=== PATIENT | female | born 1940 | race Caucasian/White ===

== ENCOUNTER → 2017-09-18 15:50 | Outpatient (CLI) | payer MEDICARE, SELFPAY ==
[2017-09-18 16:32] LABS: Creatinine, Serum 0.58 mg/dL (0.55-1.02); EST Glomerular Filtration Rate 108 mL/min (>60); Est Glom Filt Rate - Afr Amer 130 mL/min (>60)
== END ==
PROVIDERS: Family Provider Family Medicine; PCP Family Medicine; Visit Provider Family Medicine
DX: R10.9 Unspecified abdominal pain (principal)
CPT/HCPCS: 36415; 82565

== ENCOUNTER → 2017-09-21 16:53 | Outpatient (CLI) | payer MEDICARE, SELFPAY ==
--- NOTE | 2017-09-21 17:03 | CT_ITS ---
STUDY: CT ABDOMEN AND PELVIS WITH CONTRAST REASON FOR EXAM: Female, 76 years old. Bloating for several months RADIATION DOSAGE (If Supplied By Facility): CTDIvol = ( 13.57 ) mGy, DLP = ( 601.55 ) mGycm TECHNIQUE: Transaxial images were obtained from the dome of the diaphragm to the symphysis pubis with oral contrast. 100 ml of Isovue 300 contrast was administered. Sagittal and coronal images were reconstructed. Individualized dose optimization techniques were used for this CT. COMPARISON: None. FINDINGS: The visualized lung bases are unremarkable. The visualized portions of the heart are within normal limits. Normal liver. The gallbladder is contracted. Normal spleen. Normal pancreas. Normal bilateral adrenal glands. Normal right kidney. Normal left kidney. There is a small hiatal hernia. Normal small intestine. Normal colon. There is non-visualization of the appendix. Normal abdominal aorta. Normal inferior vena cava. Normal retroperitoneum. Normal urinary bladder. There is atrophy of the uterus. Normal abdominal wall. There are diffuse degenerative changes of the visualized lumbar spine. CT/Abdomen/Pelvis WITH Contrast IMPRESSION: No acute findings. Unremarkable small bowel. Some fecal retention in the colon. Electronically Signed: Jesus Chavez DO at 20:48 EST Tel , Service support ,
== END ==
PROVIDERS: Family Provider Family Medicine; PCP Family Medicine; Visit Provider Family Medicine
DX: R10.31 Right lower quadrant pain (principal); R10.32 Left lower quadrant pain; M54.40 Lumbago with sciatica, unspecified side
CPT/HCPCS: 74177; Q9967

== ENCOUNTER → 2018-03-02 08:29 | Outpatient (CLI) | payer MEDICARE, SELFPAY ==
--- NOTE | 2018-03-02 08:33 | BI_ITS ---
MAMMOGRAPHY - BILATERAL SCREENING 3-D SUMMER SYNTHESIS REASON FOR EXAM: Female, 77 years old. Bilateral Screening 3-D tomosynthesis PERTINENT HISTORY: Sister with breast cancer.. TECHNIQUE: 2-D mammograms and 3-D Summer synthesis of the breast (s) were performed. CAD was performed. COMPARISON: 2014 FINDINGS: The breast composition is heterogeneously dense that can obscure small breast masses. Scattered benign calcifications are seen. No dense spiculated masses or suspicious microcalcifications are identified. No architectural distortion is identified. There is no skin thickening or retraction. There has been no significant change since the prior study. BI/SCREENING MAMM (CAD), BILAT IMPRESSION: No mammographic signs of malignancy. Routine yearly mammograms recommended. ASSESSMENT CATEGORY: BIRADS Category 2: Benign. A letter regarding these results will be sent to the patient by the facility within 30 days. FOLLOW UP RECOMMENDATION: Yearly follow up mammogram recommended. (A) Approximately 10% of breast cancers are not detected by mammography. A normal mammogram should not delay biopsy of a clinically suspicious abnormality. Electronically Signed: Taras Herndon MD at 8:42 EDT , Service support ,
--- NOTE | 2018-03-02 08:36 | BD_ITS ---
STUDY: DUAL ENERGY X-RAY ABSORPTIOMETRY / DXA REASON FOR EXAM: Female, 77 years old. Postmenopausal screening TECHNIQUE: Bone Mineral Density (BMD) measurements of lumbar spine and bilateral hips were obtained. COMPARISON: 2013 FINDINGS: Lumbar Spine (L1-L4): g/cm2 (0.993) / T-score (-1.1) / Z-score (0.7) Findings are suggestive of osteopenia with a moderate fracture risk. Left Femur Total: g/cm2 (0.711) / T-score (-2.4) / Z-score (-0.4) Left Femoral Neck: g/cm2 (0.653) / T-score (-2.8) / Z-score (-0.7) Right Femur Total: g/cm2 (0.647) / T-score (-2.9) / Z-score (-1.0) Right Femoral Neck: g/cm2 (0.611) / T-score (-3.1) / Z-score (-1.0) The T-Scores on the most recent prior examination were: Lumbar Spine (L1-L4): There has been worsening of bone density since the previous examination. BD/Dexa Bone Density Study IMPRESSION: The patient is considered osteoporotic as outlined below according to World Chuck Organization (WHO) criteria with a high fracture risk. There has been worsening of bone density since the previous examination. Reference Information: The T-score is the number of standard deviations above or below the standard which is normal for young adults at their peak bone mineral density. The World Health Organization (WHO) interprets the T-scores as follows: Above -1 Normal bone density Between -1 and -2.5 Osteopenia Equal to / or below -2.5 Osteoporosis As a practical clinical guideline, osteopenia may be graded as follows: Mild -1 through -1.5 Moderate -1.6 through -2.0 Severe -2.1 through -2.4 The Z-score is the number of standard deviations above or below age-matched controls. A Z-score of less than -1.5 would be considered abnormal. References: 1. NIH Osteoporosis and Related Bone Diseases http://www.osteo.org 2. International Society for Clinical Densitometry http://www.iscd.org 3. National Osteoporosis Foundation http://www.nof.org Electronically Signed: Taras Herndon MD at 12:28 EDT , Service support ,
== END ==
PROVIDERS: Family Provider Family Medicine; PCP Family Medicine; Visit Provider Family Medicine
DX: Z12.31 Encounter for screening mammogram for malignant neoplasm of breast (principal); Z78.0 Asymptomatic menopausal state; Z13.820 Encounter for screening for osteoporosis
CPT/HCPCS: 77063; 77067; 77080

== ENCOUNTER → 2018-03-16 13:52 | Outpatient (CLI) | payer MEDICARE, SELFPAY ==
[2018-03-16 15:31] LABS: AST(SGOT) 21 U/L (15-37); Alanine Aminotransfer ALT/SGPT 23 U/L (13-56)
== END ==
PROVIDERS: Family Provider Family Medicine; PCP Family Medicine; Visit Provider Family Medicine
DX: Z79.899 Other long term (current) drug therapy (principal)
CPT/HCPCS: 36415; 84450; 84460

== ENCOUNTER → 2018-04-06 10:51 | Outpatient (CLI) | payer MEDICARE, SELFPAY | PROVIDERS: Family Provider Family Medicine; PCP Family Medicine; Visit Provider Orthopaedic Surgery | DX: M54.5 Low back pain (principal) | CPT/HCPCS: 72110 ==

== ENCOUNTER → 2018-04-21 15:30 | Outpatient (CLI) | payer MEDICARE, SELFPAY ==
[2018-04-21 18:10] LABS: Calcium,Total 9.1 mg/dL (8.5-10.1); Creatinine, Serum 0.61 mg/dL (0.55-1.02); EST Glomerular Filtration Rate 100 mL/min (>60); Est Glom Filt Rate - Afr Amer 121 mL/min (>60)
[2018-04-21 20:46] LABS: Vitamin D,25 Hydroxy 36.5 ng/mL (29.95-100.01)
== END ==
PROVIDERS: Family Provider Family Medicine; PCP Family Medicine; Visit Provider Family Medicine
DX: M81.0 Age-related osteoporosis without current pathological fracture (principal)
CPT/HCPCS: 36415; 82306; 82310; 82565

== ENCOUNTER → 2018-08-25 16:43 | Outpatient (CLI) | payer MEDICARE, SELFPAY ==
[2018-08-25 18:27] LABS: AST(SGOT) 44 U/L (15-37); Alanine Aminotransfer ALT/SGPT 56 U/L (13-56); Albumin, Serum 2.5 g/dL (3.2-5.0); Alkaline Phosphatase 484 U/L (45-117); Bilirubin, Direct 10.16 mg/dL (0.00-0.30); Globulin 4.4 g/dL (2.2-4.2); Protein, Total 6.9 g/dL (6.4-8.2)
--- OUTSIDE RECORDS SUMMARY | 2018-10-30 16:34 | XMS RPT_ITS ---
:1940 Author Organization OHIP Support Name Relationship Address Phone R Unavailable Unavailable Unavailable RANJANA, NISHANT/JEAN-PIERRE Unavailable [address] + [place] [address] RANJANA, ADILENE Unavailable [address] + [place] [address] R Unavailable Unavailable Unavailable RANJANA, NISHANT/JEAN-PIERRE Unavailable [address] + [place] [address] RANJANA, ADILENE Unavailable [address] + [place] [address] R Unavailable Unavailable Unavailable RANJANA, NISHANT/JEAN-PIERRE Unavailable [address] + [place] [address] RANJANA, ADILENE Unavailable [address] + [place] [address] R Unavailable Unavailable Unavailable RANJANA, NISHANT/JEAN-PIERRE Unavailable [address] + [place] [address] RANJANA, ADILENE Unavailable [address] + [place] [address] R Unavailable Unavailable Unavailable RANJANA, NISHANT/JEAN-PIERRE Unavailable [address] + [place] [address] RANJANA, ADILENE Unavailable [address] + [place] [address] R Unavailable Unavailable Unavailable RANJANA, NISHANT/JEAN-PIERRE Unavailable [address] + [place] [address] RANJANA, ADILENE Unavailable [address] + [place] [address] R Unavailable Unavailable Unavailable RANJANA, NISHANT/JEAN-PIERRE Unavailable [address] + [place] [address] RANJANA, ADILENE Unavailable [address] + [place] [address] R Unavailable Unavailable Unavailable RANJANA, NISHANT/JEAN-PIERRE Unavailable [address] + [place] [address] RANJANA, ADILENE Unavailable [address] + [place] [address] R Unavailable Unavailable Unavailable RANJANA, NISHANT/JEAN-PIERRE Unavailable [address] [phone] [place] [address] RANJANA, ADILENE Unavailable [address] [phone] [place] [address] R Unavailable Unavailable Unavailable RANJANA, NISHANT/JEAN-PIERRE Unavailable [address] [phone] [place] [address] RANJANA, ADILENE Unavailable [address] [phone] [place] [address] Care Team Providers Name Role Phone Jose Nugent Primary Care Unavailable Elda Lund Attending Unavailable Jose Nugent Attending Unavailable Jose Nugent Referring Unavailable Jovanna Jose Primary Care Unavailable Maria Luisa Castillo Attending Unavailable Jose Nugent Referring Unavailable Jovanna, Jose Primary Care Unavailable Jose Nugent Attending Unavailable Jose Nugent Referring Unavailable Jovanna, Jose Primary Care Unavailable Jose Nugent Attending Unavailable Jose Nugent Referring Unavailable Jovanna, Jose Primary Care Unavailable Jose Nugent Attending Unavailable Jovanna Jose Primary Care Unavailable Jose Nugent Attending Unavailable Jovanna, Jose Primary Care Unavailable Jose Nugent Attending Unavailable Jose Nugent Referring Unavailable Jovanna, Jose Primary Care Unavailable Maria Luisa Castillo Attending Unavailable Maria Luisa Castillo Referring Unavailable Jovanna Jose Primary Care Unavailable Jose Nugent Attending Unavailable Jovanna Jose Primary Care Unavailable Jose Nugent Referring Unavailable JOYCELYN CONLEY Admitting Unavailable JOYCELYN CONLEY Attending Unavailable BALWINDER PATTERSON Referring Unavailable SANDRA ANN Consulting Unavailable JOYCELYN CONLEY Admitting Unavailable DAPHNEY PATTERSON Referring Unavailable Jose Nugent DO Primary Care Unavailable ELIZABETH FOSTER Consulting Unavailable JOE FELICIANO Attending Unavailable Caleb ANN Consulting Unavailable AISHA COPELAND Consulting Unavailable ANTONIO ARCHER Consulting Unavailable Mel SOUSA Consulting Unavailable DUMLIZABETH IIITABBY Consulting Unavailable ELDA SANTANA Consulting Unavailable GEO GUARDADO Consulting Unavailable PROBLEMS PROBLEMS DATE TYPE CONDITION / CODE ATTENDING STATUS SOURCE 08/28/2018 Active Unknown / JAR[place], Active [place] UNK(Unknown) [facility] Repository 08/29/2018 Admitting Unknown / JOE FELICIANO Active [place] [facility] UNK(Unknown) [facility] Repository 08/25/2018 Unknown R17 - Unspecified [place], Active [place] jaundice / [facility] R17(ICD-10) Hospital Repository 04/21/2018 Unknown M81.0 - [place], Active [place] Age-related [facility] osteoporosis Hospital without current Repository pathological fracture / M81.0(ICD-10) 04/06/2018 Unknown M54.5 - Low back Maria Luisa Castillo Active [place] pain / Community M54.5(ICD-10) Hospital Repository 03/02/2018 Unknown Z12.31 - Encounter Jovanna, Active [place] for screening [facility] mammogram for Hospital malignant neoplasm Repository of breast / Z12.31(ICD-10) 03/02/2018 Unknown Z78.0 - [place], Active [place] Asymptomatic [facility] menopausal state / Hospital Z78.0(ICD-10) Repository 10/30/2017 Unknown R10.31 - Right [place], Active [place] lower quadrant [facility] pain / Hospital R10.31(ICD-10) Repository PROCEDURES PROCEDURES No Procedure Records FoundRESULTS RESULTS PROGRESS Observed: 09/04/2018 Status: COMPLETED Source: [place] 12:[address] [facility] OTHER CAMPUS REPOSITORY HNO ID: [id number] Author: Joe Feliciano MD Service: General Internal Medicine Author Type: Physician Type: Progress Notes Filed: 09/05/2018 12:10 AM Note Text: INPATIENT PROGRESS NOTE SERVICE DATE: 09/04/2018 SERVICE TIME: 10:00am PRIMARY SERVICE: GIM Subjective CHIEF COMPLAINT: fu on obstructive Jaundice INTERVAL HPI: Patient in bed c/o pain in the drain site wants it out --> I explained to her why she should not. Current hospital medications: senna-docusate 8.6-50 mg 2 tablet (SENNA-S) 2 tablet ORAL BID polyethylene glycol 3350 17 g packet (MIRALAX, GLYCOLAX) 17 g ORAL DAILY bisacodyl 10 mg suppository (DULCOLAX) 10 mg RECTAL DAILY PRN ascorbic acid (vitamin C) 500 mg tab(s) (VITAMIN C) 500 mg ORAL DAILY diphenhydrAMINE 25 mg injection (BENADRYL) 25 mg INTRAVENOUS q 6 H PRN NaCl 0.9% iv infusion 75 mL/hr INTRAVENOUS CONTINUOUS heparin 5,000 Units injection 5,000 Units SUBCUTANEOUS q 12 H oxyCODONE IR 5 mg tab(s) (ROXICODONE) 5 mg ORAL q 6 H PRN metoclopramide HCl 10 mg injection (REGLAN) 10 mg INTRAVENOUS q 8 H PRN docusate sodium 100 mg cap(s) (COLACE) 100 mg ORAL BID PRN lisinopril 2.5 mg tab(s) 2.5 mg ORAL DAILY melatonin 3 mg tab(s) 3 mg ORAL HS PRN calcium-cholecalciferol (D3) 1 tablet tab(s) (OSCAL+D 250) 1 tablet ORAL BID cyanocobalamin 1,000 mcg tab(s) (VITAMIN B-12) 1,000 mcg ORAL DAILY latanoprost 0.005 % 1 Drop (XALATAN) 1 Drop BOTH EYES AT BEDTIME lactobacillus rhamnosus (CULTURELLE) capsule 1 capsule ORAL BID hydrOXYzine HCl 25 mg tab(s) (ATARAX) 25 mg ORAL q 8 H PRN Objective PHYSICAL EXAM: BP 145/90 Pulse 84 Temp (Src) 98.2 (Oral) Resp 16 Ht 5' 2 (1.58m) Wt 136 lb 11 oz (62.0kg) SpO2 96% BMI 24.99 kg/(m2). GENERAL: Alert, no distress, cooperative SKIN: Skin color, texture, turgor normal. No rashes or lesions. NECK: No jugulovenous distention, No carotid bruits, Supple LUNGS: Clear to auscultation, CARDIAC: RR, Normal S1 and S2, no murmurs, no gallops ABDOMEN: soft, non-tender, BS normal, No masses or organomegaly EXTREMITIES: no E/C/C NEURO: Alert, O x 3, no focal deficet PULSES: Present The remainder of the physical exam is noncontributory. DATA: Diagnostic tests reviewed for today's visit: Most recent labs and imaging results. Assessment/Plan Principal Problem: Obstructive jaundice POA: Unknown Assessment AND Plan: 2 # 2, PCD/ pain control Active Problems: Cholangiocarcinoma (HCC) POA: Yes Assessment AND Plan: with possible lung / bone mets --> bronchoscopy for possible Dx Resolved Problems: * No resolved hospital problems. * Medication and Non-Pharmacologic VTE Prophylaxis/Anticoagulants Anticoagulant AND Antiplatelet Medications Start Dose Route Frequency Ordered Stop 08/28/18 2100 heparin 5,000 Units injection (Medical At Risk ) 5,000 Units SUBCUTANEOUS EVERY 12 HOURS 08/28/18 1512 -- 08/28/18 1515 vte non-pharmacologic prophylaxis - none indicated (fl,oh) VTE Prophylaxis: VTE prophylaxis appropriate I discussed the plan of care with the patient AND/or family and answered all questions. Disposition: Home SIGNATURE: Joe Feliciano MD PATIENT NAME: Yane Chilel DATE: September 04, 2018 TIME: 12:27 PM PAGER: [phone] ? From 7am - 7pm, please call [employer] ?After 7pm, please call cross cover pager #[phone] ? NURSING PROG Observed: 09/03/2018 Status: COMPLETED Source: [place] 10:16 PM CLINIC OTHER CAMPUS REPOSITORY HNO ID: [id number] Author: Kiki HensonRn) LIUDMILA Nowak Service: Nursing Author Type: Registered Nurse Type: Nursing Progress Note Filed: 09/03/2018 10:17 PM Note Text: Nursing Progress Note Patient Name: Yane Chilel Patient Location: [place] [address] [address]* RN still has not received a call back from [facility]. Last paged at [phone] (09/03/18). This note was completed by: Kiki Nowak RN NURSING PROG Observed: 09/03/2018 Status: COMPLETED Source: [place] 9:45 PM CLINIC OTHER [place] REPOSITORY HNO ID: [id number] Author: Kiki Tobias) LIUDMILA Nowak Service: Nursing Author Type: Registered Nurse Type: Nursing Progress Note Filed: 09/03/2018 10:16 PM Note Text: Nursing Progress Note Patient Name: Yane Chilel Patient Location: [id number]/[id number]* Still no call back from [facility] about the patient no longer having a [employer]ak. RN paged [facility] again. No call back at this time. This note was completed by: Kiki Nowak RN CASE MANAGEM Observed: 09/03/2018 Status: COMPLETED Source: [place] 2:45 PM CLINIC OTHER [place] REPOSITORY HNO ID: [id number] Author: Analisa Tobias) LIUDMILA Mas Service: Care Management Author Type: Registered Nurse Type: Care Mgt Progress Note Filed: 09/03/2018 2:48 PM Note Text: CARE MANAGEMENT PROGRESS NOTE SERVICE DATE: 09/03/2018 SERVICE TIME: 2:45 PM LOS: 6 days Needs Prior to Discharge: To Be Determined Chart reviewed. ID, Pulm, general surg, hemoc all following. If doesn't have bronch here-may have Bronch in [place] as outpatient. DC plan is home once medically stable. SIGNATURE: Analisa Mas RN PATIENT NAME: Yane Chilel DATE: September 03, 2018 TIME: 2:45 PM PAGER/CONTACT #: [phone] PROGRESS Observed: 09/03/2018 Status: COMPLETED Source: [place] 1:[address] [facility] OTHER CAMPUS REPOSITORY HNO ID: [id number] Author: L[facility] Service: Hospital Medicine Author Type: Physician Type: Progress Notes Filed: 09/03/2018 1:28 PM Note Text: INPATIENT PROGRESS NOTE CHIEF COMPLAINT: jaundice INTERVAL HPI: Pt feels a little better after drain placement yest. No fevers/chills. Denies CP/SOB/cough PHYSICAL EXAM: BP 142/87 Pulse 77 Temp (Src) 98.4 (Oral) Resp 18 Ht 5' 2 (1.58m) Wt 136 lb 11 oz (62.0kg) SpO2 96% BMI 24.99 kg/(m2). GENERAL: Alert, no distress, cooperative LUNGS: Lungs clear to auscultation, Good diaphragmatic excursion CARDIAC: Normal S1 and S2; no rubs, murmurs, or gallops ABDOMEN: Abdomen soft, diffuse tenderness, BS normal, No masses or organomegaly, [address], R one with serosanguinous drainage and L with yellow drainage EXTREMITIES:no edema DATA: Diagnostic tests reviewed for today's visit: CBC, Coags, BMP, Mg, Phos Recent Labs 09/03/18 0812 09/01/18 0041 WBC 5.68 5.79 HB 11.8 12.0 HCT 35.1 34.4 PLT 588* 561* NA 132* 136 K 3.8 3.8 CHLOR 108* 102 CO2 19* 25 BUN 9 10 CREAT 0.39* 0.44* GLUC 112* 105* CA 7.5* 8.2* Assessment/Plan # obstructive jaundice 2/2 cholangiocarcinoma- GS and oncology followig.per GS tumor not amenable to resection.had percutaneous drains placed yest by IR. ? Chemo as out pt # pulm nodules- possible mets vs infectious etio. . Too small for BX.Pt denies any resp symptoms. Seen by ID today. W/u pending. Consulted pulm for possible bronch #constipation- c/w laxatives # HTN stable SIGNATURE: Lobo Heart MD PATIENT NAME: Yane Chilel DATE: September 03, 2018 TIME: 1:25 PM PAGER: NURSING PROG Observed: 09/03/2018 Status: COMPLETED Source: [place] 12:30 PM CLINIC OTHER CAMPUS REPOSITORY HNO ID: [id number] Author: Rui (Rn) LIUDMILA Sosa Service: Nursing Author Type: Registered Nurse Type: Nursing Progress Note Filed: 09/03/2018 12:34 PM Note Text: Spoke to infection control and MD Heart about whether patient needs to be in isolation since a TB blood sample was sent to lab. Told that patient doesn't need isolation since MD Sousa document that he doesn't believe she has TB. Observed: 09/03/2018 Status: F Source: [facility] CRYPTOCOCCAL ANTIGEN 11:46 AM HEALTH SYSTEM REPOSITORY Test performed at [facility] Negative Performed By: #### CRY #### [facility] [address] [place] [address] CONSULT Observed: 09/03/2018 Status: COMPLETED Source: [place] 11:42 AM CLINIC OTHER CAMPUS REPOSITORY HNO ID: [id number] Author: Vee Finnegan Service: Pulmonary Disease Author Type: Nurse Practitioner Type: Consults Filed: 09/03/2018 2:07 PM Note Text: Attestation signed by Geo Guardado at 09/03/2018 8:33 PM [facility] STAFF PHYSICIAN NOTE OF PERSONAL INVOLVEMENT IN CARE I have reviewed the consult note obtained and documented by the nurse practitioner and I personally participated in the maldonado components. I have personally examined the patient, reviewed all pertinent labs and imaging, as well as discussed the case and management of the patient's care with the nurse practitioner . The following comments revise or confirm relevant maldonado components of the note. Patient with cholangiocarcinoma and multiple lung nodules, seen by oncology who felt that these nodules are infectious in origin and would like ID input before chemotherapy, ID recommended Pulm consult for Bronch, I reviewed the images and discussed the plan with the primary team PHYSICAL EXAM PERFORMED: BP 138/78 Pulse 84 Temp 36.7 ?C (98.1 ?F) (Oral) Resp 18 Ht 157.5 cm (5' 2) Wt 62 kg (136 lb 11 oz) SpO2 100% BMI 25.00 kg/m? General: AAOx3, no distress, icteric Resp: clear breath sounds bilaterally, no wheezing, rhonchi, or crackles noted CV: RRR, no MGR noted Abd: soft, NT, ND, +BS, no guarding noted Ext: no pedal edema noted, warm to touch, no cyanosis, non- tender, appropriate cap Recent imaging reviewed independently CT CHEST 08/29/18 Multiple pulmonary nodules, solid and cavitary. Severe intrahepatic biliary duct dilatation. ? IMPRESSION: Multiple lung nodules that could be infectious vs metastatic most of these nodules are small and peripheral and can not be biopsied through bronchoscopy Obstructive jaundice from chloangiocarcinoma Possible bone mets PLAN: As mentioned above these lung nodules can not be biopsied through bronchoscopy but bronchoscopy might be beneficial for bronchoalveolar lavage to assess for potential infectious process before chemotherapy but with very limited yield Discussed with patient and would like this to be done as OP in [place] Please let us know if patient changed her mind and will be available to help [facility] SIGNATURE: Geo Guardado MD PATIENT NAME: Yane Chilel DATE: September 03, 2018 TIME: 8:17 PM Pulmonary Consult Note [facility] SERVICE DATE: 09/03/2018 SERVICE TIME: 11:42 AM REASON FOR ADMISSION: ITCHINESS AND YELLOW DISCOLORATION OF SKIN REASON FOR CONSULT: PULMONARY NODULES Subjective HISTORY OF PRESENT ILLNESS: This is a very pleasant 77 year old female with past medical history significant for HTN, DDD with low back pain chronic, who comes to [facility] 08/28/18 with complaints of itchiness and yellow skin. A CT scan of chest Was done and a MRI of AND was done on 08/31/18 We have been consulted for Pulmonary nodules. Patient states that prior to presented to hospital about a week earlier felt like she had the flu/cold symptoms all of which have resolved. She denies any recent weight loss, denies recent sick contacts or recent travel. Denies CP , F/C/NS, N/V/D. Denies Hemoptysis. She has no pulmonary complaints at this time and is on room air.The CAT scan of the chest on 08/29/2018, showed multiple predominantly solid, but also cavitary nodules scattered throughout both lungs. The majority of the nodules measure 1 cm or less in size. There was severe intrahepatic biliary ductal dilation. There was thick wall esophagogastric junction. She had an ERCP done on 08/30/2018, which showed a filling defect in the distal common bile duct with areas of stricture involving the biliary hilum and proximal common bile duct. There was marked intrahepatic biliary dilation. She was noted to have an intrabiliary stent. She then had an MRI of the abdomen with and without contrast on 08/31/2018. This showed strictures involving the central intrahepatic bile ducts and proximal common hepatic duct consistent with patient's diagnosis of cholangiocarcinoma. REVIEW OF SYSTEMS: GENERAL: Negative for fevers, malaise, chills, sweats, lethargy, change in appetite or weight HEENT: Negative for headaches, hearing/vision changes, nasal bleeding, congestion or rhinorrhea NECK: Negative for lumps, goiter, pain and significant neck swelling NEURO: No history of headaches, syncope, paralysis, seizures or tremors RESPIRATORY: Negative for hemoptysis, wheezing, COPD, dyspnea or shortness of breath + non-productive cough CARDIOVASCULAR: Negative for chest pain, leg swelling, hypertension, CHF or palpitations GI: No nausea, vomiting, diarrhea, heartburn or reflux symptoms : No history of dysuria, frequency or incontinence, No difficulty urinating, nocturia > 1 time per night or hematuria SKIN: Negative for lesions, rash, and itching MUSCULOSKELETAL: Negative for joint pain or swelling, + Low back pain + right should pain Objective PAST MEDICAL HISTORY Diagnosis Date - Constipation - functional - Diverticulosis of colon (without mention of hemorrhage) PAST SURGICAL HISTORY Procedure Laterality Date - COLONOSCOP W/ OR W/O [facility] SPEC 01/25/14 Colonoscopy - DESTRUC CONJUNC LESN 03/29/10 Performed by ALEC JACOBSON at [facility] [place] - EXCIS CONJUNC LESN+ADJ SCLERA 03/29/10 Performed by ALEC JACOBSON at [facility] - PAST SURGICAL HISTORY OF 11/2010 3 right shoulder - PAST SURGICAL HISTORY OF 2010 bilateral TKR - PAST SURGICAL HISTORY OF 2010 left wrist ORIF - PAST SURGICAL HISTORY OF 2009 cataract surgery bilateral - PAST SURGICAL HISTORY OF remote tubal ligation - SIGMOIDOSCOPY FLEX DIAG 04/24/2011 Sigmoidoscopy, flexible FAMILY HISTORY Problem Relation Age of Onset - Colon Cancer Mother - Colon Cancer Father Social History Substance Use Topics - Smoking status: Former Smoker Quit date: 03/20/2002 - Smokeless tobacco: Never Used - Alcohol use No Lives at home with family. Former smoker -smoked 1/2- PPD for 40 years Quit 18 years ago. Denies ETOH use. Denies Illicit drug use. ALLERGIES No Known Allergies Prescriptions Prior to Admission: magnesium hydroxide (MILK OF MAGNESIA ORAL) Take by mouth twice daily as needed. Disp: Rfl: melatonin 10 mg tab Take 1 tablet by mouth daily at bedtime. Disp: Rfl: oxyCODONE-acetaminophen (PERCOCET) 5-325 mg tablet Take 1 tablet by mouth every 6 hours as needed. Disp: Rfl: LISINOPRIL ORAL Take 2.5 mg by mouth once daily. Disp: Rfl: HAWTHORN ORAL Take by mouth. Disp: Rfl: CALCIUM CARB/VIT D3/MINERALS (CALCIUM CARBONATE-VIT D3-MIN) 1,200 mgcalcium -1,000 unit ORAL Chew Take by mouth. Disp: Rfl: 0 GINKOBA ORAL one tab BID Disp: Rfl: MULTI-VITAMIN ORAL one tab daily Disp: Rfl: VITAMIN C ORAL one tab daily Disp: Rfl: B-12 DOTS ORAL one daily Disp: Rfl: OTHER MEDICATIONS: Current Facility-Administered Medications: senna-docusate 8.6-50 mg 2 tablet (SENNA-S) 2 tablet ORAL BID Maryjo Rubi (Allison) ALLISON Parker 2 tablet at 09/03/18 0751 polyethylene glycol 3350 17 g packet (MIRALAX, GLYCOLAX) 17 g ORAL DAILY Maryjo Rubi (Allison) ALLISON Parker 17 g at 09/03/18 0752 bisacodyl 10 mg suppository (DULCOLAX) 10 mg RECTAL DAILY PRN Lobo Valluri 10 mg at 09/01/18 0910 ascorbic acid (vitamin C) 500 mg tab(s) (VITAMIN C) 500 mg ORAL DAILY Alondra Barber 500 mg at 09/03/18 0751 diphenhydrAMINE 25 mg injection (BENADRYL) 25 mg INTRAVENOUS q 6 H PRN Peter Mezaungnoah 25 mg at 09/01/18 0414 NaCl 0.9% iv infusion 75 mL/hr INTRAVENOUS CONTINUOUS Ailn (Res) [place] Last Rate: 75 mL/hr at 09/03/18 0900 75 mL/hr at 09/03/18 0900 heparin 5,000 Units injection 5,000 Units SUBCUTANEOUS q 12 H Wilfredo Felton 5,000 Units at 09/03/18 0751 oxyCODONE IR 5 mg tab(s) (ROXICODONE) 5 mg ORAL q 6 H PRN Wilfredo K Felton 5 mg at 09/02/182044 metoclopramide HCl 10 mg injection (REGLAN) 10 mg INTRAVENOUS q 8 H PRN Wilfredo K Felton 10 mg at 09/02/18 0740 docusate sodium 100 mg cap(s) (COLACE) 100 mg ORAL BID PRN Wilfredo K Felton 100 mg at 09/03/18 075 lisinopril 2.5 mg tab(s) 2.5 mg ORAL DAILY Wilfredo K Felton 2.5 mg at 09/03/18 0751 melatonin 3 mg tab(s) 3 mg ORAL HS PRN Wilfredo K Felton calcium-cholecalciferol (D3) 1 tablet tab(s) (OSCAL+D 250) 1 tablet ORAL BID Wilfredo K Felton 1 tablet at 09/03/18 075 cyanocobalamin 1,000 mcg tab(s) (VITAMIN B-12) 1,000 mcg ORAL DAILY Wilfredo K Felton 1,000 mcg at 09/03/18 075 latanoprost 0.005 % 1 Drop (XALATAN) 1 Drop BOTH EYES AT BEDTIME Wilfredo K Felton 1 Drop at 09/02/182044 lactobacillus rhamnosus (CULTURELLE) capsule 1 capsule ORAL BID Wilfredo K Felton 1 capsule at 09/03/18 075 hydrOXYzine HCl 25 mg tab(s) (ATARAX) 25 mg ORAL q 8 H PRN Wilfredo K Felton 25 mg at 09/01/18 0033 Intake/Output Summary (Last 24 hours) at 09/03/18 1407 Last data filed at 09/03/18 1200 Gross per 24 hour Intake 860 ml Output 3070 ml Net -2210 ml LABS/MICRO/RADIOLOGY FILMS URINE CULTURE - negative RIGHT BILIARY DUCT CULTURE - No growth at 1 day COMMON BILE DUCT BRUSH - CYTOLOGY - COMMON BILE DUCT BRUSH- POSITIVE FOR MALIGNANT CELLS, ADENOCARCINOMA PROCALCITONIN 0.13 CA19-9 - 116.8 CEA 5.5 BMP: Glucose (mg/dL) Date Value 09/03/2018 112 Potassium (mEq/L) Date Value 09/03/2018 3.8 Sodium (mEq/L) Date Value 09/03/2018 132 Chloride (mEq/L) Date Value 09/03/2018 108 CO2 (mEq/L) Date Value 09/03/2018 19 Creatinine (mg/dL) Date Value 09/03/2018 0.39 BUN (mg/dL) Date Value 09/03/2018 9 Anion Gap (no units) Date Value 09/03/2018 9 Calcium (mg/dL) Date Value 09/03/2018 7.5 CBC: HGB (g/dL) Date Value 09/03/2018 11.8 09/01/2018 12.0 08/31/2018 11.5 Hematocrit (%) Date Value 09/03/2018 35.1 09/01/2018 34.4 08/31/2018 34.0 WBC (thou/cmm) Date Value 09/03/2018 5.68 09/01/2018 5.79 08/31/[address] CHEST 08/29/18 Multiple pulmonary nodules, solid and cavitary. ? Sclerotic lesion T2 vertebral body with mixed osteolytic/osteosclerotic lesions T3 ?and T4 vertebra with mild/moderate compression deformity of the L1 vertebral body. ? Thick-walled esophagogastric junction. ? Severe intrahepatic biliary duct dilatation. ? Hypoattenuation central liver possibly related to a thick-walled gallbladder. MRI ABDOMEN 08/31/18 Strictures involving the central intrahepatic bile ducts and proximal common hepatic duct consistent with patient's diagnosis of cholangiocarcinoma. ? The gallbladder demonstrates thickened wall in the neck of the gallbladder is stuck into the hepatic hilum and involved with suspected mass. ? Multiple nodules at the lung bases as seen on recent CT scan. ?Infectious etiology ?is the top consideration. ?Metastatic neoplasm is considered unlikely. IR BILIARY CATH PLACEMENT 09/02/18 IMPRESSION: ? 1. ?Technically successful ultrasound and fluoroscopic-guided placement of an 8 Sw[place] APD catheter into an isolated dilated right biliary duct. ?Attempts to cross the level of obstruction this duct were unsuccessful. ?Repeat attempt can be ?made following decompression which may result in decreased edema at the site of the obstruction. ? 2. ?Technically successful ultrasound and fluoroscopic-guided placement of an internal/external iliac drainage catheter via a dilated left hepatic duct. ? 3. ?There is a lesion at the confluence of the biliary ducts and common bile duct consistent with the history of cholangiocarcinoma. ?This results in 2 isolated dilated right hepatic ducts. ?One is drained via the direct placement of a drainage catheter. ?A second is drained by the previously placed internal biliary stent. ?There is a third right hepatic duct which is not totally isolated and communicates with the hilum and the left biliary system. ?This is drained via the left internal/external biliary ? NO ECHOCARDIOGRAM, PFT OR PSG IN [facility] OR CARE EVERYWHERE VITALS: BP 142/87 Pulse 77 Temp 36.9 ?C (98.4 ?F) (Oral) Resp 18 Ht 157.5 cm (5' 2) Wt 62 kg (136 lb 11 oz) SpO2 96% BMI 25.00 kg/m? PHYSICAL EXAM: VITALS: as above, reviewed. On room air GENERAL: patient is jaundice in appearance - AAOx3, pleasant, resting in bed, NAD NEURO: CN 2-12 intact, speech clear HEENT: NCAT, EOMI, no lymphadenopathy RESPIRATORY: CTAB, even/unlabored at rest, no accessory muscle use, no pursed lip breathing, no wheezing, no conversational dysnea, on RA CARDIOVASCULAR: Normal S1S2, RRR, no m/r/g. No edema. GI:Soft, nondistended, nontender, bowel sounds present x4 EXTREMITIES: no clubbing or cyanosis, MAEx4 SKIN: warm, dry, intact, no rash ASSESSMENT AND PLAN: 1) Multiple Bilateral Pulmonary Nodules - mostly solid, but some cavitary, up to 1 cm - etiology infectious vs metastatic - ID is following and monitoring off antibiotics. Recommend bronchoscopy with BAL for diagnosis. I discussed with the patient the procedure of flexible bronchoscopy. I reviewed the risks, benefits and alternatives. Small risks including pneumothorax, bleeding or respiratory distress were discussed. The purpose of laboratory analysis and appropriate tests was discussed with patient. The patient agrees to proceed but would like to have this done at [place] if at all possible as she is planning on going home and starting other treatment at [place] as well.. If the patient is not ready for D/C this weekend it could be scheduled for early next week here. It could also be done as an outpatient if patient is ready for discharge beforehand either here at [facility] or awaiting word from [place] [facility] if it could be done there as OP. 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 Heme/onc is following, general surgery is following. Tumor is not amenable to surgical resection. Plans for OP chemotherapy in [place]. Completed 5 days of empiric Zosyn. 3) Osteolytic/Osteosclerotic Lesions (T2, T3, T4, L1) - concerning for metastases - needs OP PET CT 4) Multiple Medical Problems- per primary team 5) Full Code 6) Attending will review SIGNATURE: Vee Finnegan APRN.CNP PATIENT NAME: Yane Chilel DATE: September 03, 2018 TIME: 11:42 AM PAGER/CONTACT #: [phone] CONSULT Observed: 09/03/2018 Status: COMPLETED Source: [facility] 11:12 AM CLINIC OTHER CAMPUS REPOSITORY HNO ID: [id number] Author: Og Sousa Service: Infectious Disease Author Type: Physician Type: Consults Filed: 09/03/2018 11:14 AM Note Text: 11:12 AM Consult dictated #[id number] Check labs. Consult pulmonary for a bronchoscopy. DC zosyn. I strongly suspect the lung nodules are mets. MDRD GFR Collected: 09/03/2018 Status: F Source: [facility] 8:12 AM HEALTH SYSTEM REPOSITORY TYPE CODE TESTS RESULT OUT OF RANGE REFERENCE UNITS LAB GFRFN(LOINC >60mL/min/1.73m ) 2 eGFR >60 Result Comment: If the patient is , multiply the result by 1.210. Performed By: #### GFR #### [place] [address] COMPREHENSIVE PANEL Collected: 09/03/2018 Status: F Source: [facility] 8:12 AM HEALTH SYSTEM REPOSITORY TYPE CODE TESTS RESULT OUT OF REFERENCE UNITS RANGE LAB NA(LOINC) 136-145 mEq/L Low Sodium Blood 132 LAB K(LOINC) 3.5-5.1 mEq/L Potassium Blood 3.8 LAB CL(LOINC) 98-107 mEq/L Chloride High Blood 108 LAB CO2(LOINC) 21-32 mEq/L Low CO2 Blood 19 LAB GLU(LOINC) 70-99 mg/dL Glucose High Blood 112 LAB BUN(LOINC) 7-18 mg/dL BUN Blood 9 LAB CREA(LOINC 0.51-0.95 mg/dL ) Low Creatinine Blood 0.39 LAB CA(LOINC) 8.5-10.1 mg/dL Low Calcium Blood 7.5 LAB ALB(LOINC) 3.4-5.0 g/dL Low Albumin Blood 2.0 LAB TP(LOINC) 6.4-8.2 g/dL Total Protein 6.5 LAB AST(LOINC) 9-37 U/L AST-SGOT High Blood 93 LAB ALT(LOINC) 12-78 U/L ALT-SGPT Blood 64 LAB ALKP(LOINC 46-116 U/L ) Alk High Phosphatase 375 LAB BILIT(LOIN 0.2-1.0 mg/dL C) Total High Bilirubin 10.4 LAB ANGAP(LOIN 8-16 C) Anion Gap 9 Performed By: #### P14 #### [place] [address] HEMOGRAM/DIFF Collected: 09/03/2018 Status: F Source: [facility] 8:12 AM HEALTH SYSTEM REPOSITORY TYPE CODE TESTS RESULT OUT OF REFERENCE UNITS RANGE LAB WBC(LOINC) 3.98-10.04 thou/cmm WBC 5.68 LAB RBC(LOINC) 3.93-5.22 mil/cmm Low RBC 3.73 LAB HGB(LOINC) 11.2-15.7 g/dL Hgb 11.8 LAB HCT(LOINC) 34.1-44.9 % Hct 35.1 LAB MCV(LOINC) 79.4-94.8 fl MCV 94.1 LAB MCH(LOINC) 25.6-32.2 pg MCH 31.6 LAB MCHC(LOINC 31.6-34.8 % ) MCHC 33.6 LAB RDW(LOINC) 11.7-14.4 % RDW High 17.9 LAB RDWSD(LOIN 36.4-46.3 fl C) RDW SD High 60.4 LAB PLT(LOINC) 182-369 thou/cmm Platelet High 588 LAB MPV(LOINC) 9.4-12.3 fl MPV 9.7 LAB SEG(LOINC) % Seg Neutrophil 75.8 LAB IGRE(LOINC % ) Immature Grans 1.10 LAB LYMPH(LOIN % C) Lymphocyte 10.9 LAB MNO(LOINC) % Monocyte 10.6 LAB EOSIN(LOIN % C) Eosinophil 0.7 LAB BASO(LOINC % ) Basophil 0.9 LAB SEGN(LOINC 1.56-6.13 thou/cmm ) Abs. Neut (ANC) 4.31 LAB IGAB(LOINC 0.00-0.05 thou/cmm ) Abs High Immature Grans 0.06 LAB LYMN(LOINC 1.18-3.74 thou/cmm ) Low Abs. Lymph 0.62 LAB MONON(LOIN 0.27-0.70 thou/cmm C) Abs. Luna 0.60 LAB EOSN(LOINC 0.00-0.31 thou/cmm ) Abs. Eosin 0.04 LAB BASON(LOIN 0.01-0.08 thou/cmm C) Abs. Baso 0.05 Performed By: #### CBCD1 #### [facility] [address] [place] [id number] HEPATIC PANEL Collected: 09/03/2018 Status: F Source: [facility] 7:16 AM HEALTH SYSTEM REPOSITORY TYPE CODE TESTS RESULT OUT OF REFERENCE UNITS RANGE LAB ALB(LOINC) 3.4-5.0 g/dL Low Albumin Blood 2.3 LAB ALT(LOINC) 12-78 U/L ALT-SGPT Blood 70 LAB ALKP(LOINC 46-116 U/L ) Alk High Phosphatase 406 LAB TP(LOINC) 6.4-8.2 g/dL Total Protein 6.7 LAB AST(LOINC) 9-37 U/L AST-SGOT High Blood 85 LAB BILIT(LOIN 0.2-1.0 mg/dL C) Total High Bilirubin 10.7 LAB DBIL(LOINC 0.00-0.20 mg/dL ) Direct High Bilirubin 9.09 Performed By: #### HEPAP #### [facility] [address] [place] [id number] PROGRESS Observed: 09/03/2018 Status: COMPLETED Source: [facility] 6:26 AM CLINIC OTHER CAMPUS REPOSITORY HNO ID: [id number] Author: Shahla Rob Service: General Surgery Author Type: Resident Type: Progress Notes Filed: 09/03/2018 6:51 AM Note Text: Attestation signed by Caleb Ann at 09/03/2018 5:05 PM I saw and evaluated the patient. Discussed with the resident and agree with resident's findings and plan as documented in the resident's note. Pt itching is better, although T bili is still 10 A/P cholangiocarcinoma- likely not resectable Cont PTC drains OK for discharge from my point of view with drains Caleb Ann MD Elective General Surgery Progress Note SERVICE DATE: 09/03/2018 Elective General Surgery Service Pager: For questions or concerns Mon-Fri 6a-5p please page [phone]. After 5pm and on Weekends and Holidays, please page [phone] if in ICU or [phone] if on RNF. SUBJECTIVE: No acute events overnight. Reports pain well controlled. Denies nausea/emesis. +BM overnight. Reports pruritus much improved. Tolerating diet DIET REGULAR OBJECTIVE: Vitals: Temp (24hrs), Av.9 ?C (98.4 ?F), Min:36.3 ?C (97.3 ?F), Max:37.5 ?C (99.5 ?F) BP 128/77 Pulse 75 Temp 36.9 ?C (98.4 ?F) (Oral) Resp 18 Ht 157.5 cm (5' 2) Wt 62 kg (136 lb 11 oz) SpO2 98% BMI 25.00 kg/m? O2 Therapy: Room Air IANDO: Date 09/02/18 07 - 09/03/18 0659 09/03/18 0700 - 09/04/18 0659 Shift 0380-2626 4136-5014 9588-4921 24 Hour Total 1495-5143 2479-5012 5487-2364 24 Hour Total I N T A K E PO 360 360 PO 360 360 Irrigants 20 20 Irrigant/Flush Amount In (Drain/Tube 09/02/18 1529 Biliary Right Anterior;Upper Quadrant Abdomen Drain #1) 10 10 Irrigant/Flush Amount In (Drain/Tube 09/02/18 1540 Biliary Midline Anterior Abdomen Drain #2) 10 10 Shift Total 380 380 O U T P U T Urine Urine Not Saved. 1 x 1 x 2 x Tubes 3995 675 1204 Drain/Tube Output (Drain/Tube 09/02/18 1540 Biliary Midline Anterior Abdomen Drain #2) 3274 379 3133 # of BMs Number of BMs 1 x 1 x Shift Total 3528 618 4570 Weight (kg) 62 62 62 62 62 62 62 62 MEDICATIONS Current Facility-Administered Medications: senna-docusate 8.6-50 mg 2 tablet (SENNA-S) 2 tablet ORAL BID polyethylene glycol 3350 17 g packet (MIRALAX, GLYCOLAX) 17 g ORAL DAILY bisacodyl 10 mg suppository (DULCOLAX) 10 mg RECTAL DAILY PRN ascorbic acid (vitamin C) 500 mg tab(s) (VITAMIN C) 500 mg ORAL DAILY diphenhydrAMINE 25 mg injection (BENADRYL) 25 mg INTRAVENOUS q 6 H PRN NaCl 0.9% iv infusion 75 mL/hr INTRAVENOUS CONTINUOUS heparin 5,000 Units injection 5,000 Units SUBCUTANEOUS q 12 H oxyCODONE IR 5 mg tab(s) (ROXICODONE) 5 mg ORAL q 6 H PRN metoclopramide HCl 10 mg injection (REGLAN) 10 mg INTRAVENOUS q 8 H PRN docusate sodium 100 mg cap(s) (COLACE) 100 mg ORAL BID PRN lisinopril 2.5 mg tab(s) 2.5 mg ORAL DAILY melatonin 3 mg tab(s) 3 mg ORAL HS PRN calcium-cholecalciferol (D3) 1 tablet tab(s) (OSCAL+D 250) 1 tablet ORAL BID cyanocobalamin 1,000 mcg tab(s) (VITAMIN B-12) 1,000 mcg ORAL DAILY latanoprost 0.005 % 1 Drop (XALATAN) 1 Drop BOTH EYES AT BEDTIME lactobacillus rhamnosus (CULTURELLE) capsule 1 capsule ORAL BID hydrOXYzine HCl 25 mg tab(s) (ATARAX) 25 mg ORAL q 8 H PRN piperacillin-tazobactam iv piggyback 3.375 g in dextrose (iso- osmotic) 50 mL (ZOSYN) 3.375 g INTRAVENOUS q 6 H Labs: Recent Labs 09/01/18 0041 NA 136 K 3.8 CHLOR 102 CO2 25 BUN 10 CREAT 0.44* GLUC 105* ANION 13 CA 8.2* ALB 2.3* AST 54* ALT 49 ALKPHOS 418* TBILI 11.2* WBC 5.79 HB 12.0 HCT 34.4 PLT 561* Exam: GENERAL: No distress, Alert NEURO: AANDOx3, CN II-XII grossly intact HEENT: normocephalic, atraumatic, jaundice decreased LUNGS: Unlabored breathing on RA CARDIAC: Regular rate and rhythm as above ABDOMEN: Soft, non-tender, moderately-distended, R PTC: serosang, L PTC: bilious EXTREMITIES: TAI, No deformities, No edema SKIN: Skin color, texture, turgor normal, No rashes or lesions ASSESSMENT AND PLAN: Active Hospital Problems Diagnosis Date Noted - Obstructive jaundice 08/28/2018 Overview Note: Added automatically from request for surgery [id number] - Cholangiocarcinoma (HCC) 08/28/2018 77 year old female with painless jaundice 2/2 cholangiocarcinoma (vs gallbladder cancer) s/p ERCP, sphincterotomy, placement of 7x12 stent (08/30), s/p IR placement of R and L biliary drainage catheters 09/02 ? Path/cytology: +malignant cells, adenocarcinoma (CBD brushings) Locally advanced tumor, not likely resectable . Continue external drainage via right/left IR drains. Hematology/oncology following- plans for possible chemotherapy. Medical management per primary Empiric zosyn for biliary stasis/obstruction discontinued 09/02 MRCP: strictures involving central intrahepatic and proximal common hepatic duct. GB thickened and stuck to hepatic hilum- involved with suspected mass. Pulm nodules concerning for mets but too small to biopsy. Plan for OP PET scan at d/c. Elective General Surgery Service Pager: For questions or concerns Mon-Fri 6a-5p please page [phone]. After 5pm and on Weekends and Holidays, please page [phone] if in ICU or [phone] if on RNF. SIGNATURE: Shahla Rob MD PATIENT NAME: Yane Chilel DATE: September 03, 2018 TIME: 6:26 AM Pager: CONSULT Observed: 09/03/2018 Status: COMPLETED Source: [facility] [facility] 12:00 AM CLINIC OTHER CAMPUS REPOSITORY O ID: [id number] Author: Og Sousa Service: Infectious Disease Author Type: Physician Type: Consults Filed: 09/03/2018 12:47 PM Note Text: [facility] - Consultation PATIENT NAME: YANE CHILEL CSN: [id number] DATE OF : 1940 SEX/AGE: F/77 PATIENT TYPE: I HOSP SVC: INT LOCATION: [id number] DATE OF SERVICE: 09/03/2018 REFERRING PHYSICIAN: Balwinder Patterson MD INFECTIOUS DISEASE CONSULTATION REASON FOR CONSULTATION: Pulmonary nodules, antibiotic management. HISTORY OF PRESENT ILLNESS: This patient is a 77-year-old woman who was in her usual state of good health until early July. At that time, she noticed that her skin was turning yellow and her eyes were turning yellow. Her skin started to itch. For about the last week, she was having flu-like symptoms. She denied any weight loss. She denied any fevers, chills, or night sweats. She denied any risk factors for tuberculosis. She has not been out of the country lately. She has not traveled anywhere. 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 She presented to the [facility] ER back on 08/28/2018, with the above symptoms. They did a CAT scan of the chest and they did an MRI of the abdomen on 08/31/2018. The CAT scan of the chest on 08/29/2018, showed multiple predominantly solid, but also cavitary nodules scattered throughout both lungs. The majority of the nodules measure 1 cm or less in size. There was severe intrahepatic biliary ductal dilation. There was thick wall esophagogastric junction. She had an ERCP done on 08/30/2018, which showed a filling defect in the distal common bile duct with areas of stricture involving the biliary hilum and proximal common bile duct. There was marked intrahepatic biliary dilation. She was noted to have an intrabiliary stent. She then had an MRI of the abdomen with and without contrast on 08/31/2018. This showed strictures involving the central intrahepatic bile ducts and proximal common hepatic duct consistent with patient's diagnosis of cholangiocarcinoma. The gallbladder demonstrates thickened wall in the neck of the gallbladder. She was admitted to the regular nursing floor. The primary team started her on Zosyn. The General Surgery Service was consulted. The Hematology/Oncology Service was consulted. She had a biliary drain placed. We have been asked to make further antibiotic recommendations. PAST MEDICAL HISTORY: Glaucoma, diverticulosis, chronic constipation, vitamin D deficiency, and hypertension. PAST SURGICAL HISTORY: Dental implants, total knee arthroplasties bilaterally, right shoulder surgery. ALLERGIES: No known drug allergies. CURRENT MEDICATIONS: Vitamin C, vitamin D, vitamin B12, heparin, lactobacillus, latanoprost, lisinopril, Zosyn, polyethylene glycol, and senna. SOCIAL HISTORY: The patient is retired. She is an ex-smoker. She quit 18 years ago after smoking for 40 years. She does not drink alcohol or use drugs. She denied any tuberculosis risk factors. FAMILY HISTORY: Parents are . Father from a heart aneurysm. Mother at age 100 and had a history of colon cancer. REVIEW OF SYSTEMS: She did not get the flu shot nor the Pneumovax. She denied headache. She denied blurry vision. She had sore throat. She had chronic constipation. She denied dysuria or hematuria. She had pruritus. She denied easy bruising, easy bleeding. She denied any weight changes. Her appetite has been good. She denied feeling anxious or depressed. The rest review of systems was negative. PHYSICAL EXAMINATION: VITAL SIGNS: T-current 36.9, T-max is 37.5; pulse 87; respiratory rate 18; blood pressure 142/87. GENERAL APPEARANCE: This is a pleasant, thin, elderly woman, sitting up who looks her stated age. HEENT: Normocephalic, atraumatic. She had icteric sclerae. Her oral mucosa was moist. There is no thrush. NECK: Supple. Full range of motion. LUNGS: Clear to auscultation bilaterally. I do not hear wheezes, rales, or rhonchi. CARDIOVASCULAR EXAM: Regular rate and rhythm. S1, S2. No murmurs, rubs, or gallops. ABDOMEN: Flat, soft. There is some mild right lower quadrant and right upper quadrant tenderness to palpation. There is a drain in the right upper quadrant. EXTREMITIES: No clubbing, cyanosis, or edema. No calf tenderness. SKIN: Warm, dry. She was jaundiced. NEUROLOGICAL EXAM: Alert and oriented x3. Cranial nerves 2 through 12 are grossly intact. LABS: GFR is over 60. White count 5.6, hemoglobin 11.8, platelet count 588,000. Sodium 132, potassium 3.8, chloride 108, CO2 of 19, glucose 112, BUN 9, creatinine 0.3. AST 93, alkaline phosphatase 375, total bilirubin 10.4. Procalcitonin was 0.13. There is a fluid culture from the bile duct, no growth at one day. ASSESSMENT AND PLAN: This is a 77-year-old woman with cholangiocarcinoma who has pulmonary nodules. I strongly suspect that the nodules are metastatic disease. She does not have any risk factors for fungus, tuberculosis, or any chronic bacterial infections like Nocardia. Her procalcitonin is low. I am going to check a [id number]-[id number] assay for fungus. I am going to check histoplasma and Blastomyces serologies and urine antigens. I am going to order a QuantiFERON assay for tuberculosis, although again my suspicion is low when she is not coughing. I am going to consult Pulmonary for a possible bronchoscopy. I would discontinue all antibiotics. I am going to stop the Zosyn. I am going to also test her for cryptococcus, although again my suspicion is low. Thank you for this consultation. I will follow closely with you. Og Sousa MD, MS, [facility], [facility] Infectious Disease RRW:david /[id number] PROCALCITONIN Collected: 09/02/2018 Status: F Source: [facility] 5:06 PM HEALTH SYSTEM REPOSITORY TYPE CODE TESTS RESULT OUT OF REFERENCE UNITS RANGE LAB PRCAS(LOIN ng/mL C) Procalcitonin 0.13 Result Comment: Levels <0.50 ng/mL represent a low risk of severe sepsis and/or septic shock, while levels >2.00 ng/mL represent an elevated risk of severe sepsis and/or septic shock. Levels <0.50 ng/mL do not exclude infection, as infections or systemic infections in early stages (<6hrs) can be associated with low concentrations. Levels between 0.50-2.00 ng/mL should be interpreted in the clinical context of the patient, as a variety of conditions such as bravo, trauma, surgery and severe cardiogenic shock can cause procalcitonin elevations. Performed By: #### PRCAS #### [place] [address] BRIEF OP NOT Observed: 09/02/2018 Status: COMPLETED Source: [facility] 4:00 PM CLINIC OTHER CAMPUS REPOSITORY HNO ID: [id number] Author: To Stephens Service: Interventional Radiology Author Type: Physician Type: Brief Op Note Filed: 09/02/2018 4:12 PM Note Text: BRIEF OPERATIVE / PROCEDURE NOTE LOG ID: [id number] Surgery/Procedure Date: 09/02/2018 Incision/Procedure Start Time: Incision Close/Procedure End Time: Surgeon(s)/Proceduralist(s) and Warp Coiler(s): Surgeon(s) and Role: * To Stephens - Primary No Additional Staff Procedure(s): Other (specify) - Ultrasound and fluoroscopically guided placement of right and left biliary drainage catheters Anesthesia: Procedural Sedation Findings: Ultrasound and fluoroscopically guided placement of right and left biliary drainage catheters completed. Multiple obstructed ducts on the right. Unable to pass catheter or guidewire across obstruction between the accessed right duct and the CBD. 8 F APD catheter placed into the right biliary duct. Left biliary duct accessed. High grade stenosis between the left biliary system and the CBD. The left bilary system does communicate with some right biliary ducts. A catheter and guidewire were able to be passed across the obstruction in the proximal CBD and then into the duodenum. An 8 F internal/external biliary drainage catheter was then placed. The distal tip is in the duodenum. Both catheters were place to closed leg bag drainage. The patient tolerated the procedure well. No immediate complications were noted. Estimated Blood Loss: 0 ml Specimens: bile specimen from the right biliary system for culture. Complications: None Pre-Op/Pre-Procedure Diagnosis: cholangiocarcinoma, biliary obstruction Post-Op/Post-Procedure Diagnosis: same The full report is located under Imaging in the Radiology report for the procedure. SIGNATURE: To Stephens MD PATIENT NAME: Yane Chilel DATE: September 02, 2018 TIME: 4:00 PM PAGER/CONTACT #: [phone] BILIARY CATH PLACEMENT Observed: 09/02/2018 Status: F Source: [place] [facility] [id number] 3:54 PM [facility] REPOSITORY Performed at [facility] APPROVED BY: To Stephens MD EXAM TITLE: ULTRASOUND AND FLUOROSCOPIC-GUIDED PLACEMENT OF RIGHT AND LEFT BILIARY DRAINAGE CATHETERS DATE: 09/02/2018 13:29 COMPARISON: Outside CT of the abdomen and pelvis dated 08/27/2018. ERCP dated 08/30/2018. MRI of the abdomen dated 08/31/2018. CLINICAL INDICATION/HISTORY: The patient recently developed jaundice. An outside CT of the abdomen and pelvis demonstrated marked biliary duct dilatation. ERCP demonstrated high-grade stricture in th e proximal, bile duct is at the hilum liver. A biopsy was obtained which was consistent with cholangiocarcinoma. Similar findings are seen on the MRI of the abdomen. During the ERCP an internal bilia ry stent was placed. There was only opacification of one dilated right hepatic duct and minimal opacification of any other intrahepatic ducts. There has not been significant interval decrease in the p atient's bilirubin level. The patient is now referred for percutaneous transhepatic cholangiogram and placement of biliary drainage catheters. FINDINGS: Informed consent was obtained from the patient. The patient is placed in the supine position. The liver was localized with ultrasound. The skin was marked. All elements of maximum barrier technique including surgical cap and mask, sterile gown, sterile gloves, a large sterile drape, hand hygiene and appropriate prep agent for cutaneous antisepsis were utilized and maintained for this procedure. A timeout was performed. Beginning on the right, local anesthesia was affected with 2% Xylocaine. Utilizing real-time ultrasound guidance a 21-gauge AccuStick needle was introduced into a dilated right hepatic duct. Position of the tip of the needle within the duct was confirmed on ultrasound and documented in the PACS archive. A small amount of clear bile was aspirated. A specimen was submitted for culture. Contrast was instilled confirming position within the biliary system. A.018 guidewire was introduced. The AccuStick needle was withdrawn. A 6 right-sided was then inserted over the guidewire. The introducer and guidewire were withdrawn. Position within the biliary system was confirmed with contrast injection. A trace amount of contrast flows through a high-grade stricture and into the narrowed irregular com mon bile duct. A Magic guidewire is introduced. The 6 Swazi dilator was withdrawn. A 5 Swazi Berenstein catheter was then inserted over the guidewire. Attempts were then made to pass the guidewire catheter across the high-grade stricture without success. The Magic guidewire is exchanged for an angled Glidewire. Despite multiple attempts the catheter and guidewire were unable to be manipulated across the stricture. The 5 Swazi Berenstein catheter was exchanged for a 4 Swazi angled glide catheter. Again multiple attempts were made to pass the catheter and guidewire across the obstruction w ithout success. The guidewire was withdrawn. The catheter was capped and secured with Steri-Strips. Moving on to the left, local anesthesia was affected with 2% Xylocaine. Utilizing real-time ultrasound guidance a 21-gauge AccuStick needle was introduced into a dilated left hepatic duct. Position of the tip the needle within the duct was confirmed on ultrasound and documented in the PACS archives. A small amount of clear bilious fluid was obtained. Position within the left biliary system was con firmed with contrast injection. A.018 guidewire is introduced and advanced centrally. The AccuStick needle was withdrawn. A 6 Swazi dilator was then inserted over the guidewire. The introducer and guidewire were withdrawn. Contrast was instilled confirming position within the biliary system. An angled Glidewire was then introduced and advanced the level of the proximal common bile duct. The 6 Swazi dilator was withdrawn. A 5 Swazi Berenstein catheter was then inserted over the guidewire. The catheter and guidewire manipulated down the common bile duct and into the duodenum. Position wit hin the duodenum was confirmed with contrast injection. A Magic guidewire is then introduced and advanced into the duodenum. The 5 Swazi Berenstein catheter was withdrawn. The tract was dilated with an 8 Swazi dilator. A 9 Swazi short peel-away sheath was then inserted over the guidewire. The introducer was withdrawn. An 8 Swazi biliary drainage catheter was then inserted over the guidewire. The distal tip was advanced into the duodenum. The introducer and guidewire partially withdrawn and the distal loop was formed within the duodenum. The introducer and guidewire were completely withd rawn. Contrast was instilled confirming patency of the catheter and position of the distal tip of the duodenum. The proximal sidehole catheter is within the dilated left hepatic duct. The catheter wa s flushed with normal saline. The catheter was secured with a 2-0 Prolene suture. The catheter was then capped. Moving back to the right, additional attempts were made to pass a catheter and guidewire across the area of high grade obstruction. Beyond these were unsuccessful. It is not appear to be significant c ommunication between the stomach and other right biliary ducts. It was felt that a drainage catheter should be placed in this isolated right biliary duct. A Magic guidewire is introduced. The 4 Frenc h angled glide catheter was withdrawn. The tract was dilated with an 8 Swazi dilator. An 8 Swazi APD catheter was then inserted over the guidewire. The introducer and guidewire partially withdrawn. The limitations of the loop of the catheter was unable to be performed. The introducer and guidewire were completely removed. The catheter was secured with a 2-0 Prolene suture. The catheter was fl ushed normal saline. The site was dressed in a sterile manner. The catheters placed to closed leg bag drainage. There is a dilated right hepatic duct located more inferiorly to be isolated duct. This duct appears to communicate with the hilum of the liver and most likely will be able to be drained through the le ft internal/external biliary drainage catheter. There is a third isolated dilated right hepatic duct. This is located more superiorly and medially than the isolated duct containing the drainage catheter. The internal biliary stent appears to commun icate with this isolated duct. The left catheter was then dressed in a sterile manner. The left catheter was also placed at closed leg bag drainage. The patient tolerated the procedure well. No immediate complications were noted. The patient received conscious sedation with intravenous Versed and Fentanyl. . The patient was monitored throughout t he procedure by the Radiology nurse. Intra-service time (monitoring for moderate sedation) (starts with administration of agent, ends when continuous [id number] time ends): 75 minutes Patient monitoring: I personally supervised and directed an independent trained observer who assisted in monitoring the patient?s level of consciousness and physiological status throughout the procedur e. The patient was returned to their room in stable condition .recommend flushing both catheters with 10 cc of sterile normal saline twice daily. IMPRESSION: 1. Technically successful ultrasound and fluoroscopic-guided placement of an 8 Swazi APD catheter into an isolated dilated right biliary duct. Attempts to cross the level of obstruction this duct wer e unsuccessful. Repeat attempt can be made following decompression which may result in decreased edema at the site of the obstruction. 2. Technically successful ultrasound and fluoroscopic-guided placement of an internal/external iliac drainage catheter via a dilated left hepatic duct. 3. There is a lesion at the confluence of the biliary ducts and common bile duct consistent with the history of cholangiocarcinoma. This results in 2 isolated dilated right hepatic ducts. One is drai chaparro via the direct placement of a drainage catheter. A second is drained by the previously placed internal biliary stent. There is a third right hepatic duct which is not totally isolated and communic ates with the hilum and the left biliary system. This is drained via the left internal/external biliary Fluoroscopic Time: 21 minutes 42 seconds Radiation Exposure: 213 mGy Volume of Contrast: 45 cc of Omnipaque 300 Number of Images: 15 Antibiotics: The patient was already receiving intravenous antibiotic therapy. No additional antibiotics were administered for this procedure. PROGRESS Observed: 09/02/2018 Status: COMPLETED Source: [facility] [facility] 3:39 PM CLINIC OTHER CAMPUS REPOSITORY HNO ID: [id number] Author: Lobo Heart Service: Hospital Medicine Author Type: Physician Type: Progress Notes Filed: 09/02/2018 3:43 PM Note Text: INPATIENT PROGRESS NOTE CHIEF COMPLAINT: jaundice INTERVAL HPI: Pt still c/o abd fullness. Feels constipated. Had enema yest with only a small BM.denies N/V. No fevers/chills. No CP/SOB PHYSICAL EXAM: BP 139/73 Pulse 76 Temp (Src) 97.3 (Oral) Resp 18 Ht 5' 2 (1.58m) Wt 136 lb 11 oz (62.0kg) SpO2 96% BMI 24.99 kg/(m2). GENERAL: Alert, no distress, cooperative LUNGS: Lungs clear to auscultation, Good diaphragmatic excursion CARDIAC: Normal S1 and S2; no rubs, murmurs, or gallops ABDOMEN: Abdomen soft, distended diffusely tender, BS normal, No masses or organomegaly EXTREMITIES: Extremities normal, no deformities, edema, clubbing or skin discoloration. Good capillary refill., No ulcers NEURO: . Sensation grossly intact, Cranial nerves II-XII intact Jaundice+ DATA: Diagnostic tests reviewed for today's visit: CBC, Coags, BMP, Mg, Phos Recent Labs 09/01/18 0041 08/31/18 0014 WBC 5.79 5.80 HB 12.0 11.5 HCT 34.4 34.0* PLT 561* 514* NA 136 137 K 3.8 3.6 CHLOR 102 103 CO2 25 25 BUN 10 10 CREAT 0.44* 0.49* GLUC 105* 114* CA 8.2* 7.8* Assessment/Plan ? 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 Has been on zosyn for 5 days empirically. Can DC # pulm nodules- possible mets vs infectious etio. . Too small for BX.Pt denies any resp symptoms. Will get ID opinion. #constipation- c/w laxatives # HTN stable SIGNATURE: L[facility] MD PATIENT NAME: Yane Chilel DATE: September 02, 2018 TIME: 3:39 PM PAGER: Observed: 09/02/2018 Status: P Source: [facility] BODY 2:35 PM HEALTH SYSTEM FLUID REPOSITORY Test performed at [facility] No growth at 1 day No growth at 2 days No organisms seen Rare Polymorphonuclear leukocytes Rare RBCs Performed By: #### C_BF #### [facility] [address] [address] HISTORY PHYSICAL Observed: 09/02/2018 Status: COMPLETED Source: [place] 1:55 PM CLINIC OTHER CAMPUS REPOSITORY HNO ID: [id number] Author: To Stephens Service: Interventional Radiology Author Type: Physician Type: HANDP Filed: 09/02/2018 1:57 PM Note Text: UPDATED HISTORY AND PHYSICAL EXAMINATION SERVICE DATE: 09/02/2018 SERVICE TIME: 1:55 PM PHYSICAL EXAM MUST BE COMPLETED ON ADMISSION The History and Physical (completed in the past 30 days) has been reviewed and the patient has been examined. The contents accurately reflect the patient's condition with the following additions or revisions since the HANDP was completed. Examination indicates no changes. This HANDP can be found in the Electronic Medical Record dated 08/31/18. SIGNATURE: To Stephens MD PATIENT NAME: Yane Chilel DATE: September 02, 2018 TIME: 1:55 PM PAGER: PROGRESS Observed: 09/02/2018 Status: COMPLETED Source: [place] 11:40 AM CLINIC OTHER CAMPUS REPOSITORY HNO ID: [id number] Author: Maryjo Mcfadden) ALLISON Parker Service: Hematology/Oncology Author Type: Physician Warp Coiler Type: Progress Notes Filed: 09/02/2018 12:01 PM Note Text: DX: Obstructive jaundice, Cholangiocarcinoma. 0 comfort meds Continues on Zosyn Pt still c/o constipation--I need to go a lot more. Pt wants to get PET scan in [place] after discharge. Subjective Ms. Chilel is a 77 year old female who presents as a transfer from [facility]. She initially presented to [facility] for painless jaundice x2 weeks, and 1 month of pruritus. Culled from notes: Referred From [place]: Patient does have an elevated bilirubin of 12. Her alk phos is also elevated. Rest of her lab work is relatively unremarkable. The patient underwent CT of abdomen pelvis.. 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 She does appear to also have metastatic disease into the lungs. 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 CT A/P 08/27/18: Interval development of poorly defined low density mass near hilum of liver with marked intrahepatic biliary ductal dilation and distention of the gallbladder with wall thickening. No radiopaque stones are evident. Abnormal enhancement of common hepatic duct and proximal CBD. Distal CBD is not dilated and pancreas is unremarkable. Several likely metastatic nodules present in bilateral lung bases. Mildly prominent pericaval ly,mph nodes. No apparent adrenal metastasis. Mild right hydronephrosis increased from piror without stone or obstructin lesion identified. No obstruction or inflammation of bowel.Findings suspicious for cholangiocarcinoma with resulting obstruction of intrahepatic biliary ducts. Gallbladderdistetion with wal lthickening may represent cholecystitis secondary to obstruciton of the cystic duct or proximal bile duct; alternatively could represent GB wall edema. PAST MEDICAL HISTORY Diagnosis Date - Constipation - functional - Diverticulosis of colon (without mention of hemorrhage) PAST SURGICAL HISTORY Procedure Laterality Date - COLONOSCOP W/ OR W/O [facility] SPEC 01/25/14 Colonoscopy - DESTRUC CONJUNC LESN 03/29/10 Performed by ALEC JACOBSON at [facility] - EXCIS CONJUNC LESN+ADJ SCLERA 03/29/10 Performed by ALEC JACOBSON at [facility] - PAST SURGICAL HISTORY OF 11/2010 3 right shoulder - PAST SURGICAL HISTORY OF 2010 bilateral TKR - PAST SURGICAL HISTORY OF 2010 left wrist ORIF - PAST SURGICAL HISTORY OF 2009 cataract surgery bilateral - PAST SURGICAL HISTORY OF remote tubal ligation - SIGMOIDOSCOPY FLEX DIAG 04/24/2011 Sigmoidoscopy, flexible ALLERGIES No Known Allergies Social History Substance Use Topics - Smoking status: Former Smoker Quit date: 03/20/2002 - Smokeless tobacco: Never Used - Alcohol use No FAMILY HISTORY Problem Relation Age of Onset - Colon Cancer Mother - Colon Cancer Father Current Facility-Administered Medications: bisacodyl 10 mg suppository (DULCOLAX) 10 mg RECTAL DAILY PRN ascorbic acid (vitamin C) 500 mg tab(s) (VITAMIN C) 500 mg ORAL DAILY diphenhydrAMINE 25 mg injection (BENADRYL) 25 mg INTRAVENOUS q 6 H PRN NaCl 0.9% iv infusion 75 mL/hr INTRAVENOUS CONTINUOUS heparin 5,000 Units injection 5,000 Units SUBCUTANEOUS q 12 H oxyCODONE IR 5 mg tab(s) (ROXICODONE) 5 mg ORAL q 6 H PRN metoclopramide HCl 10 mg injection (REGLAN) 10 mg INTRAVENOUS q 8 H PRN docusate sodium 100 mg cap(s) (COLACE) 100 mg ORAL BID PRN polyethylene glycol 3350 17 g packet (MIRALAX, GLYCOLAX) 17 g ORAL DAILY PRN lisinopril 2.5 mg tab(s) 2.5 mg ORAL DAILY melatonin 3 mg tab(s) 3 mg ORAL HS PRN calcium-cholecalciferol (D3) 1 tablet tab(s) (OSCAL+D 250) 1 tablet ORAL BID cyanocobalamin 1,000 mcg tab(s) (VITAMIN B-12) 1,000 mcg ORAL DAILY latanoprost 0.005 % 1 Drop (XALATAN) 1 Drop BOTH EYES AT BEDTIME lactobacillus rhamnosus (CULTURELLE) capsule 1 capsule ORAL BID hydrOXYzine HCl 25 mg tab(s) (ATARAX) 25 mg ORAL q 8 H PRN piperacillin-tazobactam iv piggyback 3.375 g in dextrose (iso- osmotic) 50 mL (ZOSYN) 3.375 g INTRAVENOUS q 6 H Blood pressure 139/73, pulse 76, temperature 36.3 ?C (97.3 ?F), temperature source Oral, resp. rate 18, height 157.5 cm (5' 2), weight 62 kg (136 lb 11 oz), SpO2 96 %. General: awake alert oriented x 3, no acute distress, resting comfortably in bed HEENT: eomi perrl, no marked pallor but there is icterus present CV: s1s2 normal, rrr, no mrg no jvd Lung: bilateral air entry no wheezes no rales no rubs no rhonchi Abdomen: soft nt nd bowel sounds present, no cva tenderness and negative mcgee's Extremities: no edema, skin warm and dry, radial pulse 2+ and regu Patient Active Problem List Obstructive jaundice Cholangiocarcinoma (HCC) Low back pain Scoliosis Redundant colon Family history of malignant neoplasm of gastrointestinal tract Unspecified constipation RECOMMENDATIONS: 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 Once again discussed advanced nature of cancer, eligibility for chemotherapy. Can be treated in [place] Status of liver- Per note from surgery service-this cancer appears locally advanced and likely not resectable. Plan for PTC for better drainage of the liver. Pt hoping to get this done soon. Multiple lung nodules After further review of the CT scan of the chest, these nodules appear to be more likely infectious than metastatic disease. It is our recommendation to get an ID consult for their input regarding this. I have discussed this with the primary service and patient. Will follow Maryjo Parker PA-C CASE MANAGEM Observed: 09/02/2018 Status: COMPLETED Source: [place] 9:[address] [facility] OTHER CAMPUS REPOSITORY HNO ID: [id number] Author: Analisa (Rn) LIUDMILA Mas Service: Care Management Author Type: Registered Nurse Type: Care Mgt Progress Note Filed: 09/02/2018 9:22 AM Note Text: CARE MANAGEMENT PROGRESS NOTE SERVICE DATE: 09/02/2018 SERVICE TIME: 9:21 AM LOS: 5 days Needs Prior to Discharge: To Be Determined Chart reviewed. General surgery and hemoc following. Dc plan is home once medically stable. Will follow for any transitional needs. SIGNATURE: Analisa Mas RN PATIENT NAME: Yane Chilel DATE: September 02, 2018 TIME: 9:21 AM PAGER/CONTACT #: [phone] PROGRESS Observed: 09/02/2018 Status: COMPLETED Source: [place] 6:[address] [facility] OTHER CAMPUS REPOSITORY O ID: [id number] Author: Shahla Rob Service: General Surgery Author Type: Resident Type: Progress Notes Filed: 09/02/2018 6:58 AM Note Text: Attestation signed by Caleb Ann at 09/02/2018 10:14 AM I saw and evaluated the patient. Discussed with the resident and agree with resident's findings and plan as documented in the resident's note. I reviewed MRI with radiology: There may be a mass as large as 5-6 cm in the hilum of the liver- best seen on delayed images This appears to involve the GB- This could be GB cancer invading the liver vs cholangio CA involving the GB Either way it appears locally advanced and likely not resectable She will need better drainage of liver- CBD stent does not appear to be giving adequate drainage Will plan PTC Caleb Ann MD Elective General Surgery Progress Note SERVICE DATE: 09/02/2018 Elective General Surgery Service Pager: For questions or concerns Mon-Fri 6a-5p please page [phone]. After 5pm and on Weekends and Holidays, please page [phone] if in ICU or [phone] if on RNF. SUBJECTIVE: No acute events overnight. Pain controlled. Reports small BM o/n. States that she still feels distended/bloated. Endorses mild nausea without emesis. Tolerating diet DIET NPO OBJECTIVE: Vitals: Temp (24hrs), Av.1 ?C (98.8 ?F), Min:36.8 ?C (98.2 ?F), Max:37.4 ?C (99.3 ?F) BP 125/80 Pulse 88 Temp 37.4 ?C (99.3 ?F) (Oral) Resp 18 Ht 157.5 cm (5' 2) Wt 62 kg (136 lb 11 oz) SpO2 95% BMI 25.00 kg/m? O2 Therapy: Room Air IANDO: MEDICATIONS Current Facility-Administered Medications: bisacodyl 10 mg suppository (DULCOLAX) 10 mg RECTAL DAILY PRN ascorbic acid (vitamin C) 500 mg tab(s) (VITAMIN C) 500 mg ORAL DAILY diphenhydrAMINE 25 mg injection (BENADRYL) 25 mg INTRAVENOUS q 6 H PRN NaCl 0.9% iv infusion 75 mL/hr INTRAVENOUS CONTINUOUS heparin 5,000 Units injection 5,000 Units SUBCUTANEOUS q 12 H oxyCODONE IR 5 mg tab(s) (ROXICODONE) 5 mg ORAL q 6 H PRN metoclopramide HCl 10 mg injection (REGLAN) 10 mg INTRAVENOUS q 8 H PRN docusate sodium 100 mg cap(s) (COLACE) 100 mg ORAL BID PRN polyethylene glycol 3350 17 g packet (MIRALAX, GLYCOLAX) 17 g ORAL DAILY PRN lisinopril 2.5 mg tab(s) 2.5 mg ORAL DAILY melatonin 3 mg tab(s) 3 mg ORAL HS PRN calcium-cholecalciferol (D3) 1 tablet tab(s) (OSCAL+D 250) 1 tablet ORAL BID cyanocobalamin 1,000 mcg tab(s) (VITAMIN B-12) 1,000 mcg ORAL DAILY latanoprost 0.005 % 1 Drop (XALATAN) 1 Drop BOTH EYES AT BEDTIME lactobacillus rhamnosus (CULTURELLE) capsule 1 capsule ORAL BID hydrOXYzine HCl 25 mg tab(s) (ATARAX) 25 mg ORAL q 8 H PRN piperacillin-tazobactam iv piggyback 3.375 g in dextrose (iso- osmotic) 50 mL (ZOSYN) 3.375 g INTRAVENOUS q 6 H Labs: Recent Labs 09/01/18 0041 08/31/18 0014 NA 136 137 K 3.8 3.6 CHLOR 102 103 CO2 25 25 BUN 10 10 CREAT 0.44* 0.49* GLUC 105* 114* ANION 13 13 CA 8.2* 7.8* ALB 2.3* -- AST 54* -- ALT 49 -- ALKPHOS 418* -- TBILI 11.2* -- WBC 5.79 5.80 HB 12.0 11.5 HCT 34.4 34.0* PLT 561* 514* MRI: ? IMPRESSION: ? Strictures involving the central intrahepatic bile ducts and proximal common hepatic duct consistent with patient's diagnosis of cholangiocarcinoma. ? The gallbladder demonstrates thickened wall in the neck of the gallbladder is stuck into the hepatic hilum and involved with suspected mass. ? Multiple nodules at the lung bases as seen on recent CT scan. ?Infectious etiology ?is the top consideration. ?Metastatic neoplasm is considered unlikely. Exam: GENERAL: No distress, Alert NEURO: AANDOx3, CN II-XII grossly intact HEENT: normocephalic, atraumatic, jaundiced LUNGS: Unlabored breathing CARDIAC: Regular rate and rhythm as above ABDOMEN: Soft, minimally-tender, distended EXTREMITIES: TAI, No deformities, No edema SKIN: Skin color, texture, turgor normal, No rashes or lesions ASSESSMENT AND PLAN: Active Hospital Problems Diagnosis Date Noted - Obstructive jaundice 08/28/2018 Overview Note: Added automatically from request for surgery [id number] - Cholangiocarcinoma (HCC) 08/28/2018 77 year old female with painless jaundice 2/2 cholangiocarcinoma s/p ERCP, sphincterotomy, placement of 7x12 stent (08/30) ? Path/cytology: +malignant cells, adenocarcinoma (CBD brushings) Medical management per primary Empiric zosyn for biliary stasis/obstruction MRCP: strictures involving central intrahepatic and proximal common hepatic duct. GB thickened and stuck to hepatic hilum- involved with suspected mass. Multiple nodules at lung bases - likely infectious. Continued hyperbilirubinemia yesterday. Still jaundiced, but am labs pending. May require further drainage with PTC. Pulm nodules concerning for mets but too small to biopsy. Metastatic neoplasm unlikely per MRI. Elective General Surgery Service Pager: For questions or concerns Mon-Fri 6a-5p please page [phone]. After 5pm and on Weekends and Holidays, please page [phone] if in ICU or [phone] if on RNF. SIGNATURE: Shahla Rob MD PATIENT NAME: Yane Chilel DATE: September 02, 2018 TIME: 6:27 AM Pager: PROGRESS Observed: 09/01/2018 Status: COMPLETED Source: [place] 2:27 PM CLINIC OTHER CAMPUS REPOSITORY HNO ID: [id number] Author: [facility] Service: Hospital Medicine Author Type: Physician Type: Progress Notes Filed: 09/01/2018 2:33 PM Note Text: INPATIENT PROGRESS NOTE CHIEF COMPLAINT: obstructive jaundice INTERVAL HPI: Pt c/o feeling constipated. No N/V. Flatus+ PHYSICAL EXAM: BP 145/77 Pulse 83 Temp (Src) 98.8 (Oral) Resp 18 Ht 5' 2 (1.58m) Wt 136 lb 11 oz (62.0kg) SpO2 97% BMI 24.99 kg/(m2). GENERAL: Alert mild distress, cooperative LUNGS: Lungs clear to auscultation, Good diaphragmatic excursion CARDIAC: Normal S1 and S2; no rubs, murmurs, or gallops ABDOMEN: Abdomen soft, distended, NT, BS normal, No masses or organomegaly EXTREMITIES:no edema NEURO: . 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 MRI result pending .possible surgical resection # pulm nodules- possible mets. Too small for BX. Plan for PET as out pt #constipation- will order for enema # HTN stable SIGNATURE: Lobo Heart MD PATIENT NAME: Yane Chilel DATE: September 01, 2018 TIME: 2:27 PM PAGER: PROGRESS Observed: 09/01/2018 Status: COMPLETED Source: [place] 8:51 AM CLINIC OTHER CAMPUS REPOSITORY HNO ID: [id number] Author: Ernesto Holly Service: Hematology/Oncology Author Type: Physician Type: Progress Notes Filed: 09/01/2018 12:42 PM Note Text: DX: Obstructive jaundice, Cholangiocarcinoma. 0 comfort meds Continues on Zosyn ERCP with successful stent placement on 08/30 Still w complaints of pruritis. Benefits from iv benadryl. Severely constipated and very uncomfortable Subjective Ms. Chilel is a 77 year old female who presents as a transfer from [facility]. She initially presented to [facility] for painless jaundice x2 weeks, and 1 month of pruritus. Culled from notes: Referred From [place]: Patient does have an elevated bilirubin of 12. Her alk phos is also elevated. Rest of her lab work is relatively unremarkable. The patient underwent CT of abdomen pelvis.. 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 She does appear to also have metastatic disease into the lungs. 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 CT A/P 08/27/18: Interval development of poorly defined low density mass near hilum of liver with marked intrahepatic biliary ductal dilation and distention of the gallbladder with wall thickening. No radiopaque stones are evident. Abnormal enhancement of common hepatic duct and proximal CBD. Distal CBD is not dilated and pancreas is unremarkable. Several likely metastatic nodules present in bilateral lung bases. Mildly prominent pericaval ly,mph nodes. No apparent adrenal metastasis. Mild right hydronephrosis increased from piror without stone or obstructin lesion identified. No obstruction or inflammation of bowel.Findings suspicious for cholangiocarcinoma with resulting obstruction of intrahepatic biliary ducts. Gallbladderdistetion with wal lthickening may represent cholecystitis secondary to obstruciton of the cystic duct or proximal bile duct; alternatively could represent GB wall edema. PAST MEDICAL HISTORY Diagnosis Date - Constipation - functional - Diverticulosis of colon (without mention of hemorrhage) PAST SURGICAL HISTORY Procedure Laterality Date - COLONOSCOP W/ OR W/O [facility] SPEC 01/25/14 Colonoscopy - DESTRUC CONJUNC LESN 03/29/10 Performed by ALEC JACOBSON at [facility] - EXCIS CONJUNC LESN+ADJ SCLERA 03/29/10 Performed by ALEC JACOBSON at [facility] - PAST SURGICAL HISTORY OF 11/2010 3 right shoulder - PAST SURGICAL HISTORY OF 2010 bilateral TKR - PAST SURGICAL HISTORY OF 2010 left wrist ORIF - PAST SURGICAL HISTORY OF 2009 cataract surgery bilateral - PAST SURGICAL HISTORY OF remote tubal ligation - SIGMOIDOSCOPY FLEX DIAG 04/24/2011 Sigmoidoscopy, flexible ALLERGIES No Known Allergies Social History Substance Use Topics - Smoking status: Former Smoker Quit date: 03/20/2002 - Smokeless tobacco: Never Used - Alcohol use No FAMILY HISTORY Problem Relation Age of Onset - Colon Cancer Mother - Colon Cancer Father Current Facility-Administered Medications: iv contrast (radiology procedure) INTRAVENOUS DIRECTED PRN ascorbic acid (vitamin C) 500 mg tab(s) (VITAMIN C) 500 mg ORAL DAILY diphenhydrAMINE 25 mg injection (BENADRYL) 25 mg INTRAVENOUS q 6 H PRN NaCl 0.9% iv infusion 75 mL/hr INTRAVENOUS CONTINUOUS heparin 5,000 Units injection 5,000 Units SUBCUTANEOUS q 12 H oxyCODONE IR 5 mg tab(s) (ROXICODONE) 5 mg ORAL q 6 H PRN metoclopramide HCl 10 mg injection (REGLAN) 10 mg INTRAVENOUS q 8 H PRN docusate sodium 100 mg cap(s) (COLACE) 100 mg ORAL BID PRN polyethylene glycol 3350 17 g packet (MIRALAX, GLYCOLAX) 17 g ORAL DAILY PRN lisinopril 2.5 mg tab(s) 2.5 mg ORAL DAILY melatonin 3 mg tab(s) 3 mg ORAL HS PRN calcium-cholecalciferol (D3) 1 tablet tab(s) (OSCAL+D 250) 1 tablet ORAL BID cyanocobalamin 1,000 mcg tab(s) (VITAMIN B-12) 1,000 mcg ORAL DAILY latanoprost 0.005 % 1 Drop (XALATAN) 1 Drop BOTH EYES AT BEDTIME lactobacillus rhamnosus (CULTURELLE) capsule 1 capsule ORAL BID hydrOXYzine HCl 25 mg tab(s) (ATARAX) 25 mg ORAL q 8 H PRN piperacillin-tazobactam iv piggyback 3.375 g in dextrose (iso- osmotic) 50 mL (ZOSYN) 3.375 g INTRAVENOUS q 6 H Blood pressure 145/77, pulse 83, temperature 37.1 ?C (98.8 ?F), temperature source Oral, resp. rate 18, height 157.5 cm (5' 2), weight 62 kg (136 lb 11 oz), SpO2 97 %. General: awake alert oriented x 3, no acute distress, resting comfortably in bed HEENT: eomi perrl, no marked pallor but there is icterus present CV: s1s2 normal, rrr, no mrg no jvd Lung: bilateral air entry no wheezes no rales no rubs no rhonchi Abdomen: soft nt nd bowel sounds present, no cva tenderness and negative mcgee's Extremities: no edema, skin warm and dry, radial pulse 2+ and regu Patient Active Problem List Obstructive jaundice Cholangiocarcinoma (HCC) Low back pain Scoliosis Redundant colon Family history of malignant neoplasm of gastrointestinal tract Unspecified constipation RECOMMENDATIONS: 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 Once again discussed advanced nature of cancer, eligibility for chemotherapy. Can be treated in [place] Status of liver Awaiting results of MRI?pending Possible lung mets. Dr. Ann had recommended possible PET as outpt. The problem is the lung lesions are probably too small for detection via PET. Also, may be difficult if not impossible to discriminate between a neoplastic and an infectious process by PET. Bx may be more sensitive but also may be difficult. Constipation S/p laxatives, currently trying suppository, may need enema Pruritis persists and correlates to no change in total bili. Continue benadryl PRN Ernesto Holly MD PROGRESS Observed: 09/01/2018 Status: COMPLETED Source: [facility] 6:18 AM CLINIC OTHER CAMPUS REPOSITORY [facility] ID: [id number] Author: Shahla Rob Service: General Surgery Author Type: Resident Type: Progress Notes Filed: 09/01/2018 9:03 AM Note Text: Attestation signed by Caleb Ann at 09/01/2018 9:34 AM I saw and evaluated the patient. Discussed with the resident and agree with resident's findings and plan as documented in the resident's note. Jaundice about the same- T bili 11.2 + itching No pain Bx from ERCP is + for cholangiocarcinoma- d/w patient A/P Cholangiocarcinoma Possible lung mets Needs better relief of jaundice- although CBD stent is in place it may not be adequately decompressing enough of the liver- She may need a PTC as well I reviewed CT with radiology- lung lesions are small and felt to be difficult to get an accurate Bx Would consider PET scan first, but this needs to be done as outpatient MRI done but report pending Caleb Ann MD [facility] Progress Note SERVICE DATE: 09/01/2018 [facility] General Surgery Service Pager: For questions or concerns Mon-Fri 6a-5p please page [phone]. After 5pm and on Weekends and Holidays, please page [phone] if in ICU or [phone] if on RNF. SUBJECTIVE: No acute events overnight. Underwent MRI yesterday. Denies pain/nausea/emesis. Denies BM. Continued jaundice. Tolerating diet DIET REGULAR OBJECTIVE: Vitals: Temp (24hrs), Av.9 ?C (98.5 ?F), Min:36.7 ?C (98.1 ?F), Max:37.1 ?C (98.8 ?F) BP 145/77 Pulse 83 Temp 37.1 ?C (98.8 ?F) (Oral) Resp 18 Ht 157.5 cm (5' 2) Wt 62 kg (136 lb 11 oz) SpO2 97% BMI 25.00 kg/m? O2 Therapy: Room Air IANDO: Date 08/31/18699 - 09/01/18 0659 09/01/18699 - 09/02/18 0659 Shift 6805-0463 1426-4414 4651-6569 24 Hour Total 0002-3280 5678-6879 8839-4779 24 Hour Total I N T A K E PO 480 480 PO 480 480 IV 464 464 NS 0.9% 464 464 Shift Total 944 944 O U T P U T Urine Urine Not Saved. 1 x 2 x 3 x Shift Total Weight (kg) 62 62 62 62 62 62 62 62 MEDICATIONS Current Facility-Administered Medications: iv contrast (radiology procedure) INTRAVENOUS DIRECTED PRN ascorbic acid (vitamin C) 500 mg tab(s) (VITAMIN C) 500 mg ORAL DAILY diphenhydrAMINE 25 mg injection (BENADRYL) 25 mg INTRAVENOUS q 6 H PRN NaCl 0.9% iv infusion 75 mL/hr INTRAVENOUS CONTINUOUS heparin 5,000 Units injection 5,000 Units SUBCUTANEOUS q 12 H oxyCODONE IR 5 mg tab(s) (ROXICODONE) 5 mg ORAL q 6 H PRN metoclopramide HCl 10 mg injection (REGLAN) 10 mg INTRAVENOUS q 8 H PRN docusate sodium 100 mg cap(s) (COLACE) 100 mg ORAL BID PRN polyethylene glycol 3350 17 g packet (MIRALAX, GLYCOLAX) 17 g ORAL DAILY PRN lisinopril 2.5 mg tab(s) 2.5 mg ORAL DAILY melatonin 3 mg tab(s) 3 mg ORAL HS PRN calcium-cholecalciferol (D3) 1 tablet tab(s) (OSCAL+D 250) 1 tablet ORAL BID cyanocobalamin 1,000 mcg tab(s) (VITAMIN B-12) 1,000 mcg ORAL DAILY latanoprost 0.005 % 1 Drop (XALATAN) 1 Drop BOTH EYES AT BEDTIME lactobacillus rhamnosus (CULTURELLE) capsule 1 capsule ORAL BID hydrOXYzine HCl 25 mg tab(s) (ATARAX) 25 mg ORAL q 8 H PRN piperacillin-tazobactam iv piggyback 3.375 g in dextrose (iso- osmotic) 50 mL (ZOSYN) 3.375 g INTRAVENOUS q 6 H Labs: Recent Labs 09/01/18 0041 08/31/18 0014 08/30/18 0540 NA 136 137 134* K 3.8 3.6 5.2* CHLOR 102 103 105 CO2 25 25 23 BUN 10 10 8 CREAT 0.44* 0.49* 0.43* GLUC 105* 114* 90 ANION 13 13 11 CA 8.2* 7.8* 8.0* ALB 2.3* -- 2.1* AST 54* -- 90* ALT 49 -- 50 ALKPHOS 418* -- 395* TBILI 11.2* -- 11.5* WBC 5.79 5.80 4.85 HB 12.0 11.5 12.5 HCT 34.4 34.0* 35.0 PLT 561* 514* 572* Exam: GENERAL: No distress, Alert NEURO: AANDOx3, CN II-XII grossly intact HEENT: normocephalic, atraumatic, jaundiced LUNGS: Unlabored breathing on RA CARDIAC: Regular rate and rhythm as above ABDOMEN: Soft, non-tender, moderately distended EXTREMITIES: TAI, No deformities, No edema SKIN: Skin color, texture, turgor normal, No rashes or lesions ASSESSMENT AND PLAN: Active Hospital Problems Diagnosis Date Noted - Obstructive jaundice 08/28/2018 Overview Note: Added automatically from request for surgery [id number] - Cholangiocarcinoma (HCC) 08/28/2018 77 year old female with painless jaundice s/p ERCP, sphincterotomy, placement of 7x12 stent, brushing for cytology (08/30) ? Path/cytology: +malignant cells, adenocarcinoma (CBD brushings) Medical management per primary Empiric zosyn for biliary stasis/obstruction MRCP P Continued hyperbilirubinemia- will d/w attending Will make NPO this am for possible IR guided biopsy. [facility] General Surgery Service Pager: For questions or concerns Mon-Fri 6a-5p please page [phone]. After 5pm and on Weekends and Holidays, please page [phone] if in ICU or [phone] if on RNF. SIGNATURE: Shahla Rob MD PATIENT NAME: Yane Chilel DATE: September 01, 2018 TIME: 6:18 AM Pager: HEMOGRAM/DIFF Collected: 09/01/2018 Status: F Source: [facility] 12:41 AM HEALTH SYSTEM REPOSITORY TYPE CODE TESTS RESULT OUT OF REFERENCE UNITS RANGE LAB WBC(LOINC) 3.98-10.04 thou/cmm WBC 5.79 LAB RBC(LOINC) 3.93-5.22 mil/cmm Low RBC 3.79 LAB HGB(LOINC) 11.2-15.7 g/dL Hgb 12.0 LAB HCT(LOINC) 34.1-44.9 % Hct 34.4 LAB MCV(LOINC) 79.4-94.8 fl MCV 90.8 LAB MCH(LOINC) 25.6-32.2 pg MCH 31.7 LAB MCHC(LOINC 31.6-34.8 % ) MCHC High 34.9 LAB RDW(LOINC) 11.7-14.4 % RDW High 16.9 LAB RDWSD(LOIN 36.4-46.3 fl C) RDW SD High 55.1 LAB PLT(LOINC) 182-369 thou/cmm Platelet High 561 LAB MPV(LOINC) 9.4-12.3 fl MPV 9.4 LAB SEG(LOINC) % Seg Neutrophil 70.2 LAB IGRE(LOINC % ) Immature Grans 1.90 LAB LYMPH(LOIN % C) Lymphocyte 15.4 LAB MNO(LOINC) % Monocyte 11.1 LAB EOSIN(LOIN % C) Eosinophil 0.9 LAB BASO(LOINC % ) Basophil 0.5 LAB SEGN(LOINC 1.56-6.13 thou/cmm ) Abs. Neut (ANC) 4.06 LAB IGAB(LOINC 0.00-0.05 thou/cmm ) Abs High Immature Grans 0.11 LAB LYMN(LOINC 1.18-3.74 thou/cmm ) Low Abs. Lymph 0.89 LAB MONON(LOIN 0.27-0.70 thou/cmm C) Abs. Luna 0.64 LAB EOSN(LOINC 0.00-0.31 thou/cmm ) Abs. Eosin 0.05 LAB BASON(LOIN 0.01-0.08 thou/cmm C) Abs. Baso 0.03 Performed By: #### CBCD1 #### [facility] [address] [place], [place] [address] BASIC PANEL Collected: 09/01/2018 Status: F Source: [facility] 12:41 AM HEALTH SYSTEM REPOSITORY TYPE CODE TESTS RESULT OUT OF REFERENCE UNITS RANGE LAB NA(LOINC) 136-145 mEq/L Sodium Blood 136 LAB K(LOINC) 3.5-5.1 mEq/L Potassium Blood 3.8 LAB CL(LOINC) 98-107 mEq/L Chloride Blood 102 LAB CO2(LOINC) 21-32 mEq/L CO2 Blood 25 LAB GLU(LOINC) 70-99 mg/dL Glucose High Blood 105 LAB BUN(LOINC) 7-18 mg/dL BUN Blood 10 LAB CREA(LOINC 0.51-0.95 mg/dL ) Low Creatinine Blood 0.44 LAB CA(LOINC) 8.5-10.1 mg/dL Low Calcium Blood 8.2 LAB ANGAP(LOIN 8-16 C) Anion Gap 13 Performed By: #### P8 #### [place] [address] HEPATIC PANEL Collected: 09/01/2018 Status: F Source: [facility] 12:41 AM HEALTH SYSTEM REPOSITORY TYPE CODE TESTS RESULT OUT OF REFERENCE UNITS RANGE LAB ALB(LOINC) 3.4-5.0 g/dL Low Albumin Blood 2.3 LAB ALT(LOINC) 12-78 U/L ALT-SGPT Blood 49 LAB ALKP(LOINC 46-116 U/L ) Alk High Phosphatase 418 LAB TP(LOINC) 6.4-8.2 g/dL Total Protein 6.6 LAB AST(LOINC) 9-37 U/L AST-SGOT High Blood 54 LAB BILIT(LOIN 0.2-1.0 mg/dL C) Total High Bilirubin 11.2 LAB DBIL(LOINC 0.00-0.20 mg/dL ) Direct High Bilirubin 9.16 Performed By: #### HEPAP #### [place] [address] MRI ABDOMEN W/WO Observed: 08/31/2018 Status: F Source: [facility] CONTRAST 6:28 PM HEALTH SYSTEM REPOSITORY Performed at [facility] APPROVED BY: Darrin Mejia MD EXAM TITLE: MRI ABDOMEN W/WO CONTRAST DATE: 08/31/2018 17:15 INDICATION: Patient history of cholangiocarcinoma diagnosed by common duct biopsy. Patient has dilated intrahepatic bile ducts and now has biliary stent placed. COMPARISON: CT scan dated 08/27/2018. A series of T1 and T2-weighted axial, coronal, and sagittal images were acquired through the upper abdomen both prior to and following administration of 12 cc of Dotarem intravenous contrast. Lung bases: Multiple nodules are noted at the lung bases. These correlate with cavitated nodule seen on chest CT scan dated 08/29/2018.. Liver: Markedly dilated intrahepatic bile ducts. No focal hepatic lesion is obvious.. Gallbladder/bile ducts: The gallbladder is distended with thickened wall. Marked intrahepatic bile duct dilatation. Multiple intrahepatic bile ducts are dilated into the hilum of the liver where they are strictured. The common hepatic duct is strictured at its proximal most extent over a distance of approximately 3.5 cm. There is stricturing of nearly all of the intrahepatic bile ducts approaching the hilum. Direct communication with the individual right and left main hepatic ducts and the common duct cannot be establi shed. There is masslike fullness in the hilum. In addition, the gallbladder also is thick-walled and intimately positioned into the hepatic hilum. Pancreas: Unremarkable. Trace fluid near the tail. Adrenal glands: Unremarkable.. Spleen: Unremarkable.. Kidneys: Unremarkable. Bowel: No dilated bowel.. Ascites: None. Retroperitoneum: No significant additional findings. Bony structures: Scoliosis with convexity to the left. IMPRESSION: Strictures involving the central intrahepatic bile ducts and proximal common hepatic duct consistent with patient's diagnosis of cholangiocarcinoma. The gallbladder demonstrates thickened wall in the neck of the gallbladder is stuck into the hepatic hilum and involved with suspected mass. Multiple nodules at the lung bases as seen on recent CT scan. Infectious etiology is the top consideration. Metastatic neoplasm is considered unlikely. CONSULT Observed: 08/31/2018 Status: COMPLETED Source: [facility] [facility] 5:[address] [facility] OTHER CAMPUS REPOSITORY [facility] ID: [id number] Author: Josette Mcdaniel MD Service: General Surgery Author Type: Resident Type: Consults Filed: 08/31/2018 5:19 PM Note Text: Attestation signed by Antonio Archer at 08/31/2018 5:33 PM Attending Note I personally saw and examined the patient. I reviewed the resident's note. I agree with the resident's assessment and plan with the following revisions and/or additions: Pt appears resectable on imaging but needs to have lung biopsy to rule out metastatic deposit. Will order as inpatient Signature: Antonio Archer MD Date: 08/31/2018 Time: 5:33 PM [facility] Consult Note SERVICE DATE: 08/31/2018 Elective General Surgery Service Pager: For questions or concerns Mon-Fri 6a-5p please page [phone]. After 5pm and on Weekends and Holidays, please page [phone] if in ICU or [phone] if on RNF. SUBJECTIVE: Ms. Chilel is a 77 year old female who presented as a transfer from [facility]. She initially presented to [facility] for painless jaundice x2 weeks, and 1 month of pruritus. Denies abdominal pain or weight loss. Denies fevers/chills/night sweats. Denies prior abdominal surgery. Reports last c-scope within last 5 years (2013) and wnl. FMH significant for colon cancer. Imaging concerning for metastatic cholangiocarcinoma. ERCP with stent placed 08/30. Tolerating diet DIET REGULAR OBJECTIVE: Vitals: Temp (24hrs), Av.7 ?C (98 ?F), Min:36.6 ?C (97.8 ?F), Max:36.7 ?C (98.1 ?F) BP 145/77 Pulse 72 Temp 36.7 ?C (98.1 ?F) (Oral) Resp 18 Ht 157.5 cm (5' 2) Wt 62 kg (136 lb 11 oz) SpO2 95% BMI 25.00 kg/m? O2 Therapy: Room Air IANDO: Date 08/30/18 1500 - 08/31/18 0659 08/31/18 0700 - 09/01/18 0659 Shift 0340-9658 7409-3067 24 Hour Total 9908-9156 6560-4339 5303-8551 24 Hour Total I N T A K E PO 60 60 PO 60 60 IV 475 1175 NS 0.9% 475 475 OR Crystalloid intake (mL) 700 Shift Total 60 475 1235 O U T P U T Urine Urine Not Saved. 1 x 1 x Shift Total Weight (kg) 62 62 62 62 62 62 62 MEDICATIONS Current Facility-Administered Medications: iv contrast (radiology procedure) INTRAVENOUS DIRECTED PRN ascorbic acid (vitamin C) 500 mg tab(s) (VITAMIN C) 500 mg ORAL DAILY diphenhydrAMINE 25 mg injection (BENADRYL) 25 mg INTRAVENOUS q 6 H PRN NaCl 0.9% iv infusion 75 mL/hr INTRAVENOUS CONTINUOUS heparin 5,000 Units injection 5,000 Units SUBCUTANEOUS q 12 H oxyCODONE IR 5 mg tab(s) (ROXICODONE) 5 mg ORAL q 6 H PRN metoclopramide HCl 10 mg injection (REGLAN) 10 mg INTRAVENOUS q 8 H PRN docusate sodium 100 mg cap(s) (COLACE) 100 mg ORAL BID PRN polyethylene glycol 3350 17 g packet (MIRALAX, GLYCOLAX) 17 g ORAL DAILY PRN lisinopril 2.5 mg tab(s) 2.5 mg ORAL DAILY melatonin 3 mg tab(s) 3 mg ORAL HS PRN calcium-cholecalciferol (D3) 1 tablet tab(s) (OSCAL+D 250) 1 tablet ORAL BID cyanocobalamin 1,000 mcg tab(s) (VITAMIN B-12) 1,000 mcg ORAL DAILY latanoprost 0.005 % 1 Drop (XALATAN) 1 Drop BOTH EYES AT BEDTIME lactobacillus rhamnosus (CULTURELLE) capsule 1 capsule ORAL BID hydrOXYzine HCl 25 mg tab(s) (ATARAX) 25 mg ORAL q 8 H PRN piperacillin-tazobactam iv piggyback 3.375 g in dextrose (iso- osmotic) 50 mL (ZOSYN) 3.375 g INTRAVENOUS q 6 H Labs: Recent Labs 08/31/18 0014 08/30/18 0540 08/29/18 0310 08/28/182019 NA 137 134* 138 < > -- K 3.6 5.2* 3.9 < > -- CHLOR 103 105 104 < > -- CO2 25 23 26 < > -- BUN 10 8 10 < > -- CREAT 0.49* 0.43* 0.50* < > -- GLUC 114* 90 118* < > -- ANION 13 11 12 < > -- CA 7.8* 8.0* 8.1* < > -- MG -- -- 2.3 -- -- P -- -- 4.1 -- -- ALB -- 2.1* 2.3* -- -- AST -- 90* 44* -- -- ALT -- 50 46 -- -- ALKPHOS -- 395* 424* -- -- TBILI -- 11.5* 10.5* -- -- WBC 5.80 4.85 4.95 < > -- HB 11.5 12.5 11.9 < > -- HCT 34.0* 35.0 34.2 < > -- PLT 514* 572* 527* < > -- INR -- -- -- -- 1.09 < > = values in this interval not displayed. Exam: GENERAL: No distress, Alert, Cooperative NEURO: AANDOx3, CN II-XII grossly intact HEENT: normocephalic, atraumatic, jaundiced LUNGS: Unlabored breathing on RA CARDIAC: Regular rate and rhythm as above ABDOMEN: Soft, non-tender, moderately-distended EXTREMITIES: TAI, No deformities, No edema SKIN: Skin color, texture, turgor normal, No rashes or lesions ASSESSMENT AND PLAN: Active Hospital Problems Diagnosis Date Noted - Obstructive jaundice 08/28/2018 Overview Note: Added automatically from request for surgery [id number] - Cholangiocarcinoma (HCC) 08/28/2018 77 year old female with painless jaundice s/p ERCP, sphincterotomy, placement of 7x12 stent, brushing for cytology (08/30) Path/cytology - positive for adenocarcinoma Trend LFTs Medical management per primary Empiric zosyn for biliary stasis/obstruction Will need biopsy of pulmonary mass MRI abdomen (p) Elective General Surgery Service Pager: For questions or concerns Mon-Fri 6a-5p please page [phone]. After 5pm and on Weekends and Holidays, please page [phone] if in ICU or [phone] if on RNF. SIGNATURE: Josette Mcdaniel MD PATIENT NAME: Yane Chilel DATE: August 31, 2018 TIME: 5:07 PM Pager: PROGRESS Observed: 08/31/2018 Status: COMPLETED Source: [facility] 11:40 AM CLINIC OTHER CAMPUS REPOSITORY [facility] ID: [id number] Author: Bindu (Rn) LIUDMILA Young Service: Nursing Author Type: Registered Nurse Type: Progress Notes Filed: 08/31/2018 11:41 AM Note Text: Spoke with MRI, time for patient's scan approximately 1700. Patient okay to eat lunch, but will be NPO after for exam per senior cytogenetic technologist. PROGRESS Observed: 08/31/2018 Status: COMPLETED Source: [place] 10:[address] [facility] OTHER CAMPUS REPOSITORY [facility] ID: [id number] Author: Peter Huitron Service: Hospital Medicine Author Type: Physician Type: Progress Notes Filed: 08/31/2018 10:52 AM Note Text: DEPARTMENT OF HOSPITAL MEDICINE PROGRESS NOTE SERVICE DATE: 08/31/2018 SERVICE TIME: 10:47 AM Hospital Medicine/Primary Attending: Peter Huitron MD NIGHT AND WEEKEND COVERAGE: Please page [phone] from 7 Pm to 7 ASM Subjective INTERVAL HPI: Reports that she still has itching. Stated that she's going for MRI and that there's a plan for possible gallbladder drain. MEDICATIONS: Reviewed Objective PHYSICAL EXAM: BP 145/77 Pulse 72 Temp (Src) 98.1 (Oral) Resp 18 Ht 5' 2 (1.58m) Wt 136 lb 11 oz (62.0kg) SpO2 95% BMI 24.99 kg/(m2). Physical Exam Performed GENERAL: Alert, no distress, cooperative SKIN: positive for jaundice HEAD/SINUSES: No significant findings EYES: PERRLA, EOMI EARS: External ears normal, canals clear NOSE: Nares normal. Septum midline. OROPHARYNX: Lips, mucosa, and tongue normal. Teeth and gums normal. Oropharynx normal. NECK: No jugulovenous distention, No carotid bruits, Carotid pulse normal contour, Supple BACK: Back symmetric, Normal curvature, ROM normal, No CVAT. LUNGS: Lungs clear to auscultation, Good diaphragmatic excursion CARDIAC: Normal S1 and S2; no rubs, murmurs, or gallops ABDOMEN: Abdomen soft, non-tender, BS normal, No masses or organomegaly EXTREMITIES: Extremities normal, no deformities, edema, clubbing or skin discoloration. Good capillary refill., No ulcers NEURO: Gait normal. Reflexes normal and symmetric. Sensation grossly intact, Cranial nerves II-XII intact PULSES: 2+ radial, 2+ carotid Lines, Drains, and Airways Line Peripheral 08/31/18 0628 Right Hand 22 Gauge less than 1 day DATA: Diagnostic tests reviewed for today's visit: Assessment/Plan 1. Obstructive jaundice POA: Unknown Concern for cholangiocarcinoma Work up in process ( possible MRI and lung Bx) Continue to monitor 2. Priritus: Continue IV benadryl 3. Hypertension essential: Fair control If still in the 145 SBP, will increase lisinopril dosing. Medication and Non-Pharmacologic VTE Prophylaxis/Anticoagulants Anticoagulant AND Antiplatelet Medications Start Dose Route Frequency Ordered Stop 08/28/18 2100 heparin 5,000 Units injection (Medical At Risk ) 5,000 Units SUBCUTANEOUS EVERY 12 HOURS 08/28/18 1512 -- 08/28/18 1515 vte non-pharmacologic prophylaxis - none indicated (ky,oh) VTE Prophylaxis: VTE prophylaxis appropriate Disposition: Home Plan of care discussed with: Patient SIGNATURE: Peter Huitron MD PATIENT NAME: Yane Chilel DATE: August 31, 2018 TIME: 10:47 AM PAGER/CONTACT #: [phone] PROGRESS Observed: 08/31/2018 Status: COMPLETED Source: [place] 6:52 AM CLINIC OTHER CAMPUS REPOSITORY [facility] ID: [id number] Author: Ernesto Holly Service: Hematology/Oncology Author Type: Physician Type: Progress Notes Filed: 08/31/2018 9:29 AM Note Text: DX: Obstructive jaundice, Cholangiocarcinoma. 0 comfort meds Continues on Zosyn ERCP with successful stent placement on 08/30 Still w complaints of pruritis. Benefits from iv benadryl Subjective Ms. Chilel is a 77 year old female who presents as a transfer from [facility]. She initially presented to [facility] for painless jaundice x2 weeks, and 1 month of pruritus. Culled from notes: Referred From [place]: Patient does have an elevated bilirubin of 12. Her alk phos is also elevated. Rest of her lab work is relatively unremarkable. The patient underwent CT of abdomen pelvis.. 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 She does appear to also have metastatic disease into the lungs. 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 CT A/P 08/27/18: Interval development of poorly defined low density mass near hilum of liver with marked intrahepatic biliary ductal dilation and distention of the gallbladder with wall thickening. No radiopaque stones are evident. Abnormal enhancement of common hepatic duct and proximal CBD. Distal CBD is not dilated and pancreas is unremarkable. Several likely metastatic nodules present in bilateral lung bases. Mildly prominent pericaval ly,mph nodes. No apparent adrenal metastasis. Mild right hydronephrosis increased from piror without stone or obstructin lesion identified. No obstruction or inflammation of bowel.Findings suspicious for cholangiocarcinoma with resulting obstruction of intrahepatic biliary ducts. Gallbladderdistetion with wal lthickening may represent cholecystitis secondary to obstruciton of the cystic duct or proximal bile duct; alternatively could represent GB wall edema. PAST MEDICAL HISTORY Diagnosis Date - Constipation - functional - Diverticulosis of colon (without mention of hemorrhage) PAST SURGICAL HISTORY Procedure Laterality Date - COLONOSCOP W/ OR W/O BRSH SPEC 01/25/14 Colonoscopy - DESTRUC CONJUNC LESN 03/29/10 Performed by ALEC JACOBSON at [facility] - EXCIS CONJUNC LESN+ADJ SCLERA 03/29/10 Performed by ALEC JACOBSON at [facility] - PAST SURGICAL HISTORY OF 11/2010 3 right shoulder - PAST SURGICAL HISTORY OF 2010 bilateral TKR - PAST SURGICAL HISTORY OF 2010 left wrist ORIF - PAST SURGICAL HISTORY OF 2009 cataract surgery bilateral - PAST SURGICAL HISTORY OF remote tubal ligation - SIGMOIDOSCOPY FLEX DIAG 04/24/2011 Sigmoidoscopy, flexible ALLERGIES No Known Allergies Social History Substance Use Topics - Smoking status: Former Smoker Quit date: 03/20/2002 - Smokeless tobacco: Never Used - Alcohol use No FAMILY HISTORY Problem Relation Age of Onset - Colon Cancer Mother - Colon Cancer Father Current Facility-Administered Medications: ascorbic acid (vitamin C) 500 mg tab(s) (VITAMIN C) 500 mg ORAL DAILY diphenhydrAMINE 25 mg injection (BENADRYL) 25 mg INTRAVENOUS q 6 H PRN NaCl 0.9% iv infusion 75 mL/hr INTRAVENOUS CONTINUOUS heparin 5,000 Units injection 5,000 Units SUBCUTANEOUS q 12 H oxyCODONE IR 5 mg tab(s) (ROXICODONE) 5 mg ORAL q 6 H PRN metoclopramide HCl 10 mg injection (REGLAN) 10 mg INTRAVENOUS q 8 H PRN docusate sodium 100 mg cap(s) (COLACE) 100 mg ORAL BID PRN polyethylene glycol 3350 17 g packet (MIRALAX, GLYCOLAX) 17 g ORAL DAILY PRN lisinopril 2.5 mg tab(s) 2.5 mg ORAL DAILY melatonin 3 mg tab(s) 3 mg ORAL HS PRN calcium-cholecalciferol (D3) 1 tablet tab(s) (OSCAL+D 250) 1 tablet ORAL BID cyanocobalamin 1,000 mcg tab(s) (VITAMIN B-12) 1,000 mcg ORAL DAILY latanoprost 0.005 % 1 Drop (XALATAN) 1 Drop BOTH EYES AT BEDTIME lactobacillus rhamnosus (CULTURELLE) capsule 1 capsule ORAL BID hydrOXYzine HCl 25 mg tab(s) (ATARAX) 25 mg ORAL q 8 H PRN piperacillin-tazobactam iv piggyback 3.375 g in dextrose (iso- osmotic) 50 mL (ZOSYN) 3.375 g INTRAVENOUS q 6 H Blood pressure 145/77, pulse 72, temperature 36.7 ?C (98.1 ?F), temperature source Oral, resp. rate 18, height 157.5 cm (5' 2), weight 62 kg (136 lb 11 oz), SpO2 95 %. General: awake alert oriented x 3, no acute distress, resting comfortably in bed HEENT: eomi perrl, no marked pallor but there is icterus present CV: s1s2 normal, rrr, no mrg no jvd Lung: bilateral air entry no wheezes no rales no rubs no rhonchi Abdomen: soft nt nd bowel sounds present, no cva tenderness and negative mcgee's Extremities: no edema, skin warm and dry, radial pulse 2+ and regu Patient Active Problem List Obstructive jaundice Cholangiocarcinoma (HCC) Low back pain Scoliosis Redundant colon Family history of malignant neoplasm of gastrointestinal tract Unspecified constipation RECOMMENDATIONS: Await cytology from ERCP, hopefully, this can also provide tissue diagnosis. CA 19?9 of 116.8 consistent with cholangiocarcinoma concerns?metastatic to lung and possibly bone. Discussed likely incurability of her disease process. Need further Bx, etc. Pruritis substantially controlled w iv benadryl If surgery is considering MRI of liver for possible resectability I will definitely order a CT Bx of lung lesions as I suspect that they represent mets. Must admit, however, they are a little unusual for met. Cholangiocarcinoma filomena w necrosis MD Ernesto Marroquin M.D. PROGRESS Observed: 08/31/2018 Status: COMPLETED Source: [place] 6:[address] [facility] OTHER CAMPUS REPOSITORY HNO ID: [id number] Author: Shahla Sorin Darron Service: General Surgery Author Type: Resident Type: Progress Notes Filed: 08/31/2018 9:35 AM Note Text: Attestation signed by Caleb Ann at 08/31/2018 10:27 AM I saw and evaluated the patient. Discussed with the resident and agree with resident's findings and plan as documented in the resident's note. 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 After 5pm and on Weekends and Holidays, please page [phone] if in ICU or [phone] if on RNF. SUBJECTIVE: No acute events overnight. Denies pain, nausea, or emesis. Tolerating small amount of po. Denies BM. Tolerating diet DIET REGULAR OBJECTIVE: Vitals: Temp (24hrs), Av.7 ?C (98.1 ?F), Min:36.5 ?C (97.7 ?F), Max:37 ?C (98.6 ?F) BP 151/80 Pulse 77 Temp 36.6 ?C (97.8 ?F) (Oral) Resp 18 Ht 157.5 cm (5' 2) Wt 62 kg (136 lb 11 oz) SpO2 98% BMI 25.00 kg/m? O2 Therapy: Room Air IANDO: Date 08/30/18 07 - 08/31/18 0659 08/31/18 0700 - 09/01/18 0659 Shift 9882-4440 4395-9146 0981-5028 24 Hour Total 5149-4992 4443-9838 6702-9349 24 Hour Total I N T A K E PO 60 60 PO 60 60 IV 700 292 992 NS 0.9% 292 292 OR Crystalloid intake (mL) 700 700 Shift Total 700 60 292 1052 O U T P U T Urine Urine Not Saved. 1 x 1 x Shift Total Weight (kg) 62 62 62 62 62 62 62 62 MEDICATIONS Current Facility-Administered Medications: ascorbic acid (vitamin C) 500 mg tab(s) (VITAMIN C) 500 mg ORAL DAILY diphenhydrAMINE 25 mg injection (BENADRYL) 25 mg INTRAVENOUS q 6 H PRN NaCl 0.9% iv infusion 75 mL/hr INTRAVENOUS CONTINUOUS heparin 5,000 Units injection 5,000 Units SUBCUTANEOUS q 12 H oxyCODONE IR 5 mg tab(s) (ROXICODONE) 5 mg ORAL q 6 H PRN metoclopramide HCl 10 mg injection (REGLAN) 10 mg INTRAVENOUS q 8 H PRN docusate sodium 100 mg cap(s) (COLACE) 100 mg ORAL BID PRN polyethylene glycol 3350 17 g packet (MIRALAX, GLYCOLAX) 17 g ORAL DAILY PRN lisinopril 2.5 mg tab(s) 2.5 mg ORAL DAILY melatonin 3 mg tab(s) 3 mg ORAL HS PRN calcium-cholecalciferol (D3) 1 tablet tab(s) (OSCAL+D 250) 1 tablet ORAL BID cyanocobalamin 1,000 mcg tab(s) (VITAMIN B-12) 1,000 mcg ORAL DAILY latanoprost 0.005 % 1 Drop (XALATAN) 1 Drop BOTH EYES AT BEDTIME lactobacillus rhamnosus (CULTURELLE) capsule 1 capsule ORAL BID hydrOXYzine HCl 25 mg tab(s) (ATARAX) 25 mg ORAL q 8 H PRN piperacillin-tazobactam iv piggyback 3.375 g in dextrose (iso- osmotic) 50 mL (ZOSYN) 3.375 g INTRAVENOUS q 6 H Labs: Recent Labs 08/31/18 0014 08/30/18 0540 08/29/18 0310 08/28/18201908/28/18 1500 NA 137 134* 138 -- 137 K 3.6 5.2* 3.9 -- 3.1* CHLOR 103 105 104 -- 102 CO2 25 23 26 -- 29 BUN 10 8 10 -- 10 CREAT 0.49* 0.43* 0.50* -- 0.44* GLUC 114* 90 118* -- 105* ANION 13 11 12 -- 9 CA 7.8* 8.0* 8.1* -- 7.7* MG -- -- 2.3 -- 2.1 P -- -- 4.1 -- 2.0* ALB -- 2.1* 2.3* -- 2.4* AST -- 90* 44* -- 45* ALT -- 50 46 -- 45 ALKPHOS -- 395* 424* -- 427* TBILI -- 11.5* 10.5* -- 11.7* WBC 5.80 4.85 4.95 -- 4.72 HB 11.5 12.5 11.9 -- 11.7 HCT 34.0* 35.0 34.2 -- 34.0* PLT 514* 572* 527* -- 487* INR -- -- -- 1.09 -- Exam: GENERAL: No distress, Alert NEURO: AANDOx3, CN II-XII grossly intact HEENT: normocephalic, atraumatic, jaundiced LUNGS: Unlabored breathing on RA CARDIAC: Regular rate and rhythm as above ABDOMEN: Soft, non-tender, moderately-distended EXTREMITIES: TAI, No deformities, No edema SKIN: Skin color, texture, turgor normal, No rashes or lesions ASSESSMENT AND PLAN: Active Hospital Problems Diagnosis Date Noted - Obstructive jaundice 08/28/2018 Overview Note: Added automatically from request for surgery [id number] - Cholangiocarcinoma (HCC) 08/28/2018 77 year old female with painless jaundice s/p ERCP, sphincterotomy, placement of 7x12 stent, brushing for cytology (08/30) Path/cytology pending F/u am labs Medical management per primary Empiric zosyn for biliary stasis/obstruction Elective General Surgery Service Pager: For questions or concerns Mon-Fri 6a-5p please page [phone]. After 5pm and on Weekends and Holidays, please page [phone] if in ICU or [phone] if on RNF. SIGNATURE: Shahla Rob MD PATIENT NAME: Yane Chilel DATE: August 31, 2018 TIME: 6:15 AM Pager: HEMOGRAM/DIFF Collected: 08/31/2018 Status: F Source: [facility] 12:14 AM [facility] REPOSITORY TYPE CODE TESTS RESULT OUT OF REFERENCE UNITS RANGE LAB WBC(LOINC) 3.98-10.04 thou/cmm WBC 5.80 LAB RBC(LOINC) 3.93-5.22 mil/cmm Low RBC 3.62 LAB HGB(LOINC) 11.2-15.7 g/dL Hgb 11.5 LAB HCT(LOINC) 34.1-44.9 % Low Hct 34.0 LAB MCV(LOINC) 79.4-94.8 fl MCV 93.9 LAB MCH(LOINC) 25.6-32.2 pg MCH 31.8 LAB MCHC(LOINC 31.6-34.8 % ) MCHC 33.8 LAB RDW(LOINC) 11.7-14.4 % RDW High 16.7 LAB RDWSD(LOIN 36.4-46.3 fl C) RDW SD High 57.1 LAB PLT(LOINC) 182-369 thou/cmm Platelet High 514 LAB MPV(LOINC) 9.4-12.3 fl Low MPV 9.3 LAB SEG(LOINC) % Seg Neutrophil 73.2 LAB IGRE(LOINC % ) Immature Grans 1.60 LAB LYMPH(LOIN % C) Lymphocyte 12.4 LAB MNO(LOINC) % Monocyte 11.0 LAB EOSIN(LOIN % C) Eosinophil 0.9 LAB BASO(LOINC % ) Basophil 0.9 LAB SEGN(LOINC 1.56-6.13 thou/cmm ) Abs. Neut (ANC) 4.25 LAB IGAB(LOINC 0.00-0.05 thou/cmm ) Abs High Immature Grans 0.09 LAB LYMN(LOINC 1.18-3.74 thou/cmm ) Low Abs. Lymph 0.72 LAB MONON(LOIN 0.27-0.70 thou/cmm C) Abs. Luna 0.64 LAB EOSN(LOINC 0.00-0.31 thou/cmm ) Abs. Eosin 0.05 LAB BASON(LOIN 0.01-0.08 thou/cmm C) Abs. Baso 0.05 Performed By: #### CBCD1 #### [place] [id number] BASIC PANEL Collected: 08/31/2018 Status: F Source: [facility] 12:14 AM HEALTH SYSTEM REPOSITORY TYPE CODE TESTS RESULT OUT OF REFERENCE UNITS RANGE LAB NA(LOINC) 136-145 mEq/L Sodium Blood 137 LAB K(LOINC) 3.5-5.1 mEq/L Potassium Blood 3.6 LAB CL(LOINC) 98-107 mEq/L Chloride Blood 103 LAB CO2(LOINC) 21-32 mEq/L CO2 Blood 25 LAB GLU(LOINC) 70-99 mg/dL Glucose High Blood 114 LAB BUN(LOINC) 7-18 mg/dL BUN Blood 10 LAB CREA(LOINC 0.51-0.95 mg/dL ) Low Creatinine Blood 0.49 LAB CA(LOINC) 8.5-10.1 mg/dL Low Calcium Blood 7.8 LAB ANGAP(LOIN 8-16 C) Anion Gap 13 Performed By: #### P8 #### [place] [id number] PROGRESS Observed: 08/30/2018 Status: COMPLETED Source: [place] 6:49 PM CLINIC OTHER CAMPUS REPOSITORY HNO ID: [id number] Author: Peter Huitron Service: Hospital Medicine Author Type: Physician Type: Progress Notes Filed: 08/30/2018 6:59 PM Note Text: DEPARTMENT OF HOSPITAL MEDICINE PROGRESS NOTE SERVICE DATE: 08/30/2018 SERVICE TIME: 6:49 PM Hospital Medicine/Primary Attending: Peter Huitron MD NIGHT AND WEEKEND COVERAGE: Please page [phone] from 7 PM to 7 AM Subjective INTERVAL HPI: Reports that itching has improved. Denied fever and chills. No chest pain. MEDICATIONS: Reviewed Objective PHYSICAL EXAM: BP 151/80 Pulse 77 Temp (Src) 97.8 (Oral) Resp 18 Ht 5' 2 (1.58m) Wt 136 lb 11 oz (62.0kg) SpO2 98% BMI 24.99 kg/(m2). Physical Exam Performed GENERAL: Alert, no distress, cooperative SKIN: Positive jaundice HEAD/SINUSES: No significant findings EYES: PERRLA, EOMI EARS: External ears normal, canals clear NOSE: Nares normal. Septum midline. OROPHARYNX: Lips, mucosa, and tongue normal. Teeth and gums normal. Oropharynx normal. NECK: No jugulovenous distention, No carotid bruits, Carotid pulse normal contour, Supple BACK: Back symmetric, Normal curvature, ROM normal, No CVAT. LUNGS: Lungs clear to auscultation, Good diaphragmatic excursion CARDIAC: Normal S1 and S2; no rubs, murmurs, or gallops ABDOMEN: Abdomen soft, non-tender, BS normal, No masses or organomegaly EXTREMITIES: Extremities normal, no deformities, edema, clubbing or skin discoloration. Good capillary refill., No ulcers NEURO: Gait normal. Reflexes normal and symmetric. Sensation grossly intact, Cranial nerves II-XII intact PULSES: 2+ radial, 2+ carotid Lines, Drains, and Airways Line Peripheral 08/30/18 0510 Assessment Right Forearm less than 1 day DATA: Diagnostic tests reviewed for today's visit: Assessment/Plan 1. Pruritus/Obstructive jaundice POA: Unknown Concern cholangiocarcinoma. S/p ERCP. Will await biopsy. gen surgery/onc. Benadryl helping to relieve pruritis. 2. Hypertension Essential: Fair control Continue current medication. Medication and Non-Pharmacologic VTE Prophylaxis/Anticoagulants Anticoagulant AND Antiplatelet Medications Start Dose Route Frequency Ordered Stop 08/28/18 2100 heparin 5,000 Units injection (Medical At Risk ) 5,000 Units SUBCUTANEOUS EVERY 12 HOURS 08/28/18 1512 -- 08/28/18 1515 vte non-pharmacologic prophylaxis - none indicated (ky,oh) VTE Prophylaxis: VTE prophylaxis appropriate Disposition: Home Plan of care discussed with: Patient SIGNATURE: Peter Huitron MD PATIENT NAME: Yane Chilel DATE: August 30, 2018 TIME: 6:49 PM PAGER/CONTACT #: [phone] CASE MGT INIT Observed: 08/30/2018 Status: COMPLETED Source: [place] 3:46 PM CLINIC OTHER CAMPUS REPOSITORY HNO ID: [id number] Author: Analisa (Rn) LIUDMILA Mas Service: Care Management Author Type: Registered Nurse Type: Care Mgt Initial Assessment Filed: 08/30/2018 3:50 PM Note Text: CARE MANAGEMENT: ASSESSMENT AND DISCHARGE PLAN SERVICE DATE: 08/30/2018 SERVICE TIME: 3:47 PM PRIMARY CARE PHYSICIAN: Jose Nugent DO ADMISSION STATUS: Inpatient Needs Prior to Discharge: To Be Determined MEDICAL: Patient/Green [employer]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 No Advance Directive: Current Advance Directive: Health Care Power of Supervisor Customer Records Division;Living Will In Chart: No Line Camera Operator Attempted to Assist with AD Completion: Yes Action: (SW REFERRAL) Health Literacy: 1. How often do you need to have someone help you when you read instructions, pamphlets, or other written material from your doctor or pharmacy? Never - 1 2. How confident are you filling out medical forms by yourself? Extremely - 1 If Patient scores > 3 on either question, the following interventions were put into place: Teach back methods employed to ensure comprehension and Patient did not score > 3 FUNCTIONAL AND COGNITIVE/BEHAVIORAL PRIOR TO ADMISSION: Baseline Mental Status: Alert AND Oriented, Person, Place , Time and Situation Functional Status: Independent Does Patient Currently Receive Any Community Services or Home Care? None Equipment Prior to Admission: None Has the Patient Been in a Alf Facility in the Past 30 days? No SOCIAL: Living Arrangement: Home Lives With: Alone Financial Resources: Retired Primary Contact: Extended Emergency Contact Information Primary Emergency Contact: Sahil Chilel [place] [employer] Relation: Son Supportive: Yes Other Important Patient Contacts: None Caregiver Assessment: Caregiver is ready, willing and able to meet the patient's needs as recommended by the inter-professional team? No Caregiver Needed Patient's transition needs and plan for meeting these needs: PATIENT FROM HOME ALONE. 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 Does the patient have an acute stroke diagnosis, or has the patient had a stroke during this admission? No Medication Adherence: I am convinced of the importance of my prescription medication: Agree completely - 0 I worry that my prescription medication will do more harm than good to me Disagree completely - 0 I feel financially burdened by my [id number] expenses for my prescription medication: Disagree completely - 0 Patient is categorized as low risk < 2 Are you interested in bedside delivery of your medications? No Food Concerns: In the Last Month, Have You had Trouble Getting Food? No trouble getting food During the Last Month, Have You Worried Whether Your Food Would Run Out Before You Had Enough Money to Buy More? No Is the Patient Psychosocially Complex? 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 NO NEEDS AT THIS TIME. WILL FOLLOW FOR ANY TRANSITIONAL NEEDS. FAMILY/CHILDREN TO TRANSPORT HOME ONCE MEDICALLY STABLE. SIGNATURE: Analisa Mas RN PATIENT NAME: Yane Chilel DATE: August 30, 2018 TIME: 3:47 PM PAGER/CONTACT #: [phone] ANES POST Observed: 08/30/2018 Status: COMPLETED Source: [place] 3:24 PM CLINIC OTHER CAMPUS REPOSITORY HNO ID: [id number] Author: Tariq Alexander Service: Anesthesiology Author Type: Physician Type: Anesthesia PostOp Filed: 08/30/2018 3:24 PM Note Text: POST ANESTHESIA EVALUATION NOTE SERVICE DATE: 08/30/2018 SERVICE TIME: 3:24 PM : 1940 Vitals: 08/30/18 0710 08/30/18 0851 08/30/18 1015 08/30/18 1100 Temp: 36.7 ?C (98.1 ?F) 36.8 ?C (98.2 ?F) 36.5 ?C (97.7 ?F) 37 ?C (98.6 ?F) 08/30/18 1030 08/30/18 1045 08/30/18 1100 08/30/18 1115 BP: 116/95 154/91 (!) 116/26 152/96 08/30/18 1030 08/30/18 1045 08/30/18 1100 08/30/18 1115 Pulse: 67 66 66 65 08/30/18 1030 08/30/18 1045 08/30/18 1100 08/30/18 1115 Resp: 18 14 17 17 08/30/18 1030 08/30/18 1045 08/30/18 1100 08/30/18 1115 SpO2: 100% 100% 100% 100% Validated Vital Signs: Yes POST ANES STATUS: No apparent anesthetic complications. The patient is appropriately hydrated with stable respiratory and cardiovascular status. Patient has safe and adequate airway control. The patient has appropriate pain relief and no significant post operative nausea or vomiting. The patient has achieved baseline mental status. Intra-Operative Events: No Significant Anesthesia Events Further assessment by Anesthesia Service: None Other Remarks: SIGNATURE: Tariq Alexander MD PATIENT NAME: Yane Chilel DATE: August 30, 2018 TIME: 3:24 PM PAGER/CONTACT #: [phone] CONSULT Observed: 08/30/2018 Status: COMPLETED Source: [place] 1:47 PM CLINIC OTHER CAMPUS REPOSITORY HNO ID: [id number] Author: Brenda Harris (Pa) Service: Gastroenterology Author Type: Physician Warp Coiler Type: Consults Filed: 08/31/2018 7:19 AM Note Text: INITIAL CONSULT GASTROENTEROLOGY SERVICE DATE: 08/30/2018 SERVICE TIME: 1300 Consulting Service: Hospital medicine Opinion/advice regarding: painless jaundice Subjective HPI: This is a 77 year old female who presents with past medical history of hypertension, constipation/diverticulosis. She developed diffuse pruritis without rash one month ago and began to note yellowing of the skin about 2 weeks ago with dark urine and acholic stools as well. She has no other complaints. Denies abdominal pain, diarrhea, fever, nausea, vomiting. On admission, total bilirubin is 11.7, alp 427, ast only mildly elevated at 45, ALT 45. WBC is normal. She is not anemic. CEA is 5.5, CA19-[address] AP done 08/27/18: ?Interval development of poorly defined low density mass near hilum of liver with marked intrahepatic biliary ductal dilation and distention of the gallbladder with wall thickening. No radiopaque stones are evident. Abnormal enhancement of common hepatic duct and proximal CBD. Distal CBD is not dilated and pancreas is unremarkable. Several likely metastatic nodules present in bilateral lung bases. Mildly prominent pericaval ly,mph nodes. No apparent adrenal metastasis. Mild right hydronephrosis increased from piror without stone or obstructin lesion identified. No obstruction or inflammation of bowel.Findings suspicious for cholangiocarcinoma with resulting obstruction of intrahepatic biliary ducts. Gallbladderdistetion with wal lthickening may represent cholecystitis secondary to obstruciton of the cystic duct or proximal bile duct; alternatively could represent GB wall edema. She underwent ERCP this morning with Dr. Ann with findings of obstruction of the presumed common hepatic duct at bifurcation into right and left ducts, probable second short obstruction of the right duct. A 7 x 12 stent was placed and brushings sent for cytology. Her last colonscopy was done 2 years ago. Both of her parents had colon cancer, but her colonoscopies have always been normal according to her. She has never had an EGD. PAST MEDICAL HISTORY Diagnosis Date - Constipation - functional - Diverticulosis of colon (without mention of hemorrhage) PAST SURGICAL HISTORY Procedure Laterality Date - COLONOSCOP W/ OR W/O BRSH SPEC 01/25/14 Colonoscopy - DESTRUC CONJUNC LESN 03/29/10 Performed by ALEC JACOBSON at [facility] [place] - EXCIS CONJUNC LESN+ADJ SCLERA 03/29/10 Performed by ALEC JACOBSON at [facility] - PAST SURGICAL HISTORY OF 11/2010 3 right shoulder - PAST SURGICAL HISTORY OF 2010 bilateral TKR - PAST SURGICAL HISTORY OF 2010 left wrist ORIF - PAST SURGICAL HISTORY OF 2009 cataract surgery bilateral - PAST SURGICAL HISTORY OF remote tubal ligation - SIGMOIDOSCOPY FLEX DIAG 04/24/2011 Sigmoidoscopy, flexible FAMILY HISTORY Problem Relation Age of Onset - Colon Cancer Mother - Colon Cancer Father Social History Substance Use Topics - Smoking status: Former Smoker Quit date: 03/20/2002 - Smokeless tobacco: Never Used - Alcohol use No MEDICATIONS: Prior to Admission Medications: magnesium hydroxide (MILK OF MAGNESIA ORAL) Take by mouth twice daily as needed. melatonin 10 mg tab Take 1 tablet by mouth daily at bedtime. oxyCODONE-acetaminophen (PERCOCET) 5-325 mg tablet Take 1 tablet by mouth every 6 hours as needed. LISINOPRIL ORAL Take 2.5 mg by mouth once daily. HAWTHORN ORAL Take by mouth. CALCIUM CARB/VIT D3/MINERALS (CALCIUM CARBONATE-VIT D3-MIN) 1,200 mgcalcium -1,000 unit ORAL Chew Take by mouth. GINKOBA ORAL one tab BID MULTI-VITAMIN ORAL one tab daily VITAMIN C ORAL one tab daily B-12 DOTS ORAL one daily Current hospital medications: diphenhydrAMINE 25 mg injection (BENADRYL) 25 mg INTRAVENOUS q 6 H PRN NaCl 0.9% iv infusion 75 mL/hr INTRAVENOUS CONTINUOUS heparin 5,000 Units injection 5,000 Units SUBCUTANEOUS q 12 H oxyCODONE IR 5 mg tab(s) (ROXICODONE) 5 mg ORAL q 6 H PRN metoclopramide HCl 10 mg injection (REGLAN) 10 mg INTRAVENOUS q 8 H PRN docusate sodium 100 mg cap(s) (COLACE) 100 mg ORAL BID PRN polyethylene glycol 3350 17 g packet (MIRALAX, GLYCOLAX) 17 g ORAL DAILY PRN lisinopril 2.5 mg tab(s) 2.5 mg ORAL DAILY melatonin 3 mg tab(s) 3 mg ORAL HS PRN calcium-cholecalciferol (D3) 1 tablet tab(s) (OSCAL+D 250) 1 tablet ORAL BID cyanocobalamin 1,000 mcg tab(s) (VITAMIN B-12) 1,000 mcg ORAL DAILY latanoprost 0.005 % 1 Drop (XALATAN) 1 Drop BOTH EYES AT BEDTIME lactobacillus rhamnosus (CULTURELLE) capsule 1 capsule ORAL BID hydrOXYzine HCl 25 mg tab(s) (ATARAX) 25 mg ORAL q 8 H PRN piperacillin-tazobactam iv piggyback 3.375 g in dextrose (iso- osmotic) 50 mL (ZOSYN) 3.375 g INTRAVENOUS q 6 H ALLERGIES No Known Allergies GI SPECIFIC REVIEW OF SYSTEMS: Positive for jaundice, pruritis Negative for nausea, vomitting Negative for decreased appetite Negative for change in weight No alteration in bowel habits OTHER ROS: Negative for fever, night sweats, sleep problems, mood or depression. GENERAL: No weight loss, malaise or fevers HEENT: Negative for frequent or significant headaches, No changes in hearing or vision, no nose bleeds or other nasal problems RESPIRATORY: Negative for cough, hemoptysis, wheezing, COPD, dyspnea or shortness of breath CARDIOVASCULAR: Negative for chest pain, leg swelling, hypertension, CHF or palpitations MUSCULOSKELETAL: Negative for joint pain or swelling, back pain or muscle pain SKIN: Positive for diffuse itching. Negative for lesions, rash Objective PHYSICAL EXAM: BP 152/96 Pulse 65 Temp 37 ?C (98.6 ?F) (Temporal Artery) Resp 17 Ht 157.5 cm (5' 2) Wt 62 kg (136 lb 11 oz) SpO2 100% BMI 25.00 kg/m? GENERAL- AAO x 3, no distress HEENT: Moist mucus membranes, no carotid bruit LUNGS: Clear to auscultation bilaterally CARDIAC: S1, S2 heard, no murmur appreciated ABDOMEN: Soft, non-tender without guarding or rigidity, normal bowel sounds EXTREMITIES: No pedal edema DATA: Diagnostic Tests Reviewed for Today's Visit: Most recent labs and imaging results. 08/30/18:Endoscopic retrograde cholangiopancreatography, sphincterotomy, placement of 7x12 stent, brushing for cytology CT A/P 08/27/18:?Interval development of poorly defined low density mass near hilum of liver with marked intrahepatic biliary ductal dilation and distention of the gallbladder with wall thickening. No radiopaque stones are evident. Abnormal enhancement of common hepatic duct and proximal CBD. Distal CBD is not dilated and pancreas is unremarkable. Several likely metastatic nodules present in bilateral lung bases. Mildly prominent pericaval ly,mph nodes. No apparent adrenal metastasis. Mild right hydronephrosis increased from piror without stone or obstructin lesion identified. No obstruction or inflammation of bowel.Findings suspicious for cholangiocarcinoma with resulting obstruction of intrahepatic biliary ducts. Gallbladderdistetion with wal lthickening may represent cholecystitis secondary to obstruciton of the cystic duct or proximal bile duct; alternatively could represent GB wall edema. Ref. Range 08/30/2018 05:40 WBC Latest Ref Range: 3.98 - 10.04 thou/cmm 4.85 RBC Latest Ref Range: 3.93 - 5.22 mil/cmm 3.87 (L) HGB Latest Ref Range: 11.2 - 15.7 g/dL 12.5 Hematocrit Latest Ref Range: 34.1 - 44.9 % 35.0 Platelet Count Latest Ref Range: 182 - 369 thou/cmm 572 (H) MCV Latest Ref Range: 79.4 - 94.8 fl 90.4 MCH Latest Ref Range: 25.6 - 32.2 pg 32.3 (H) MCHC Latest Ref Range: 31.6 - 34.8 % 35.7 (H) MPV Latest Ref Range: 9.4 - 12.3 fl 9.9 Ref. Range 08/30/2018 05:40 Sodium Latest Ref Range: 136 - 145 mEq/L 134 (L) Potassium Latest Ref Range: 3.5 - 5.1 mEq/L 5.2 (H) Chloride Latest Ref Range: 98 - 107 mEq/L 105 CO2 Latest Ref Range: 21 - 32 mEq/L 23 BUN Latest Ref Range: 7 - 18 mg/dL 8 Creatinine Latest Ref Range: 0.51 - 0.95 mg/dL 0.43 (L) Glucose Latest Ref Range: 70 - 99 mg/dL 90 Protein, Total Latest Ref Range: 6.4 - 8.2 g/dL 6.5 Calcium Latest Ref Range: 8.5 - 10.1 mg/dL 8.0 (L) Albumin Latest Ref Range: 3.4 - 5.0 g/dL 2.1 (L) Bilirubin, Total Latest Ref Range: 0.2 - 1.0 mg/dL 11.5 (H) Direct Bilirubin Latest Ref Range: 0.00 - 0.20 mg/dL 6.41 (H) Alkaline Phosphatase Latest Ref Range: 46 - 116 U/L 395 (H) ALT Latest Ref Range: 12 - 78 U/L 50 AST Latest Ref Range: 9 - 37 U/L 90 (H) Anion Gap Latest Ref Range: 8 - 16 11 Ref. Range 08/28/2018 20:20 CA19-9 Latest Ref Range: 0.0 - 35.0 U/ml 116.8 (H) CEA Latest Ref Range: 0.0 - 3.0 ng/mL 5.5 (H) Impression/Recommendations Principal Problem: Obstructive jaundice POA: Unknown 77 yo with painless jaundice. Ct demonstrating hilar mass with marked intrahepatic ductal dilation s/p ERCP with sphincterotomy and stent placement this morning. Cytology pending. 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 Heme/onc following. Will await pathology. Active Problems: Cholangiocarcinoma (HCC) POA: Yes Assessment AND Plan: s/p ERCP with stent placement. Pathology pending. Nothing further to add from a GI perspective, will sign off. Resolved Problems: * No resolved hospital problems. * SIGNATURE: Brenda Harris PA-C PATIENT NAME: Yane Chilel DATE: August 30, 2018 TIME: 1:47 PM PAGER/CONTACT #: [phone] OP NOT Observed: 08/30/2018 Status: COMPLETED Source: [place] 10:18 AM [facility] REPOSITORY HNO ID: [id number] Author: Morgan Middleton Service: General Surgery Author Type: Resident Type: Brief Op Note Filed: 08/30/2018 10:20 AM Note Text: BRIEF OPERATIVE / PROCEDURE NOTE LOG ID: [id number] SURGERY/PROCEDURE DATE: 08/30/2018 INCISION/PROCEDURE START TIME: 9:57 AM INCISION CLOSE/PROCEDURE END TIME: 10:07 AM SURGEON(S)/PROCEDURALIST(S) AND TRANSPORT AIDE(S): Surgeon(s) and Role: * Caleb Ann - Primary * Morgan Middleton - Resident - Assisting No Additional Staff SURGERY/PROCEDURE(S): Endoscopic retrograde cholangiopancreatography, sphincterotomy, placement of 7x12 stent, brushing for cytology ANESTHESIA: General FINDINGS: obstruction of the presumed common hepatic duct at bifurcation into right and left ducts, probable second short obstruction of the right duct. ESTIMATED BLOOD LOSS: none SPECIMENS: brushings for cytology COMPLICATIONS: None PRE-OP/PRE-PROCEDURE DIAGNOSIS: Jaundice POST-OP/POST-PROCEDURE DIAGNOSIS: Jaundice [R17] SIGNATURE: Morgan Middleton MD PATIENT NAME: Yane Chilel DATE: August 30, 2018 TIME: 10:18 AM PAGER/CONTACT #: [phone] OR ERCP BILIARY DUCT Observed: 08/30/2018 Status: F Source: [place] 10:10 AM [employer] SYSTEM REPOSITORY Performed at [facility] APPROVED BY: Arnaldo Lima MD Exam: Fluoroscopy performed during ERCP on 08/30/2018 09:36: Indication: Biliary stent placement. Finding: There are a total of 6 intraoperative fluoroscopic images submitted for interpretation. The initial image demonstrates an endoscope in the right upper quadrant with a guidewire and a right bile duct. There is a filling defect in the distal common bile duct with areas of stricture involving the biliary hilum and proximal common bile ducts. There is marked intrahepatic biliary dilation. Subsequent i mages demonstrate placement of an internal biliary stent. Fluoroscopy was performed without a radiologist in attendance. Please refer to the procedure report by the performing physician for additional details. Total Fluoroscopy Time: 3.1 minutes. IMPRESSION: Intraoperative fluoroscopy as described above. CYTOLOGY, MEDICAL Observed: 08/30/2018 Status: F Source: [employer] [facility] 10:00 AM [facility] REPOSITORY Test performed at [place] [address] NAME: YANE CHILEL REQUESTING: Caleb ANN M.D. COPY TO: TUMOR REGISTRY DIAGNOSIS COMMON BILE DUCT BRUSH- POSITIVE FOR MALIGNANT CELLS, ADENOCARCINOMA. COMMENT ALSO REVIEWED BY DR. JENNIFER BANEGAS WHO AGREES WITH THE DIAGNOSIS. SPECIMEN: A) CBD, BRUSH, COMMON BILE DUCT LESION Description: Materials Prepared & Examined: Volume: ......... 30 # of Monolayers: .......... 1 Other: ............. # of Slides: ................. COLORLESS 1 SL CLOUDY BRUSH INTACT Electronically Signed: 08/31/2018 Screened by: RAFAELA HOWARD(ASCP) Signed Out by: RUTH DALY M.D., PATHOLOGIST Printed on: August 31, 2018 Page 1 of 1 Performed By: #### CYTOM #### [place] [address] ANES PREOP Observed: 08/30/2018 Status: COMPLETED Source: [place] 8:[address] [facility] OTHER CAMPUS REPOSITORY HNO ID: [id number] Author: Tariq Alexander Service: Anesthesiology Author Type: Physician Type: Anesthesia PreOp Filed: 08/30/2018 8:48 AM Note Text: ANESTHESIOLOGY DAY OF SURGERY NOTE SERVICE DATE: 08/30/2018 SERVICE TIME: 8:47 AM : 1940 Procedure(s) (LRB): ERCP (N/A) Surgeon(s): Caleb Ann Estimated body mass index is 25 kg/m? as calculated from the following: Height as of this encounter: 157.5 cm (5' 2). Weight as of this encounter: 62 kg (136 lb 11 oz). Most recent hematocrit and potassium results: Hematocrit 35.0 08/30/2018 Potassium 5.2 08/30/2018 ANES DOS/PREOP NOTE: Vitals: 08/28/18 1915 08/29/18 0914 08/29/18 1930 08/30/18 0710 BP: 152/92 149/80 152/85 143/86 Pulse: 78 74 73 70 Resp: Temp: 37 ?C (98.6 ?F) 36.7 ?C (98.1 ?F) 36.8 ?C (98.2 ?F) 36.7 ?C (98.1 ?F) TempSrc: Oral Oral Oral Oral SpO2: 98% 95% 95% 96% Weight: Height: ACTIVE PROBLEM LIST Redundant Colon Family History of Malignant Neoplasm of Gastrointestinal Tract Unspecified Constipation Low Back Pain Scoliosis Cholangiocarcinoma (Hcc) Obstructive Jaundice PAST MEDICAL HISTORY Diagnosis Date - Constipation - functional - Diverticulosis of colon (without mention of hemorrhage) PAST SURGICAL HISTORY Procedure Laterality Date - COLONOSCOP W/ OR W/O BRSH SPEC 01/25/14 Colonoscopy - DESTRUC CONJUNC LESN 03/29/10 Performed by ALEC JACOBSON at [facility] [place] - EXCIS CONJUNC LESN+ADJ SCLERA 03/29/10 Performed by ALEC JACOBSON at [facility] - PAST SURGICAL HISTORY OF 11/2010 3 right shoulder - PAST SURGICAL HISTORY OF 2010 bilateral TKR - PAST SURGICAL HISTORY OF 2010 left wrist ORIF - PAST SURGICAL HISTORY OF 2009 cataract surgery bilateral - PAST SURGICAL HISTORY OF remote tubal ligation - SIGMOIDOSCOPY FLEX DIAG 04/24/2011 Sigmoidoscopy, flexible FAMILY HISTORY Problem Relation Age of Onset - Colon Cancer Mother - Colon Cancer Father Social History: Social History Substance Use Topics - Smoking status: Former Smoker Quit date: 03/20/2002 - Smokeless tobacco: Never Used - Alcohol use No No current facility-administered medications on file prior to encounter. Current Outpatient Prescriptions on File Prior to Encounter: melatonin 10 mg tab Take 1 tablet by mouth daily at bedtime. oxyCODONE-acetaminophen (PERCOCET) 5-325 mg tablet Take 1 tablet by mouth every 6 hours as needed. LISINOPRIL ORAL Take 2.5 mg by mouth once daily. HAWTHORN ORAL Take by mouth. CALCIUM CARB/VIT D3/MINERALS (CALCIUM CARBONATE-VIT D3-MIN) 1,200 mgcalcium -1,000 unit ORAL Chew Take by mouth. GINKOBA ORAL one tab BID MULTI-VITAMIN ORAL one tab daily VITAMIN C ORAL one tab daily B-12 DOTS ORAL one daily Current Facility-Administered Medications: [MAR Hold due to Transfer] diphenhydrAMINE 25 mg injection (BENADRYL) 25 mg INTRAVENOUS q 6 H PRN Peter Ofungwu 25 mg at 08/30/18 0523 [MAR Hold due to Transfer] iv contrast (radiology procedure) INTRAVENOUS DIRECTED PRN Gordy Jackson Vidal [OCT Hold due to Transfer] NaCl 0.9% iv infusion 75 mL/hr INTRAVENOUS CONTINUOUS Alin (Res) [place] Last Rate: 75 mL/hr at 08/29/183 75 mL/hr at 08/29/18 234 [MAR Hold due to Transfer] heparin 5,000 Units injection 5,000 Units SUBCUTANEOUS q 12 H Wilfredo K Felton [MAR Hold due to Transfer] oxyCODONE IR 5 mg tab(s) (ROXICODONE) 5 mg ORAL q 6 H PRN Wilfredo K Felton [MAR Hold due to Transfer] metoclopramide HCl 10 mg injection (REGLAN) 10 mg INTRAVENOUS q 8 H PRN Wilfredo K Felton [OCT Hold due to Transfer] docusate sodium 100 mg cap(s) (COLACE) 100 mg ORAL BID PRN Wilfredo K Felton [MAR Hold due to Transfer] polyethylene glycol 3350 17 g packet (MIRALAX, GLYCOLAX) 17 g ORAL DAILY PRN Wilfredo K Felton [MAR Hold due to Transfer] lisinopril 2.5 mg tab(s) 2.5 mg ORAL DAILY Wilfredo K Felton 2.5 mg at 08/29/18916 [MAR Hold due to Transfer] melatonin 3 mg tab(s) 3 mg ORAL HS PRN Wilfredo K Felton [MAR Hold due to Transfer] calcium-cholecalciferol (D3) 1 tablet tab(s) (OSCAL+D 250) 1 tablet ORAL BID Wilfredo K Felton 1 tablet at 08/29/182054 [MAR Hold due to Transfer] cyanocobalamin 1,000 mcg tab(s) (VITAMIN B-12) 1,000 mcg ORAL DAILY Wilfredo K Felton 1,000 mcg at 08/29/18916 [MAR Hold due to Transfer] latanoprost 0.005 % 1 Drop (XALATAN) 1 Drop BOTH EYES AT BEDTIME Wilfredo K Felton 1 Drop at 08/29/182054 [MAR Hold due to Transfer] lactobacillus rhamnosus (CULTURELLE) capsule 1 capsule ORAL BID Wilfredo K Felton 1 capsule at 08/29/182054 [MAR Hold due to Transfer] hydrOXYzine HCl 25 mg tab(s) (ATARAX) 25 mg ORAL q 8 H PRN Wilfredo Mcihel Felton 25 mg at 08/29/182351 [MAR Hold due to Transfer] piperacillin-tazobactam iv piggyback 3.375 g in dextrose (iso-osmotic) 50 mL (ZOSYN) 3.375 g INTRAVENOUS q 6 H Shahla (Res) [place] Last Rate: 100 mL/hr at 08/30/18522 3.375 g at 08/30/18522 Allergies: ALLERGIES No Known Allergies DOS EXAM: Adequate NPO status: Yes Anesthetic risks, benefits, alternatives, personnel and consent discussed: Yes Patient agrees to proceed: Yes Previous Anesthesia: No history of adverse event. Airway Assessment: MP 2; Neck ROM: Full ROM without neurologic symptoms; Airway Evaluation: No significant abnormalities Symptoms of Sleep Apnea: Hypertension and Age over 50 (77 year old) Dentition: Dentures: upper lower implants Additional Physical Exam: Lungs: Patient health status unchanged since recent history and physical. See history and physical for exam findings. Cardiac: Patient health status unchanged since recent history and physical. See history and physical for exam findings. Additional Pertinent Findings: N/A Blood Products: Not anticipated for this procedure. Anesthetic Plan: General, Standard ASA Monitors Pain Management Plan: Parenteral or Oral ASA Class: 2 Other Medical Problems: None Chronic Beta Ish medication administered within 24 hours: N/A I have interviewed and examined the patient. I have reviewed the medical record and/or the pre-anesthesia evaluation, pertinent labs, and test results. Significant changes in the patient's condition since the History and Physical, not otherwise documented in primary service progress notes: No This contains updated information obtained within 48 hours of Surgery/Procedure. SIGNATURE: Tariq Alexander MD PATIENT NAME: Yane Chilel DATE: August 30, 2018 TIME: 8:47 AM CSN: [id number] PROGRESS Observed: 08/30/2018 Status: COMPLETED Source: [place] 7:46 AM CLINIC OTHER CAMPUS REPOSITORY HNO ID: [id number] Author: Ernesto Holly Service: Hematology/Oncology Author Type: Physician Type: Progress Notes Filed: 08/30/2018 9:01 AM Note Text: DX: Obstructive jaundice, Cholangiocarcinoma. 0 comfort meds Continues on Zosyn Plan for possible ERCP today Subjective Ms. Chilel is a 77 year old female who presents as a transfer from [facility]. She initially presented to [facility] for painless jaundice x2 weeks, and 1 month of pruritus. Culled from notes: Referred From [place]: Patient does have an elevated bilirubin of 12. Her alk phos is also elevated. Rest of her lab work is relatively unremarkable. The patient underwent CT of abdomen pelvis.. 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 She does appear to also have metastatic disease into the lungs. 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 CT A/P 08/27/18: Interval development of poorly defined low density mass near hilum of liver with marked intrahepatic biliary ductal dilation and distention of the gallbladder with wall thickening. No radiopaque stones are evident. Abnormal enhancement of common hepatic duct and proximal CBD. Distal CBD is not dilated and pancreas is unremarkable. Several likely metastatic nodules present in bilateral lung bases. Mildly prominent pericaval ly,mph nodes. No apparent adrenal metastasis. Mild right hydronephrosis increased from piror without stone or obstructin lesion identified. No obstruction or inflammation of bowel.Findings suspicious for cholangiocarcinoma with resulting obstruction of intrahepatic biliary ducts. Gallbladderdistetion with wal lthickening may represent cholecystitis secondary to obstruciton of the cystic duct or proximal bile duct; alternatively could represent GB wall edema. PAST MEDICAL HISTORY Diagnosis Date - Constipation - functional - Diverticulosis of colon (without mention of hemorrhage) PAST SURGICAL HISTORY Procedure Laterality Date - COLONOSCOP W/ OR W/O [facility] SPEC 01/25/14 Colonoscopy - DESTRUC CONJUNC LESN 03/29/10 Performed by ALEC JACOBSON at [facility] [place] - EXCIS CONJUNC LESN+ADJ SCLERA 03/29/10 Performed by ALEC JACOBSON at [facility] [place] - PAST SURGICAL HISTORY OF 11/2010 3 right shoulder - PAST SURGICAL HISTORY OF 2010 bilateral TKR - PAST SURGICAL HISTORY OF 2010 left wrist ORIF - PAST SURGICAL HISTORY OF 2009 cataract surgery bilateral - PAST SURGICAL HISTORY OF remote tubal ligation - SIGMOIDOSCOPY FLEX DIAG 04/24/2011 Sigmoidoscopy, flexible ALLERGIES No Known Allergies Social History Substance Use Topics - Smoking status: Former Smoker Quit date: 03/20/2002 - Smokeless tobacco: Never Used - Alcohol use No FAMILY HISTORY Problem Relation Age of Onset - Colon Cancer Mother - Colon Cancer Father Current Facility-Administered Medications: diphenhydrAMINE 25 mg injection (BENADRYL) 25 mg INTRAVENOUS q 6 H PRN iv contrast (radiology procedure) INTRAVENOUS DIRECTED PRN NaCl 0.9% iv infusion 75 mL/hr INTRAVENOUS CONTINUOUS heparin 5,000 Units injection 5,000 Units SUBCUTANEOUS q 12 H oxyCODONE IR 5 mg tab(s) (ROXICODONE) 5 mg ORAL q 6 H PRN metoclopramide HCl 10 mg injection (REGLAN) 10 mg INTRAVENOUS q 8 H PRN docusate sodium 100 mg cap(s) (COLACE) 100 mg ORAL BID PRN polyethylene glycol 3350 17 g packet (MIRALAX, GLYCOLAX) 17 g ORAL DAILY PRN lisinopril 2.5 mg tab(s) 2.5 mg ORAL DAILY melatonin 3 mg tab(s) 3 mg ORAL HS PRN calcium-cholecalciferol (D3) 1 tablet tab(s) (OSCAL+D 250) 1 tablet ORAL BID cyanocobalamin 1,000 mcg tab(s) (VITAMIN B-12) 1,000 mcg ORAL DAILY latanoprost 0.005 % 1 Drop (XALATAN) 1 Drop BOTH EYES AT BEDTIME lactobacillus rhamnosus (CULTURELLE) capsule 1 capsule ORAL BID hydrOXYzine HCl 25 mg tab(s) (ATARAX) 25 mg ORAL q 8 H PRN piperacillin-tazobactam iv piggyback 3.375 g in dextrose (iso- osmotic) 50 mL (ZOSYN) 3.375 g INTRAVENOUS q 6 H Blood pressure 152/85, pulse 73, temperature 36.8 ?C (98.2 ?F), temperature source Oral, resp. rate 18, height 157.5 cm (5' 2), weight 62 kg (136 lb 11 oz), SpO2 95 %. General: awake alert oriented x 3, no acute distress, resting comfortably in bed HEENT: eomi perrl, no marked pallor but there is icterus present CV: s1s2 normal, rrr, no mrg no jvd Lung: bilateral air entry no wheezes no rales no rubs no rhonchi Abdomen: soft nt nd bowel sounds present, no cva tenderness and negative mcgee's Extremities: no edema, skin warm and dry, radial pulse 2+ and regu Patient Active Problem List Obstructive jaundice Cholangiocarcinoma (HCC) Low back pain Scoliosis Redundant colon Family history of malignant neoplasm of gastrointestinal tract Unspecified constipation RECOMMENDATIONS: Await ERCP, hopefully, this can also provide tissue diagnosis. CA 19?9 of 116.8 consistent with cholangiocarcinoma concerns?metastatic to lung and possibly bone. Discussed likely incurability of her disease process. Need further Bx, etc. Pruritis substantially controlled w iv benadryl Ernesto Holly M.D. PROGRESS Observed: 08/30/2018 Status: COMPLETED Source: [place] 6:20 AM CLINIC OTHER CAMPUS REPOSITORY HNO ID: [id number] Author: Tamela Jasso Service: General Surgery Author Type: Resident Type: Progress Notes Filed: 08/30/2018 10:58 AM Note Text: Attestation signed by Caleb Ann at 08/30/2018 12:54 PM I saw and evaluated the patient. Discussed with the resident and agree with resident's findings and plan as documented in the resident's note. ERCP today for suspected cholangiocarcinoma Caleb Ann MD General Surgery Progress Note SERVICE DATE: 08/30/2018 SUBJECTIVE: NAEON. Doing okay. No N/V. DIET NPO OBJECTIVE: Vitals: Temp (24hrs), Av.8 ?C (98.2 ?F), Min:36.7 ?C (98.1 ?F), Max:36.8 ?C (98.2 ?F) BP 152/85 Pulse 73 Temp 36.8 ?C (98.2 ?F) (Oral) Resp 18 Ht 157.5 cm (5' 2) Wt 62 kg (136 lb 11 oz) SpO2 95% BMI 25.00 kg/m? O2 Therapy: Room Air MEDICATIONS Current Facility-Administered Medications: diphenhydrAMINE 25 mg injection (BENADRYL) 25 mg INTRAVENOUS q 6 H PRN iv contrast (radiology procedure) INTRAVENOUS DIRECTED PRN NaCl 0.9% iv infusion 75 mL/hr INTRAVENOUS CONTINUOUS heparin 5,000 Units injection 5,000 Units SUBCUTANEOUS q 12 H oxyCODONE IR 5 mg tab(s) (ROXICODONE) 5 mg ORAL q 6 H PRN metoclopramide HCl 10 mg injection (REGLAN) 10 mg INTRAVENOUS q 8 H PRN docusate sodium 100 mg cap(s) (COLACE) 100 mg ORAL BID PRN polyethylene glycol 3350 17 g packet (MIRALAX, GLYCOLAX) 17 g ORAL DAILY PRN lisinopril 2.5 mg tab(s) 2.5 mg ORAL DAILY melatonin 3 mg tab(s) 3 mg ORAL HS PRN calcium-cholecalciferol (D3) 1 tablet tab(s) (OSCAL+D 250) 1 tablet ORAL BID cyanocobalamin 1,000 mcg tab(s) (VITAMIN B-12) 1,000 mcg ORAL DAILY latanoprost 0.005 % 1 Drop (XALATAN) 1 Drop BOTH EYES AT BEDTIME lactobacillus rhamnosus (CULTURELLE) capsule 1 capsule ORAL BID hydrOXYzine HCl 25 mg tab(s) (ATARAX) 25 mg ORAL q 8 H PRN piperacillin-tazobactam iv piggyback 3.375 g in dextrose (iso- osmotic) 50 mL (ZOSYN) 3.375 g INTRAVENOUS q 6 H Labs: Recent Labs 08/30/18 0540 08/29/18 0310 08/28/18 2020 08/28/18 1500 NA -- 138 -- 137 K -- 3.9 -- 3.1* CHLOR -- 104 -- 102 CO2 -- 26 -- 29 BUN -- 10 -- 10 CREAT -- 0.50* -- 0.44* GLUC -- 118* -- 105* ANION -- 12 -- 9 CA -- 8.1* -- 7.7* MG -- 2.3 -- 2.1 P -- 4.1 -- 2.0* ALB -- 2.3* -- 2.4* AST -- 44* -- 45* ALT -- 46 -- 45 ALKPHOS -- 424* -- 427* TBILI -- 10.5* -- 11.7* WBC 4.85 4.95 -- 4.72 HB 12.5 11.9 -- 11.7 HCT 35.0 34.2 -- 34.0* PLT 572* 527* -- 487* INR -- -- 1.09 -- Exam: GENERAL: No distress, Alert NEURO: AANDOx3, no gross deficits HEENT: normocephalic, atraumatic. (+) icteric sclera LUNGS: Unlabored breathing on room air CARDIAC: Regular rate and rhythm ABDOMEN: Soft, non-tender, non-distended EXTREMITIES: TAI SKIN: jaundiced ASSESSMENT AND PLAN: Active Hospital Problems Diagnosis Date Noted - Obstructive jaundice 08/28/2018 Overview Note: Added automatically from request for surgery [id number] - Cholangiocarcinoma (HCC) 08/28/2018 77 yo F with painless jaundice, hilar mass concerning for possible cholangiocarcinoma. CEA 5.5 ? - medical management per primary - heart health diet after ERCP. NPO/IV fluids for ERCP today - Empiric zosyn for biliary stasis/obstruction - monitor LFTs - Ca 19-9= 116, CEA= 5.5 - possible ERCP today, would hold off on PTC until ERCP if possible. Elective Surgery Service Pager For questions or concerns: Mon-Fri 6a-5p please page [phone]. After 5pm and on Weekends AND Holidays, please page [phone] for floor patients or [phone] for ICU patients. Tamela Jasso, DO General Surgery PGY-5 August 30, 2018 6:21 AM HEMOGRAM/DIFF Collected: 08/30/2018 Status: F Source: [facility] 5:40 AM HEALTH SYSTEM REPOSITORY TYPE CODE TESTS RESULT OUT OF REFERENCE UNITS RANGE LAB WBC(LOINC) 3.98-10.04 thou/cmm WBC 4.85 LAB RBC(LOINC) 3.93-5.22 mil/cmm Low RBC 3.87 LAB HGB(LOINC) 11.2-15.7 g/dL Hgb 12.5 LAB HCT(LOINC) 34.1-44.9 % Hct 35.0 LAB MCV(LOINC) 79.4-94.8 fl MCV 90.4 LAB MCH(LOINC) 25.6-32.2 pg MCH High 32.3 LAB MCHC(LOINC 31.6-34.8 % ) MCHC High 35.7 LAB RDW(LOINC) 11.7-14.4 % RDW High 16.6 LAB RDWSD(LOIN 36.4-46.3 fl C) RDW SD High 54.2 LAB PLT(LOINC) 182-369 thou/cmm Platelet High 572 LAB MPV(LOINC) 9.4-12.3 fl MPV 9.9 LAB SEG(LOINC) % Seg Neutrophil 59.2 LAB IGRE(LOINC % ) Immature Grans 1.40 LAB LYMPH(LOIN % C) Lymphocyte 24.1 LAB MNO(LOINC) % Monocyte 12.2 LAB EOSIN(LOIN % C) Eosinophil 2.3 LAB BASO(LOINC % ) Basophil 0.8 LAB SEGN(LOINC 1.56-6.13 thou/cmm ) Abs. Neut (ANC) 2.87 LAB IGAB(LOINC 0.00-0.05 thou/cmm ) Abs High Immature Grans 0.07 LAB LYMN(LOINC 1.18-3.74 thou/cmm ) Low Abs. Lymph 1.17 LAB MONON(LOIN 0.27-0.70 thou/cmm C) Abs. Luna 0.59 LAB EOSN(LOINC 0.00-0.31 thou/cmm ) Abs. Eosin 0.11 LAB BASON(LOIN 0.01-0.08 thou/cmm C) Abs. Baso 0.04 Performed By: #### CBCD1 #### [place] [address] BASIC PANEL Collected: 08/30/2018 Status: F Source: [facility] 5:40 AM HEALTH SYSTEM REPOSITORY TYPE CODE TESTS RESULT OUT OF REFERENCE UNITS RANGE LAB NA(LOINC) 136-145 mEq/L Low Sodium Blood 134 LAB K(LOINC) 3.5-5.1 mEq/L High Potassium Blood 5.2 LAB CL(LOINC) 98-107 mEq/L Chloride Blood 105 LAB CO2(LOINC) 21-32 mEq/L CO2 Blood 23 LAB GLU(LOINC) 70-99 mg/dL Glucose Blood 90 LAB BUN(LOINC) 7-18 mg/dL BUN Blood 8 LAB CREA(LOINC 0.51-0.95 mg/dL ) Low Creatinine Blood 0.43 LAB CA(LOINC) 8.5-10.1 mg/dL Low Calcium Blood 8.0 LAB ANGAP(LOIN 8-16 C) Anion Gap 11 Performed By: #### P8 #### [place] [address] HEPATIC PANEL Collected: 08/30/2018 Status: F Source: [facility] 5:40 AM HEALTH SYSTEM REPOSITORY TYPE CODE TESTS RESULT OUT OF REFERENCE UNITS RANGE LAB ALB(LOINC) 3.4-5.0 g/dL Low Albumin Blood 2.1 LAB ALT(LOINC) 12-78 U/L ALT-SGPT Blood 50 LAB ALKP(LOINC 46-116 U/L ) Alk High Phosphatase 395 LAB TP(LOINC) 6.4-8.2 g/dL Total Protein 6.5 LAB AST(LOINC) 9-37 U/L AST-SGOT High Blood 90 LAB BILIT(LOIN 0.2-1.0 mg/dL C) Total High Bilirubin 11.5 LAB DBIL(LOINC 0.00-0.20 mg/dL ) Direct High Bilirubin 6.41 Performed By: #### HEPAP #### [place] [address] OPERATIVE NO Observed: 08/30/2018 Status: COMPLETED Source: [place] 12:00 AM CLINIC OTHER CAMPUS REPOSITORY O ID: [id number] Author: Caleb Ann Service: General Surgery Author Type: Physician Type: Operative Report Filed: 08/31/2018 11:44 AM Note Text: [facility] - Operative Report YANE CHILEL : 1940 AGE: 77. SEX: F PATIENT TYPE: I HOSP SVC: INTM LOCATION: [id number] ATTENDING PHYSICIAN: Peter Huitron MD CSN NUMBER: [id number] DATE OF SURGERY/PROCEDURE: 08/30/2018 INCISION/PROCEDURE START TIME: 9:57 AM INCISION CLOSE/PROCEDURE END TIME: 10:07 AM PREOPERATIVE DIAGNOSIS: 1. Obstructive jaundice. 2. Common bile duct lesion suspicious for cholangiocarcinoma at the confluence of the bile ducts. POSTOPERATIVE DIAGNOSIS: 1. Obstructive jaundice. 2. Common bile duct lesion suspicious for cholangiocarcinoma at the confluence of the bile ducts. SURGEON: Caleb Ann MD TRANSPORT AIDE: Dr. Middleton. SURGERY/PROCEDURE: ERCP with sphincterotomy and stent insertion. ANESTHESIA: General endotracheal. INDICATIONS: Mrs. Chilel is a 77-year-old female, who was transferred from an outside facility with obstructive jaundice. On imaging, there is concern for a mass in the proximal common hepatic duct. Her CA-19-9 level was 116. Her CK level was 5.5. After discussion of the procedure with the risks, benefits, and alternatives, consent was obtained. The goal of the procedure was to place a stent for decompression and obtain a biopsy if possible. FINDINGS: The procedure was successful. Limited endoscopic views of the stomach, duodenum, and ampulla were all normal. The common bile duct was selectively cannulated. Distally, the bile duct measured about 5 mm in diameter. On cholangiography of the main bile duct, some dye passed retrograde and up into the pancreatic duct which appeared normal. Near the confluence of the bile ducts, there was evidence of a stricture in the area. There were dilated bile ducts noted in the right side of the liver. There were strictures in between these dilated segments between the central and right side. Given her positioning, it was difficult to tell if one area that was seen was actually the left side of the liver and the other the right or whether both were on the right side. A wire was able to be passed into the dilated segment centrally. Brushings were obtained from the stricturing area. A 7- Swazi by 12 cm long stent was placed with the proximal end of the stent in the dilated segment in the central portion of the liver. DESCRIPTION OF PROCEDURE: After satisfactory general endotracheal anesthesia, she was turned into a mostly prone position. Side-viewing endoscope was passed down through the mouth, through the esophagus into the stomach, and then into the duodenum. The ampulla was visualized and cannulated with a sphincterotome catheter. Cholangiography was performed with the findings as noted. A guidewire was advanced up into the liver into a dilated segments. Next, a sphincterotomy was then performed without complications. The sphincterotome catheter was then withdrawn and a cytology brush was then passed over the wire into position in the duct at the level of the stricture. The brush was opened and closed to obtain samples. After this was completed, the brush was removed. Next, a 7-Swazi by 12 cm long stent was passed over the wire into good position in the bile duct above the stricture and deployed without difficulty. Once this was confirmed, wire was removed. The scope was withdrawn back into the stomach, the excess air was aspirated, and the scope removed. She was then returned to a supine position, awakened, extubated, and transferred to the recovery area in good condition. Caleb Ann MD CHRISTIANSEN:[id number] /[id number] CT CHEST WITH Observed: 08/29/2018 Status: F Source: [employer] CONTRAST 2:50 PM HEALTH SYSTEM REPOSITORY Performed at [facility] APPROVED BY: Jarret Daily MD EXAMINATION: CHEST CT WITH CONTRAST CLINICAL HISTORY: Pancreatic cancer. Technique: Spiral CT acquisition of the chest from the thoracic inlet to the upper abdomen following IV contrast. MQ: CTCWR_5 Contrast: [address] Dose-Length Product: 125 mGy*cm CT Dose Reduction Employed: Automated exposure control Comparison: Outside CT abdomen and pelvis studies 08/27/2018 and 09/21/2017. RESULT: There are multiple predominantly solid but also cavitary nodules scattered throughout both lungs. The majority of pulmonary nodules measure 1 cm and less in size. There is subpleural reticulation. There is no parenchymal consolidation. There is no pleural effusion. There is no pathologically enlarged mediastinal or hilar lymphadenopathy. The ascending thoracic aorta measures 3.8 cm in diameter at the level the right pulmonary artery, tapering in diameter distally. The pulmonary outflow tract measures 2.8 cm in diameter. There is no pericardial effusion. There is wall thickening at the esophagogastric junction. There is no axillary lymphadenopathy. There is a sclerotic lesion involving the left T2 pedicle. There are mixed osteolytic and osteosclerotic lesions involving the T3 and T4 vertebra. There is a mild to moderate compression deformity inv olving the superior endplate of the L1 vertebral body with probable superimposed moderate sized Schmorl's node. There is a mild increase in AP width of the superior endplate causing mild compromise of the central canal. There is no retropulsed fracture fragment. There is vacuum phenomena at T12-L1 and L1-2 disc levels. There is severe intrahepatic biliary duct dilatation. There is hypoattenuation within the central liver. There are findings of right reverse total shoulder arthroplasty. IMPRESSION: Multiple pulmonary nodules, solid and cavitary. Sclerotic lesion T2 vertebral body with mixed osteolytic/osteosclerotic lesions T3 and T4 vertebra with mild/moderate compression deformity of the L1 vertebral body. Thick-walled esophagogastric junction. Severe intrahepatic biliary duct dilatation. Hypoattenuation central liver possibly related to a thick- walled gallbladder. PROGRESS Observed: 08/29/2018 Status: COMPLETED Source: [facility] 10:45 AM CLINIC OTHER CAMPUS REPOSITORY HNO ID: [id number] Author: Peter Huitron Service: Hospital Medicine Author Type: Physician Type: Progress Notes Filed: 08/29/2018 11:01 AM Note Text: DEPARTMENT OF HOSPITAL MEDICINE PROGRESS NOTE SERVICE DATE: 08/29/2018 SERVICE TIME: 10:45 AM Hospital Medicine/Primary Attending: Peter Huitron MD NIGHT AND WEEKEND COVERAGE: Please page [phone] from 7 PM to 7 AM Subjective INTERVAL HPI: Reports feeling well. Denied fever and chills. No chest pain. Noted that her itching is worse. Aware of possible EGD in am. MEDICATIONS: Reviewed Objective PHYSICAL EXAM: BP 149/80 Pulse 74 Temp (Src) 98.1 (Oral) Resp 18 Ht 5' 2 (1.58m) Wt 136 lb 11 oz (62.0kg) SpO2 95% BMI 24.99 kg/(m2). Physical Exam Performed GENERAL: Alert, no distress, cooperative SKIN: Skin is jaundiced, HEAD/SINUSES: No significant findings EYES: PERRLA, EOMI EARS: External ears normal, canals clear NOSE: Nares normal. Septum midline. OROPHARYNX: Lips, mucosa, and tongue normal. Teeth and gums normal. Oropharynx normal. NECK: No jugulovenous distention, No carotid bruits, Carotid pulse normal contour, Supple BACK: Back symmetric, Normal curvature, ROM normal, No CVAT. LUNGS: Lungs clear to auscultation, Good diaphragmatic excursion CARDIAC: Normal S1 and S2; no rubs, murmurs, or gallops ABDOMEN: Abdomen soft, non-tender, BS normal, No masses or organomegaly EXTREMITIES: Extremities normal, no deformities, edema, clubbing or skin discoloration. Good capillary refill., No ulcers NEURO: No focal neuro deficit PULSES: 2+ radial, 2+ carotid Lines, Drains, and Airways Line Peripheral 08/28/18 1154 Admission to Hospital Short Left Wrist 20 Gauge less than 1 day DATA: Diagnostic tests reviewed for today's visit: Assessment/Plan 1. 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 Gen surg and Heme/onc following Continue current 2. Hypertension Essential: Stable Continue to monitor On lisinopril 3. Hypokalemia: Resolved Resolved Problems: * No resolved hospital problems. * Medication and Non-Pharmacologic VTE Prophylaxis/Anticoagulants Anticoagulant AND Antiplatelet Medications Start Dose Route Frequency Ordered Stop 08/28/18 2100 heparin 5,000 Units injection (Medical At Risk ) 5,000 Units SUBCUTANEOUS EVERY 12 HOURS 08/28/18 1512 -- 08/28/18 1515 vte non-pharmacologic prophylaxis - none indicated (ky,oh) VTE Prophylaxis: VTE prophylaxis appropriate Disposition: Home Plan of care discussed with: Patient SIGNATURE: Peter Huitron MD PATIENT NAME: Yane Chilel DATE: August 29, 2018 TIME: 10:45 AM PAGER/CONTACT #: [phone] CONSULT Observed: 08/29/2018 Status: COMPLETED Source: [facility] 10:34 AM CLINIC OTHER CAMPUS REPOSITORY HNO ID: [id number] Author: Gordy Vidal Service: Hematology/Oncology Author Type: Physician Type: Consults Filed: 08/29/2018 11:06 AM Note Text: DX: Obstructive jaundice, Cholangiocarcinoma. Ms. Chilel is a 77 year old female who presents as a transfer from [facility]. She initially presented to [facility] for painless jaundice x2 weeks, and 1 month of pruritus. Culled from notes: Referred From [place]: Patient does have an elevated bilirubin of 12. Her alk phos is also elevated. Rest of her lab work is relatively unremarkable. The patient underwent CT of abdomen pelvis.. 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 She does appear to also have metastatic disease into the lungs. 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 CT A/P 08/27/18: Interval development of poorly defined low density mass near hilum of liver with marked intrahepatic biliary ductal dilation and distention of the gallbladder with wall thickening. No radiopaque stones are evident. Abnormal enhancement of common hepatic duct and proximal CBD. Distal CBD is not dilated and pancreas is unremarkable. Several likely metastatic nodules present in bilateral lung bases. Mildly prominent pericaval ly,mph nodes. No apparent adrenal metastasis. Mild right hydronephrosis increased from piror without stone or obstructin lesion identified. No obstruction or inflammation of bowel.Findings suspicious for cholangiocarcinoma with resulting obstruction of intrahepatic biliary ducts. Gallbladderdistetion with wal lthickening may represent cholecystitis secondary to obstruciton of the cystic duct or proximal bile duct; alternatively could represent GB wall edema. PAST MEDICAL HISTORY Diagnosis Date - Constipation - functional - Diverticulosis of colon (without mention of hemorrhage) PAST SURGICAL HISTORY Procedure Laterality Date - COLONOSCOP W/ OR W/O [facility] SPEC 01/25/14 Colonoscopy - DESTRUC CONJUNC LESN 03/29/10 Performed by ALEC JACOBSON at [facility] - EXCIS CONJUNC LESN+ADJ SCLERA 03/29/10 Performed by ALEC JACOBSON at [facility] - PAST SURGICAL HISTORY OF 11/2010 3 right shoulder - PAST SURGICAL HISTORY OF 2010 bilateral TKR - PAST SURGICAL HISTORY OF 2010 left wrist ORIF - PAST SURGICAL HISTORY OF 2009 cataract surgery bilateral - PAST SURGICAL HISTORY OF remote tubal ligation - SIGMOIDOSCOPY FLEX DIAG 04/24/2011 Sigmoidoscopy, flexible ALLERGIES No Known Allergies Social History Substance Use Topics - Smoking status: Former Smoker Quit date: 03/20/2002 - Smokeless tobacco: Never Used - Alcohol use No FAMILY HISTORY Problem Relation Age of Onset - Colon Cancer Mother - Colon Cancer Father Current Facility-Administered Medications: diphenhydrAMINE 25 mg injection (BENADRYL) 25 mg INTRAVENOUS q 6 H PRN heparin 5,000 Units injection 5,000 Units SUBCUTANEOUS q 12 H oxyCODONE IR 5 mg tab(s) (ROXICODONE) 5 mg ORAL q 6 H PRN metoclopramide HCl 10 mg injection (REGLAN) 10 mg INTRAVENOUS q 8 H PRN docusate sodium 100 mg cap(s) (COLACE) 100 mg ORAL BID PRN polyethylene glycol 3350 17 g packet (MIRALAX, GLYCOLAX) 17 g ORAL DAILY PRN lisinopril 2.5 mg tab(s) 2.5 mg ORAL DAILY melatonin 3 mg tab(s) 3 mg ORAL HS PRN calcium-cholecalciferol (D3) 1 tablet tab(s) (OSCAL+D 250) 1 tablet ORAL BID cyanocobalamin 1,000 mcg tab(s) (VITAMIN B-12) 1,000 mcg ORAL DAILY latanoprost 0.005 % 1 Drop (XALATAN) 1 Drop BOTH EYES AT BEDTIME NaCl 0.9% iv infusion 75 mL/hr INTRAVENOUS CONTINUOUS lactobacillus rhamnosus (CULTURELLE) capsule 1 capsule ORAL BID hydrOXYzine HCl 25 mg tab(s) (ATARAX) 25 mg ORAL q 8 H PRN piperacillin-tazobactam iv piggyback 3.375 g in dextrose (iso- osmotic) 50 mL (ZOSYN) 3.375 g INTRAVENOUS q 6 H Blood pressure 149/80, pulse 74, temperature 36.7 ?C (98.1 ?F), temperature source Oral, resp. rate 18, height 157.5 cm (5' 2), weight 62 kg (136 lb 11 oz), SpO2 95 %. General: awake alert oriented x 3, no acute distress, resting comfortably in bed HEENT: eomi perrl, no marked pallor but there is icterus present CV: s1s2 normal, rrr, no mrg no jvd Lung: bilateral air entry no wheezes no rales no rubs no rhonchi Abdomen: soft nt nd bowel sounds present, no cva tenderness and negative mcgee's Extremities: no edema, skin warm and dry, radial pulse 2+ and regu A/P 1. Painless/obstructive jaundice, possible cholangiocarcinoma identified on CT scan 2. Surgery consulted: Recs: Surgery plans for possible ERCP on Wednesday 08/30, would hold off on PTC until ERCP if possible.CMP CBC reviewed. 3. CT chest. Juliocesar Vidal MD PROGRESS Observed: 08/29/2018 Status: COMPLETED Source: [place] 6:[address] [facility] OTHER CAMPUS REPOSITORY HNO ID: [id number] Author: Alin De Los Santos Service: General Surgery Author Type: Resident Type: Progress Notes Filed: 08/29/2018 9:57 AM Note Text: Attestation signed by Jaylon Burns at 08/29/2018 12:21 PM Discussed with the resident and agree with resident's findings and plan as documented in the resident's note. Jaylon Burns MD, FACS August 29, 2018 12:21 PM General Surgery Progress Note SERVICE DATE: 08/29/2018 SUBJECTIVE: NAEON. Pt denies abdominal pain, F/C, CP, SOB, N/V Tolerating diet DIET HEART HEALTHY DIET NPO Nausea No Emesis No Flatus Yes Bowel movement Yes Pain Controlled Yes Ambulating Yes OBJECTIVE: Vitals: Temp (24hrs), Av.2 ?C (99 ?F), Min:37 ?C (98.6 ?F), Max:37.4 ?C (99.3 ?F) BP 152/92 Pulse 78 Temp 37 ?C (98.6 ?F) (Oral) Resp 18 Ht 157.5 cm (5' 2) Wt 62 kg (136 lb 11 oz) SpO2 98% BMI 25.00 kg/m? O2 Therapy: Room Air IANDO: Date 08/28/18699 - 08/29/1859 08/29/18699 - 08/30/18 0659 Shift 9885-6786 3594-1248 1130-2675 24 Hour Total 5288-0069 3019-2014 4099-5848 24 Hour Total I N T A K E Shift Total O U T P U T Urine Urine Incontinence/Not Saved 1 x 1 x # of BMs Number of BMs 1 x 1 x Shift Total Weight (kg) 62 62 62 62 62 62 62 62 MEDICATIONS Current Facility-Administered Medications: heparin 5,000 Units injection 5,000 Units SUBCUTANEOUS q 12 H oxyCODONE IR 5 mg tab(s) (ROXICODONE) 5 mg ORAL q 6 H PRN metoclopramide HCl 10 mg injection (REGLAN) 10 mg INTRAVENOUS q 8 H PRN docusate sodium 100 mg cap(s) (COLACE) 100 mg ORAL BID PRN polyethylene glycol 3350 17 g packet (MIRALAX, GLYCOLAX) 17 g ORAL DAILY PRN lisinopril 2.5 mg tab(s) 2.5 mg ORAL DAILY melatonin 3 mg tab(s) 3 mg ORAL HS PRN calcium-cholecalciferol (D3) 1 tablet tab(s) (OSCAL+D 250) 1 tablet ORAL BID cyanocobalamin 1,000 mcg tab(s) (VITAMIN B-12) 1,000 mcg ORAL DAILY latanoprost 0.005 % 1 Drop (XALATAN) 1 Drop BOTH EYES AT BEDTIME NaCl 0.9% iv infusion 75 mL/hr INTRAVENOUS CONTINUOUS lactobacillus rhamnosus (CULTURELLE) capsule 1 capsule ORAL BID diphenhydrAMINE 25 mg (BENADRYL) 25 mg ORAL q 6 H PRN hydrOXYzine HCl 25 mg tab(s) (ATARAX) 25 mg ORAL q 8 H PRN piperacillin-tazobactam iv piggyback 3.375 g in dextrose (iso- osmotic) 50 mL (ZOSYN) 3.375 g INTRAVENOUS q 6 H Labs: Recent Labs 08/29/18 0310 08/28/18 2020 08/28/18 1500 NA 138 -- 137 K 3.9 -- 3.1* CHLOR 104 -- 102 CO2 26 -- 29 BUN 10 -- 10 CREAT 0.50* -- 0.44* GLUC 118* -- 105* ANION 12 -- 9 CA 8.1* -- 7.7* MG 2.3 -- 2.1 P 4.1 -- 2.0* ALB 2.3* -- 2.4* AST 44* -- 45* ALT 46 -- 45 ALKPHOS 424* -- 427* TBILI 10.5* -- 11.7* WBC 4.95 -- 4.72 HB 11.9 -- 11.7 HCT 34.2 -- 34.0* PLT 527* -- 487* INR -- 1.09 -- Exam: GENERAL: No distress, Alert NEURO: AANDOx3, CN II-XII grossly intact HEENT: normocephalic, atraumatic. 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 CEA 5.5 ? - medical management per primary - heart health diet. NPO/IV fluids at midnight - Empiric zosyn for biliary stasis/obstruction - monitor LFTs - Ca 19-9 pending - plan for possible ERCP on Wednesday 08/30, would hold off on PTC until ERCP if possible Elective General Surgery Service Pager: For questions or concerns Thu-Thu 6a-5p please page [phone]. After 5pm and on Weekends and Holidays, please page [phone] if in ICU or [phone] if on RNF. SIGNATURE: Alin De Los Santos MD PATIENT NAME: Yane Chilel DATE: August 29, 2018 TIME: 6:54 AM Pager: [phone] HEMOGRAM/DIFF Collected: 08/29/2018 Status: F Source: [facility] 3:10 AM HEALTH SYSTEM REPOSITORY TYPE CODE TESTS RESULT OUT OF REFERENCE UNITS RANGE LAB WBC(LOINC) 3.98-10.04 thou/cmm WBC 4.95 LAB RBC(LOINC) 3.93-5.22 mil/cmm Low RBC 3.76 LAB HGB(LOINC) 11.2-15.7 g/dL Hgb 11.9 LAB HCT(LOINC) 34.1-44.9 % Hct 34.2 LAB MCV(LOINC) 79.4-94.8 fl MCV 91.0 LAB MCH(LOINC) 25.6-32.2 pg MCH 31.6 LAB MCHC(LOINC 31.6-34.8 % ) MCHC 34.8 LAB RDW(LOINC) 11.7-14.4 % RDW High 15.9 LAB RDWSD(LOIN 36.4-46.3 fl C) RDW SD High 52.5 LAB PLT(LOINC) 182-369 thou/cmm Platelet High 527 LAB MPV(LOINC) 9.4-12.3 fl MPV 9.6 LAB SEG(LOINC) % Seg Neutrophil 65.1 LAB IGRE(LOINC % ) Immature Grans 1.00 LAB LYMPH(LOIN % C) Lymphocyte 20.2 LAB MNO(LOINC) % Monocyte 11.7 LAB EOSIN(LOIN % C) Eosinophil 1.4 LAB BASO(LOINC % ) Basophil 0.6 LAB SEGN(LOINC 1.56-6.13 thou/cmm ) Abs. Neut (ANC) 3.22 LAB IGAB(LOINC 0.00-0.05 thou/cmm ) Abs Immature Grans 0.05 LAB LYMN(LOINC 1.18-3.74 thou/cmm ) Low Abs. Lymph 1.00 LAB MONON(LOIN 0.27-0.70 thou/cmm C) Abs. Luna 0.58 LAB EOSN(LOINC 0.00-0.31 thou/cmm ) Abs. Eosin 0.07 LAB BASON(LOIN 0.01-0.08 thou/cmm C) Abs. Baso 0.03 Performed By: #### CBCD1 #### [place] [address] COMPREHENSIVE PANEL Collected: 08/29/2018 Status: F Source: [facility] 3:10 AM HEALTH SYSTEM REPOSITORY TYPE CODE TESTS RESULT OUT OF REFERENCE UNITS RANGE LAB NA(LOINC) 136-145 mEq/L Sodium Blood 138 LAB K(LOINC) 3.5-5.1 mEq/L Potassium Blood 3.9 LAB CL(LOINC) 98-107 mEq/L Chloride Blood 104 LAB CO2(LOINC) 21-32 mEq/L CO2 Blood 26 LAB GLU(LOINC) 70-99 mg/dL Glucose High Blood 118 LAB BUN(LOINC) 7-18 mg/dL BUN Blood 10 LAB CREA(LOINC 0.51-0.95 mg/dL ) Low Creatinine Blood 0.50 LAB CA(LOINC) 8.5-10.1 mg/dL Low Calcium Blood 8.1 LAB ALB(LOINC) 3.4-5.0 g/dL Low Albumin Blood 2.3 LAB TP(LOINC) 6.4-8.2 g/dL Total Protein 6.5 LAB AST(LOINC) 9-37 U/L AST-SGOT High Blood 44 LAB ALT(LOINC) 12-78 U/L ALT-SGPT Blood 46 LAB ALKP(LOINC 46-116 U/L ) Alk High Phosphatase 424 LAB BILIT(LOIN 0.2-1.0 mg/dL C) Total High Bilirubin 10.5 LAB ANGAP(LOIN 8-16 C) Anion Gap 12 Performed By: #### P14 #### [place] [address] MAGNESIUM BLOOD Collected: 08/29/2018 Status: F Source: [facility] 3:10 AM HEALTH SYSTEM REPOSITORY TYPE CODE TESTS RESULT OUT OF REFERENCE UNITS RANGE LAB MAG(LOINC) 1.6-2.6 mg/dL Magnesium Blood 2.3 Performed By: #### MAG #### [place] [address] PHOSPHORUS BLOOD Collected: 08/29/2018 Status: F Source: [facility] 3:10 AM HEALTH SYSTEM REPOSITORY TYPE CODE TESTS RESULT OUT OF REFERENCE UNITS RANGE LAB PHOS(LOINC 2.5-4.9 mg/dL ) Phosphorus Blood 4.1 Performed By: #### PHOS #### [place] [address] CEA Collected: 08/28/2018 Status: F Source: [facility] 8:20 PM HEALTH SYSTEM REPOSITORY TYPE CODE TESTS RESULT OUT OF RANGE REFERENCE UNITS LAB CEA(LOINC) 0.0-3.0 ng/mL High CEA 5.5 Result Comment: The reference range shown is for adult non-smokers. The range for smokers is 0-5.0 Testing performed by Chemiluminescence LOCI. Performed By: #### CEA #### [place] [address] PROTIME Collected: 08/28/2018 Status: F Source: [facility] 8:20 PM HEALTH SYSTEM REPOSITORY TYPE CODE TESTS RESULT OUT OF REFERENCE UNITS RANGE LAB PTI(LOINC) 9.7-13.0 sec Prothrombin Time 11.3 LAB INR(LOINC) 0.90-1.30 INR 1.09 Result Comment: Note: Reference Range Change Vitamin K Antagonist (VKA) Therapeutic Range: INR 2 to 3 (Target INR of 2.5) Note: For patients treated with VKA drugs, such as warfarin, the [employer] 2012 Guideline recommends a therapeutic INR range of 2 to 3 (target INR of 2.5). This recommendation includes high-risk patients with antiphospholipid syndrome with previous arterial or venous thromboembolism, current-generation mechanical or bioprosthetic aortic heart valve replacement. VKA Therapeutic Range for some Mechanical Valve Replacement: INR 2.5 to 3.5 (Target INR of 3) Note: Patients with mechanical aortic valve replacement and additional risk factors for thromboembolic events (atrial fibrillation, previous thromboembolism, LV dysfunction, hypercoagulable conditions) or an older generation mechanical AVR (i.e., ball in-Cage) or any mechanical MVR should have a INR therapeutic range of 2.5 to 3.5 target INR of 3). Víctor GH, et al. Chest 2012; 141:7S-47S Cass RA, et al. [facility] 2017; 70: 252-289 Performed By: #### PT #### [facility] [address] [place] [address] [id number] Collected: 08/28/2018 Status: F Source: [facility] 8:20 PM HEALTH SYSTEM REPOSITORY TYPE CODE TESTS RESULT OUT OF RANGE REFERENCE UNITS LAB CA199(LOINC 0.0-35.0 U/ml ) High CA19-9 116.8 Performed By: #### CA199 #### [place] [address] URINALYSIS ROUTINE Collected: 08/28/2018 Status: F Source: [facility] 6:40 PM HEALTH SYSTEM REPOSITORY TYPE CODE TESTS RESULT OUT OF RANGE REFERENCE UNITS LAB RBCU1(LOIN 0.0-5.0 /hpf C) RBC,Urine 2.4 LAB WBCU1(LOIN 0.0-5.0 /hpf C) WBC, Urine 0.4 LAB EPIT1(LOIN 0.0-5.0 /hpf C) Ep Cells Urine 0.5 LAB BACT1(LOIN None C) Bacteria Urine NONE LAB HYCA1(LOIN 0.0-1.0 /lpf C) High Hyaline Cast 1.9 LAB COLOR(LOIN C) Urine Color DARK YELLOW LAB APPUR(LOIN C) Urine Appearance 3+ (CLOUDY) LAB GLUUR(LOIN Negative mg/dL C) Glucose Urine NEGATIVE LAB KETON(LOIN Negative mg/dL C) Ketone Urine NEGATIVE LAB HGBUR(LOIN Negative C) Hemoglobin,Urin NEGATIVE e LAB PROTU(LOIN Negative mg/dL C) Protein Urine NEGATIVE LAB NITRI(LOIN Negative C) Nitrites Urine NEGATIVE LAB BILIU(LOIN Negative C) Abnormal Bilirubin Urine see below Result Comment: Detected (Unable to confirm). LAB SPG(LOINC) 1.005-1.030 Specific [place], Ur 1.015 LAB PHUR(LOINC) 5.0-8.0 pH,Urine 7.0 LAB UROBI(LOINC) 0.0-1.0 EU/dL Urobilinogen,Ur 0.2 LAB LEUKO(LOINC) Negative Leukocytes NEGATIVE Esterase Performed By: #### URIN2 #### [place] [address] Observed: 08/28/2018 Status: F Source: [facility] URINE 6:40 PM HEALTH SYSTEM REPOSITORY Test performed at [facility] No growth Performed By: #### C_URI #### [place] [address] HISTORY PHYSICAL Observed: 08/28/2018 Status: COMPLETED Source: [facility] [facility] 3:42 PM CLINIC OTHER CAMPUS REPOSITORY HNO ID: [id number] Author: Wilfredo Felton Service: Hospital Medicine Author Type: Physician Type: HANDP Filed: 08/28/2018 11:44 PM Note Text: DEPARTMENT OF HOSPITAL MEDICINE HISTORY AND PHYSICAL EXAM SERVICE DATE: 08/28/2018 SERVICE TIME: 15:00 Primary Care Physician: Jose Nugent, DO NIGHT AND WEEKEND COVERAGE: From 7am - 7pm, please call [phone] After 7pm, please call cross cover pager #[phone] Subjective CHIEF COMPLAINT: Itchiness and yellow discoloration of the skin HPI: This is a 77 year old woman with a past medical history of hypertension, constipation/diverticulosis. Patient says she recently started feeling itchy and had yellowing of her skin. She was unable to get CT done outside the hospital so was referred to the ED. She had CT scan done in the ED which raised concern for cholangiocarcinoma, biliary obstruction, GB wall thickening, concern for pulmonary mets. Aside from itching, she has been complaining of urine which is more yellow than usual and having quite pale stools. Patient denies abdominal pain. She has a negative murphys and does not have nausea nor vomiting. No fever no chills. She is not hypotensive and is comfortable and oriented x 3 at the moment. She has no white count on labs. Consult placed to surgery/gi, heme/onc. Patient complains of yellow discoloration of the skin and some itching. She denies fever, chills, nausea, vomiting, abdominal pain, diarrhea, rash, swelling. No fall no trauma. She complains of yellow urine and pale stools. She denies chest pain and denies shortness of breath. No urinary symptoms. Fam history of colon cancer, but her colonscopy in the past, mammos, paps are reported as normal by patient. acp was discussed and patient currently full code. States that one of her sons would be hpoa. PAST MEDICAL HISTORY Diagnosis Date - Constipation - functional - Diverticulosis of colon (without mention of hemorrhage) PAST SURGICAL HISTORY Procedure Laterality Date - COLONOSCOP W/ OR W/O [facility] SPEC 01/25/14 Colonoscopy - DESTRUC CONJUNC LESN 03/29/10 Performed by ALEC JACOBSON at [facility] [place] - EXCIS CONJUNC LESN+ADJ SCLERA 03/29/10 Performed by ALEC JACOBSON at [facility] - PAST SURGICAL HISTORY OF 11/2010 3 right shoulder - PAST SURGICAL HISTORY OF 2010 bilateral TKR - PAST SURGICAL HISTORY OF 2010 left wrist ORIF - PAST SURGICAL HISTORY OF 2009 cataract surgery bilateral - PAST SURGICAL HISTORY OF remote tubal ligation - SIGMOIDOSCOPY FLEX DIAG 04/24/2011 Sigmoidoscopy, flexible FAMILY HISTORY Problem Relation Age of Onset - Colon Cancer Mother - Colon Cancer Father Social History Substance Use Topics - Smoking status: Former Smoker Quit date: 03/20/2002 - Smokeless tobacco: Never Used - Alcohol use No MEDICATIONS: Reviewed Prescriptions Prior to Admission: magnesium hydroxide (MILK OF MAGNESIA ORAL) Take by mouth twice daily as needed. Disp: Rfl: melatonin 10 mg tab Take 1 tablet by mouth daily at bedtime. Disp: Rfl: oxyCODONE-acetaminophen (PERCOCET) 5-325 mg tablet Take 1 tablet by mouth every 6 hours as needed. Disp: Rfl: LISINOPRIL ORAL Take 2.5 mg by mouth once daily. Disp: Rfl: HAWTHORN ORAL Take by mouth. Disp: Rfl: CALCIUM CARB/VIT D3/MINERALS (CALCIUM CARBONATE-VIT D3-MIN) 1,200 mgcalcium -1,000 unit ORAL Chew Take by mouth. Disp: Rfl: 0 GINKOBA ORAL one tab BID Disp: Rfl: MULTI-VITAMIN ORAL one tab daily Disp: Rfl: VITAMIN C ORAL one tab daily Disp: Rfl: B-12 DOTS ORAL one daily Disp: Rfl: ALLERGIES No Known Allergies REVIEW OF SYSTEM: Patient complains of yellow discoloration of the skin and some itching. She denies fever, chills, nausea, vomiting, abdominal pain, diarrhea, rash, swelling. No fall no trauma. She complains of yellow urine and pale stools. She denies chest pain and denies shortness of breath. No urinary symptoms. Patient denies changes in appetite or weight loss. Denies night sweats. Objective PHYSICAL EXAM: BP 153/99 Pulse 77 Temp (Src) 99.3 (Oral) Resp 18 Ht 5' 2 (1.58m) Wt 136 lb 11 oz (62.0kg) SpO2 95% BMI 24.99 kg/(m2). Physical Exam Performed: General: awake alert oriented x 3, no acute distress, resting comfortably in bed HEENT: eomi perrl, no marked pallor but there is icterus present CV: s1s2 normal, rrr, no mrg no jvd Lung: bilateral air entry no wheezes no rales no rubs no rhonchi Abdomen: soft nt nd bowel sounds present, no cva tenderness and negative mcgee's Extremities: no edema, skin warm and dry, radial pulse 2+ and regular Lines, Drains, and Airways Line Peripheral 08/28/18 1154 Admission to Hospital Short Left Wrist 20 Gauge less than 1 day DATA: Diagnostic tests reviewed for today's visit: Most recent labs and imaging results. Assessment/Plan Active Problems: 1. Painless/obstructive jaundice, possible cholangiocarcinoma identified on ct scan: POA, active Surgery on board F/u recs Consult was placed to gi/heme/onc as well On empiric zosyn right now, lactobacillus Intravenous fluids reglan prn nausea Benadryl/hydroxyzine prn itching 2. Constipation: POA, stable Laxatives as needed 3. Hypokalemia, hypophosphatemia: POA, stable Replace, monitor 4. Hypertension: POA, stable C/w home medication lisinopril, monitor 5. Glaucoma: POA, stable C/w home medication latanoprost ua done at previous ed was dirty, repeat ua looks clean, urine culture pending, patient with no urinary symptoms right now Medication and Non-Pharmacologic VTE Prophylaxis/Anticoagulants Anticoagulant AND Antiplatelet Medications Start Dose Route Frequency Ordered Stop 08/28/18 2100 heparin 5,000 Units injection (Medical At Risk ) 5,000 Units SUBCUTANEOUS EVERY 12 HOURS 08/28/18 1512 -- VTE Prophylaxis: heparin 5000 sq q12 hours Disposition: Home possibly Plan of care discussed with: Patient, ed SIGNATURE: Wilfredo Felton MD PATIENT NAME: Yane Chilel DATE: August 28, 2018 TIME: 3:42 PM PAGER/CONTACT #: [phone] etx [id number] CONSULT Observed: 08/28/2018 Status: COMPLETED Source: [facility] 3:23 PM CLINIC OTHER CAMPUS REPOSITORY HNO ID: [id number] Author: Shahla Rob Service: General Surgery Author Type: Resident Type: Consults Filed: 08/28/2018 7:16 PM Note Text: Attestation signed by Jaylon Burns at 08/28/2018 7:38 PM I saw and evaluated the patient. Discussed with the resident and agree with resident's findings and plan as documented in the resident's note. Will discuss with Dr. Ann for ERCP, possible need for PTC Jaylon Burns MD, FACS August 28, 2018 7:37 PM CONSULT: General Surgery SERVICE SERVICE DATE: 08/28/2018 SERVICE TIME: 6:57 PM REASON FOR CONSULT: gallbladder with wall thickening, possible cholangiocarcinoma REQUESTING PHYSICIAN: Dr. Felton PRIMARY CARE PHYSICIAN: Jose Nugent DO Subjective Ms. Chilel is a 77 year old female who presents as a transfer from [facility]. She initially presented to [facility] for painless jaundice x2 weeks, and 1 month of pruritus. Denies abdominal pain or weight loss. Denies fevers/chills/night sweats. Denies prior abdominal surgery. Reports last c-scope within last 5 years (2013) and wnl. [facility] significant for colon cancer. FUNCTIONAL STATUS: Independent PAST MEDICAL HISTORY Diagnosis Date - Constipation - functional - Diverticulosis of colon (without mention of hemorrhage) PAST SURGICAL HISTORY Procedure Laterality Date - COLONOSCOP W/ OR W/O [facility] SPEC 01/25/14 Colonoscopy - DESTRUC CONJUNC LESN 03/29/10 Performed by ALEC JACOBSON at [facility] - EXCIS CONJUNC LESN+ADJ SCLERA 03/29/10 Performed by ALEC JACOBSON at [facility] - PAST SURGICAL HISTORY OF 11/2010 3 right shoulder - PAST SURGICAL HISTORY OF 2010 bilateral TKR - PAST SURGICAL HISTORY OF 2010 left wrist ORIF - PAST SURGICAL HISTORY OF 2009 cataract surgery bilateral - PAST SURGICAL HISTORY OF remote tubal ligation - SIGMOIDOSCOPY FLEX DIAG 04/24/2011 Sigmoidoscopy, flexible FAMILY HISTORY Problem Relation Age of Onset - Colon Cancer Mother - Colon Cancer Father Social History Substance Use Topics - Smoking status: Former Smoker Quit date: 03/20/2002 - Smokeless tobacco: Never Used - Alcohol use No Prescriptions Prior to Admission: magnesium hydroxide (MILK OF MAGNESIA ORAL) Take by mouth twice daily as needed. Disp: Rfl: melatonin 10 mg tab Take 1 tablet by mouth daily at bedtime. Disp: Rfl: oxyCODONE-acetaminophen (PERCOCET) 5-325 mg tablet Take 1 tablet by mouth every 6 hours as needed. Disp: Rfl: LISINOPRIL ORAL Take 2.5 mg by mouth once daily. Disp: Rfl: HAWTHORN ORAL Take by mouth. Disp: Rfl: CALCIUM CARB/VIT D3/MINERALS (CALCIUM CARBONATE-VIT D3-MIN) 1,200 mgcalcium -1,000 unit ORAL Chew Take by mouth. Disp: Rfl: 0 GINKOBA ORAL one tab BID Disp: Rfl: MULTI-VITAMIN ORAL one tab daily Disp: Rfl: VITAMIN C ORAL one tab daily Disp: Rfl: B-12 DOTS ORAL one daily Disp: Rfl: Current hospital medications: heparin 5,000 Units injection 5,000 Units SUBCUTANEOUS q 12 H oxyCODONE IR 5 mg tab(s) (ROXICODONE) 5 mg ORAL q 6 H PRN metoclopramide HCl 10 mg injection (REGLAN) 10 mg INTRAVENOUS q 8 H PRN docusate sodium 100 mg cap(s) (COLACE) 100 mg ORAL BID PRN polyethylene glycol 3350 17 g packet (MIRALAX, GLYCOLAX) 17 g ORAL DAILY PRN [START ON 08/29/2018] lisinopril 2.5 mg tab(s) 2.5 mg ORAL DAILY melatonin 3 mg tab(s) 3 mg ORAL HS PRN [START ON 08/29/2018] calcium-cholecalciferol (D3) 1 tablet tab(s) (OSCAL+D 250) 1 tablet ORAL BID [START ON 08/29/2018] cyanocobalamin 1,000 mcg tab(s) (VITAMIN B-12) 1,000 mcg ORAL DAILY latanoprost 0.005 % 1 Drop (XALATAN) 1 Drop BOTH EYES AT BEDTIME NaCl 0.9% iv infusion 75 mL/hr INTRAVENOUS CONTINUOUS cefTRIAXone iv piggyback 1 g in dextrose (iso-osmotic) 50 mL (ROCEPHIN) 1 g INTRAVENOUS q 24 H lactobacillus rhamnosus (CULTURELLE) capsule 1 capsule ORAL BID Allergies As of Date: 08/28/2018 (No Known Allergies) Fully Assessed 08/28/2018 COMPLETE REVIEW OF SYSTEMS: See HPI for pertinent ROS Objective PHYSICAL EXAM: Physical Exam Performed: GENERAL: Alert, no distress, cooperative SKIN: jaundiced HEAD/SINUSES: +scleral icterus LUNGS: no respiratory distress on RA CARDIAC: regular rate ABDOMEN: soft, ND, NT, no palpable masses BP 153/99 Pulse 77 Temp (Src) 99.3 (Oral) Resp 18 Ht 5' 2 (1.58m) Wt 136 lb 11 oz (62.0kg) SpO2 95% BMI 24.99 kg/(m2). DATA: Diagnostic tests reviewed for today's visit: Most recent labs and imaging results. WBC 5.2, HGB 11.7, Hct 34.8, PLT 449 Na 136, K 3.2, Cl 102, CO2 26, AG 8, BUN 14, Cr 0.5, Glc 94 T bili 11.3, AST 43, ALT 46, AP 465, Alb 2.4 CT A/P 09/21/17: normal liver, gallbladder contracted. Normal spleen. Normal pancreas and adrenal glands. Normal kidneys. Small hiatal hernia. Normal small intestin and colon. Nonvisualization of appendix. Normal abdominal aorta and IVC. Normal retroperitoneum. Normal abdominal wall. Diffuse degenerative changes of lumbar spine. No acute findings. CT A/P 08/27/18: Interval development of poorly defined low density mass near hilum of liver with marked intrahepatic biliary ductal dilation and distention of the gallbladder with wall thickening. No radiopaque stones are evident. Abnormal enhancement of common hepatic duct and proximal CBD. Distal CBD is not dilated and pancreas is unremarkable. Several likely metastatic nodules present in bilateral lung bases. Mildly prominent pericaval ly,mph nodes. No apparent adrenal metastasis. Mild right hydronephrosis increased from piror without stone or obstructin lesion identified. No obstruction or inflammation of bowel.Findings suspicious for cholangiocarcinoma with resulting obstruction of intrahepatic biliary ducts. Gallbladderdistetion with wal lthickening may represent cholecystitis secondary to obstruciton of the cystic duct or proximal bile duct; alternatively could represent GB wall edema. Impression/Recommendations 77 yo F with painless jaundice, hilar mass concerning for possible cholangiocarcinoma Empiric zosyn for biliary stasis/obstruction Trend LFTs Check CEA/Ca 19-9 Check coags Will plan for possible ERCP on Wednesday 08/30, would hold off on PTC until ERCP if possible Will make NPO 08/29 at [place] for procedure Will continue to follow D/w Dr. Burns and Dr. Ann Elective General Surgery Service Pager: For questions or concerns Thu-Thu 6a-5p please page [phone]. After 5pm and on Weekends and Holidays, please page [phone] if in ICU or [phone] if on RNF. SIGNATURE: Shahla Rob MD PATIENT NAME: Yane Chilel DATE: August 28, 2018 TIME: 3:24 PM PAGER: [email or web address] Collected: 08/28/2018 Status: F Source: [facility] 3:00 PM HEALTH SYSTEM REPOSITORY TYPE CODE TESTS RESULT OUT OF REFERENCE UNITS RANGE LAB WBC(LOINC) 3.98-10.04 thou/cmm WBC 4.72 LAB RBC(LOINC) 3.93-5.22 mil/cmm Low RBC 3.69 LAB HGB(LOINC) 11.2-15.7 g/dL Hgb 11.7 LAB HCT(LOINC) 34.1-44.9 % Low Hct 34.0 LAB MCV(LOINC) 79.4-94.8 fl MCV 92.1 LAB MCH(LOINC) 25.6-32.2 pg MCH 31.7 LAB MCHC(LOINC 31.6-34.8 % ) MCHC 34.4 LAB RDW(LOINC) 11.7-14.4 % RDW High 15.8 LAB RDWSD(LOIN 36.4-46.3 fl C) RDW SD High 53.0 LAB PLT(LOINC) 182-369 thou/cmm Platelet High 487 LAB MPV(LOINC) 9.4-12.3 fl MPV 9.4 LAB SEG(LOINC) % Seg Neutrophil 66.6 LAB IGRE(LOINC % ) Immature Grans 0.60 LAB LYMPH(LOIN % C) Lymphocyte 19.5 LAB MNO(LOINC) % Monocyte 11.4 LAB EOSIN(LOIN % C) Eosinophil 1.1 LAB BASO(LOINC % ) Basophil 0.8 LAB SEGN(LOINC 1.56-6.13 thou/cmm ) Abs. Neut (ANC) 3.14 LAB IGAB(LOINC 0.00-0.05 thou/cmm ) Abs Immature Grans 0.03 LAB LYMN(LOINC 1.18-3.74 thou/cmm ) Low Abs. Lymph 0.92 LAB MONON(LOIN 0.27-0.70 thou/cmm C) Abs. Luna 0.54 LAB EOSN(LOINC 0.00-0.31 thou/cmm ) Abs. Eosin 0.05 LAB BASON(LOIN 0.01-0.08 thou/cmm C) Abs. Baso 0.04 Performed By: #### CBCD1 #### [facility] [address] [place], [place] [address] BASIC PANEL Collected: 08/28/2018 Status: F Source: [facility] 3:00 PM HEALTH SYSTEM REPOSITORY TYPE CODE TESTS RESULT OUT OF REFERENCE UNITS RANGE LAB NA(LOINC) 136-145 mEq/L Sodium Blood 137 LAB K(LOINC) 3.5-5.1 mEq/L Low Potassium Blood 3.1 LAB CL(LOINC) 98-107 mEq/L Chloride Blood 102 LAB CO2(LOINC) 21-32 mEq/L CO2 Blood 29 LAB GLU(LOINC) 70-99 mg/dL Glucose High Blood 105 LAB BUN(LOINC) 7-18 mg/dL BUN Blood 10 LAB CREA(LOINC 0.51-0.95 mg/dL ) Low Creatinine Blood 0.44 LAB CA(LOINC) 8.5-10.1 mg/dL Low Calcium Blood 7.7 LAB ANGAP(LOIN 8-16 C) Anion Gap 9 Performed By: #### P8 #### [place] [address] HEPATIC PANEL Collected: 08/28/2018 Status: F Source: [facility] 3:00 HEALTH SYSTEM REPOSITORY TYPE CODE TESTS RESULT OUT OF REFERENCE UNITS RANGE LAB ALB(LOINC) 3.4-5.0 g/dL Low Albumin Blood 2.4 LAB ALT(LOINC) 12-78 U/L ALT-SGPT Blood 45 LAB ALKP(LOINC 46-116 U/L ) Alk High Phosphatase 427 LAB TP(LOINC) 6.4-8.2 g/dL Total Protein 6.5 LAB AST(LOINC) 9-37 U/L AST-SGOT High Blood 45 LAB BILIT(LOIN 0.2-1.0 mg/dL C) Total High Bilirubin 11.7 LAB DBIL(LOINC 0.00-0.20 mg/dL ) Direct High Bilirubin 9.49 Performed By: #### HEPAP #### [place] [address] MAGNESIUM BLOOD Collected: 08/28/2018 Status: F Source: [facility] 3:00 PM HEALTH SYSTEM REPOSITORY TYPE CODE TESTS RESULT OUT OF REFERENCE UNITS RANGE LAB MAG(LOINC) 1.6-2.6 mg/dL Magnesium Blood 2.1 Performed By: #### MAG #### [place] [address] PHOSPHORUS BLOOD Collected: 08/28/2018 Status: F Source: [facility] 3:00 PM HEALTH SYSTEM REPOSITORY TYPE CODE TESTS RESULT OUT OF REFERENCE UNITS RANGE LAB PHOS(LOINC 2.5-4.9 mg/dL ) Low Phosphorus Blood 2.0 Performed By: #### PHOS #### [facility] [address] [place] [address] HOSP Observed: 08/28/2018 Status: COMPLETED Source: [facility] 12:00 AM CLINIC OTHER CAMPUS REPOSITORY Patient:Yane Chilel MRN: <[id number]> Height:5' 2(1.575 m) Weight:136 lb 11 oz (62 kg) Outpatient Medications as of 09/02/18: magnesium hydroxide (MILK OF MAGNESIA ORAL) melatonin 10 mg tab oxyCODONE-acetaminophen (PERCOCET) 5-325 mg tablet LISINOPRIL ORAL HAWTHORN ORAL CALCIUM CARB/VIT D3/MINERALS (CALCIUM CARBONATE-VIT D3-MIN) 1,200 mgcalcium -1,000 unit ORAL Chew GINKOBA ORAL MULTI-VITAMIN ORAL VITAMIN C ORAL B-12 DOTS ORAL Admission/Clinic Administered Medications as of 09/02/18: senna-docusate 8.6-50 mg 2 tablet (SENNA-S) polyethylene glycol 3350 17 g packet (MIRALAX, GLYCOLAX) bisacodyl 10 mg suppository (DULCOLAX) ascorbic acid (vitamin C) 500 mg tab(s) (VITAMIN C) diphenhydrAMINE 25 mg injection (BENADRYL) NaCl 0.9% iv infusion heparin 5,000 Units injection oxyCODONE IR 5 mg tab(s) (ROXICODONE) metoclopramide HCl 10 mg injection (REGLAN) docusate sodium 100 mg cap(s) (COLACE) lisinopril 2.5 mg tab(s) melatonin 3 mg tab(s) calcium-cholecalciferol (D3) 1 tablet tab(s) (OSCAL+D 250) cyanocobalamin 1,000 mcg tab(s) (VITAMIN B-12) latanoprost 0.005 % 1 Drop (XALATAN) lactobacillus rhamnosus (CULTURELLE) capsule hydrOXYzine HCl 25 mg tab(s) (ATARAX) piperacillin-tazobactam iv piggyback 3.375 g in dextrose (iso- osmotic) 50 mL (ZOSYN) Problem List: Redundant colon [Q43.8] Family history of malignant neoplasm of gastrointestinal tract [Z80.0] Unspecified constipation [K59.00] Low back pain [M54.5] Scoliosis [M41.9] 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 Discussed with the resident and agree with resident's findings and plan as documented in the resident's note. Will discuss with Dr. Ann for ERCP, possible need for PTC Jaylon Burns MD, FACS August 28, 2018 7:37 PM CONSULT: General Surgery SERVICE SERVICE DATE: 08/28/2018 SERVICE TIME: 6:57 PM REASON FOR CONSULT: gallbladder with wall thickening, possible cholangiocarcinoma REQUESTING PHYSICIAN: Dr. Felton PRIMARY CARE PHYSICIAN: DO Gerardo Gamble Ms. Chilel is a 77 year old female who presents as a transfer from [facility]. She initially presented to [facility] for painless jaundice x2 weeks, and 1 month of pruritus. Denies abdominal pain or weight loss. Denies fevers/chills/night sweats. Denies prior abdominal surgery. Reports last c-scope within last 5 years (2013) and wnl. [facility] significant for colon cancer. FUNCTIONAL STATUS: Independent PAST MEDICAL HISTORY Diagnosis Date - Constipation - functional - Diverticulosis of colon (without mention of hemorrhage) PAST SURGICAL HISTORY Procedure Laterality Date - COLONOSCOP W/ OR W/O [facility] SPEC 01/25/14 Colonoscopy - DESTRUC CONJUNC LESN 03/29/10 Performed by ALEC JACOBSON at [facility] - EXCIS CONJUNC LESN+ADJ SCLERA 03/29/10 Performed by ALEC JACOBSON at [facility] - PAST SURGICAL HISTORY OF 11/2010 3 right shoulder - PAST SURGICAL HISTORY OF 2010 bilateral TKR - PAST SURGICAL HISTORY OF 2010 left wrist ORIF - PAST SURGICAL HISTORY OF 2009 cataract surgery bilateral - PAST SURGICAL HISTORY OF remote tubal ligation - SIGMOIDOSCOPY FLEX DIAG 04/24/2011 Sigmoidoscopy, flexible FAMILY HISTORY Problem Relation Age of Onset - Colon Cancer Mother - Colon Cancer Father Social History Substance Use Topics - Smoking status: Former Smoker Quit date: 03/20/2002 - Smokeless tobacco: Never Used - Alcohol use No Prescriptions Prior to Admission: magnesium hydroxide (MILK OF MAGNESIA ORAL) Take by mouth twice daily as needed. Disp: Rfl: melatonin 10 mg tab Take 1 tablet by mouth daily at bedtime. Disp: Rfl: oxyCODONE-acetaminophen (PERCOCET) 5-325 mg tablet Take 1 tablet by mouth every 6 hours as needed. Disp: Rfl: LISINOPRIL ORAL Take 2.5 mg by mouth once daily. Disp: Rfl: HAWTHORN ORAL Take by mouth. Disp: Rfl: CALCIUM CARB/VIT D3/MINERALS (CALCIUM CARBONATE-VIT D3-MIN) 1,200 mgcalcium -1,000 unit ORAL Chew Take by mouth. Disp: Rfl: 0 GINKOBA ORAL one tab BID Disp: Rfl: MULTI-VITAMIN ORAL one tab daily Disp: Rfl: VITAMIN C ORAL one tab daily Disp: Rfl: B-12 DOTS ORAL one daily Disp: Rfl: Current hospital medications: heparin 5,000 Units injection 5,000 Units SUBCUTANEOUS q 12 H oxyCODONE IR 5 mg tab(s) (ROXICODONE) 5 mg ORAL q 6 H PRN metoclopramide HCl 10 mg injection (REGLAN) 10 mg INTRAVENOUS q 8 H PRN docusate sodium 100 mg cap(s) (COLACE) 100 mg ORAL BID PRN polyethylene glycol 3350 17 g packet (MIRALAX, GLYCOLAX) 17 g ORAL DAILY PRN [START ON 08/29/2018] lisinopril 2.5 mg tab(s) 2.5 mg ORAL DAILY melatonin 3 mg tab(s) 3 mg ORAL HS PRN [START ON 08/29/2018] calcium-cholecalciferol (D3) 1 tablet tab(s) (OSCAL+D 250) 1 tablet ORAL BID [START ON 08/29/2018] cyanocobalamin 1,000 mcg tab(s) (VITAMIN B-12) 1,000 mcg ORAL DAILY latanoprost 0.005 % 1 Drop (XALATAN) 1 Drop BOTH EYES AT BEDTIME NaCl 0.9% iv infusion 75 mL/hr INTRAVENOUS CONTINUOUS cefTRIAXone iv piggyback 1 g in dextrose (iso-osmotic) 50 mL (ROCEPHIN) 1 g INTRAVENOUS q 24 H lactobacillus rhamnosus (CULTURELLE) capsule 1 capsule ORAL BID Allergies As of Date: 08/28/2018 (No Known Allergies) Fully Assessed 08/28/2018 COMPLETE REVIEW OF SYSTEMS: See HPI for pertinent ROS Objective PHYSICAL EXAM: Physical Exam Performed: GENERAL: Alert, no distress, cooperative SKIN: jaundiced HEAD/SINUSES: +scleral icterus LUNGS: no respiratory distress on RA CARDIAC: regular rate ABDOMEN: soft, ND, NT, no palpable masses BP 153/99 Pulse 77 Temp (Src) 99.3 (Oral) Resp 18 Ht 5' 2 (1.58m) Wt 136 lb 11 oz (62.0kg) SpO2 95% BMI 24.99 kg/(m2). DATA: Diagnostic tests reviewed for today's visit: Most recent labs and imaging results. WBC 5.2, HGB 11.7, Hct 34.8, PLT 449 Na 136, K 3.2, Cl 102, CO2 26, AG 8, BUN 14, Cr 0.5, Glc 94 T bili 11.3, AST 43, ALT 46, AP 465, Alb 2.4 CT A/P 09/21/17: normal liver, gallbladder contracted. Normal spleen. Normal pancreas and adrenal glands. Normal kidneys. Small hiatal hernia. Normal small intestin and colon. Nonvisualization of appendix. Normal abdominal aorta and IVC. Normal retroperitoneum. Normal abdominal wall. Diffuse degenerative changes of lumbar spine. No acute findings. CT A/P 08/27/18: Interval development of poorly defined low density mass near hilum of liver with marked intrahepatic biliary ductal dilation and distention of the gallbladder with wall thickening. No radiopaque stones are evident. Abnormal enhancement of common hepatic duct and proximal CBD. Distal CBD is not dilated and pancreas is unremarkable. Several likely metastatic nodules present in bilateral lung bases. Mildly prominent pericaval ly,mph nodes. No apparent adrenal metastasis. Mild right hydronephrosis increased from piror without stone or obstructin lesion identified. No obstruction or inflammation of bowel.Findings suspicious for cholangiocarcinoma with resulting obstruction of intrahepatic biliary ducts. Gallbladderdistetion with wal lthickening may represent cholecystitis secondary to obstruciton of the cystic duct or proximal bile duct; alternatively could represent GB wall edema. Impression/Recommendations 77 yo F with painless jaundice, hilar mass concerning for possible cholangiocarcinoma Empiric zosyn for biliary stasis/obstruction Trend LFTs Check CEA/Ca 19-9 Check coags Will plan for possible ERCP on Wednesday 08/30, would hold off on PTC until ERCP if possible Will make NPO 08/29 at [place] for procedure Will continue to follow D/w Dr. Burns and Dr. Ann Elective General Surgery Service Pager: For questions or concerns Thu-Thu 6a-5p please page [phone]. After 5pm and on Weekends and Holidays, please page [phone] if in ICU or [phone] if on RNF. SIGNATURE: Shahla Rob MD PATIENT NAME: Yane Chilel DATE: August 28, 2018 TIME: 3:24 PM PAGER: Previous Version Wilfredo Felton MD 08/28/2018 11:44 PM Signed DEPARTMENT OF HOSPITAL MEDICINE HISTORY AND PHYSICAL EXAM SERVICE DATE: 08/28/2018 SERVICE TIME: 15:00 Primary Care Physician: Jose Nugent DO NIGHT AND WEEKEND COVERAGE: From 7am - 7pm, please call [phone] After 7pm, please call cross cover pager [phone] Subjective CHIEF COMPLAINT: Itchiness and yellow discoloration of the skin HPI: This is a 77 year old woman with a past medical history of hypertension, constipation/diverticulosis. Patient says she recently started feeling itchy and had yellowing of her skin. She was unable to get CT done outside the hospital so was referred to the ED. She had CT scan done in the ED which raised concern for cholangiocarcinoma, biliary obstruction, GB wall thickening, concern for pulmonary mets. Aside from itching, she has been complaining of urine which is more yellow than usual and having quite pale stools. Patient denies abdominal pain. She has a negative murphys and does not have nausea nor vomiting. No fever no chills. She is not hypotensive and is comfortable and oriented x 3 at the moment. She has no white count on labs. Consult placed to surgery/gi, heme/onc. Patient complains of yellow discoloration of the skin and some itching. She denies fever, chills, nausea, vomiting, abdominal pain, diarrhea, rash, swelling. No fall no trauma. She complains of yellow urine and pale stools. She denies chest pain and denies shortness of breath. No urinary symptoms. Fam history of colon cancer, but her colonscopy in the past, mammos, paps are reported as normal by patient. acp was discussed and patient currently full code. States that one of her sons would be hpoa. PAST MEDICAL HISTORY Diagnosis Date - Constipation - functional - Diverticulosis of colon (without mention of hemorrhage) PAST SURGICAL HISTORY Procedure Laterality Date - COLONOSCOP W/ OR W/O [facility] SPEC 01/25/14 Colonoscopy - DESTRUC CONJUNC LESN 03/29/10 Performed by ALEC JACOBSON at [facility] - EXCIS CONJUNC LESN+ADJ SCLERA 03/29/10 Performed by ALEC JACOBSON at [facility] - PAST SURGICAL HISTORY OF 11/2010 3 right shoulder - PAST SURGICAL HISTORY OF 2010 bilateral TKR - PAST SURGICAL HISTORY OF 2010 left wrist ORIF - PAST SURGICAL HISTORY OF 2009 cataract surgery bilateral - PAST SURGICAL HISTORY OF remote tubal ligation - SIGMOIDOSCOPY FLEX DIAG 04/24/2011 Sigmoidoscopy, flexible FAMILY HISTORY Problem Relation Age of Onset - Colon Cancer Mother - Colon Cancer Father Social History Substance Use Topics - Smoking status: Former Smoker Quit date: 03/20/2002 - Smokeless tobacco: Never Used - Alcohol use No MEDICATIONS: Reviewed Prescriptions Prior to Admission: magnesium hydroxide (MILK OF MAGNESIA ORAL) Take by mouth twice daily as needed. Disp: Rfl: melatonin 10 mg tab Take 1 tablet by mouth daily at bedtime. Disp: Rfl: oxyCODONE-acetaminophen (PERCOCET) 5-325 mg tablet Take 1 tablet by mouth every 6 hours as needed. Disp: Rfl: LISINOPRIL ORAL Take 2.5 mg by mouth once daily. Disp: Rfl: HAWTHORN ORAL Take by mouth. Disp: Rfl: CALCIUM CARB/VIT D3/MINERALS (CALCIUM CARBONATE-VIT D3-MIN) 1,200 mgcalcium -1,000 unit ORAL Chew Take by mouth. Disp: Rfl: 0 GINKOBA ORAL one tab BID Disp: Rfl: MULTI-VITAMIN ORAL one tab daily Disp: Rfl: VITAMIN C ORAL one tab daily Disp: Rfl: B-12 DOTS ORAL one daily Disp: Rfl: ALLERGIES No Known Allergies REVIEW OF SYSTEM: Patient complains of yellow discoloration of the skin and some itching. She denies fever, chills, nausea, vomiting, abdominal pain, diarrhea, rash, swelling. No fall no trauma. She complains of yellow urine and pale stools. She denies chest pain and denies shortness of breath. No urinary symptoms. Patient denies changes in appetite or weight loss. Denies night sweats. Objective PHYSICAL EXAM: BP 153/99 Pulse 77 Temp (Src) 99.3 (Oral) Resp 18 Ht 5' 2 (1.58m) Wt 136 lb 11 oz (62.0kg) SpO2 95% BMI 24.99 kg/(m2). Physical Exam Performed: General: awake alert oriented x 3, no acute distress, resting comfortably in bed HEENT: eomi perrl, no marked pallor but there is icterus present CV: s1s2 normal, rrr, no mrg no jvd Lung: bilateral air entry no wheezes no rales no rubs no rhonchi Abdomen: soft nt nd bowel sounds present, no cva tenderness and negative mcgee's Extremities: no edema, skin warm and dry, radial pulse 2+ and regular Lines, Drains, and Airways Line Peripheral 08/28/18 1154 Admission to Hospital Short Left Wrist 20 Gauge less than 1 day DATA: Diagnostic tests reviewed for today's visit: Most recent labs and imaging results. Assessment/Plan Active Problems: 1. Painless/obstructive jaundice, possible cholangiocarcinoma identified on ct scan: POA, active Surgery on board F/u recs Consult was placed to gi/heme/onc as well On empiric zosyn right now, lactobacillus Intravenous fluids reglan prn nausea Benadryl/hydroxyzine prn itching 2. Constipation: POA, stable Laxatives as needed 3. Hypokalemia, hypophosphatemia: POA, stable Replace, monitor 4. Hypertension: POA, stable C/w home medication lisinopril, monitor 5. Glaucoma: POA, stable C/w home medication latanoprost ua done at previous ed was dirty, repeat ua looks clean, urine culture pending, patient with no urinary symptoms right now Medication and Non-Pharmacologic VTE Prophylaxis/Anticoagulants Anticoagulant AND Antiplatelet Medications Start Dose Route Frequency Ordered Stop 08/28/18 2100 heparin 5,000 Units injection (Medical At Risk ) 5,000 Units SUBCUTANEOUS EVERY 12 HOURS 08/28/18 1512 -- VTE Prophylaxis: heparin 5000 sq q12 hours Disposition: Home possibly Plan of care discussed with: Patient, ed SIGNATURE: Wilfredo Felton MD PATIENT NAME: Yane Chilel DATE: August 28, 2018 TIME: 3:42 PM PAGER/CONTACT #: [phone] etx [phone] Alin De Los Santos MD 08/29/2018 9:57 AM Attested Attestation signed by Jaylon Burns at 08/29/2018 12:21 PM Discussed with the resident and agree with resident's findings and plan as documented in the resident's note. Jaylon Burns MD, FACS August 29, 2018 12:21 PM General Surgery Progress Note SERVICE DATE: 08/29/2018 SUBJECTIVE: NAEON. Pt denies abdominal pain, F/C, CP, SOB, N/V Tolerating diet DIET HEART HEALTHY DIET NPO Nausea No Emesis No Flatus Yes Bowel movement Yes Pain Controlled Yes Ambulating Yes OBJECTIVE: Vitals: Temp (24hrs), Av.2 ?C (99 ?F), Min:37 ?C (98.6 ?F), Max:37.4 ?C (99.3 ?F) BP 152/92 Pulse 78 Temp 37 ?C (98.6 ?F) (Oral) Resp 18 Ht 157.5 cm (5' 2) Wt 62 kg (136 lb 11 oz) SpO2 98% BMI 25.00 kg/m? O2 Therapy: Room Air IANDO: Date 08/28/18 07 - 08/29/18 0659 08/29/18 07 - 08/30/18 0659 Shift 9087-4559 5527-2848 3011-2693 24 Hour Total 0506-1412 8738-7910 8575-8022 24 Hour Total I N T A K E Shift Total O U T P U T Urine Urine Incontinence/Not Saved 1 x 1 x # of BMs Number of BMs 1 x 1 x Shift Total Weight (kg) 62 62 62 62 62 62 62 62 MEDICATIONS Current Facility-Administered Medications: heparin 5,000 Units injection 5,000 Units SUBCUTANEOUS q 12 H oxyCODONE IR 5 mg tab(s) (ROXICODONE) 5 mg ORAL q 6 H PRN metoclopramide HCl 10 mg injection (REGLAN) 10 mg INTRAVENOUS q 8 H PRN docusate sodium 100 mg cap(s) (COLACE) 100 mg ORAL BID PRN polyethylene glycol 3350 17 g packet (MIRALAX, GLYCOLAX) 17 g ORAL DAILY PRN lisinopril 2.5 mg tab(s) 2.5 mg ORAL DAILY melatonin 3 mg tab(s) 3 mg ORAL HS PRN calcium-cholecalciferol (D3) 1 tablet tab(s) (OSCAL+D 250) 1 tablet ORAL BID cyanocobalamin 1,000 mcg tab(s) (VITAMIN B-12) 1,000 mcg ORAL DAILY latanoprost 0.005 % 1 Drop (XALATAN) 1 Drop BOTH EYES AT BEDTIME NaCl 0.9% iv infusion 75 mL/hr INTRAVENOUS CONTINUOUS lactobacillus rhamnosus (CULTURELLE) capsule 1 capsule ORAL BID diphenhydrAMINE 25 mg (BENADRYL) 25 mg ORAL q 6 H PRN hydrOXYzine HCl 25 mg tab(s) (ATARAX) 25 mg ORAL q 8 H PRN piperacillin-tazobactam iv piggyback 3.375 g in dextrose (iso- osmotic) 50 mL (ZOSYN) 3.375 g INTRAVENOUS q 6 H Labs: Recent Labs 08/29/18 0310 08/28/18 2020 08/28/18 1500 NA 138 -- 137 K 3.9 -- 3.1* CHLOR 104 -- 102 CO2 26 -- 29 BUN 10 -- 10 CREAT 0.50* -- 0.44* GLUC 118* -- 105* ANION 12 -- 9 CA 8.1* -- 7.7* MG 2.3 -- 2.1 P 4.1 -- 2.0* ALB 2.3* -- 2.4* AST 44* -- 45* ALT 46 -- 45 ALKPHOS 424* -- 427* TBILI 10.5* -- 11.7* WBC 4.95 -- 4.72 HB 11.9 -- 11.7 HCT 34.2 -- 34.0* PLT 527* -- 487* INR -- 1.09 -- Exam: GENERAL: No distress, Alert NEURO: AANDOx3, CN II-XII grossly intact HEENT: normocephalic, atraumatic. 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 CEA 5.5 ? - medical management per primary - heart health diet. NPO/IV fluids at midnight - Empiric zosyn for biliary stasis/obstruction - monitor LFTs - Ca 19-9 pending - plan for possible ERCP on Wednesday 08/30, would hold off on PTC until ERCP if possible Elective General Surgery Service Pager: For questions or concerns Thu-Thu 6a-5p please page [phone]. After 5pm and on Weekends and Holidays, please page [phone] if in ICU or [phone] if on RNF. SIGNATURE: Alin De Los Santos MD PATIENT NAME: Yane Chilel DATE: August 29, 2018 TIME: 6:54 AM Pager: above Gordy-Tutu Young, MD 08/29/2018 11:06 AM Signed DX: Obstructive jaundice, Cholangiocarcinoma. Ms. Chilel is a 77 year old female who presents as a transfer from [facility]. She initially presented to [facility] for painless jaundice x2 weeks, and 1 month of pruritus. Culled from notes: Referred From [place]: Patient does have an elevated bilirubin of 12. Her alk phos is also elevated. Rest of her lab work is relatively unremarkable. The patient underwent CT of abdomen pelvis.. 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 She does appear to also have metastatic disease into the lungs. 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 CT A/P 08/27/18: Interval development of poorly defined low density mass near hilum of liver with marked intrahepatic biliary ductal dilation and distention of the gallbladder with wall thickening. No radiopaque stones are evident. Abnormal enhancement of common hepatic duct and proximal CBD. Distal CBD is not dilated and pancreas is unremarkable. Several likely metastatic nodules present in bilateral lung bases. Mildly prominent pericaval ly,mph nodes. No apparent adrenal metastasis. Mild right hydronephrosis increased from piror without stone or obstructin lesion identified. No obstruction or inflammation of bowel.Findings suspicious for cholangiocarcinoma with resulting obstruction of intrahepatic biliary ducts. Gallbladderdistetion with wal lthickening may represent cholecystitis secondary to obstruciton of the cystic duct or proximal bile duct; alternatively could represent GB wall edema. PAST MEDICAL HISTORY Diagnosis Date - Constipation - functional - Diverticulosis of colon (without mention of hemorrhage) PAST SURGICAL HISTORY Procedure Laterality Date [facility] Colonoscopy - DESTRUC CONJUNC LESN 03/29/10 Performed by ALEC JACOBSON at [facility] [place] - EXCIS CONJUNC LESN+ADJ SCLERA 03/29/10 Performed by ALEC JACOBSON at [facility] [place] - PAST SURGICAL HISTORY OF 11/2010 3 right shoulder - PAST SURGICAL HISTORY OF 2010 bilateral TKR - PAST SURGICAL HISTORY OF 2010 left wrist ORIF - PAST SURGICAL HISTORY OF 2009 cataract surgery bilateral - PAST SURGICAL HISTORY OF remote tubal ligation - SIGMOIDOSCOPY FLEX DIAG 04/24/2011 Sigmoidoscopy, flexible ALLERGIES No Known Allergies Social History Substance Use Topics - Smoking status: Former Smoker Quit date: 03/20/2002 - Smokeless tobacco: Never Used - Alcohol use No FAMILY HISTORY Problem Relation Age of Onset - Colon Cancer Mother - Colon Cancer Father Current Facility-Administered Medications: diphenhydrAMINE 25 mg injection (BENADRYL) 25 mg INTRAVENOUS q 6 H PRN heparin 5,000 Units injection 5,000 Units SUBCUTANEOUS q 12 H oxyCODONE IR 5 mg tab(s) (ROXICODONE) 5 mg ORAL q 6 H PRN metoclopramide HCl 10 mg injection (REGLAN) 10 mg INTRAVENOUS q 8 H PRN docusate sodium 100 mg cap(s) (COLACE) 100 mg ORAL BID PRN polyethylene glycol 3350 17 g packet (MIRALAX, GLYCOLAX) 17 g ORAL DAILY PRN lisinopril 2.5 mg tab(s) 2.5 mg ORAL DAILY melatonin 3 mg tab(s) 3 mg ORAL HS PRN calcium-cholecalciferol (D3) 1 tablet tab(s) (OSCAL+D 250) 1 tablet ORAL BID cyanocobalamin 1,000 mcg tab(s) (VITAMIN B-12) 1,000 mcg ORAL DAILY latanoprost 0.005 % 1 Drop (XALATAN) 1 Drop BOTH EYES AT BEDTIME NaCl 0.9% iv infusion 75 mL/hr INTRAVENOUS CONTINUOUS lactobacillus rhamnosus (CULTURELLE) capsule 1 capsule ORAL BID hydrOXYzine HCl 25 mg tab(s) (ATARAX) 25 mg ORAL q 8 H PRN piperacillin-tazobactam iv piggyback 3.375 g in dextrose (iso- osmotic) 50 mL (ZOSYN) 3.375 g INTRAVENOUS q 6 H Blood pressure 149/80, pulse 74, temperature 36.7 ?C (98.1 ?F), temperature source Oral, resp. rate 18, height 157.5 cm (5' 2), weight 62 kg (136 lb 11 oz), SpO2 95 %. General: awake alert oriented x 3, no acute distress, resting comfortably in bed HEENT: eomi perrl, no marked pallor but there is icterus present CV: s1s2 normal, rrr, no mrg no jvd Lung: bilateral air entry no wheezes no rales no rubs no rhonchi Abdomen: soft nt nd bowel sounds present, no cva tenderness and negative mcgee's Extremities: no edema, skin warm and dry, radial pulse 2+ and regu A/P 1. Painless/obstructive jaundice, possible cholangiocarcinoma identified on CT scan 2. Surgery consulted: Recs: Surgery plans for possible ERCP on Wednesday 08/30, would hold off on PTC until ERCP if possible.CMP CBC reviewed. 3. CT chest. MD Peter Flores MD 08/29/2018 11:01 AM Signed [facility] MEDICINE PROGRESS NOTE SERVICE DATE: 08/29/2018 SERVICE TIME: 10:45 AM Hospital Medicine/Primary Attending: Peter Huitron MD NIGHT AND WEEKEND COVERAGE: Please page [phone] from 7 PM to 7 AM Subjective INTERVAL HPI: Reports feeling well. Denied fever and chills. No chest pain. Noted that her itching is worse. Aware of possible EGD in am. MEDICATIONS: Reviewed Objective PHYSICAL EXAM: BP 149/80 Pulse 74 Temp (Src) 98.1 (Oral) Resp 18 Ht 5' 2 (1.58m) Wt 136 lb 11 oz (62.0kg) SpO2 95% BMI 24.99 kg/(m2). Physical Exam Performed GENERAL: Alert, no distress, cooperative SKIN: Skin is jaundiced, HEAD/SINUSES: No significant findings EYES: PERRLA, EOMI EARS: External ears normal, canals clear NOSE: Nares normal. Septum midline. OROPHARYNX: Lips, mucosa, and tongue normal. Teeth and gums normal. Oropharynx normal. NECK: No jugulovenous distention, No carotid bruits, Carotid pulse normal contour, Supple BACK: Back symmetric, Normal curvature, ROM normal, No CVAT. LUNGS: Lungs clear to auscultation, Good diaphragmatic excursion CARDIAC: Normal S1 and S2; no rubs, murmurs, or gallops ABDOMEN: Abdomen soft, non-tender, BS normal, No masses or organomegaly EXTREMITIES: Extremities normal, no deformities, edema, clubbing or skin discoloration. Good capillary refill., No ulcers NEURO: No focal neuro deficit PULSES: 2+ radial, 2+ carotid Lines, Drains, and Airways Line Peripheral 08/28/18 1154 Admission to Hospital Short Left Wrist 20 Gauge less than 1 day DATA: Diagnostic tests reviewed for today's visit: Assessment/Plan 1. 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 Gen surg and Heme/onc following Continue current 2. Hypertension Essential: Stable Continue to monitor On lisinopril 3. Hypokalemia: Resolved Resolved Problems: * No resolved hospital problems. * Medication and Non-Pharmacologic VTE Prophylaxis/Anticoagulants Anticoagulant AND Antiplatelet Medications Start Dose Route Frequency Ordered Stop 08/28/18 2100 heparin 5,000 Units injection (Medical At Risk ) 5,000 Units SUBCUTANEOUS EVERY 12 HOURS 08/28/18 1512 -- 08/28/18 1515 vte non-pharmacologic prophylaxis - none indicated (ky,oh) VTE Prophylaxis: VTE prophylaxis appropriate Disposition: Home Plan of care discussed with: Patient SIGNATURE: Peter Huitron MD PATIENT NAME: Yane Chilel DATE: August 29, 2018 TIME: 10:45 AM PAGER/CONTACT #: [phone] [phone] Tamela Jasso DO 08/30/2018 10:58 AM Attested Addendum Attestation signed by Caleb Ann at 08/30/2018 12:54 PM I saw and evaluated the patient. Discussed with the resident and agree with resident's findings and plan as documented in the resident's note. ERCP today for suspected cholangiocarcinoma Caleb Ann MD General Surgery Progress Note SERVICE DATE: 08/30/2018 SUBJECTIVE: NAEON. Doing okay. No N/V. DIET NPO OBJECTIVE: Vitals: Temp (24hrs), Av.8 ?C (98.2 ?F), Min:36.7 ?C (98.1 ?F), Max:36.8 ?C (98.2 ?F) BP 152/85 Pulse 73 Temp 36.8 ?C (98.2 ?F) (Oral) Resp 18 Ht 157.5 cm (5' 2) Wt 62 kg (136 lb 11 oz) SpO2 95% BMI 25.00 kg/m? O2 Therapy: Room Air MEDICATIONS Current Facility-Administered Medications: diphenhydrAMINE 25 mg injection (BENADRYL) 25 mg INTRAVENOUS q 6 H PRN iv contrast (radiology procedure) INTRAVENOUS DIRECTED PRN NaCl 0.9% iv infusion 75 mL/hr INTRAVENOUS CONTINUOUS heparin 5,000 Units injection 5,000 Units SUBCUTANEOUS q 12 H oxyCODONE IR 5 mg tab(s) (ROXICODONE) 5 mg ORAL q 6 H PRN metoclopramide HCl 10 mg injection (REGLAN) 10 mg INTRAVENOUS q 8 H PRN docusate sodium 100 mg cap(s) (COLACE) 100 mg ORAL BID PRN polyethylene glycol 3350 17 g packet (MIRALAX, GLYCOLAX) 17 g ORAL DAILY PRN lisinopril 2.5 mg tab(s) 2.5 mg ORAL DAILY melatonin 3 mg tab(s) 3 mg ORAL HS PRN calcium-cholecalciferol (D3) 1 tablet tab(s) (OSCAL+D 250) 1 tablet ORAL BID cyanocobalamin 1,000 mcg tab(s) (VITAMIN B-12) 1,000 mcg ORAL DAILY latanoprost 0.005 % 1 Drop (XALATAN) 1 Drop BOTH EYES AT BEDTIME lactobacillus rhamnosus (CULTURELLE) capsule 1 capsule ORAL BID hydrOXYzine HCl 25 mg tab(s) (ATARAX) 25 mg ORAL q 8 H PRN piperacillin-tazobactam iv piggyback 3.375 g in dextrose (iso- osmotic) 50 mL (ZOSYN) 3.375 g INTRAVENOUS q 6 H Labs: Recent Labs 08/30/18 0540 08/29/18 0310 08/28/18 2020 08/28/18 1500 NA -- 138 -- 137 K -- 3.9 -- 3.1* CHLOR -- 104 -- 102 CO2 -- 26 -- 29 BUN -- 10 -- 10 CREAT -- 0.50* -- 0.44* GLUC -- 118* -- 105* ANION -- 12 -- 9 CA -- 8.1* -- 7.7* MG -- 2.3 -- 2.1 P -- 4.1 -- 2.0* ALB -- 2.3* -- 2.4* AST -- 44* -- 45* ALT -- 46 -- 45 ALKPHOS -- 424* -- 427* TBILI -- 10.5* -- 11.7* WBC 4.85 4.95 -- 4.72 HB 12.5 11.9 -- 11.7 HCT 35.0 34.2 -- 34.0* PLT 572* 527* -- 487* INR -- -- 1.09 -- Exam: GENERAL: No distress, Alert NEURO: AANDOx3, no gross deficits HEENT: normocephalic, atraumatic. 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 CEA 5.5 ? - medical management per primary - heart health diet after ERCP. NPO/IV fluids for ERCP today - Empiric zosyn for biliary stasis/obstruction - monitor LFTs - Ca 19-9= 116, CEA= 5.5 - possible ERCP today, would hold off on PTC until ERCP if possible. Elective Surgery Service Pager For questions or concerns: Mon-Fri 6a-5p please page [phone]. After 5pm and on Weekends AND Holidays, please page [phone] for floor patients or [phone] for ICU patients. Tamela Jasso, DO General Surgery PGY-5 August 30, 2018 6:21 AM Previous Version Ernesto Holly MD 08/30/2018 9:01 AM Signed DX: Obstructive jaundice, Cholangiocarcinoma. 0 comfort meds Continues on Zosyn Plan for possible ERCP today Subjective Ms. Chilel is a 77 year old female who presents as a transfer from [facility]. She initially presented to [facility] for painless jaundice x2 weeks, and 1 month of pruritus. Culled from notes: Referred From [place]: Patient does have an elevated bilirubin of 12. Her alk phos is also elevated. Rest of her lab work is relatively unremarkable. The patient underwent CT of abdomen pelvis.. 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 She does appear to also have metastatic disease into the lungs. 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 CT A/P 08/27/18: Interval development of poorly defined low density mass near hilum of liver with marked intrahepatic biliary ductal dilation and distention of the gallbladder with wall thickening. No radiopaque stones are evident. Abnormal enhancement of common hepatic duct and proximal CBD. Distal CBD is not dilated and pancreas is unremarkable. Several likely metastatic nodules present in bilateral lung bases. Mildly prominent pericaval ly,mph nodes. No apparent adrenal metastasis. Mild right hydronephrosis increased from piror without stone or obstructin lesion identified. No obstruction or inflammation of bowel.Findings suspicious for cholangiocarcinoma with resulting obstruction of intrahepatic biliary ducts. Gallbladderdistetion with wal lthickening may represent cholecystitis secondary to obstruciton of the cystic duct or proximal bile duct; alternatively could represent GB wall edema. PAST MEDICAL HISTORY Diagnosis Date - Constipation - functional - Diverticulosis of colon (without mention of hemorrhage) PAST SURGICAL HISTORY Procedure Laterality Date - COLONOSCOP W/ OR W/O [facility] SPEC 01/25/14 Colonoscopy - DESTRUC CONJUNC LESN 03/29/10 Performed by ALEC JACOBSON at [facility] [place] - EXCIS CONJUNC LESN+ADJ SCLERA 03/29/10 Performed by ALEC JACOBSON at [facility] - PAST SURGICAL HISTORY OF 11/2010 3 right shoulder - PAST SURGICAL HISTORY OF 2010 bilateral TKR - PAST SURGICAL HISTORY OF 2010 left wrist ORIF - PAST SURGICAL HISTORY OF 2009 cataract surgery bilateral - PAST SURGICAL HISTORY OF remote tubal ligation - SIGMOIDOSCOPY FLEX DIAG 04/24/2011 Sigmoidoscopy, flexible ALLERGIES No Known Allergies Social History Substance Use Topics - Smoking status: Former Smoker Quit date: 03/20/2002 - Smokeless tobacco: Never Used - Alcohol use No FAMILY HISTORY Problem Relation Age of Onset - Colon Cancer Mother - Colon Cancer Father Current Facility-Administered Medications: diphenhydrAMINE 25 mg injection (BENADRYL) 25 mg INTRAVENOUS q 6 H PRN iv contrast (radiology procedure) INTRAVENOUS DIRECTED PRN NaCl 0.9% iv infusion 75 mL/hr INTRAVENOUS CONTINUOUS heparin 5,000 Units injection 5,000 Units SUBCUTANEOUS q 12 H oxyCODONE IR 5 mg tab(s) (ROXICODONE) 5 mg ORAL q 6 H PRN metoclopramide HCl 10 mg injection (REGLAN) 10 mg INTRAVENOUS q 8 H PRN docusate sodium 100 mg cap(s) (COLACE) 100 mg ORAL BID PRN polyethylene glycol 3350 17 g packet (MIRALAX, GLYCOLAX) 17 g ORAL DAILY PRN lisinopril 2.5 mg tab(s) 2.5 mg ORAL DAILY melatonin 3 mg tab(s) 3 mg ORAL HS PRN calcium-cholecalciferol (D3) 1 tablet tab(s) (OSCAL+D 250) 1 tablet ORAL BID cyanocobalamin 1,000 mcg tab(s) (VITAMIN B-12) 1,000 mcg ORAL DAILY latanoprost 0.005 % 1 Drop (XALATAN) 1 Drop BOTH EYES AT BEDTIME lactobacillus rhamnosus (CULTURELLE) capsule 1 capsule ORAL BID hydrOXYzine HCl 25 mg tab(s) (ATARAX) 25 mg ORAL q 8 H PRN piperacillin-tazobactam iv piggyback 3.375 g in dextrose (iso- osmotic) 50 mL (ZOSYN) 3.375 g INTRAVENOUS q 6 H Blood pressure 152/85, pulse 73, temperature 36.8 ?C (98.2 ?F), temperature source Oral, resp. rate 18, height 157.5 cm (5' 2), weight 62 kg (136 lb 11 oz), SpO2 95 %. General: awake alert oriented x 3, no acute distress, resting comfortably in bed HEENT: eomi perrl, no marked pallor but there is icterus present CV: s1s2 normal, rrr, no mrg no jvd Lung: bilateral air entry no wheezes no rales no rubs no rhonchi Abdomen: soft nt nd bowel sounds present, no cva tenderness and negative mcgee's Extremities: no edema, skin warm and dry, radial pulse 2+ and regu Patient Active Problem List Obstructive jaundice Cholangiocarcinoma (HCC) Low back pain Scoliosis Redundant colon Family history of malignant neoplasm of gastrointestinal tract Unspecified constipation RECOMMENDATIONS: Await ERCP, hopefully, this can also provide tissue diagnosis. CA 19?9 of 116.8 consistent with cholangiocarcinoma concerns?metastatic to lung and possibly bone. Discussed likely incurability of her disease process. Need further Bx, etc. Pruritis substantially controlled w annika Alexander MD 08/30/2018 8:48 AM Signed ANESTHESIOLOGY DAY OF SURGERY NOTE SERVICE DATE: 08/30/2018 SERVICE TIME: 8:47 AM : 1940 Procedure(s) (LRB): ERCP (N/A) Surgeon(s): Caleb Ann Estimated body mass index is 25 kg/m? as calculated from the following: Height as of this encounter: 157.5 cm (5' 2). Weight as of this encounter: 62 kg (136 lb 11 oz). Most recent hematocrit and potassium results: Hematocrit 35.0 08/30/2018 Potassium 5.2 08/30/2018 ANES DOS/PREOP NOTE: Vitals: 08/28/18 1915 08/29/18 0914 08/29/18 1930 08/30/18 0710 BP: 152/92 149/80 152/85 143/86 Pulse: 78 74 73 70 Resp: Temp: 37 ?C (98.6 ?F) 36.7 ?C (98.1 ?F) 36.8 ?C (98.2 ?F) 36.7 ?C (98.1 ?F) TempSrc: Oral Oral Oral Oral SpO2: 98% 95% 95% 96% Weight: Height: ACTIVE PROBLEM LIST Redundant Colon Family History of Malignant Neoplasm of Gastrointestinal Tract Unspecified Constipation Low Back Pain Scoliosis Cholangiocarcinoma (Hcc) Obstructive Jaundice PAST MEDICAL HISTORY Diagnosis Date - Constipation - functional - Diverticulosis of colon (without mention of hemorrhage) PAST SURGICAL HISTORY Procedure Laterality Date - COLONOSCOP W/ OR W/O [facility] SPEC 01/25/14 Colonoscopy - DESTRUC CONJUNC LESN 03/29/10 Performed by ALEC JACOBSON at [facility] [place] - EXCIS CONJUNC LESN+ADJ SCLERA 03/29/10 Performed by ALEC JACOBSON at [facility] [place] - PAST SURGICAL HISTORY OF 11/2010 3 right shoulder - PAST SURGICAL HISTORY OF 2010 bilateral TKR - PAST SURGICAL HISTORY OF 2010 left wrist ORIF - PAST SURGICAL HISTORY OF 2009 cataract surgery bilateral - PAST SURGICAL HISTORY OF remote tubal ligation - SIGMOIDOSCOPY FLEX DIAG 04/24/2011 Sigmoidoscopy, flexible FAMILY HISTORY Problem Relation Age of Onset - Colon Cancer Mother - Colon Cancer Father Social History: Social History Substance Use Topics - Smoking status: Former Smoker Quit date: 03/20/2002 - Smokeless tobacco: Never Used - Alcohol use No No current facility-administered medications on file prior to encounter. Current Outpatient Prescriptions on File Prior to Encounter: melatonin 10 mg tab Take 1 tablet by mouth daily at bedtime. oxyCODONE-acetaminophen (PERCOCET) 5-325 mg tablet Take 1 tablet by mouth every 6 hours as needed. LISINOPRIL ORAL Take 2.5 mg by mouth once daily. HAWTHORN ORAL Take by mouth. CALCIUM CARB/VIT D3/MINERALS (CALCIUM CARBONATE-VIT D3-MIN) 1,200 mgcalcium -1,000 unit ORAL Chew Take by mouth. GINKOBA ORAL one tab BID MULTI-VITAMIN ORAL one tab daily VITAMIN C ORAL one tab daily B-12 DOTS ORAL one daily Current Facility-Administered Medications: [MAR Hold due to Transfer] diphenhydrAMINE 25 mg injection (BENADRYL) 25 mg INTRAVENOUS q 6 H PRN Peter Ofungwu 25 mg at 08/30/18 0523 [MAR Hold due to Transfer] iv contrast (radiology procedure) INTRAVENOUS DIRECTED PRN Gordy Vidal [MAR Hold due to Transfer] NaCl 0.9% iv infusion 75 mL/hr INTRAVENOUS CONTINUOUS Alin (Res) [place] Last Rate: 75 mL/hr at 08/29/18 2343 75 mL/hr at 08/29/18 2343 [MAR Hold due to Transfer] heparin 5,000 Units injection 5,000 Units SUBCUTANEOUS q 12 H Wilfredo Felton [MAR Hold due to Transfer] oxyCODONE IR 5 mg tab(s) (ROXICODONE) 5 mg ORAL q 6 H PRN Wilfredo K Felton [MAR Hold due to Transfer] metoclopramide HCl 10 mg injection (REGLAN) 10 mg INTRAVENOUS q 8 H PRN Wilfredo K Felton [MAR Hold due to Transfer] docusate sodium 100 mg cap(s) (COLACE) 100 mg ORAL BID PRN Wilfredo K Felton [MAR Hold due to Transfer] polyethylene glycol 3350 17 g packet (MIRALAX, GLYCOLAX) 17 g ORAL DAILY PRN Wilfredo K Felton [MAR Hold due to Transfer] lisinopril 2.5 mg tab(s) 2.5 mg ORAL DAILY Wilfredo K Felton 2.5 mg at 08/29/18916 [MAR Hold due to Transfer] melatonin 3 mg tab(s) 3 mg ORAL HS PRN Wilfredo K Felton [MAR Hold due to Transfer] calcium-cholecalciferol (D3) 1 tablet tab(s) (OSCAL+D 250) 1 tablet ORAL BID Wilfredo K Felton 1 tablet at 08/29/182054 [MAR Hold due to Transfer] cyanocobalamin 1,000 mcg tab(s) (VITAMIN B-12) 1,000 mcg ORAL DAILY Wilfredo K Felton 1,000 mcg at 08/29/18916 [MAR Hold due to Transfer] latanoprost 0.005 % 1 Drop (XALATAN) 1 Drop BOTH EYES AT BEDTIME Wilfredo K Felotn 1 Drop at 08/29/182054 [MAR Hold due to Transfer] lactobacillus rhamnosus (CULTURELLE) capsule 1 capsule ORAL BID Wilfredo K Felton 1 capsule at 08/29/182054 [MAR Hold due to Transfer] hydrOXYzine HCl 25 mg tab(s) (ATARAX) 25 mg ORAL q 8 H PRN Wilfredo K Felton 25 mg at 08/29/182351 [MAR Hold due to Transfer] piperacillin-tazobactam iv piggyback 3.375 g in dextrose (iso-osmotic) 50 mL (ZOSYN) 3.375 g INTRAVENOUS q 6 H Shahla Rob Last Rate: 100 mL/hr at 08/30/18522 3.375 g at 08/30/18522 Allergies: ALLERGIES No Known Allergies DOS EXAM: Adequate NPO status: Yes Anesthetic risks, benefits, alternatives, personnel and consent discussed: Yes Patient agrees to proceed: Yes Previous Anesthesia: No history of adverse event. Airway Assessment: MP 2; Neck ROM: Full ROM without neurologic symptoms; Airway Evaluation: No significant abnormalities Symptoms of Sleep Apnea: Hypertension and Age over 50 (77 year old) Dentition: Dentures: upper lower implants Additional Physical Exam: Lungs: Patient health status unchanged since recent history and physical. See history and physical for exam findings. Cardiac: Patient health status unchanged since recent history and physical. See history and physical for exam findings. Additional Pertinent Findings: N/A Blood Products: Not anticipated for this procedure. Anesthetic Plan: General, Standard ASA Monitors Pain Management Plan: Parenteral or Oral ASA Class: 2 Other Medical Problems: None Chronic Beta Ish medication administered within 24 hours: N/A I have interviewed and examined the patient. I have reviewed the medical record and/or the pre-anesthesia evaluation, pertinent labs, and test results. Significant changes in the patient's condition since the History and Physical, not otherwise documented in primary service progress notes: No This contains updated information obtained within 48 hours of Surgery/Procedure. SIGNATURE: Tariq Alexander MD PATIENT NAME: Yane Chilel DATE: August 30, 2018 TIME: 8:47 AM CSN: [id number] Caleb Ann MD 08/31/2018 11:44 AM Signed [facility] - Operative Report YANE CHILEL : 1940 AGE: 77. SEX: F PATIENT TYPE: I [facility]OSP [facility] [place] [facility] LOCATION: [facility] ATTENDING PHYSICIAN: Peter Huitron MD CSN NUMBER: [id number] DATE OF SURGERY/PROCEDURE: 08/30/2018 INCISION/PROCEDURE START TIME: 9:57 AM INCISION CLOSE/PROCEDURE END TIME: 10:07 AM PREOPERATIVE DIAGNOSIS: 1. Obstructive jaundice. 2. Common bile duct lesion suspicious for cholangiocarcinoma at the confluence of the bile ducts. POSTOPERATIVE DIAGNOSIS: 1. Obstructive jaundice. 2. Common bile duct lesion suspicious for cholangiocarcinoma at the confluence of the bile ducts. SURGEON: Caleb Ann MD TRANSPORT AIDE: Dr. Middleton. SURGERY/PROCEDURE: ERCP with sphincterotomy and stent insertion. ANESTHESIA: General endotracheal. INDICATIONS: Mrs. Chilel is a 77-year-old female, who was transferred from an outside facility with obstructive jaundice. On imaging, there is concern for a mass in the proximal common hepatic duct. Her CA-19-9 level was 116. Her CK level was 5.5. After discussion of the procedure with the risks, benefits, and alternatives, consent was obtained. The goal of the procedure was to place a stent for decompression and obtain a biopsy if possible. FINDINGS: The procedure was successful. Limited endoscopic views of the stomach, duodenum, and ampulla were all normal. The common bile duct was selectively cannulated. Distally, the bile duct measured about 5 mm in diameter. On cholangiography of the main bile duct, some dye passed retrograde and up into the pancreatic duct which appeared normal. Near the confluence of the bile ducts, there was evidence of a stricture in the area. There were dilated bile ducts noted in the right side of the liver. There were strictures in between these dilated segments between the central and right side. Given her positioning, it was difficult to tell if one area that was seen was actually the left side of the liver and the other the right or whether both were on the right side. A wire was able to be passed into the dilated segment centrally. Brushings were obtained from the stricturing area. A 7- Swazi by 12 cm long stent was placed with the proximal end of the stent in the dilated segment in the central portion of the liver. DESCRIPTION OF PROCEDURE: After satisfactory general endotracheal anesthesia, she was turned into a mostly prone position. Side-viewing endoscope was passed down through the mouth, through the esophagus into the stomach, and then into the duodenum. The ampulla was visualized and cannulated with a sphincterotome catheter. Cholangiography was performed with the findings as noted. A guidewire was advanced up into the liver into a dilated segments. Next, a sphincterotomy was then performed without complications. The sphincterotome catheter was then withdrawn and a cytology brush was then passed over the wire into position in the duct at the level of the stricture. The brush was opened and closed to obtain samples. After this was completed, the brush was removed. Next, a 7-Swazi by 12 cm long stent was passed over the wire into good position in the bile duct above the stricture and deployed without difficulty. Once this was confirmed, wire was removed. The scope was withdrawn back into the stomach, the excess air was aspirated, and the scope removed. She was then returned to a supine position, awakened, extubated, and transferred to the recovery area in good condition. H Spencer Ann MD CHRISTIANSEN:[id number] /[id number] Previous Version Morgan Middleton MD 08/30/2018 10:20 AM Signed BRIEF OPERATIVE / PROCEDURE NOTE LOG ID: [id number] SURGERY/PROCEDURE DATE: 08/30/2018 INCISION/PROCEDURE START TIME: 9:57 AM INCISION CLOSE/PROCEDURE END TIME: 10:07 AM SURGEON(S)/PROCEDURALIST(S) AND TRANSPORT AIDE(S): Surgeon(s) and Role: * Caleb Ann - Primary * Morgan Middleton - Resident - Assisting No Additional Staff SURGERY/PROCEDURE(S): Endoscopic retrograde cholangiopancreatography, sphincterotomy, placement of 7x12 stent, brushing for cytology ANESTHESIA: General FINDINGS: obstruction of the presumed common hepatic duct at bifurcation into right and left ducts, probable second short obstruction of the right duct. ESTIMATED BLOOD LOSS: none SPECIMENS: brushings for cytology COMPLICATIONS: None PRE-OP/PRE-PROCEDURE DIAGNOSIS: Jaundice POST-OP/POST-PROCEDURE DIAGNOSIS: Jaundice [R17] SIGNATURE: Morgan Middleton MD PATIENT NAME: Yane Chilel DATE: August 30, 2018 TIME: 10:18 AM PAGER/CONTACT #: [phone] Brenda Harris PA-C 08/31/2018 7:19 AM Addendum INITIAL CONSULT GASTROENTEROLOGY SERVICE DATE: 08/30/2018 SERVICE TIME: 1300 Consulting Service: Hospital medicine Opinion/advice regarding: painless jaundice Subjective HPI: This is a 77 year old female who presents with past medical history of hypertension, constipation/diverticulosis. She developed diffuse pruritis without rash one month ago and began to note yellowing of the skin about 2 weeks ago with dark urine and acholic stools as well. She has no other complaints. Denies abdominal pain, diarrhea, fever, nausea, vomiting. On admission, total bilirubin is 11.7, alp 427, ast only mildly elevated at 45, ALT 45. WBC is normal. She is not anemic. CEA is 5.5, CA19- [address] AP done 08/27/18: ?Interval development of poorly defined low density mass near hilum of liver with marked intrahepatic biliary ductal dilation and distention of the gallbladder with wall thickening. No radiopaque stones are evident. Abnormal enhancement of common hepatic duct and proximal CBD. Distal CBD is not dilated and pancreas is unremarkable. Several likely metastatic nodules present in bilateral lung bases. Mildly prominent pericaval ly,mph nodes. No apparent adrenal metastasis. Mild right hydronephrosis increased from piror without stone or obstructin lesion identified. No obstruction or inflammation of bowel.Findings suspicious for cholangiocarcinoma with resulting obstruction of intrahepatic biliary ducts. Gallbladderdistetion with wal lthickening may represent cholecystitis secondary to obstruciton of the cystic duct or proximal bile duct; alternatively could represent GB wall edema. She underwent ERCP this morning with Dr. Ann with findings of obstruction of the presumed common hepatic duct at bifurcation into right and left ducts, probable second short obstruction of the right duct. A 7 x 12 stent was placed and brushings sent for cytology. Her last colonscopy was done 2 years ago. Both of her parents had colon cancer, but her colonoscopies have always been normal according to her. She has never had an EGD. PAST MEDICAL HISTORY Diagnosis Date - Constipation - functional - Diverticulosis of colon (without mention of hemorrhage) PAST SURGICAL HISTORY Procedure Laterality Date - COLONOSCOP W/ OR W/O [facility] SPEC 01/25/14 Colonoscopy - DESTRUC CONJUNC LESN 03/29/10 Performed by ALEC JACOBSON at [facility] [place] [facility] [place] - EXCIS CONJUNC LESN+ADJ SCLERA 03/29/10 Performed by ALEC JACOBSON at [facility] - PAST SURGICAL HISTORY OF 11/2010 3 right shoulder - PAST SURGICAL HISTORY OF 2010 bilateral TKR - PAST SURGICAL HISTORY OF 2010 left wrist ORIF - PAST SURGICAL HISTORY OF 2009 cataract surgery bilateral - PAST SURGICAL HISTORY OF remote tubal ligation - SIGMOIDOSCOPY FLEX DIAG 04/24/2011 Sigmoidoscopy, flexible FAMILY HISTORY Problem Relation Age of Onset - Colon Cancer Mother - Colon Cancer Father Social History Substance Use Topics - Smoking status: Former Smoker Quit date: 03/20/2002 - Smokeless tobacco: Never Used - Alcohol use No MEDICATIONS: Prior to Admission Medications: magnesium hydroxide (MILK OF MAGNESIA ORAL) Take by mouth twice daily as needed. melatonin 10 mg tab Take 1 tablet by mouth daily at bedtime. oxyCODONE-acetaminophen (PERCOCET) 5-325 mg tablet Take 1 tablet by mouth every 6 hours as needed. LISINOPRIL ORAL Take 2.5 mg by mouth once daily. HAWTHORN ORAL Take by mouth. CALCIUM CARB/VIT D3/MINERALS (CALCIUM CARBONATE-VIT D3-MIN) 1,200 mgcalcium -1,000 unit ORAL Chew Take by mouth. GINKOBA ORAL one tab BID MULTI-VITAMIN ORAL one tab daily VITAMIN C ORAL one tab daily B-12 DOTS ORAL one daily Current hospital medications: diphenhydrAMINE 25 mg injection (BENADRYL) 25 mg INTRAVENOUS q 6 H PRN NaCl 0.9% iv infusion 75 mL/hr INTRAVENOUS CONTINUOUS heparin 5,000 Units injection 5,000 Units SUBCUTANEOUS q 12 H oxyCODONE IR 5 mg tab(s) (ROXICODONE) 5 mg ORAL q 6 H PRN metoclopramide HCl 10 mg injection (REGLAN) 10 mg INTRAVENOUS q 8 H PRN docusate sodium 100 mg cap(s) (COLACE) 100 mg ORAL BID PRN polyethylene glycol 3350 17 g packet (MIRALAX, GLYCOLAX) 17 g ORAL DAILY PRN lisinopril 2.5 mg tab(s) 2.5 mg ORAL DAILY melatonin 3 mg tab(s) 3 mg ORAL HS PRN calcium-cholecalciferol (D3) 1 tablet tab(s) (OSCAL+D 250) 1 tablet ORAL BID cyanocobalamin 1,000 mcg tab(s) (VITAMIN B-12) 1,000 mcg ORAL DAILY latanoprost 0.005 % 1 Drop (XALATAN) 1 Drop BOTH EYES AT BEDTIME lactobacillus rhamnosus (CULTURELLE) capsule 1 capsule ORAL BID hydrOXYzine HCl 25 mg tab(s) (ATARAX) 25 mg ORAL q 8 H PRN piperacillin-tazobactam iv piggyback 3.375 g in dextrose (iso- osmotic) 50 mL (ZOSYN) 3.375 g INTRAVENOUS q 6 H ALLERGIES No Known Allergies GI SPECIFIC REVIEW OF SYSTEMS: Positive for jaundice, pruritis Negative for nausea, vomitting Negative for decreased appetite Negative for change in weight No alteration in bowel habits OTHER ROS: Negative for fever, night sweats, sleep problems, mood or depression. GENERAL: No weight loss, malaise or fevers HEENT: Negative for frequent or significant headaches, No changes in hearing or vision, no nose bleeds or other nasal problems RESPIRATORY: Negative for cough, hemoptysis, wheezing, COPD, dyspnea or shortness of breath CARDIOVASCULAR: Negative for chest pain, leg swelling, hypertension, CHF or palpitations MUSCULOSKELETAL: Negative for joint pain or swelling, back pain or muscle pain SKIN: Positive for diffuse itching. Negative for lesions, rash Objective PHYSICAL EXAM: BP 152/96 Pulse 65 Temp 37 ?C (98.6 ?F) (Temporal Artery) Resp 17 Ht 157.5 cm (5' 2) Wt 62 kg (136 lb 11 oz) SpO2 100% BMI 25.00 kg/m? GENERAL- AAO x 3, no distress HEENT: Moist mucus membranes, no carotid bruit LUNGS: Clear to auscultation bilaterally CARDIAC: S1, S2 heard, no murmur appreciated ABDOMEN: Soft, non-tender without guarding or rigidity, normal bowel sounds EXTREMITIES: No pedal edema DATA: Diagnostic Tests Reviewed for Today's Visit: Most recent labs and imaging results. 08/30/18:Endoscopic retrograde cholangiopancreatography, sphincterotomy, placement of 7x12 stent, brushing for cytology CT A/P 08/27/18:?Interval development of poorly defined low density mass near hilum of liver with marked intrahepatic biliary ductal dilation and distention of the gallbladder with wall thickening. No radiopaque stones are evident. Abnormal enhancement of common hepatic duct and proximal CBD. Distal CBD is not dilated and pancreas is unremarkable. Several likely metastatic nodules present in bilateral lung bases. Mildly prominent pericaval ly,mph nodes. No apparent adrenal metastasis. Mild right hydronephrosis increased from piror without stone or obstructin lesion identified. No obstruction or inflammation of bowel.Findings suspicious for cholangiocarcinoma with resulting obstruction of intrahepatic biliary ducts. Gallbladderdistetion with wal lthickening may represent cholecystitis secondary to obstruciton of the cystic duct or proximal bile duct; alternatively could represent GB wall edema. Ref. Range 08/30/2018 05:40 WBC Latest Ref Range: 3.98 - 10.04 thou/cmm 4.85 RBC Latest Ref Range: 3.93 - 5.22 mil/cmm 3.87 (L) HGB Latest Ref Range: 11.2 - 15.7 g/dL 12.5 Hematocrit Latest Ref Range: 34.1 - 44.9 % 35.0 Platelet Count Latest Ref Range: 182 - 369 thou/cmm 572 (H) MCV Latest Ref Range: 79.4 - 94.8 fl 90.4 MCH Latest Ref Range: 25.6 - 32.2 pg 32.3 (H) MCHC Latest Ref Range: 31.6 - 34.8 % 35.7 (H) MPV Latest Ref Range: 9.4 - 12.3 fl 9.9 Ref. Range 08/30/2018 05:40 Sodium Latest Ref Range: 136 - 145 mEq/L 134 (L) Potassium Latest Ref Range: 3.5 - 5.1 mEq/L 5.2 (H) Chloride Latest Ref Range: 98 - 107 mEq/L 105 CO2 Latest Ref Range: 21 - 32 mEq/L 23 BUN Latest Ref Range: 7 - 18 mg/dL 8 Creatinine Latest Ref Range: 0.51 - 0.95 mg/dL 0.43 (L) Glucose Latest Ref Range: 70 - 99 mg/dL 90 Protein, Total Latest Ref Range: 6.4 - 8.2 g/dL 6.5 Calcium Latest Ref Range: 8.5 - 10.1 mg/dL 8.0 (L) Albumin Latest Ref Range: 3.4 - 5.0 g/dL 2.1 (L) Bilirubin, Total Latest Ref Range: 0.2 - 1.0 mg/dL 11.5 (H) Direct Bilirubin Latest Ref Range: 0.00 - 0.20 mg/dL 6.41 (H) Alkaline Phosphatase Latest Ref Range: 46 - 116 U/L 395 (H) ALT Latest Ref Range: 12 - 78 U/L 50 AST Latest Ref Range: 9 - 37 U/L 90 (H) Anion Gap Latest Ref Range: 8 - 16 11 Ref. Range 08/28/2018 20:20 CA19-9 Latest Ref Range: 0.0 - 35.0 U/ml 116.8 (H) CEA Latest Ref Range: 0.0 - 3.0 ng/mL 5.5 (H) Impression/Recommendations Principal Problem: Obstructive jaundice POA: Unknown 77 yo with painless jaundice. Ct demonstrating hilar mass with marked intrahepatic ductal dilation s/p ERCP with sphincterotomy and stent placement this morning. Cytology pending. 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 Heme/onc following. Will await pathology. Active Problems: Cholangiocarcinoma (HCC) POA: Yes Assessment AND Plan: s/p ERCP with stent placement. Pathology pending. Nothing further to add from a GI perspective, will sign off. Resolved Problems: * No resolved hospital problems. * SIGNATURE: Brenda Harris PA-C PATIENT NAME: Yane Chilel DATE: August 30, 2018 TIME: 1:47 PM PAGER/CONTACT #: Previous Version Tariq Alexander MD 08/30/2018 3:24 PM Signed POST ANESTHESIA EVALUATION NOTE SERVICE DATE: 08/30/2018 SERVICE TIME: 3:24 PM : 1940 Vitals: 08/30/18 0710 08/30/18 0851 08/30/18 1015 08/30/18 1100 Temp: 36.7 ?C (98.1 ?F) 36.8 ?C (98.2 ?F) 36.5 ?C (97.7 ?F) 37 ?C (98.6 ?F) 08/30/18 1030 08/30/18 1045 08/30/18 1100 08/30/18 1115 BP: 116/95 154/91 (!) 116/26 152/96 08/30/18 1030 08/30/18 1045 08/30/18 1100 08/30/18 1115 Pulse: 67 66 66 65 08/30/18 1030 08/30/18 1045 08/30/18 1100 08/30/18 1115 Resp: 18 14 17 17 08/30/18 1030 08/30/18 1045 08/30/18 1100 08/30/18 1115 SpO2: 100% 100% 100% 100% Validated Vital Signs: Yes POST ANES STATUS: No apparent anesthetic complications. The patient is appropriately hydrated with stable respiratory and cardiovascular status. Patient has safe and adequate airway control. The patient has appropriate pain relief and no significant post operative nausea or vomiting. The patient has achieved baseline mental status. 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 No Advance Directive: Current Advance Directive: Health Care Power of Supervisor Customer Records Division;Living Will In Chart: No Line Camera Operator Attempted to Assist with AD Completion: Yes Action: (SW REFERRAL) Health Literacy: 1. How often do you need to have someone help you when you read instructions, pamphlets, or other written material from your doctor or pharmacy? Never - 1 2. How confident are you filling out medical forms by yourself? Extremely - 1 If Patient scores > 3 on either question, the following interventions were put into place: Teach back methods employed to ensure comprehension and Patient did not score > 3 FUNCTIONAL AND COGNITIVE/BEHAVIORAL PRIOR TO ADMISSION: Baseline Mental Status: Alert AND Oriented, Person, Place , Time and Situation Functional Status: Independent Does Patient Currently Receive Any Community Services or Home Care? None Equipment Prior to Admission: None Has the Patient Been in a Alf Facility in the Past 30 days? No SOCIAL: Living Arrangement: Home Lives With: Alone Financial Resources: Retired Primary Contact: Extended Emergency Contact Information Primary Emergency Contact: Sahil Chilel Mobile Relation: Son Supportive: Yes Other Important Patient Contacts: None Caregiver Assessment: Caregiver is ready, willing and able to meet the patient's needs as recommended by the inter-professional team? No Caregiver Needed Patient's transition needs and plan for meeting these needs: PATIENT FROM HOME ALONE. 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 Does the patient have an acute stroke diagnosis, or has the patient had a stroke during this admission? No Medication Adherence: I am convinced of the importance of my prescription medication: Agree completely - 0 I worry that my prescription medication will do more harm than good to me Disagree completely - 0 I feel financially burdened by my fmo-iv-lgkeyy expenses for my prescription medication: Disagree completely - 0 Patient is categorized as low risk < 2 Are you interested in bedside delivery of your medications? No Food Concerns: In the Last Month, Have You had Trouble Getting Food? No trouble getting food During the Last Month, Have You Worried Whether Your Food Would Run Out Before You Had Enough Money to Buy More? No Is the Patient Psychosocially Complex? 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 NO NEEDS AT THIS TIME. WILL FOLLOW FOR ANY TRANSITIONAL NEEDS. FAMILY/CHILDREN TO TRANSPORT HOME ONCE MEDICALLY STABLE. SIGNATURE: Analisa Mas RN PATIENT NAME: Yane Chilel DATE: August 30, 2018 TIME: 3:47 PM PAGER/CONTACT #: [phone] Peter Huitron MD 08/30/2018 6:59 PM Signed [facility] MEDICINE PROGRESS NOTE SERVICE DATE: 08/30/2018 SERVICE TIME: 6:49 PM Hospital Medicine/Primary Attending: Peter Huitron MD NIGHT AND WEEKEND COVERAGE: Please page [phone] from 7 PM to 7 AM Subjective INTERVAL HPI: Reports that itching has improved. Denied fever and chills. No chest pain. MEDICATIONS: Reviewed Objective PHYSICAL EXAM: BP 151/80 Pulse 77 Temp (Src) 97.8 (Oral) Resp 18 Ht 5' 2 (1.58m) Wt 136 lb 11 oz (62.0kg) SpO2 98% BMI 24.99 kg/(m2). Physical Exam Performed GENERAL: Alert, no distress, cooperative SKIN: Positive jaundice HEAD/SINUSES: No significant findings EYES: PERRLA, EOMI EARS: External ears normal, canals clear NOSE: Nares normal. Septum midline. OROPHARYNX: Lips, mucosa, and tongue normal. Teeth and gums normal. Oropharynx normal. NECK: No jugulovenous distention, No carotid bruits, Carotid pulse normal contour, Supple BACK: Back symmetric, Normal curvature, ROM normal, No CVAT. LUNGS: Lungs clear to auscultation, Good diaphragmatic excursion CARDIAC: Normal S1 and S2; no rubs, murmurs, or gallops ABDOMEN: Abdomen soft, non-tender, BS normal, No masses or organomegaly EXTREMITIES: Extremities normal, no deformities, edema, clubbing or skin discoloration. Good capillary refill., No ulcers NEURO: Gait normal. Reflexes normal and symmetric. Sensation grossly intact, Cranial nerves II-XII intact PULSES: 2+ radial, 2+ carotid Lines, Drains, and Airways Line Peripheral 08/30/18 0510 Assessment Right Forearm less than 1 day DATA: Diagnostic tests reviewed for today's visit: Assessment/Plan 1. Pruritus/Obstructive jaundice POA: Unknown Concern cholangiocarcinoma. S/p ERCP. Will await biopsy. gen surgery/onc. Benadryl helping to relieve pruritis. 2. Hypertension Essential: Fair control Continue current medication. Medication and Non-Pharmacologic VTE Prophylaxis/Anticoagulants Anticoagulant AND Antiplatelet Medications Start Dose Route Frequency Ordered Stop 08/28/182099 heparin 5,000 Units injection (Medical At Risk ) 5,000 Units SUBCUTANEOUS EVERY 12 HOURS 08/28/18 1512 -- 08/28/18 1515 vte non-pharmacologic prophylaxis - none indicated (ky,oh) VTE Prophylaxis: VTE prophylaxis appropriate Disposition: Home Plan of care discussed with: Patient SIGNATURE: Peter Huitron MD PATIENT NAME: Yane Chilel DATE: August 30, 2018 TIME: 6:49 PM PAGER/CONTACT #: [phone] Shahla Rob MD 08/31/2018 9:35 AM Attested Attestation signed by Caleb Ann at 08/31/2018 10:27 AM I saw and evaluated the patient. Discussed with the resident and agree with resident's findings and plan as documented in the resident's note. Feels fine other than jaundice and itching Bx pending LFTs today- pending A/P Suspected cholangiocarcinoma Will get MRI for evaluation of resectability Consult Dr Archer Not clear yet if stent placed yest is adequate to resolve jaundice Caleb Ann MD [facility] Progress Note SERVICE DATE: 08/31/2018 [facility] Service Pager: For questions or concerns Mon-Fri 6a-5p please page [phone]. After 5pm and on Weekends and Holidays, please page [phone] if in ICU or [phone] if on RNF. SUBJECTIVE: No acute events overnight. Denies pain, nausea, or emesis. Tolerating small amount of po. Denies BM. Tolerating diet DIET REGULAR OBJECTIVE: Vitals: Temp (24hrs), Av.7 ?C (98.1 ?F), Min:36.5 ?C (97.7 ?F), Max:37 ?C (98.6 ?F) BP 151/80 Pulse 77 Temp 36.6 ?C (97.8 ?F) (Oral) Resp 18 Ht 157.5 cm (5' 2) Wt 62 kg (136 lb 11 oz) SpO2 98% BMI 25.00 kg/m? O2 Therapy: Room Air IANDO: Date 08/30/18699 - 08/31/18 0659 08/31/18699 - 09/01/18 0659 Shift 7170-5195 5258-4809 4602-0947 24 Hour Total 3264-4557 2814-6782 2135-0829 24 Hour Total I N T A K E PO 60 60 PO 60 60 IV 700 292 992 NS 0.9% 292 292 OR Crystalloid intake (mL) 700 700 Shift Total 700 60 292 1052 O U T P U T Urine Urine Not Saved. 1 x 1 x Shift Total Weight (kg) 62 62 62 62 62 62 62 62 MEDICATIONS Current Facility-Administered Medications: ascorbic acid (vitamin C) 500 mg tab(s) (VITAMIN C) 500 mg ORAL DAILY diphenhydrAMINE 25 mg injection (BENADRYL) 25 mg INTRAVENOUS q 6 H PRN NaCl 0.9% iv infusion 75 mL/hr INTRAVENOUS CONTINUOUS heparin 5,000 Units injection 5,000 Units SUBCUTANEOUS q 12 H oxyCODONE IR 5 mg tab(s) (ROXICODONE) 5 mg ORAL q 6 H PRN metoclopramide HCl 10 mg injection (REGLAN) 10 mg INTRAVENOUS q 8 H PRN docusate sodium 100 mg cap(s) (COLACE) 100 mg ORAL BID PRN polyethylene glycol 3350 17 g packet (MIRALAX, GLYCOLAX) 17 g ORAL DAILY PRN lisinopril 2.5 mg tab(s) 2.5 mg ORAL DAILY melatonin 3 mg tab(s) 3 mg ORAL HS PRN calcium-cholecalciferol (D3) 1 tablet tab(s) (OSCAL+D 250) 1 tablet ORAL BID cyanocobalamin 1,000 mcg tab(s) (VITAMIN B-12) 1,000 mcg ORAL DAILY latanoprost 0.005 % 1 Drop (XALATAN) 1 Drop BOTH EYES AT BEDTIME lactobacillus rhamnosus (CULTURELLE) capsule 1 capsule ORAL BID hydrOXYzine HCl 25 mg tab(s) (ATARAX) 25 mg ORAL q 8 H PRN piperacillin-tazobactam iv piggyback 3.375 g in dextrose (iso- osmotic) 50 mL (ZOSYN) 3.375 g INTRAVENOUS q 6 H Labs: Recent Labs 08/31/18 0014 08/30/18 0540 08/29/18 0310 08/28/18201908/28/18 1500 NA 137 134* 138 -- 137 K 3.6 5.2* 3.9 -- 3.1* CHLOR 103 105 104 -- 102 CO2 25 23 26 -- 29 BUN 10 8 10 -- 10 CREAT 0.49* 0.43* 0.50* -- 0.44* GLUC 114* 90 118* -- 105* ANION 13 11 12 -- 9 CA 7.8* 8.0* 8.1* -- 7.7* MG -- -- 2.3 -- 2.1 P -- -- 4.1 -- 2.0* ALB -- 2.1* 2.3* -- 2.4* AST -- 90* 44* -- 45* ALT -- 50 46 -- 45 ALKPHOS -- 395* 424* -- 427* TBILI -- 11.5* 10.5* -- 11.7* WBC 5.80 4.85 4.95 -- 4.72 HB 11.5 12.5 11.9 -- 11.7 HCT 34.0* 35.0 34.2 -- 34.0* PLT 514* 572* 527* -- 487* INR -- -- -- 1.09 -- Exam: GENERAL: No distress, Alert NEURO: AANDOx3, CN II-XII grossly intact HEENT: normocephalic, atraumatic, jaundiced LUNGS: Unlabored breathing on RA CARDIAC: Regular rate and rhythm as above ABDOMEN: Soft, non-tender, moderately-distended EXTREMITIES: TAI, No deformities, No edema SKIN: Skin color, texture, turgor normal, No rashes or lesions ASSESSMENT AND PLAN: Active Hospital Problems Diagnosis Date Noted - Obstructive jaundice 08/28/2018 Overview Note: Added automatically from request for surgery [id number] - Cholangiocarcinoma (HCC) 08/28/2018 77 year old female with painless jaundice s/p ERCP, sphincterotomy, placement of 7x12 stent, brushing for cytology (08/30) Path/cytology pending F/u am labs Medical management per primary Empiric zosyn for biliary stasis/obstruction [facility] Service Pager: For questions or concerns Mon-Fri 6a-5p please page [phone]. After 5pm and on Weekends and Holidays, please page [phone] if in ICU or [phone] if on RNF. SIGNATURE: Shahla Rob MD PATIENT NAME: Yane Chilel DATE: August 31, 2018 TIME: 6:15 AM Pager: Ernesto Holly MD 08/31/2018 9:29 AM Signed DX: Obstructive jaundice, Cholangiocarcinoma. 0 comfort meds Continues on Zosyn ERCP with successful stent placement on 08/30 Still w complaints of pruritis. Benefits from iv benadryl Subjective Ms. Chilel is a 77 year old female who presents as a transfer from [facility]. She initially presented to [facility] for painless jaundice x2 weeks, and 1 month of pruritus. Culled from notes: Referred From [place]: Patient does have an elevated bilirubin of 12. Her alk phos is also elevated. Rest of her lab work is relatively unremarkable. The patient underwent CT of abdomen pelvis.. 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 She does appear to also have metastatic disease into the lungs. 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 CT A/P 08/27/18: Interval development of poorly defined low density mass near hilum of liver with marked intrahepatic biliary ductal dilation and distention of the gallbladder with wall thickening. No radiopaque stones are evident. Abnormal enhancement of common hepatic duct and proximal CBD. Distal CBD is not dilated and pancreas is unremarkable. Several likely metastatic nodules present in bilateral lung bases. Mildly prominent pericaval ly,mph nodes. No apparent adrenal metastasis. Mild right hydronephrosis increased from piror without stone or obstructin lesion identified. No obstruction or inflammation of bowel.Findings suspicious for cholangiocarcinoma with resulting obstruction of intrahepatic biliary ducts. Gallbladderdistetion with wal lthickening may represent cholecystitis secondary to obstruciton of the cystic duct or proximal bile duct; alternatively could represent GB wall edema. PAST MEDICAL HISTORY Diagnosis Date - Constipation - functional - Diverticulosis of colon (without mention of hemorrhage) PAST SURGICAL HISTORY Procedure Laterality Date - COLONOSCOP W/ OR W/O BRSH SPEC 01/25/14 Colonoscopy - DESTRUC CONJUNC LESN 03/29/10 Performed by ALEC JACOBSON at [facility] - EXCIS CONJUNC LESN+ADJ SCLERA 03/29/10 Performed by ALEC JACOBSON at [facility] - PAST SURGICAL HISTORY OF 11/2010 3 right shoulder - PAST SURGICAL HISTORY OF 2010 bilateral TKR - PAST SURGICAL HISTORY OF 2010 left wrist ORIF - PAST SURGICAL HISTORY OF 2009 cataract surgery bilateral - PAST SURGICAL HISTORY OF remote tubal ligation - SIGMOIDOSCOPY FLEX DIAG 04/24/2011 Sigmoidoscopy, flexible ALLERGIES No Known Allergies Social History Substance Use Topics - Smoking status: Former Smoker Quit date: 03/20/2002 - Smokeless tobacco: Never Used - Alcohol use No FAMILY HISTORY Problem Relation Age of Onset - Colon Cancer Mother - Colon Cancer Father Current Facility-Administered Medications: ascorbic acid (vitamin C) 500 mg tab(s) (VITAMIN C) 500 mg ORAL DAILY diphenhydrAMINE 25 mg injection (BENADRYL) 25 mg INTRAVENOUS q 6 H PRN NaCl 0.9% iv infusion 75 mL/hr INTRAVENOUS CONTINUOUS heparin 5,000 Units injection 5,000 Units SUBCUTANEOUS q 12 H oxyCODONE IR 5 mg tab(s) (ROXICODONE) 5 mg ORAL q 6 H PRN metoclopramide HCl 10 mg injection (REGLAN) 10 mg INTRAVENOUS q 8 H PRN docusate sodium 100 mg cap(s) (COLACE) 100 mg ORAL BID PRN polyethylene glycol 3350 17 g packet (MIRALAX, GLYCOLAX) 17 g ORAL DAILY PRN lisinopril 2.5 mg tab(s) 2.5 mg ORAL DAILY melatonin 3 mg tab(s) 3 mg ORAL HS PRN calcium-cholecalciferol (D3) 1 tablet tab(s) (OSCAL+D 250) 1 tablet ORAL BID cyanocobalamin 1,000 mcg tab(s) (VITAMIN B-12) 1,000 mcg ORAL DAILY latanoprost 0.005 % 1 Drop (XALATAN) 1 Drop BOTH EYES AT BEDTIME lactobacillus rhamnosus (CULTURELLE) capsule 1 capsule ORAL BID hydrOXYzine HCl 25 mg tab(s) (ATARAX) 25 mg ORAL q 8 H PRN piperacillin-tazobactam iv piggyback 3.375 g in dextrose (iso- osmotic) 50 mL (ZOSYN) 3.375 g INTRAVENOUS q 6 H Blood pressure 145/77, pulse 72, temperature 36.7 ?C (98.1 ?F), temperature source Oral, resp. rate 18, height 157.5 cm (5' 2), weight 62 kg (136 lb 11 oz), SpO2 95 %. General: awake alert oriented x 3, no acute distress, resting comfortably in bed HEENT: eomi perrl, no marked pallor but there is icterus present CV: s1s2 normal, rrr, no mrg no jvd Lung: bilateral air entry no wheezes no rales no rubs no rhonchi Abdomen: soft nt nd bowel sounds present, no cva tenderness and negative mcgee's Extremities: no edema, skin warm and dry, radial pulse 2+ and regu Patient Active Problem List Obstructive jaundice Cholangiocarcinoma (HCC) Low back pain Scoliosis Redundant colon Family history of malignant neoplasm of gastrointestinal tract Unspecified constipation RECOMMENDATIONS: Await cytology from ERCP, hopefully, this can also provide tissue diagnosis. CA 19?9 of 116.8 consistent with cholangiocarcinoma concerns?metastatic to lung and possibly bone. Discussed likely incurability of her disease process. Need further Bx, etc. Pruritis substantially controlled w iv benadryl If surgery is considering MRI of liver for possible resectability I will definitely order a CT Bx of lung lesions as I suspect that they represent mets. Must admit, however, they are a little unusual for met. Cholangiocarcinoma filomena w necrosis MD Ernesto Marroquin M.D., MD 08/31/2018 10:52 AM Signed DEPARTMENT OF HOSPITAL MEDICINE PROGRESS NOTE SERVICE DATE: 08/31/2018 SERVICE TIME: 10:47 AM Hospital Medicine/Primary Attending: Peter Huitron MD NIGHT AND WEEKEND COVERAGE: Please page [phone] from 7 Pm to 7 ASM Subjective INTERVAL HPI: Reports that she still has itching. Stated that she's going for MRI and that there's a plan for possible gallbladder drain. MEDICATIONS: Reviewed Objective PHYSICAL EXAM: BP 145/77 Pulse 72 Temp (Src) 98.1 (Oral) Resp 18 Ht 5' 2 (1.58m) Wt 136 lb 11 oz (62.0kg) SpO2 95% BMI 24.99 kg/(m2). Physical Exam Performed GENERAL: Alert, no distress, cooperative SKIN: positive for jaundice HEAD/SINUSES: No significant findings EYES: PERRLA, EOMI EARS: External ears normal, canals clear NOSE: Nares normal. Septum midline. OROPHARYNX: Lips, mucosa, and tongue normal. Teeth and gums normal. Oropharynx normal. NECK: No jugulovenous distention, No carotid bruits, Carotid pulse normal contour, Supple BACK: Back symmetric, Normal curvature, ROM normal, No CVAT. LUNGS: Lungs clear to auscultation, Good diaphragmatic excursion CARDIAC: Normal S1 and S2; no rubs, murmurs, or gallops ABDOMEN: Abdomen soft, non-tender, BS normal, No masses or organomegaly EXTREMITIES: Extremities normal, no deformities, edema, clubbing or skin discoloration. Good capillary refill., No ulcers NEURO: Gait normal. Reflexes normal and symmetric. Sensation grossly intact, Cranial nerves II-XII intact PULSES: 2+ radial, 2+ carotid Lines, Drains, and Airways Line Peripheral 08/31/18 0628 Right Hand 22 Gauge less than 1 day DATA: Diagnostic tests reviewed for today's visit: Assessment/Plan 1. Obstructive jaundice POA: Unknown Concern for cholangiocarcinoma Work up in process ( possible MRI and lung Bx) Continue to monitor 2. Priritus: Continue IV benadryl 3. Hypertension essential: Fair control If still in the 145 SBP, will increase lisinopril dosing. Medication and Non-Pharmacologic VTE Prophylaxis/Anticoagulants Anticoagulant AND Antiplatelet Medications Start Dose Route Frequency Ordered Stop 08/28/18 2100 heparin 5,000 Units injection (Medical At Risk ) 5,000 Units SUBCUTANEOUS EVERY 12 HOURS 08/28/18 1512 -- 08/28/18 1515 vte non-pharmacologic prophylaxis - none indicated (ky,oh) VTE Prophylaxis: VTE prophylaxis appropriate Disposition: Home Plan of care discussed with: Patient SIGNATURE: Peter Huitron MD PATIENT NAME: Yane Chilel DATE: August 31, 2018 TIME: 10:47 AM PAGER/CONTACT #: [phone] Bindu Young RN, RN 08/31/2018 11:41 AM Signed Spoke with MRI, time for patient's scan approximately 1700. Patient okay to eat lunch, but will be NPO after for exam per senior cytogenetic technologist. Josette Mcdaniel MD, MD 08/31/2018 5:19 PM Attested Attestation signed by Antonio Archer at 08/31/2018 5:33 PM Attending Note I personally saw and examined the patient. I reviewed the resident's note. I agree with the resident's assessment and plan with the following revisions and/or additions: Pt appears resectable on imaging but needs to have lung biopsy to rule out metastatic deposit. Will order as inpatient Signature: Antonio Archer MD Date: 08/31/2018 Time: 5:33 PM [facility] Consult Note SERVICE DATE: 08/31/2018 [facility] General Surgery Service Pager: For questions or concerns Mon-Fri 6a-5p please page [phone]. After 5pm and on Weekends and Holidays, please page [phone] if in ICU or [phone] if on RNF. SUBJECTIVE: Ms. Chilel is a 77 year old female who presented as a transfer from [facility]. She initially presented to [facility] for painless jaundice x2 weeks, and 1 month of pruritus. Denies abdominal pain or weight loss. Denies fevers/chills/night sweats. Denies prior abdominal surgery. Reports last c-scope within last 5 years (2013) and wnl. [facility] significant for colon cancer. Imaging concerning for metastatic cholangiocarcinoma. ERCP with stent placed 08/30. Tolerating diet DIET REGULAR OBJECTIVE: Vitals: Temp (24hrs), Av.7 ?C (98 ?F), Min:36.6 ?C (97.8 ?F), Max:36.7 ?C (98.1 ?F) BP 145/77 Pulse 72 Temp 36.7 ?C (98.1 ?F) (Oral) Resp 18 Ht 157.5 cm (5' 2) Wt 62 kg (136 lb 11 oz) SpO2 95% BMI 25.00 kg/m? O2 Therapy: Room Air IANDO: Date 08/30/18 1500 - 08/31/1865808/31/18 07 - 09/01/18 0659 Shift 1147-6140 8884-2657 24 Hour Total 9217-9376 3904-3266 4766-6714 24 Hour Total I N T A K E PO 60 60 PO 60 60 IV 475 1175 NS 0.9% 475 475 OR Crystalloid intake (mL) 700 Shift Total 60 475 1235 O U T P U T Urine Urine Not Saved. 1 x 1 x Shift Total Weight (kg) 62 62 62 62 62 62 62 MEDICATIONS Current Facility-Administered Medications: iv contrast (radiology procedure) INTRAVENOUS DIRECTED PRN ascorbic acid (vitamin C) 500 mg tab(s) (VITAMIN C) 500 mg ORAL DAILY diphenhydrAMINE 25 mg injection (BENADRYL) 25 mg INTRAVENOUS q 6 H PRN NaCl 0.9% iv infusion 75 mL/hr INTRAVENOUS CONTINUOUS heparin 5,000 Units injection 5,000 Units SUBCUTANEOUS q 12 H oxyCODONE IR 5 mg tab(s) (ROXICODONE) 5 mg ORAL q 6 H PRN metoclopramide HCl 10 mg injection (REGLAN) 10 mg INTRAVENOUS q 8 H PRN docusate sodium 100 mg cap(s) (COLACE) 100 mg ORAL BID PRN polyethylene glycol 3350 17 g packet (MIRALAX, GLYCOLAX) 17 g ORAL DAILY PRN lisinopril 2.5 mg tab(s) 2.5 mg ORAL DAILY melatonin 3 mg tab(s) 3 mg ORAL HS PRN calcium-cholecalciferol (D3) 1 tablet tab(s) (OSCAL+D 250) 1 tablet ORAL BID cyanocobalamin 1,000 mcg tab(s) (VITAMIN B-12) 1,000 mcg ORAL DAILY latanoprost 0.005 % 1 Drop (XALATAN) 1 Drop BOTH EYES AT BEDTIME lactobacillus rhamnosus (CULTURELLE) capsule 1 capsule ORAL BID hydrOXYzine HCl 25 mg tab(s) (ATARAX) 25 mg ORAL q 8 H PRN piperacillin-tazobactam iv piggyback 3.375 g in dextrose (iso- osmotic) 50 mL (ZOSYN) 3.375 g INTRAVENOUS q 6 H Labs: Recent Labs 08/31/18 0014 08/30/18 0540 08/29/18 0310 08/28/182019 NA 137 134* 138 < > -- K 3.6 5.2* 3.9 < > -- CHLOR 103 105 104 < > -- CO2 25 23 26 < > -- BUN 10 8 10 < > -- CREAT 0.49* 0.43* 0.50* < > -- GLUC 114* 90 118* < > -- ANION 13 11 12 < > -- CA 7.8* 8.0* 8.1* < > -- MG -- -- 2.3 -- -- P -- -- 4.1 -- -- ALB -- 2.1* 2.3* -- -- AST -- 90* 44* -- -- ALT -- 50 46 -- -- ALKPHOS -- 395* 424* -- -- TBILI -- 11.5* 10.5* -- -- WBC 5.80 4.85 4.95 < > -- HB 11.5 12.5 11.9 < > -- HCT 34.0* 35.0 34.2 < > -- PLT 514* 572* 527* < > -- INR -- -- -- -- 1.09 < > = values in this interval not displayed. Exam: GENERAL: No distress, Alert, Cooperative NEURO: AANDOx3, CN II-XII grossly intact HEENT: normocephalic, atraumatic, jaundiced LUNGS: Unlabored breathing on RA CARDIAC: Regular rate and rhythm as above ABDOMEN: Soft, non-tender, moderately-distended EXTREMITIES: TAI, No deformities, No edema SKIN: Skin color, texture, turgor normal, No rashes or lesions ASSESSMENT AND PLAN: Active Hospital Problems Diagnosis Date Noted - Obstructive jaundice 08/28/2018 Overview Note: Added automatically from request for surgery [id number] - Cholangiocarcinoma (HCC) 08/28/2018 77 year old female with painless jaundice s/p ERCP, sphincterotomy, placement of 7x12 stent, brushing for cytology (08/30) Path/cytology - positive for adenocarcinoma Trend LFTs Medical management per primary Empiric zosyn for biliary stasis/obstruction Will need biopsy of pulmonary mass MRI abdomen (p) [facility] Service Pager: For questions or concerns Mon-Fri 6a-5p please page [phone]. After 5pm and on Weekends and Holidays, please page [phone] if in ICU or [phone] if on RNF. SIGNATURE: Josette Mcdaniel MD PATIENT NAME: Yane Chilel DATE: August 31, 2018 TIME: 5:07 PM Pager: Previous Version Shahla Rob MD 09/01/2018 9:03 AM Attested Attestation signed by Caleb Ann at 09/01/2018 9:34 AM I saw and evaluated the patient. Discussed with the resident and agree with resident's findings and plan as documented in the resident's note. Jaundice about the same- T bili 11.2 + itching No pain Bx from ERCP is + for cholangiocarcinoma- d/w patient A/P Cholangiocarcinoma Possible lung mets Needs better relief of jaundice- although CBD stent is in place it may not be adequately decompressing enough of the liver- She may need a PTC as well I reviewed CT with radiology- lung lesions are small and felt to be difficult to get an accurate Bx Would consider PET scan first, but this needs to be done as outpatient MRI done but report pending Caleb Ann MD [facility] Progress Note SERVICE DATE: 09/01/2018 [facility] General Surgery Service Pager: For questions or concerns Mon-Fri 6a-5p please page [phone]. After 5pm and on Weekends and Holidays, please page [phone] if in ICU or [phone] if on RNF. SUBJECTIVE: No acute events overnight. Underwent MRI yesterday. Denies pain/nausea/emesis. Denies BM. Continued jaundice. Tolerating diet DIET REGULAR OBJECTIVE: Vitals: Temp (24hrs), Av.9 ?C (98.5 ?F), Min:36.7 ?C (98.1 ?F), Max:37.1 ?C (98.8 ?F) BP 145/77 Pulse 83 Temp 37.1 ?C (98.8 ?F) (Oral) Resp 18 Ht 157.5 cm (5' 2) Wt 62 kg (136 lb 11 oz) SpO2 97% BMI 25.00 kg/m? O2 Therapy: Room Air IANDO: Date 08/31/18699 - 09/01/1865809/01/18699 - 09/02/18 0659 Shift 2988-7084 6686-8574 6958-6500 24 Hour Total 0078-6563 6754-6087 8355-2254 24 Hour Total I N T A K E PO 480 480 PO 480 480 IV 464 464 NS 0.9% 464 464 Shift Total 944 944 O U T P U T Urine Urine Not Saved. 1 x 2 x 3 x Shift Total Weight (kg) 62 62 62 62 62 62 62 62 MEDICATIONS Current Facility-Administered Medications: iv contrast (radiology procedure) INTRAVENOUS DIRECTED PRN ascorbic acid (vitamin C) 500 mg tab(s) (VITAMIN C) 500 mg ORAL DAILY diphenhydrAMINE 25 mg injection (BENADRYL) 25 mg INTRAVENOUS q 6 H PRN NaCl 0.9% iv infusion 75 mL/hr INTRAVENOUS CONTINUOUS heparin 5,000 Units injection 5,000 Units SUBCUTANEOUS q 12 H oxyCODONE IR 5 mg tab(s) (ROXICODONE) 5 mg ORAL q 6 H PRN metoclopramide HCl 10 mg injection (REGLAN) 10 mg INTRAVENOUS q 8 H PRN docusate sodium 100 mg cap(s) (COLACE) 100 mg ORAL BID PRN polyethylene glycol 3350 17 g packet (MIRALAX, GLYCOLAX) 17 g ORAL DAILY PRN lisinopril 2.5 mg tab(s) 2.5 mg ORAL DAILY melatonin 3 mg tab(s) 3 mg ORAL HS PRN calcium-cholecalciferol (D3) 1 tablet tab(s) (OSCAL+D 250) 1 tablet ORAL BID cyanocobalamin 1,000 mcg tab(s) (VITAMIN B-12) 1,000 mcg ORAL DAILY latanoprost 0.005 % 1 Drop (XALATAN) 1 Drop BOTH EYES AT BEDTIME lactobacillus rhamnosus (CULTURELLE) capsule 1 capsule ORAL BID hydrOXYzine HCl 25 mg tab(s) (ATARAX) 25 mg ORAL q 8 H PRN piperacillin-tazobactam iv piggyback 3.375 g in dextrose (iso- osmotic) 50 mL (ZOSYN) 3.375 g INTRAVENOUS q 6 H Labs: Recent Labs 09/01/18 0041 08/31/18 0014 08/30/18 0540 NA 136 137 134* K 3.8 3.6 5.2* CHLOR 102 103 105 CO2 25 25 23 BUN 10 10 8 CREAT 0.44* 0.49* 0.43* GLUC 105* 114* 90 ANION 13 13 11 CA 8.2* 7.8* 8.0* ALB 2.3* -- 2.1* AST 54* -- 90* ALT 49 -- 50 ALKPHOS 418* -- 395* TBILI 11.2* -- 11.5* WBC 5.79 5.80 4.85 HB 12.0 11.5 12.5 HCT 34.4 34.0* 35.0 PLT 561* 514* 572* Exam: GENERAL: No distress, Alert NEURO: AANDOx3, CN II-XII grossly intact HEENT: normocephalic, atraumatic, jaundiced LUNGS: Unlabored breathing on RA CARDIAC: Regular rate and rhythm as above ABDOMEN: Soft, non-tender, moderately distended EXTREMITIES: TAI, No deformities, No edema SKIN: Skin color, texture, turgor normal, No rashes or lesions ASSESSMENT AND PLAN: Active Hospital Problems Diagnosis Date Noted - Obstructive jaundice 08/28/2018 Overview Note: Added automatically from request for surgery [id number] - Cholangiocarcinoma (HCC) 08/28/2018 77 year old female with painless jaundice s/p ERCP, sphincterotomy, placement of 7x12 stent, brushing for cytology (08/30) ? Path/cytology: +malignant cells, adenocarcinoma (CBD brushings) Medical management per primary Empiric zosyn for biliary stasis/obstruction MRCP P Continued hyperbilirubinemia- will d/w attending Will make NPO this am for possible IR guided biopsy. [facility] Service Pager: For questions or concerns Mon-Fri 6a-5p please page [phone]. After 5pm and on Weekends and Holidays, please page [phone] if in ICU or [phone] if on RNF. SIGNATURE: Shahla Rob MD PATIENT NAME: Yane Chilel DATE: September 01, 2018 TIME: 6:18 AM Pager: Ernesto Holly MD 09/01/2018 12:42 PM Signed DX: Obstructive jaundice, Cholangiocarcinoma. 0 comfort meds Continues on Zosyn ERCP with successful stent placement on 08/30 Still w complaints of pruritis. Benefits from iv benadryl. Severely constipated and very uncomfortable Subjective Ms. Chilel is a 77 year old female who presents as a transfer from [facility]. She initially presented to [facility] for painless jaundice x2 weeks, and 1 month of pruritus. Culled from notes: Referred From [place]: Patient does have an elevated bilirubin of 12. Her alk phos is also elevated. Rest of her lab work is relatively unremarkable. The patient underwent CT of abdomen pelvis.. 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 She does appear to also have metastatic disease into the lungs. 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 CT A/P 08/27/18: Interval development of poorly defined low density mass near hilum of liver with marked intrahepatic biliary ductal dilation and distention of the gallbladder with wall thickening. No radiopaque stones are evident. Abnormal enhancement of common hepatic duct and proximal CBD. Distal CBD is not dilated and pancreas is unremarkable. Several likely metastatic nodules present in bilateral lung bases. Mildly prominent pericaval ly,mph nodes. No apparent adrenal metastasis. Mild right hydronephrosis increased from piror without stone or obstructin lesion identified. No obstruction or inflammation of bowel.Findings suspicious for cholangiocarcinoma with resulting obstruction of intrahepatic biliary ducts. Gallbladderdistetion with wal lthickening may represent cholecystitis secondary to obstruciton of the cystic duct or proximal bile duct; alternatively could represent GB wall edema. PAST MEDICAL HISTORY Diagnosis Date - Constipation - functional - Diverticulosis of colon (without mention of hemorrhage) PAST SURGICAL HISTORY Procedure Laterality Date - COLONOSCOP W/ OR W/O BRSH SPEC 01/25/14 Colonoscopy - DESTRUC CONJUNC LESN 03/29/10 Performed by ALEC JACOBSON at [facility] - EXCIS CONJUNC LESN+ADJ SCLERA 03/29/10 Performed by ALEC JACOBSON at [facility] - PAST SURGICAL HISTORY OF 11/2010 3 right shoulder - PAST SURGICAL HISTORY OF 2010 bilateral TKR - PAST SURGICAL HISTORY OF 2010 left wrist ORIF - PAST SURGICAL HISTORY OF 2009 cataract surgery bilateral - PAST SURGICAL HISTORY OF remote tubal ligation - SIGMOIDOSCOPY FLEX DIAG 04/24/2011 Sigmoidoscopy, flexible ALLERGIES No Known Allergies Social History Substance Use Topics - Smoking status: Former Smoker Quit date: 03/20/2002 - Smokeless tobacco: Never Used - Alcohol use No FAMILY HISTORY Problem Relation Age of Onset - Colon Cancer Mother - Colon Cancer Father Current Facility-Administered Medications: iv contrast (radiology procedure) INTRAVENOUS DIRECTED PRN ascorbic acid (vitamin C) 500 mg tab(s) (VITAMIN C) 500 mg ORAL DAILY diphenhydrAMINE 25 mg injection (BENADRYL) 25 mg INTRAVENOUS q 6 H PRN NaCl 0.9% iv infusion 75 mL/hr INTRAVENOUS CONTINUOUS heparin 5,000 Units injection 5,000 Units SUBCUTANEOUS q 12 H oxyCODONE IR 5 mg tab(s) (ROXICODONE) 5 mg ORAL q 6 H PRN metoclopramide HCl 10 mg injection (REGLAN) 10 mg INTRAVENOUS q 8 H PRN docusate sodium 100 mg cap(s) (COLACE) 100 mg ORAL BID PRN polyethylene glycol 3350 17 g packet (MIRALAX, GLYCOLAX) 17 g ORAL DAILY PRN lisinopril 2.5 mg tab(s) 2.5 mg ORAL DAILY melatonin 3 mg tab(s) 3 mg ORAL HS PRN calcium-cholecalciferol (D3) 1 tablet tab(s) (OSCAL+D 250) 1 tablet ORAL BID cyanocobalamin 1,000 mcg tab(s) (VITAMIN B-12) 1,000 mcg ORAL DAILY latanoprost 0.005 % 1 Drop (XALATAN) 1 Drop BOTH EYES AT BEDTIME lactobacillus rhamnosus (CULTURELLE) capsule 1 capsule ORAL BID hydrOXYzine HCl 25 mg tab(s) (ATARAX) 25 mg ORAL q 8 H PRN piperacillin-tazobactam iv piggyback 3.375 g in dextrose (iso- osmotic) 50 mL (ZOSYN) 3.375 g INTRAVENOUS q 6 H Blood pressure 145/77, pulse 83, temperature 37.1 ?C (98.8 ?F), temperature source Oral, resp. rate 18, height 157.5 cm (5' 2), weight 62 kg (136 lb 11 oz), SpO2 97 %. General: awake alert oriented x 3, no acute distress, resting comfortably in bed HEENT: eomi perrl, no marked pallor but there is icterus present CV: s1s2 normal, rrr, no mrg no jvd Lung: bilateral air entry no wheezes no rales no rubs no rhonchi Abdomen: soft nt nd bowel sounds present, no cva tenderness and negative mcgee's Extremities: no edema, skin warm and dry, radial pulse 2+ and regu Patient Active Problem List Obstructive jaundice Cholangiocarcinoma (HCC) Low back pain Scoliosis Redundant colon Family history of malignant neoplasm of gastrointestinal tract Unspecified constipation RECOMMENDATIONS: 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 Once again discussed advanced nature of cancer, eligibility for chemotherapy. Can be treated in [place] Status of liver Awaiting results of MRI?pending Possible lung mets. Dr. Ann had recommended possible PET as outpt. The problem is the lung lesions are probably too small for detection via PET. Also, may be difficult if not impossible to discriminate between a neoplastic and an infectious process by PET. Bx may be more sensitive but also may be difficult. Constipation S/p laxatives, currently trying suppository, may need enema Pruritis persists and correlates to no change in total bili. Continue benadryl PRN MD Lobo Marroquin MD 09/01/2018 2:33 PM Signed INPATIENT PROGRESS NOTE CHIEF COMPLAINT: obstructive jaundice INTERVAL HPI: Pt c/o feeling constipated. No N/V. Flatus+ PHYSICAL EXAM: BP 145/77 Pulse 83 Temp (Src) 98.8 (Oral) Resp 18 Ht 5' 2 (1.58m) Wt 136 lb 11 oz (62.0kg) SpO2 97% BMI 24.99 kg/(m2). GENERAL: Alert mild distress, cooperative LUNGS: Lungs clear to auscultation, Good diaphragmatic excursion CARDIAC: Normal S1 and S2; no rubs, murmurs, or gallops ABDOMEN: Abdomen soft, distended, NT, BS normal, No masses or organomegaly EXTREMITIES:no edema NEURO: . 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 MRI result pending .possible surgical resection # pulm nodules- possible mets. Too small for BX. Plan for PET as out pt #constipation- will order for enema # HTN stable SIGNATURE: Lobo Heart MD PATIENT NAME: Yane Chilel DATE: September 01, 2018 TIME: 2:27 PM PAGER: Shahla Rob MD 09/02/2018 6:58 AM Attested Attestation signed by Caleb Ann at 09/02/2018 10:14 AM I saw and evaluated the patient. Discussed with the resident and agree with resident's findings and plan as documented in the resident's note. I reviewed MRI with radiology: There may be a mass as large as 5-6 cm in the hilum of the liver- best seen on delayed images This appears to involve the GB- This could be GB cancer invading the liver vs cholangio CA involving the GB Either way it appears locally advanced and likely not resectable She will need better drainage of liver- CBD stent does not appear to be giving adequate drainage Will plan PTC H Spencer Ann MD Elective General Surgery Progress Note SERVICE DATE: 09/02/2018 Elective General Surgery Service Pager: For questions or concerns Mon-Fri 6a-5p please page [phone]. After 5pm and on Weekends and Holidays, please page [phone] if in ICU or [phone] if on RNF. SUBJECTIVE: No acute events overnight. Pain controlled. Reports small BM o/n. States that she still feels distended/bloated. Endorses mild nausea without emesis. Tolerating diet DIET NPO OBJECTIVE: Vitals: Temp (24hrs), Av.1 ?C (98.8 ?F), Min:36.8 ?C (98.2 ?F), Max:37.4 ?C (99.3 ?F) BP 125/80 Pulse 88 Temp 37.4 ?C (99.3 ?F) (Oral) Resp 18 Ht 157.5 cm (5' 2) Wt 62 kg (136 lb 11 oz) SpO2 95% BMI 25.00 kg/m? O2 Therapy: Room Air IANDO: MEDICATIONS Current Facility-Administered Medications: bisacodyl 10 mg suppository (DULCOLAX) 10 mg RECTAL DAILY PRN ascorbic acid (vitamin C) 500 mg tab(s) (VITAMIN C) 500 mg ORAL DAILY diphenhydrAMINE 25 mg injection (BENADRYL) 25 mg INTRAVENOUS q 6 H PRN NaCl 0.9% iv infusion 75 mL/hr INTRAVENOUS CONTINUOUS heparin 5,000 Units injection 5,000 Units SUBCUTANEOUS q 12 H oxyCODONE IR 5 mg tab(s) (ROXICODONE) 5 mg ORAL q 6 H PRN metoclopramide HCl 10 mg injection (REGLAN) 10 mg INTRAVENOUS q 8 H PRN docusate sodium 100 mg cap(s) (COLACE) 100 mg ORAL BID PRN polyethylene glycol 3350 17 g packet (MIRALAX, GLYCOLAX) 17 g ORAL DAILY PRN lisinopril 2.5 mg tab(s) 2.5 mg ORAL DAILY melatonin 3 mg tab(s) 3 mg ORAL HS PRN calcium-cholecalciferol (D3) 1 tablet tab(s) (OSCAL+D 250) 1 tablet ORAL BID cyanocobalamin 1,000 mcg tab(s) (VITAMIN B-12) 1,000 mcg ORAL DAILY latanoprost 0.005 % 1 Drop (XALATAN) 1 Drop BOTH EYES AT BEDTIME lactobacillus rhamnosus (CULTURELLE) capsule 1 capsule ORAL BID hydrOXYzine HCl 25 mg tab(s) (ATARAX) 25 mg ORAL q 8 H PRN piperacillin-tazobactam iv piggyback 3.375 g in dextrose (iso- osmotic) 50 mL (ZOSYN) 3.375 g INTRAVENOUS q 6 H Labs: Recent Labs 09/01/18 0041 08/31/18 0014 NA 136 137 K 3.8 3.6 CHLOR 102 103 CO2 25 25 BUN 10 10 CREAT 0.44* 0.49* GLUC 105* 114* ANION 13 13 CA 8.2* 7.8* ALB 2.3* -- AST 54* -- ALT 49 -- ALKPHOS 418* -- TBILI 11.2* -- WBC 5.79 5.80 HB 12.0 11.5 HCT 34.4 34.0* PLT 561* 514* MRI: ? IMPRESSION: ? Strictures involving the central intrahepatic bile ducts and proximal common hepatic duct consistent with patient's diagnosis of cholangiocarcinoma. ? The gallbladder demonstrates thickened wall in the neck of the gallbladder is stuck into the hepatic hilum and involved with suspected mass. ? Multiple nodules at the lung bases as seen on recent CT scan. ?Infectious etiology ?is the top consideration. ?Metastatic neoplasm is considered unlikely. Exam: GENERAL: No distress, Alert NEURO: AANDOx3, CN II-XII grossly intact HEENT: normocephalic, atraumatic, jaundiced LUNGS: Unlabored breathing CARDIAC: Regular rate and rhythm as above ABDOMEN: Soft, minimally-tender, distended EXTREMITIES: TAI, No deformities, No edema SKIN: Skin color, texture, turgor normal, No rashes or lesions ASSESSMENT AND PLAN: Active Hospital Problems Diagnosis Date Noted - Obstructive jaundice 08/28/2018 Overview Note: Added automatically from request for surgery [id number] - Cholangiocarcinoma (HCC) 08/28/2018 77 year old female with painless jaundice 2/2 cholangiocarcinoma s/p ERCP, sphincterotomy, placement of 7x12 stent (08/30) ? Path/cytology: +malignant cells, adenocarcinoma (CBD brushings) Medical management per primary Empiric zosyn for biliary stasis/obstruction MRCP: strictures involving central intrahepatic and proximal common hepatic duct. GB thickened and stuck to hepatic hilum- involved with suspected mass. Multiple nodules at lung bases - likely infectious. Continued hyperbilirubinemia yesterday. Still jaundiced, but am labs pending. May require further drainage with PTC. Pulm nodules concerning for mets but too small to biopsy. Metastatic neoplasm unlikely per MRI. [facility] General Surgery Service Pager: For questions or concerns Mon-Fri 6a-5p please page [phone]. After 5pm and on Weekends and Holidays, please page [phone] if in ICU or [phone] if on RNF. SIGNATURE: Shahla Rob MD PATIENT NAME: Yane Chilel DATE: September 02, 2018 TIME: 6:27 AM Pager: Analisa Mas RN, RN 09/02/2018 9:22 AM Signed CARE MANAGEMENT PROGRESS NOTE SERVICE DATE: 09/02/2018 SERVICE TIME: 9:21 AM LOS: 5 days Needs Prior to Discharge: To Be Determined Chart reviewed. General surgery and hemoc following. Dc plan is home once medically stable. Will follow for any transitional needs. SIGNATURE: Analisa Mas RN PATIENT NAME: Yane Romanh DATE: September 02, 2018 TIME: 9:21 AM PAGER/CONTACT #: [phone] Maryjo Parker PA-C, [place] 09/02/2018 12:01 PM Addendum DX: Obstructive jaundice, Cholangiocarcinoma. 0 comfort meds Continues on Zosyn Pt still c/o constipation--I need to go a lot more. Pt wants to get PET scan in [place] after discharge. Subjective Ms. Chilel is a 77 year old female who presents as a transfer from [facility]. She initially presented to [facility] for painless jaundice x2 weeks, and 1 month of pruritus. Culled from notes: Referred From [place]: Patient does have an elevated bilirubin of 12. Her alk phos is also elevated. Rest of her lab work is relatively unremarkable. The patient underwent CT of abdomen pelvis.. 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 She does appear to also have metastatic disease into the lungs. 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 CT A/P 08/27/18: Interval development of poorly defined low density mass near hilum of liver with marked intrahepatic biliary ductal dilation and distention of the gallbladder with wall thickening. No radiopaque stones are evident. Abnormal enhancement of common hepatic duct and proximal CBD. Distal CBD is not dilated and pancreas is unremarkable. Several likely metastatic nodules present in bilateral lung bases. Mildly prominent pericaval ly,mph nodes. No apparent adrenal metastasis. Mild right hydronephrosis increased from piror without stone or obstructin lesion identified. No obstruction or inflammation of bowel.Findings suspicious for cholangiocarcinoma with resulting obstruction of intrahepatic biliary ducts. Gallbladderdistetion with wal lthickening may represent cholecystitis secondary to obstruciton of the cystic duct or proximal bile duct; alternatively could represent GB wall edema. PAST MEDICAL HISTORY Diagnosis Date - Constipation - functional - Diverticulosis of colon (without mention of hemorrhage) PAST SURGICAL HISTORY Procedure Laterality Date - COLONOSCOP W/ OR W/O [facility] SPEC 01/25/14 Colonoscopy - DESTRUC CONJUNC LESN 03/29/10 Performed by ALEC JACOBSON at [facility] [place] - EXCIS CONJUNC LESN+ADJ SCLERA 03/29/10 Performed by ALEC JACOBSON at [facility] [place] - PAST SURGICAL HISTORY OF 11/2010 3 right shoulder - PAST SURGICAL HISTORY OF 2010 bilateral TKR - PAST SURGICAL HISTORY OF 2010 left wrist ORIF - PAST SURGICAL HISTORY OF 2009 cataract surgery bilateral - PAST SURGICAL HISTORY OF remote tubal ligation - SIGMOIDOSCOPY FLEX DIAG 04/24/2011 Sigmoidoscopy, flexible ALLERGIES No Known Allergies Social History Substance Use Topics - Smoking status: Former Smoker Quit date: 03/20/2002 - Smokeless tobacco: Never Used - Alcohol use No FAMILY HISTORY Problem Relation Age of Onset - Colon Cancer Mother - Colon Cancer Father Current Facility-Administered Medications: bisacodyl 10 mg suppository (DULCOLAX) 10 mg RECTAL DAILY PRN ascorbic acid (vitamin C) 500 mg tab(s) (VITAMIN C) 500 mg ORAL DAILY diphenhydrAMINE 25 mg injection (BENADRYL) 25 mg INTRAVENOUS q 6 H PRN NaCl 0.9% iv infusion 75 mL/hr INTRAVENOUS CONTINUOUS heparin 5,000 Units injection 5,000 Units SUBCUTANEOUS q 12 H oxyCODONE IR 5 mg tab(s) (ROXICODONE) 5 mg ORAL q 6 H PRN metoclopramide HCl 10 mg injection (REGLAN) 10 mg INTRAVENOUS q 8 H PRN docusate sodium 100 mg cap(s) (COLACE) 100 mg ORAL BID PRN polyethylene glycol 3350 17 g packet (MIRALAX, GLYCOLAX) 17 g ORAL DAILY PRN lisinopril 2.5 mg tab(s) 2.5 mg ORAL DAILY melatonin 3 mg tab(s) 3 mg ORAL HS PRN calcium-cholecalciferol (D3) 1 tablet tab(s) (OSCAL+D 250) 1 tablet ORAL BID cyanocobalamin 1,000 mcg tab(s) (VITAMIN B-12) 1,000 mcg ORAL DAILY latanoprost 0.005 % 1 Drop (XALATAN) 1 Drop BOTH EYES AT BEDTIME lactobacillus rhamnosus (CULTURELLE) capsule 1 capsule ORAL BID hydrOXYzine HCl 25 mg tab(s) (ATARAX) 25 mg ORAL q 8 H PRN piperacillin-tazobactam iv piggyback 3.375 g in dextrose (iso- osmotic) 50 mL (ZOSYN) 3.375 g INTRAVENOUS q 6 H Blood pressure 139/73, pulse 76, temperature 36.3 ?C (97.3 ?F), temperature source Oral, resp. rate 18, height 157.5 cm (5' 2), weight 62 kg (136 lb 11 oz), SpO2 96 %. General: awake alert oriented x 3, no acute distress, resting comfortably in bed HEENT: eomi perrl, no marked pallor but there is icterus present CV: s1s2 normal, rrr, no mrg no jvd Lung: bilateral air entry no wheezes no rales no rubs no rhonchi Abdomen: soft nt nd bowel sounds present, no cva tenderness and negative mcgee's Extremities: no edema, skin warm and dry, radial pulse 2+ and regu Patient Active Problem List Obstructive jaundice Cholangiocarcinoma (HCC) Low back pain Scoliosis Redundant colon Family history of malignant neoplasm of gastrointestinal tract Unspecified constipation RECOMMENDATIONS: 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 Once again discussed advanced nature of cancer, eligibility for chemotherapy. Can be treated in [place] Status of liver- Per note from surgery service-this cancer appears locally advanced and likely not resectable. Plan for PTC for better drainage of the liver. Pt hoping to get this done soon. Multiple lung nodules After further review of the CT scan of the chest, these nodules appear to be more likely infectious than metastatic disease. It is our recommendation to get an ID consult for their input regarding this. I have discussed this with the primary service and patient. Will follow Maryjo Parker PA-C Previous Version EMERGENCY DEPARTMENT Observed: 08/27/2018 Status: F Source: [place] SUMMARY 10:27 PM [facility] REPOSITORY [facility] Medical Records Department [address] [place] [address] Emergency Department Summary 08/27/181945 MR#: [id number] Acct: [id number] Name: YANE CHILEL Rep #: [id number] : 1940 77 From: Elda Lund MD PCP: Jose Nugent DO Status: REG ER - ER Visit Summary Date of Service: 08/27/18 Chief Complaint: [Jaundice History of Present Illness: The patient is a 77 F presents to the emergency department with painless jaundice. The patient states the past month, she has had diffuse itching. She states been mostly her arms and her back. Over the past 2 weeks, she is noticed that she has been becoming more yellow. She denies any pain. She denies any fevers or chills. She denies any weight loss or night sweats. Patient has no history of prior abdominal surgery. She states that she saw her primary care in the office who ordered lab work and an outpatient CT. Unfortunately, her insurance would not cover it so she cannot get it done. She came in for further evaluation. Physical Examination: Vital signs reviewed General: Well-nourished, well-developed Head: Normocephalic, atraumatic Eyes: Pupils equal and reactive, extraocular muscles intact Neck, supple, no lymphadenopathy Heart: Regular rate and rhythm Respiratory: No distress, clear bilaterally Abdomen: Soft, nontender, nondistended, no peritoneal signs Back: Nontender Extremities: Nontender, no edema, no cords Skin: Patient does have obvious jaundice and scleral icterus. Neuro: Alert and oriented, no focal or lateralizing deficits Test Results: [] Emergency Department Course and Treatment: The patient presents with painless jaundice. IV was established. Screening labs were obtained. Patient does have an elevated bilirubin of 12. Her alk phos is also elevated. Rest of her lab work is relatively unremarkable. The patient underwent CT of abdomen pelvis.. 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 She does appear to also have metastatic disease into the lungs. I did discuss this with Dr. Callaway, who based on the patient's presentation and concern of a primary cholangiocarcinoma, did feel like she would best be served at a tertiary facility and I do agree. After discussion with the patient and family, they did request transfer to [facility]. I did discuss the patient with both surgery and medicine the [facility]. She was accepted in transfer. Treatment Plan: [] Disposition: Transfer Impression: 1. Acute biliary obstruction 2. Cholangiocarcinoma 3. Jaundice 4. Urinary tract infection This note was generated with [employer] dictation software. It may contain incorrect words, spelling, and punctuation that were not noted in review of the chart prior to signing ED Disposition - Plan for ED Patient: Chief Complaint: Abd Pain Referrals: Jose Nugent, DO [Primary Care Provider] - What to do if you have Problems For any increased pain, shortness of breath, bleeding, nausea or vomiting, chest pain, or any unexpected problems, contact your Primary Care Provider. Call [facility] ([phone]) or report to the closest Emergency Room. Call 911 if necessary. 08/27/18 2222 <Electronically signed by Elda Lund MD> Date Elda Lund MD Cosigner Signature (If Indicated): Date CC: Jose [place] DO URINALYSIS, COMPLETE Collected: 08/27/2018 Status: F Source: [place] 7:40 PM [facility] REPOSITORY Order Comment: COLOR OF URINE MAY AFFECT DIPSTICK RESULTS. How was Urine Obtained? CLEAN CATCH TYPE CODE TESTS RESULT OUT OF RANGE REFERENCE UNITS LAB L400.3000 Yellow COLOR Normal Ilsa LAB L400.3050 Clear Normal CLARITY Sl. Cloudy LAB L400.3200 Normal mg/dl Normal GLUCOSE, UR Normal LAB L400.3300 Negative mg/dL High BILIRUBIN URINE 6 Result Comment: COLOR OF URINE MAY AFFECT DIPSTICK RESULTS. LAB L400.3400 Negative mg/dl High KETONE UR 5 LAB L400.3465 1.002-1.030 Normal SP.GR. DIPSTX 1.020 LAB L400.3550 5.0 - 8.0 pH Normal UR 6.5 LAB L400.3600 Negative mg/dl High PROT DIPSTX 30 LAB L400.3700 Normal mg/dl High UROBILI 8 LAB L400.3750 Negative High NITRITE UR Positive LAB L400.3780 Negative /ul High OCCULT 25 BLOOD-UR LAB L400.3800 Negative /ul High LEUK ESTERASE 500 LAB L400.4050 0-5 /hpf Normal WBC 10-25 SEEN LAB L400.4100 0-5 /hpf Normal RBC-UA 0-5 SEEN LAB L400.4150 5-10 /hpf Normal SQUAM EPI 0-5 SEEN LAB L400.4300 None Seen /hpf Normal BACTERIA RARE LAB L400.4350 <or=2+ /hpf Normal MUCUS, URINE 1+ Performed By: #### L400.0001 #### [facility] [address] [place], [place], [id number] Observed: 08/27/2018 Status: F Source: [place] CULTURE, URINE 7:40 PM [facility] REPOSITORY Urine Culture ORGANISM 1: Presumptive E. coli [place] Count 80,000-100,000 Presumptive E. coli: REACTION Ampicillin $ >=32 R Ampicillin/Sulbactam $ >=32 R Cefazolin $ <=4 S Cefepime $ <=0.12 S Ceftazidime *NF <=1 S Ceftriaxone $ <=0.25 S Ciprofloxacin $ 2 I Ertapenim $$$ <=0.12 S ESBL NEG Gentamicin $ <=1 S Imipenem *NF <=0.25 S Levofloxacin $ 4 I Nitrofurantoin $ <=16 S Piperacillin/Tazobactam $$ <=4 S Tobramycin $ <=1 S Trimethoprim/Sulfametho $ <=20 S (NF) indicates non-formulary drug at [facility]. Approval by Infectious Disease Specialist required before non-formulary drugs may be ordered and/or dispensed. Performed By: #### M100.0650 #### [facility] [address] [place], [address] CBC W/DIFF, AUTOMATED Collected: 08/27/2018 Status: F Source: [place] 7:30 PM [facility] REPOSITORY TYPE CODE TESTS RESULT OUT OF RANGE REFERENCE UNITS LAB L100.1000 4.4-11.0 K/mm3 Normal WBC 5.1 LAB L100.1200 4.2-5.4 M/mm3 Low RBC 3.72 LAB L100.1300 12.0-15.0 g/dl Low HGB 11.7 LAB L100.1400 37-47 % Low HCT 34.8 LAB L100.1500 81-99 fL Normal MCV 93.5 LAB L100.1600 27.0-32.0 pg Normal MCH 31.5 LAB L100.1700 32-36 g/gl Normal MCHC 33.6 LAB L100.1810 11.6-14.6 % High RDW CV 15.1 LAB L100.1820 35.1-43.9 fl High RDW SD 51.2 LAB L100.1900 150-450 K/mm3 Normal PLT 449 LAB L100.2000 6.2-12.0 fl Normal MPV 9.3 LAB L100.2100 47-70 % Normal NEUT% 67.8 LAB L100.2200 19-41 % Low LY% 17.3 LAB L100.2300 0-10 % High MONO% 12.9 LAB L100.2400 0-5 % Normal EO% 1.0 LAB L100.2500 0-1 % Normal BASO% 0.4 LAB L100.2550 0.0-0.9 % Normal IM GRAN % 0.600 Result Comment: IG% - Immature Granulocytes (promyelocytes, myelocytes and metamyelocytes) > 1% indicates that a LEFT SHIFT is Present. LAB L100.2620 2.0-7.7 X10 3/uL Normal Absolute Neut 3.5 LAB L100.2720 0.83-4.51 X10 3/ul Normal Absolute Lymph 0.89 Performed By: #### L100.0100 #### [facility] [address] [place], [address] COMPREHENSIVE METABOLIC Collected: 08/27/2018 Status: F Source: [facility] 7:30 PM [facility] REPOSITORY TYPE CODE TESTS RESULT OUT OF RANGE REFERENCE UNITS LAB L501.0100 74-106 mg/dL Normal GLU 94 Result Comment: Please note revised GLUCOSE reference range effective 2017. LAB L501.1000 7-18 mg/dL Normal BUN 14 LAB L501.1100 0.55-1.02 mg/dL Low CREAT,SERUM 0.50 Result Comment: Moderate Icterus, Result may be falsely decreased. The validity of the calculated GFR AND GFRAA in patients over 70 years has not been determined. Clinical correlation is essential. LAB L501.1110 >60 mL/min Normal EST GFR 128 Result Comment: Non- GFR Calc LAB L501.1115 >60 mL/min Normal EST GFR - AA 155 Result Comment: GFR Calc LAB L501.1255 ml/min Normal Estimated CRCL 33.30 LAB L501.1300 10-20 RATIO High BUN/CRE 28.3 LAB L501.1500 6.4-8. g/dL Normal 2 T PROT 6.7 Result Comment: Moderate Icterus, Result may be falsely decreased. LAB L501.1800 3.2-5.0 g/dL Low ALB 2.4 LAB L501.1950 2.2-4.2 g/dL High GLOB 4.3 LAB L501.2000 0.9-2.4 RATIO Low A/G 0.6 LAB L501.2200 8.5-10.1 mg/dL Low CA 8.2 LAB L501.4100 15-37 U/L High AST 43 LAB L501.4305 45-117 U/L High ALK P 465 LAB L501.4405 13-56 U/L Normal ALT 46 LAB L501.4600 0.20-1.00 mg/dL High T BILI 11.30 LAB L501.5300 136-145 mmol/L Normal NA 136 LAB L501.5600 3.5-5.1 mmol/L Low K 3.2 LAB L501.5900 98-107 mmol/L Normal CL 102 LAB L501.6100 21.0-32.0 mmol/L Normal CO2 26.0 LAB L501.6200 5-15 Normal GAP 8 Performed By: #### L500.4050, L501.2450 #### [facility] [address] [place], [address] LIPASE Collected: 08/27/2018 Status: F Source: [place] 7:30 PM [facility] REPOSITORY TYPE CODE TESTS RESULT OUT OF RANGE REFERENCE UNITS LAB L501.2450 73-393 U/L Normal LIPASE 199 Performed By: #### L500.4050, L501.2450 #### [facility] [address] [place], [address] ABDOMEN/PELVIS W IV CONT Observed: 08/27/2018 Status: F Source: [facility] 7:24 PM [facility] REPOSITORY [facility] Imaging Services [address] [place] [id number] Abdomen/Pelvis W IV Cont ONLY MR#: [id number] Acct: [id number] Name: YANE CHILEL Rep #: [id number] : 1940 F 77 From: Garfield Tolliver MD PCP: Jose Nugent DO Status: REG ER Study: Abdomen/Pelvis W IV Cont ONLY Date of Exam: 08/27/18 Exam# [id number] Ordering Dr: Elda Lund MD HISTORY: JAUNDICE, PT RECIEVED PROLIA SHOT 05/2018, ALLERGY? PER PT. EXAM/TECHNIQUE: CT Abdomen And Pelvis W/ Contrast: 100 cc Isovue 300 administered intravenously. COMPARISON: 09/21/17 CT abdomen pelvis. FINDINGS: # of images incl. paperwork: 355 Interval development of a poorly defined low density mass near the hilum of the liver, with marked intrahepatic biliary ductal dilation, and distention of the gallbladder with wall thickening. No radiopaque stones are evident. The mass itself is difficult to separate from dilated biliary loops and difficult to discretely measure. Abnormal enhancement of the common hepatic duct and proximal common bile duct. The distal common bile duct is not dilated and the pancreas is unremarkable. Several likely metastatic nodules are now present in the bilateral lung bases. Mildly prominent pericaval lymph nodes. No apparent adrenal metastases. Mild right hydronephrosis, increased compared to prior, with no stone or obstructing lesion identified. Left kidney, urinary bladder unremarkable. No obstruction or inflammation of the bowel. Normal appendix. Mild atherosclerosis. No abdominal aortic aneurysm. Portal, splenic, mesenteric, veins are patent. Left scoliosis lumbar spine with associated degenerative changes. No acute fracture or aggressive osseous lesions. Uterus and ovaries unremarkable. CT/Abdomen/Pelvis W IV Cont ONLY IMPRESSION: Poorly defined mass in the hilum of the liver with abnormal enhancement of the wall of the common hepatic duct and proximal common bile duct highly suspicious for cholangiocarcinoma with resulting obstruction of the intrahepatic biliary ducts. Bilateral pulmonary metastases partially visible. The gallbladder is distended with wall thickening. May represent cholecystitis secondary to obstruction of the cystic duct or proximal common bile duct. Alternatively this could represent gallbladder wall edema. The more peripheral common bile duct has normal caliber. Individualized dose optimization techniques were used for this CT. at 2057 Reported and signed by: Garfield Tolliver MD Electronically Signed: Garfield Tolliver, at 20:56 EST Tel , Service support , CC: Jose Nugent DO; Elda Lund MD Data Center Architect: Signed LIVER PROFILE Collected: 08/25/2018 Status: F Source: [place] 4:45 PM [facility] REPOSITORY TYPE CODE TESTS RESULT OUT OF RANGE REFERENCE UNITS LAB L501.1500 6.4-8.2 g/dL Normal T PROT 6.9 Result Comment: Moderate Icterus, Result may be falsely decreased. LAB L501.1800 3.2-5.0 g/dL Low ALB 2.5 LAB L501.1950 2.2-4.2 g/dL High GLOB 4.4 LAB L501.4100 15-37 U/L High AST 44 LAB L501.4305 45-117 U/L High ALK P 484 LAB L501.4405 13-56 U/L Normal ALT 56 LAB L501.4600 0.20-1.00 mg/dL High T BILI 12.30 LAB L501.4700 0.00-0.30 mg/dL High D BILI 10.16 Performed By: #### L500.3400 #### [facility] [address] [place], [address] SERUM CREATININE AND Collected: 04/21/2018 Status: F Source: [place] GFR 3:34 PM [facility] REPOSITORY TYPE CODE TESTS RESULT OUT OF RANGE REFERENCE UNITS LAB L501.1100 0.55-1.02 mg/dL Normal 0.61 CREAT,SERUM Result Comment: The validity of the calculated GFR AND GFRAA in patients over 70 years has not been determined. Clinical correlation is essential. LAB L501.1110 >60 mL/min Normal EST GFR 100 Result Comment: Non- GFR Calc LAB L501.1115 >60 mL/min Normal EST GFR - AA 121 Result Comment: GFR Calc Performed By: #### L501.1105, L501.2200 #### [facility] [address] [place], [address] CALCIUM,TOTAL Collected: 04/21/2018 Status: F Source: [place] 3:34 PM [facility] REPOSITORY TYPE CODE TESTS RESULT OUT OF RANGE REFERENCE UNITS LAB L501.2200 8.5-10.1 mg/dL Normal CA 9.1 Performed By: #### L501.1105, L501.2200 #### [facility] [address] [place], [address] VITAMIN D,25 HYDROXY Collected: 04/21/2018 Status: F Source: [place] 3:34 PM [facility] REPOSITORY TYPE CODE TESTS RESULT OUT OF RANGE REFERENCE UNITS LAB L506.1000 29.95-100.01 ng/mL Normal Vitamin D 36.5 25-OH Result Comment: Vitamin D 25(OH) Status Range Deficiency <20 ng/mL (50nmol/L) Insuffciency 20 - 30 ng/mL (50 - 75 nmol/L) Sufficiency 30 - 100 ng/mL (75 - 250 nmol/L) Toxicity >100 ng/mL (>250 nmol/L) Performed By: #### L506.1000 #### [facility] [address] [place], [address] ORTHOPEDIC VISIT Observed: 04/11/2018 Status: F Source: [place] REPORT 10:35 PM [facility] REPOSITORY [facility] [facility] [address] [place] [address] OFFICE VISIT Date of Service: 04/06/18 MR#: [id number] Acct: [id number] Name: YANE CHILEL Rep #: [id number] : 1940 Provider: Maria Luisa Castillo MD Age/Sex: 77/F Location: [facility] [place] Status: Signed Intake Intake Visit Reasons: LOW BACK PAIN Allergies No Known Allergies Allergy (Verified 04/06/18 10:40) Medications Ibuprofen [Motrin] 400 mg PO Q6H PRN PRN 05/14/14 [History Confirmed 08/10/17] Acetaminophen [Tylenol] 1,000 mg PO Q8 7 Days tab 05/18/14 [Rx Confirmed 08/10/17] Betamethasone Valerate [Valisone 0.1% Cream] 1 applic TOPICAL BID 5 Days tube 05/18/14 [Rx Confirmed 08/10/17] Lisinopril [Zestril] 2.5 mg PO DAILY #30 tab 05/18/14 [Rx Confirmed 08/10/17] Oxycodone [Oxyir] 10 mg PO Q4H PRN PRN #30 tab 05/18/14 [Rx Confirmed 08/10/17] Polyethylene Glycol 3350 [Miralax] 17 gm PO DAILY #30 packet 05/18/14 [Rx Confirmed 08/10/17] Cyclobenzaprine [Flexeril] 10 mg PO TID PRN #20 tab 12/23/15 [Rx Confirmed 08/10/17] MethylPREDNISolone DosePak [Medrol DosePak] 4 mg PO DAILY #1 udc 08/10/17 [Rx] PFSH Social History Smoking Status: Former smoker HPI LOW BACK PAIN: Details: YANE CHILEL is a 77 year old RHD F here today referred by Dr. Nugent for low back pain 100%. Patient notes that she has had low back pain for many years which has progressively worsened. She complains of midline pain. She denies any radiating pain. She denies any numbness or tingling. Patient denies any weakness. Patient has increased back pain with all activities. It is improved with sitting and sometimes laying. She has had physical therapy with mild improvement. She is not interested in aqua therapy. She has a tens unit, which does not help. She denies bowel or bladder issues, gait instability or loss of hand dexterity. She takes percocet 3 tabs per day for over a year managed by her PCP. She has a pain management physician and has had 2 spinal injections. No records available. She denies history of spine surgery, constitutional symptoms. She has hypertension. She takes calcium and vit D. She has noted osteoporosis on her recent DEXA and will be meeting with her PCP soon to review the results. ROS Const Reports system reviewed and no additional complaints, except as docu Eyes Reports system reviewed and no additional complaints, except as docu ENT Reports system reviewed and no additional complaints, except as docu Card Reports system reviewed and no additional complaints, except as docu Resp Reports system reviewed and no additional complaints, except as docu GI Reports system reviewed and no additional complaints, except as docu Reports system reviewed and no additional complaints, except as docu Musc Reports back pain Skin/Breast Reports system reviewed and no additional complaints, except as docu Neuro Yes system reviewed and no additional complaints, except as docu Psych Reports system reviewed and no additional complaints, except as docu Endo Reports system reviewed and no additional complaints, except as docu Ortho Exam Spine Neuro: Yes Clonus (none bilaterally), Vincent's (negative bilaterally), Babinski (downgoing bilaterally) and Straight Leg Raise (negative bilaterally) General: alert, oriented x3 Skin: Yes dysraphism (none) Capillary Refill <2sec: Yes Palpable Pulses: 2+ dp and pt pulses Gait: normal gait, other (heel and toe walk. normal tandem gait) Motor: strength 5/5 throughout Sensory Exam: no sensory deficits noted DTR's: Rt Triceps: 2+, Lt Triceps: 2+, Rt Biceps: 2+, Lt Biceps: 2+, Rt Brachioradialis: 2+, Lt Brachioradialis: 2+, Rt Patellar: 2+, Lt Patellar: 2+, Rt Ankle: 2+, Lt Ankle: 2+ Plantar Reflexes: Downgoing: bilateral Coordination: Romberg test normal, tandem gait normal Details: neutral sagittal balance slight left coronal shift. left lumbar prominence SPINE TESTING CERVICAL THORACIC LUMBAR Musculoskeletal General: Yes normal gait and deformity Cervical Spine: cervical ROM normal Thoracic/Lumbar Spine: bend over test abnormal (left lumbar prominence), thoraco-lumbar ROM limited, other (no significant tenderness to palpation) Strength 0=absent - 5=normal Deltoid R (C5): 5, Deltoid L (C5): 5, R Bicep (C5-6): 5, L Bicep (C5-6): 5, R Wrist Extensor (C6): 5, L Wrist Extensor (C6): 5, R Tricep (C7): 5, L Tricep (C7): 5, R Finger Flexors (C8): 5, L Finger Flexors (C8): 5, R First Dorsal Interossei (C8): 5, L First Dorsal Interossei (C8): 5, R Hip Flexor (L1-3): 5, L Hip Flexor (L1-3): 5, R Quadriceps (L2-4): 5, L Quadriceps (L2-4): 5, R Anterior Tibialis (L4-5): 5, L Anterior Tibialis (L4- 5): 5, R Hamstrings (L5-S1): 5, L Hamstrings (L5-S1): 5, GS (S1): 5, L GS (S1): 5, R Peroneals (S1): 5, L Peroneals (S1): 5 Assessment AND Plan Problems 1. Degenerative scoliosis M41.9 Plan Imaging: XR lumbar spine 04/06/2018 reveals diffuse spondylosis with degenerative scoliosis MRI lumbar spine 03/2017 reveals degenerative scoliosis with diffuse spondylosis. multilevel foraminal stenosis. no significant central stenosis DEXA 03/02/2018 reveals R hip T score -2.9/-3.1, L hip T score -2.4/-2.8, spine T score -1.1 I/R/P: 1. back pain 2. degenerative scoliosis 3. osteoporosis, untreated Ms. Chilel presents with back pain. The natural history and course of the symptomatology of degenerative scoliosis was discussed in detail with the patient. I answered all questions regarding the mode of onset, pathophysiology, symptoms, imaging findings, treatment options (both non-operative and operative) regarding her diagnosis. Discussed risks of surgical intervention outweigh the benefits in the setting of her severe osteoporosis. Recommend initiation of weight bearing therapy and aqua therapy. Recommend facet injections versus MBB by her pain physician. Recommend pharmacological treatment of her osteoporosis, to include possible forteo versus tymlos. Follow up as needed. Plan of care discussed. All questions answered. The patient verbalized understanding of the disease process and agreed to the treatment plan formulated for this visit. Orders Orders: Coding Level of Care Code Off vis,new,level 4 Diagnoses Degenerative scoliosis M41.9 04/11/18 2235 <Electronically signed by Maria Luisa Castillo MD> Date Maria Luisa Castillo MD Cosigner Signature: Date (if applicable) CC: Jose Nugent DO L/S SPINE MIN 4 Observed: 04/06/2018 Status: F Source: [place] VIEWS 10:52 AM [facility] REPOSITORY [facility] Imaging Services [address] [place] [address] L/S Spine Min 4 Views MR#: [id number] Acct: [id number] Name: YANE CHILEL Rep #: [id number] : 1940 F 77 From: Deonte Buckley MD PCP: Jose Nugent DO Status: REG CLI Study: L/S Spine Min 4 Views Date of Exam: 04/06/18 Exam# [id number] Ordering Dr: Maria Luisa Castillo MD STUDY: X-RAY - LUMBAR SPINE REASON FOR EXAM: Female, 77 years old. Low back pain TECHNIQUE: 4 view(s) of the lumbar spine were obtained. COMPARISON: None FINDINGS: Normal lumbar lordosis. There is scoliosis. There is a normal alignment of the vertebrae. Loss of intervertebral disc height at L5- S1. Vacuum disc phenomenon at L5-S1. There is multilevel endplate spondylosis of the lumbar vertebrae. There is multi-level degenerative disc disease with multi-level disc space narrowing. There are atherosclerotic vascular calcifications. The soft tissue structures are unremarkable. RAD/L/S Spine Min 4 Views IMPRESSION: Degenerative changes of the spine, as detailed above. Electronically Signed: Deonte Buckley MD at 20:57 EDT , Service support , CC: Jose Nugent DO; Maria Luisa Castillo MD Data Center Architect: Signed AST(SGOT) Collected: 03/16/2018 Status: F Source: ANDREAS 1:56 PM [facility] REPOSITORY TYPE CODE TESTS RESULT OUT OF RANGE REFERENCE UNITS LAB L501.4100 15-37 U/L Normal AST 21 Performed By: #### L501.4100, L501.4405 #### [facility] [address] [facility] [place], [place], [address] ALANINE AMINOTRANSFERAS Collected: 03/16/2018 Status: F Source: ANDREAS (SGPT) 1:56 PM [facility] REPOSITORY TYPE CODE TESTS RESULT OUT OF RANGE REFERENCE UNITS LAB L501.4405 13-56 U/L Normal ALT 23 Performed By: #### L501.4100, L501.4405 #### [facility] [address] [facility] [place], [address] SCREENING MAMM (CAD), Observed: 03/02/2018 Status: F Source: [place] BILAT 8:35 AM [facility] REPOSITORY [facility] Imaging Services [address] [place] [address] SCREENING MAMM (CAD), BILAT MR#: [id number] Acct: [id number] Name: YANE CHILEL Rep #: [id number] : 1940 F 77 From: Ciaran Herndon MD PCP: Jose Nugent DO Status: REG CLI Study: SCREENING MAMM (CAD), BILAT Date of Exam: 03/02/18 Exam# [id number] Ordering Dr: Jose Nugent DO MAMMOGRAPHY - BILATERAL SCREENING 3-D YON SYNTHESIS REASON FOR EXAM: Female, 77 years old. Bilateral Screening 3-D tomosynthesis PERTINENT HISTORY: Sister with breast cancer.. TECHNIQUE: 2-D mammograms and 3-D Yon synthesis of the breast (s) were performed. CAD was performed. COMPARISON: 2014 FINDINGS: The breast composition is heterogeneously dense that can obscure small breast masses. Scattered benign calcifications are seen. No dense spiculated masses or suspicious microcalcifications are identified. No architectural distortion is identified. There is no skin thickening or retraction. There has been no significant change since the prior study. BI/SCREENING MAMM (CAD), BILAT IMPRESSION: No mammographic signs of malignancy. Routine yearly mammograms recommended. ASSESSMENT CATEGORY: BIRADS Category 2: Benign. A letter regarding these results will be sent to the patient by the facility within 30 days. FOLLOW UP RECOMMENDATION: Yearly follow up mammogram recommended. (A) Approximately 10% of breast cancers are not detected by mammography. A normal mammogram should not delay biopsy of a clinically suspicious abnormality. Electronically Signed: Taras Herndon MD at 8:42 EDT , Service support , CC: Jose Nugent DO Data Center Architect: Signed DEXA BONE DENSITY Observed: 03/02/2018 Status: F Source: [place] STUDY 8:35 AM [facility] REPOSITORY [facility] Imaging Services [address] [place] [address] Dexa Bone Density Study MR#: [id number] Acct: [id number] Name: YANE CHILEL Rep #: [id number] : 1940 F 77 From: Ciaran Herndon MD PCP: Jose Nugent DO Status: REG CLI Study: Dexa Bone Density Study Date of Exam: 03/02/18 Exam# [id number] Ordering Dr: Jose Nugent DO STUDY: DUAL ENERGY X-RAY ABSORPTIOMETRY / DXA REASON FOR EXAM: Female, 77 years old. Postmenopausal screening TECHNIQUE: Bone Mineral Density (BMD) measurements of lumbar spine and bilateral hips were obtained. COMPARISON: 2013 FINDINGS: Lumbar Spine (L1-L4): g/cm2 (0.993) / T-score (-1.1) / Z-score (0.7) Findings are suggestive of osteopenia with a moderate fracture risk. Left Femur Total: g/cm2 (0.711) / T-score (-2.4) / Z- score (-0.4) Left Femoral Neck: g/cm2 (0.653) / T-score (-2.8) / Z- score (-0.7) Right Femur Total: g/cm2 (0.647) / T-score (-2.9) / Z- score (-1.0) Right Femoral Neck: g/cm2 (0.611) / T-score (-3.1) / Z-score (-1.0) The T-Scores on the most recent prior examination were: Lumbar Spine (L1-L4): There has been worsening of bone density since the previous examination. BD/Dexa Bone Density Study IMPRESSION: The patient is considered osteoporotic as outlined below according to World Chuck Organization (WHO) criteria with a high fracture risk. There has been worsening of bone density since the previous examination. Reference Information: The T-score is the number of standard deviations above or below the standard which is normal for young adults at their peak bone mineral density. The World Health Organization (WHO) interprets the T-scores as follows: Above -1 Normal bone density Between -1 and -2.5 Osteopenia Equal to / or below -2.5 Osteoporosis As a practical clinical guideline, osteopenia may be graded as follows: Mild -1 through -1.5 Moderate -1.6 through -2.0 Severe -2.1 through -2.4 The Z-score is the number of standard deviations above or below age-matched controls. A Z-score of less than -1.5 would be considered abnormal. References: 1. NIH Osteoporosis and Related Bone Diseases http://www.osteo.org 2. International Society for Clinical Densitometry http://www.iscd.org 3. National Osteoporosis Foundation http://www.nof.org Electronically Signed: Taras Herndon MD at 12:28 EDT , Service support , CC: Jose Nugent DO Data Center Architect: Signed ABDOMEN/PELVIS WITH Observed: 09/21/2017 Status: F Source: [place] CONTRAST 5:03 PM [facility] REPOSITORY [facility] Imaging Services [address] [place] [address] Abdomen/Pelvis WITH Contrast MR#: [id number] Acct: [id number] Name: YANE CHILEL Rep #: [id number] : 1940 F 76 From: Jesus Chavez DO PCP: Jsoe Nugent DO Status: REG CLI Study: Abdomen/Pelvis WITH Contrast Date of Exam: 09/21/17 Exam# [id number] Ordering Dr: Jose Nugent DO STUDY: CT ABDOMEN AND PELVIS WITH CONTRAST REASON FOR EXAM: Female, 76 years old. Bloating for several months RADIATION DOSAGE (If Supplied By Facility): CTDIvol = ( 13.57 ) mGy, DLP = ( 601.55 ) mGycm TECHNIQUE: Transaxial images were obtained from the dome of the diaphragm to the symphysis pubis with oral contrast. 100 ml of Isovue 300 contrast was administered. Sagittal and coronal images were reconstructed. Individualized dose optimization techniques were used for this CT. COMPARISON: None. FINDINGS: The visualized lung bases are unremarkable. The visualized portions of the heart are within normal limits. Normal liver. The gallbladder is contracted. Normal spleen. Normal pancreas. Normal bilateral adrenal glands. Normal right kidney. Normal left kidney. There is a small hiatal hernia. Normal small intestine. Normal colon. There is non-visualization of the appendix. Normal abdominal aorta. Normal inferior vena cava. Normal retroperitoneum. Normal urinary bladder. There is atrophy of the uterus. Normal abdominal wall. There are diffuse degenerative changes of the visualized lumbar spine. CT/Abdomen/Pelvis WITH Contrast IMPRESSION: No acute findings. Unremarkable small bowel. Some fecal retention in the colon. Electronically Signed: Jesus Chavez DO at 20:48 EST Tel , Service support , CC: Jose Nugent DO Data Center Architect: Signed SERUM CREATININE AND Collected: 09/18/2017 Status: F Source: [place] GFR 3:59 PM [facility] REPOSITORY TYPE CODE TESTS RESULT OUT OF RANGE REFERENCE UNITS LAB L501.1100 0.55-1.02 mg/dL Normal 0.58 CREAT,SERUM Result Comment: The validity of the calculated GFR AND GFRAA in patients over 70 years has not been determined. Clinical correlation is essential. LAB L501.1110 >60 mL/min Normal EST GFR 108 Result Comment: Non- GFR Calc LAB L501.1115 >60 mL/min Normal EST GFR - AA 130 Result Comment: GFR Calc Performed By: #### L501.1105 #### [facility] [address] [place], [address] ALLERGIES ALLERGIES DATE TYPE / CODE NAME / CODE REACTION SEVERITY SOURCE 08/27/2018 Drug No Known Unknown [facility] Allergy/416 Allergies/M43339 Hospital 072684(SNOM 0388(RXNORM) Repository ED CT) Drug NO KNOWN [facility] Class/30141 ALLERGIES Other [place] 1003(SNOMED Repository CT) NG/[id number] NO KNOWN [facility] 6([facility] CT) Repository ENCOUNTERS ENCOUNTERS ADMIT/DISCHARGE ACCOUNT NUMBER ADMITTING ENCOUNTER LOCATION SOURCE CLASS 08/28/2018 [id number] [facility] Other [place] Repository 08/28/2018 [id number] [facility], Inpatient [place] [facility] B Encounter [facility] MEDICAL Repository CENTERBuildi nRoom: 7117Bed: 08/27/2018/08/28/19 [id number] Emergency [address] ding:ED Repository 08/26/2018 [id number] Ambulatory [facility] ding:LAB.FUT Repository URE 08/25/2018 [id number] Ambulatory [facility] ding:LAB Repository 04/21/2018 [id number] Ambulatory [facility] ding:LAB Repository 04/06/2018 [id number] [facility] ding:HPRAD Repository 04/06/2018/04/06/20 [id number] Ambulatory BMSBuilding: [place] [facility] Repository 03/16/2018 [id number] Ambulatory [facility] ding:LAB.FUT Repository URE 03/02/2018 [id number] Ambulatory [facility] ding:OPBD Repository 09/21/2017 [id number] Ambulatory [facility] ding:CT Repository 09/18/2017 [id number] [facility] ding:LAB Repository PAYERS PAYERS ENCOUNTER GUARANTOR PAYER SUBSCRIBER SOURCE 08/28/2018 YANE A Primary YNAE A [facility] WIRTHDOB: Insurance:AETNA WIRTHDOB: [employer] E MEDICARE [facility] [id number] Repository [place] Number: RDWOOCHINTAN MEREDITH [id number]: 330) Date: () 08/27/2018 YANE A Primary YANE A [place] [id number] Insurance:AETNA [facility] Number: [id number] [id number] Repository [address]Gkf: (330) Date:5811-47-89UQ [phone] () [id number] [address]KN: 08/27/2018 Secondary NOT GIVENUNK [place] Insurance:SELF PAY [facility] Number: Effective Repository Date:2018-08-27 08/26/2018 YANE A Primary YANE A [place] [id number] Insurance:AETNA WIRTHDOB: [facility] Number: [id number], [place] [id number] Repository [address]Zgu: (330) Date:5416-40-58HK [phone] () 150523JMS[place] [address]NF: 08/26/2018 Secondary NOT GIVENUNK [place] Insurance:SELF PAY [facility] Number: Effective Repository Date:2018-08-26 08/25/2018 YANE A Primary YANE A [place] [id number] Insurance:AETNA WIRTHDOB: [facility] Number: [id number], [place] [id number] Repository [address]Oyf: (330) Date:5458-52-01TM [phone] () 718345SQS[place] [address]KK: 08/25/2018 Secondary NOT GIVENUNK [place] Insurance:SELF PAY [facility] Number: Effective Repository Date:2018-08-25 04/21/2018 YANE A Primary YANE A [place] [id number] Insurance:AETNA WIRTHDOB: [facility] Number: [id number], [place] [id number] Repository [address]Cnz: (330) Date:3880-54-49LY [phone] (HP) [id number] [place] [address]CI: 04/21/2018 Secondary NOT GIVENUNK [place] Insurance:SELF PAY [facility] Number: Effective Repository Date:2018-04-21 04/06/2018 YANE A Primary YANE A [place] [id number] Insurance:AETNA [facility] Number: [id number] Luke's HospitalBPVH6SEffective Repository [address]Wrb: (330) Date:4040-09-86RO [phone] (HP) [id number] [place] [address]NE: 04/06/2018 Secondary NOT GIVENUNK [place] Insurance:SELF PAY [facility] Number: Effective Repository Date:2018-04-06 04/06/2018 YANE A Primary YANE A [place] [id number] Insurance:AETNA WIRTHDOB: [facility] Number: [id number] Luke's HospitalBPVH6SEffective Repository [address]Qnc: (330) Date:9613-39-17FU [phone] (HP) [id number] [place] [address]IW: 04/06/2018 Secondary NOT GIVENUNK [place] Insurance:SELF PAY [facility] Number: Effective Repository Date:2018-04-06 03/16/2018 YANE A Primary YANE A [place] [id number] Insurance:AETNA WIRTHDOB: [facility] Number: [id number] Luke's HospitalBPVH6SEffective Repository [address]Ejk: (330) Date:5583-56-91LA [phone] (HP) [id number] [place] [address]HY: 03/16/2018 Secondary NOT GIVENUNK [place] Insurance:SELF PAY [facility] Number: Effective Repository Date:2018-03-12 03/02/2018 YANE A Primary YANE A [place] [id number] Insurance:AETNA WIRTHDOB: [facility] Number: [id number], [place] [id number] Repository [address]Ldk: (330) Date:4553-01-61QM [phone] () [id number] [place], [place] [address]EP: 03/02/2018 Secondary NOT GIVENUNK [place] Insurance:SELF PAY [facility] Number: Effective Repository Date:2018-02-05 09/21/2017 YANE A Primary YANE A [place] [id number] Insurance:AETNA WIRTHDOB: [facility] Number: [id number], [place] [id number] Repository [address]Emy: (330) Date:2473-09-80QQ [phone] () 966269HDSANT[place] [address]XX: 09/21/2017 Secondary NOT GIVENUNK [place] Insurance:SELF PAY [facility] Number: Effective Repository Date:2017-09-14 09/18/2017 YANE A Primary YANE A [place] [id number] Insurance:AETNA WIRTHDOB: [facility] Number: [id number] [id number] Repository [id number]: ([phone]) Date:[phone] () [place] [address]WF: 09/18/2017 Secondary NOT GIVENUNK Andreas Insurance:SELF PAY [facility] Number: Effective Repository Date:2017-09-18
== END ==
PROVIDERS: Family Provider Family Medicine; PCP Family Medicine; Referring Provider Family Medicine; Visit Provider Family Medicine
DX: R17 Unspecified jaundice (principal)
CPT/HCPCS: 36415; 80076

== ENCOUNTER 2018-08-27 19:12 | Emergency (ER) | payer MEDICARE, SELFPAY ==
[2018-08-27 19:13] VITALS: BP 167/92; PULSE 95; PULSE 97; RESP 18; TEMP 36.8; O2SAT 95; BMI 25.9
--- NOTE | 2018-08-27 19:24 | CT_ITS ---
HISTORY: JAUNDICE, PT RECIEVED PROLIA SHOT 05/2018, ALLERGY? PER PT. EXAM/TECHNIQUE: CT Abdomen And Pelvis W/ Contrast: 100 cc Isovue 300 administered intravenously. COMPARISON: 09/21/17 CT abdomen pelvis. FINDINGS: # of images incl. paperwork: 355 Interval development of a poorly defined low density mass near the hilum of the liver, with marked intrahepatic biliary ductal dilation, and distention of the gallbladder with wall thickening. No radiopaque stones are evident. The mass itself is difficult to separate from dilated biliary loops and difficult to discretely measure. Abnormal enhancement of the common hepatic duct and proximal common bile duct. The distal common bile duct is not dilated and the pancreas is unremarkable. Several likely metastatic nodules are now present in the bilateral lung bases. Mildly prominent pericaval lymph nodes. No apparent adrenal metastases. Mild right hydronephrosis, increased compared to prior, with no stone or obstructing lesion identified. Left kidney, urinary bladder unremarkable. No obstruction or inflammation of the bowel. Normal appendix. Mild atherosclerosis. No abdominal aortic aneurysm. Portal, splenic, mesenteric, veins are patent. Left scoliosis lumbar spine with associated degenerative changes. No acute fracture or aggressive osseous lesions. Uterus and ovaries unremarkable. CT/Abdomen/Pelvis W IV Cont ONLY IMPRESSION: Poorly defined mass in the hilum of the liver with abnormal enhancement of the wall of the common hepatic duct and proximal common bile duct highly suspicious for cholangiocarcinoma with resulting obstruction of the intrahepatic biliary ducts. Bilateral pulmonary metastases partially visible. The gallbladder is distended with wall thickening. May represent cholecystitis secondary to obstruction of the cystic duct or proximal common bile duct. Alternatively this could represent gallbladder wall edema. The more peripheral common bile duct has normal caliber. Individualized dose optimization techniques were used for this CT. at 2057 Reported and signed by: Garfield Tolliver MD Electronically Signed: Garfield Tolliver, at 20:56 EST Tel , Service support ,
[2018-08-27] MEDS: 0.9% Normal Saline 1,000 ML 1000 ML IV (19:39)
[2018-08-27 19:40] LABS: Absolute Lymphocyte Count 0.89 X10^3/ul (0.83-4.51); Absolute Neutrophil Count 3.5 X10^3/uL (2.0-7.7); Basophil# 0.02 X10^3/uL; Basophil% 0.4 % (0-1); Eosinophil# 0.05 X10^3/uL; Hematocrit 34.8 % (37-47); Hemoglobin 11.7 g/dl (12.0-15.0); Lymphocyte # 0.89 X10^3/ul (4.0); Lymphocyte % 17.3 % (19-41); Mean Corp Hgb Conc 33.6 g/gl (32-36); Mean Corpuscular Hgb 31.5 pg (27.0-32.0); Mean Corpuscular Volume 93.5 fL (81-99); Mean Platelet Vol. 9.3 fl (6.2-12.0); Monocyte# 0.66 X10^3/uL; Monocyte% 12.9 % (0-10); Neutrophil # 3.48 X10^3/uL (2.7-7.7); Neutrophil % 67.8 % (47-70); POSITIVE COUNT NO; POSITIVE DIFFERENTIAL NO; POSITIVE MORPHOLOGY NO; Platelet Count 449 K/mm3 (150-450); RBC Distribution Width CV 15.1 % (11.6-14.6); RBC Distribution Width SD 51.2 fl (35.1-43.9); Red Blood Count 3.72 M/mm3 (4.2-5.4); White Blood Count 5.1 K/mm3 (4.4-11.0)
--- NOTE | 2018-08-27 19:46 | ED.VISSUMM ---
- ER Visit Summary Date of Service: 08/27/18 Chief Complaint: [Jaundice History of Present Illness: The patient is a 77 F presents to the emergency department with painless jaundice. The patient states the past month, she has had diffuse itching. She states been mostly her arms and her back. Over the past 2 weeks, she is noticed that she has been becoming more yellow. She denies any pain. She denies any fevers or chills. She denies any weight loss or night sweats. Patient has no history of prior abdominal surgery. She states that she saw her primary care in the office who ordered lab work and an outpatient CT. Unfortunately, her insurance would not cover it so she cannot get it done. She came in for further evaluation. Physical Examination: Vital signs reviewed General: Well-nourished, well-developed Head: Normocephalic, atraumatic Eyes: Pupils equal and reactive, extraocular muscles intact Neck, supple, no lymphadenopathy Heart: Regular rate and rhythm Respiratory: No distress, clear bilaterally Abdomen: Soft, nontender, nondistended, no peritoneal signs Back: Nontender Extremities: Nontender, no edema, no cords Skin: Patient does have obvious jaundice and scleral icterus. Neuro: Alert and oriented, no focal or lateralizing deficits Test Results: [] Emergency Department Course and Treatment: The patient presents with painless jaundice. IV was established. Screening labs were obtained. Patient does have an elevated bilirubin of 12. Her alk phos is also elevated. Rest of her lab work is relatively unremarkable. The patient underwent CT of abdomen pelvis.. 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 She does appear to also have metastatic disease into the lungs. I did discuss this with Dr. Callaway, who based on the patient's presentation and concern of a primary cholangiocarcinoma, did feel like she would best be served at a tertiary facility and I do agree. After discussion with the patient and family, they did request transfer to [facility]. I did discuss the patient with both surgery and medicine the [facility]. She was accepted in transfer. Treatment Plan: [] Disposition: Transfer Impression: 1. Acute biliary obstruction 2. Cholangiocarcinoma 3. Jaundice 4. Urinary tract infection This note was generated with Azuroation software. It may contain incorrect words, spelling, and punctuation that were not noted in review of the chart prior to signing ED Disposition - Plan for ED Patient: Chief Complaint: Abd Pain Referrals: Jose Nugent DO [Primary Care Provider] -
[2018-08-27 19:49] LABS: Color, Urine Amber (Yellow); Glucose, Dipstick Normal (Normal); Ketone-Dipstick 5 mg/dl (Negative); Leukocyte Esterase-Dipstick 500 /ul (Negative); Nitrite-Dipstick Positive (Negative); Occult Blood-Urine 25 /ul (Negative); Protein-Dipstick 30 mg/dl (Negative); Urine Clarity Sl. Cloudy (Clear); Urine Urobilinogen 8 mg/dl (Normal); Urine pH 6.5 (5.0 - 8.0)
--- NOTE | 2018-08-27 19:50 | ED.DCSUM_ITS ---
- ER Visit Summary Date of Service: 08/27/18 Chief Complaint: [Jaundice History of Present Illness: The patient is a 77 F presents to the emergency department with painless jaundice. The patient states the past month, she has had diffuse itching. She states been mostly her arms and her back. Over the past 2 weeks, she is noticed that she has been becoming more yellow. She denies any pain. She denies any fevers or chills. She denies any weight loss or night sweats. Patient has no history of prior abdominal surgery. She states that she saw her primary care in the office who ordered lab work and an outpatient CT. Unfortunately, her insurance would not cover it so she cannot get it done. She came in for further evaluation. Physical Examination: Vital signs reviewed General: Well-nourished, well-developed Head: Normocephalic, atraumatic Eyes: Pupils equal and reactive, extraocular muscles intact Neck, supple, no lymphadenopathy Heart: Regular rate and rhythm Respiratory: No distress, clear bilaterally Abdomen: Soft, nontender, nondistended, no peritoneal signs Back: Nontender Extremities: Nontender, no edema, no cords Skin: Patient does have obvious jaundice and scleral icterus. Neuro: Alert and oriented, no focal or lateralizing deficits Test Results: [] Emergency Department Course and Treatment: The patient presents with painless jaundice. IV was established. Screening labs were obtained. Patient does have an elevated bilirubin of 12. Her alk phos is also elevated. Rest of her lab work is relatively unremarkable. The patient underwent CT of abdomen pelvis.. 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 She does appear to also have metastatic disease into the lungs. I did discuss this with Dr. Callaway, who based on the patient's presentation and concern of a primary cholangiocarcinoma, did feel like she would best be served at a tertiary facility and I do agree. After discussion with the patient and family, they did request transfer to [facility]. I did discuss the patient with both surgery and medicine the [facility]. She was accepted in transfer. Treatment Plan: [] Disposition: Transfer Impression: 1. Acute biliary obstruction 2. Cholangiocarcinoma 3. Jaundice 4. Urinary tract infection This note was generated with 1calendaration software. It may contain incorrect words, spelling, and punctuation that were not noted in review of the chart prior to signing ED Disposition - Plan for ED Patient: Chief Complaint: Abd Pain Referrals: Jose Nugent DO [Primary Care Provider] -
[2018-08-27 19:58] LABS: ALB/GLOB Ratio 0.6 RATIO (0.9-2.4); AST(SGOT) 43 U/L (15-37); Alanine Aminotransfer ALT/SGPT 46 U/L (13-56); Albumin, Serum 2.4 g/dL (3.2-5.0); Alkaline Phosphatase 465 U/L (45-117); BUN 14 mg/dL (7-18); BUN/Creat Ratio 28.3 RATIO (10-20); Calcium,Total 8.2 mg/dL (8.5-10.1); EST Glomerular Filtration Rate 128 mL/min (>60); Est Glom Filt Rate - Afr Amer 155 mL/min (>60); Globulin 4.3 g/dL (2.2-4.2); Glucose 94 mg/dL (74-106); Lipase 199 U/L (73-393); Protein, Total 6.7 g/dL (6.4-8.2)
[2018-08-27 19:59] LABS: Anion Gap 8 (5-15); Chloride 102 mmol/L (98-107); Potassium 3.2 mmol/L (3.5-5.1); Sodium Level 136 mmol/L (136-145)
[2018-08-27 20:00] LABS: Bacteria RARE /hpf (None Seen); Mucous, Urine 1+ /hpf (<or=2+); Red Blood Cells-Urine 0-5 SEEN /hpf (0-5); Squamous Epithelial Cells - UA 0-5 SEEN /hpf (5-10); Urine Bilirubin Dipstick 6 mg/dL (Negative); White Blood Cells 10-25 SEEN /hpf (0-5)
--- NOTE | 2018-08-27 21:14 | ED.RN ---
[facility] contacted for transfer
[2018-08-27] MEDS: Piperacil/Tazobactam 3.375 GM/50 ML ML IV (21:38)
[2018-08-27 21:45] VITALS: BP 150/86; PULSE 93; RESP 17; TEMP 37.4; O2SAT 100
--- NOTE | 2018-08-27 21:52 | CM.ED ---
Social Work Note Referral from RN, Catalina Recio, for support as it was confirmed that pt has metastatic cancer and will be transferred to [facility]. Face to face with the pt and her son, Vinay, and [id number], Sandra. Introduced self and role at [facility]. The pt is sitting up right in bed with a pleasant affect as evidenced by smiling and joking with this flex o writer operator and family throughout conversation. Family is sitting at bedside. Educate to local support groups as well as cancer treatment options. Pt seems receptive to both and inquires how to contact them. Provide with information packets on both and their contact information. Encourage them to contact the hospital and request a social worker school if they have additional questions throughout this process. Understanding expressed. Emotional support provided and made aware that this flex o writer operator is available if additional questions or needs arise. PLAN: Transfer to [facility]. Norma Curtis, SOFIA, JOVI
--- NOTE | 2018-08-27 21:56 | CM.ED ---
Social Work Note Referral from RN, Catalina Recio, for support as it was confirmed that pt has metastatic cancer and will be transferred to [facility]. Face to face with the pt and her son, Vinay, and [id number], Sandra. Introduced self and role at [facility]. The pt is sitting up right in bed with a pleasant affect as evidenced by smiling and joking with this typewriter mechanic and family throughout conversation. Family is sitting at bedside. Educate to local support groups as well as cancer treatment options. Pt seems receptive to both and inquires how to contact them. Provide with information packets on both and their contact information. Encourage them to contact the hospital and request a hospital social worker if they have additional questions throughout this process. Understanding expressed. Emotional support provided and made aware that this typewriter mechanic is available if additional questions or needs arise. PLAN: Transfer to [facility]. SOFIA Ordoñez, JOVI
[2018-08-28] VITALS (7 sets, daily range): BP systolic 140–158; BP diastolic 84–99; PULSE 83–93; RESP 16–18; TEMP 37.4; O2SAT 93–99
--- NOTE | 2018-08-28 03:05 | ED.RN ---
CHECKED PATIENT BED STATUS AT THIS TIME. [facility] CRITICALLY HIGH CENSUS. NO BED AT THIS TIME. UNABLE TO GIVE AN IDEA ON POSSIBLE TIME FRAME
--- NOTE | 2018-08-28 04:00 | ED.RN ---
PT UPDATED THAT THE [facility] HAS A HIGH CENSUS AND AT THIS TIME DO NOT HAVE A BED AVAILABLE.MADE AWARE WILL MAINTAIN PT IN ED.PT IS FINE WITH THAT.
--- NOTE | 2018-08-28 06:06 | ED.RN ---
WITH SUPERVISION ASSISTANCE,HELPED PT UP TO THE BATHROOM,PT VOIDED AND THEN BACK TO BED.PT ASKING IF SHE IS ALLOWED TO HAVE BREAKFAST.MD AWARE OF REQUEST.STATED HE WOULD LOOK AT HER CHART FIRST.PT AWARE OF ABOVE.
== END 2018-08-28 10:05 | disposition short-term general hospital (02) ==
LOC: ED 20:06
PROVIDERS: Emergency Provider Emergency Medicine; Family Provider Family Medicine; PCP Family Medicine
DX: K83.1 Obstruction of bile duct (principal); C22.1 Intrahepatic bile duct carcinoma; R17 Unspecified jaundice; N39.0 Urinary tract infection, site not specified; C78.02 Secondary malignant neoplasm of left lung; C78.01 Secondary malignant neoplasm of right lung; M81.0 Age-related osteoporosis without current pathological fracture; Z79.899 Other long term (current) drug therapy
CPT/HCPCS: 74177; 80053; 81001; 83690; 85025; 87086; 87088; 87186; 96361; 96365; 99285; J7030; J7050; Q9967; A4216

== ENCOUNTER 2018-09-11 06:52 | Inpatient (IN) | payer MEDICARE, SELFPAY ==
[2018-09-11] VITALS (12 sets, daily range): BP systolic 88–116; BP diastolic 52–71; PULSE 83–101; RESP 14–18; TEMP 36.2–37.1; O2SAT 96–100; BMI 22.4; BMI 21.2
--- NOTE | 2018-09-11 07:14 | EKG12_ITS ---
Test Reason : WEAKNESS Blood Pressure : / mmHG Vent. Rate : 081 BPM Atrial Rate : 081 BPM P-R Int : 154 ms QRS Dur : 086 ms QT Int : 398 ms P-R-T Axes : 056 -52 028 degrees QTc Int : 462 ms Normal sinus rhythm Possible Left atrial enlargement Left axis deviation Left ventricular hypertrophy Inferior infarct , age undetermined Abnormal ECG Confirmed by DIOR ALANIS, JAYA ([id number]), make up editor DOMENIC STEINER ([id number]) on 09/15/2018 1:29:23 PM Referred By: GARFIELD Confirmed By:JAYA RADER MD
[2018-09-11] MEDS: 0.9% Normal Saline 1,000 ML 1000 ML IV (07:17)
--- NOTE | 2018-09-11 07:22 | RAD_ITS ---
STUDY: X-RAY CHEST REASON FOR EXAM: Female, 77 years old. Weakness TECHNIQUE: AP COMPARISON: 11/07/2015 FINDINGS: Right shoulder replacement is similar. EKG leads project over the chest. There are multiple small round nodules in both lungs, measuring up to 1.2 cm and the left lung base. These are new since the prior x-ray. There is no demonstrated pleural abnormality. Normal size heart. Normal mediastinum and reina. Normal visualized pulmonary arteries. There is atherosclerotic tortuosity of the aortic arch and descending thoracic aorta. There is demineralization of the osseous structures. Normal visualized ribs, clavicles, and shoulders. There is no demonstrated abnormality of the visualized soft tissue structures of the upper abdomen. RAD/Chest 1 View (Portable) IMPRESSION: 1. Multiple new noncalcified pulmonary nodules worrisome for metastasis. Infectious etiologies are considered less likely. Chest CT recommended. Electronically Signed: Silver Becerra MD at 7:49 EST , Service support ,
[2018-09-11 07:50] LABS: Absolute Lymphocyte Count 0.51 X10^3/ul (0.83-4.51); Absolute Neutrophil Count 12.9 X10^3/uL (2.0-7.7); Basophil# 0.02 X10^3/uL; Basophil% 0.1 % (0-1); Eosinophil# 0.01 X10^3/uL; Eosinophils% 0.1 % (0-5); Hematocrit 41.8 % (37-47); Hemoglobin 13.6 g/dl (12.0-15.0); Lymphocyte # 0.51 X10^3/ul (4.0); Lymphocyte % 3.5 % (19-41); Mean Corp Hgb Conc 32.5 g/gl (32-36); Mean Corpuscular Hgb 31.9 pg (27.0-32.0); Mean Corpuscular Volume 98.1 fL (81-99); Mean Platelet Vol. 9.7 fl (6.2-12.0); Monocyte# 1.04 X10^3/uL; Monocyte% 7.1 % (0-10); Neutrophil % 87.6 % (47-70); Platelet Count 577 K/mm3 (150-450); RBC Distribution Width CV 16.2 % (11.6-14.6); RBC Distribution Width SD 56.2 fl (35.1-43.9); Red Blood Count 4.26 M/mm3 (4.2-5.4); White Blood Count 14.7 K/mm3 (4.4-11.0)
[2018-09-11 07:56] LABS: Differential Indicated SCAN CRITERIA MET; POSITIVE COUNT NO; POSITIVE DIFFERENTIAL YES; POSITIVE MORPHOLOGY NO
--- NOTE | 2018-09-11 08:03 | ED.DCSUM_ITS ---
- ER Visit Summary Date of Service: 09/11/18 Chief Complaint: [Weakness] History of Present Illness: The patient is a 77 F [presents to the emergency department complaint of generalized weakness since returning [place] 2 [place] [facility] Patient tells me she was admitted for [address] [facility]ching and jaundice. Patient was diagnosed with a cholangiocarcinoma and had a stent placed in her liver as well as biliary drains placed. Since returning home patient not eating or drinking much and just no energy. She denies any fevers. She denies any chest pain or shortness of breath. Patient with history of hypertension and degenerative disc disease.] Physical Examination: [HEENT-PERRLA, EOMI. Cranial nerves II through XII grossly intact. TMs clear. Mucous membranes moist. No adenopathy. Patient is jaundiced with scleral icterus noted. Cardiovascular-regular rate and rhythm without murmur or ectopy Lungs-clear to auscultation, chest wall stable without crepitus or subcu emphysema Abdomen-normoactive bowel sounds, soft, nontender, no rebound or rigidity, no peritoneal signs. Extremities-intact ?4, normal range of motion, normal pulses, atraumatic] Test Results: [Chest x-ray obtained showed nodules throughout both lungs suspicious for metastatic disease.] EKG obtained showed sinus rhythm with a ventricular rate of 81 bpm with a inferior infarct noted that appears to be old. Patient also had LVH. CBC with differential showed a white count of 14.7, hemoglobin 13.6, hematocrit 42, platelets 577. Chemistries show sodium 142, potassium 5.2, chloride 109, CO2 12, BUN 59 and creatinine 4.76. Total bilirubin was 6.7, alkaline phosphatase was 363. ALT was 205, AST 159. Lactate was elevated 2.9. Emergency Department Course and Treatment: [Patient was given a liter normal same fluid bolus patient was started on normal saline at 150 cc an hour.] Treatment Plan: [Admit] Disposition: [Admit] Impression: [Acute kidney injury Dehydration Hyperbilirubinemia Generalized weakness] This note was generated with [employer] dictation software. It may contain incorrect words, spelling, and punctuation that were not noted in review of the chart prior to signing ED Disposition - Plan for ED Patient: Referrals: Jose Nugent DO [Primary Care Provider] -
[2018-09-11 08:26] LABS: Lactic Acid 2.9 mmol/L (0.4-2.0)
[2018-09-11] MEDS: 0.9% Normal Saline 1,000 ML 150 ML IV (08:26)
[2018-09-11] MEDS: Ondansetron 4 MG/2 ML Vial IV ×2 (08:26→12:57)
[2018-09-11 08:27] LABS: Platelet Estimate SLT INC (ADEQ)
--- NOTE | 2018-09-11 08:27 | ED.RN ---
LACTIC ACID 2.[address] THE LAB. DR MERRILL AWARE
[2018-09-11 08:41] LABS: ALB/GLOB Ratio 0.7 RATIO (0.9-2.4); AST(SGOT) 159 U/L (15-37); Alanine Aminotransfer ALT/SGPT 205 U/L (13-56); Albumin, Serum 2.8 g/dL (3.2-5.0); Alkaline Phosphatase 363 U/L (45-117); Anion Gap 21 (5-15); BUN 59 mg/dL (7-18); BUN/Creat Ratio 12.4 RATIO (10-20); Calcium,Total 8.1 mg/dL (8.5-10.1); Chloride 109 mmol/L (98-107); Creatinine, Serum 4.76 mg/dL (0.55-1.02); EST Glomerular Filtration Rate 9 mL/min (>60); Est Glom Filt Rate - Afr Amer 11 mL/min (>60); Globulin 4.2 g/dL (2.2-4.2); Glucose 148 mg/dL (74-106); Lipase 341 U/L (73-393); Potassium 5.2 mmol/L (3.5-5.1); Sodium Level 142 mmol/L (136-145)
--- NOTE | 2018-09-11 09:14 | ED.RN ---
PT IS NOT WANTING A STRAIHT CATH TO GET URINE, PHYSICIAN AWARE AND OK WITH WAITING TIL SHE CAN TRY TO GO ON HER OWN.
[2018-09-11 10:29] LABS: Ammonia < 10.0 umol/L (11-32)
[2018-09-11 11:46] LABS: Reflex Lactate? Y
--- NOTE | 2018-09-11 12:16 | PCM.HP.STD ---
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 Comment: recent diagnosis (2) Acute renal failure Status: Acute (3) Metabolic acidosis Status: Acute (4) Dehydration Status: Acute (5) Closed pelvic fracture Status: Inactive (6) Ulna distal fracture Status: Inactive (7) Constipation Status: Chronic (8) History of repair of rotator cuff Status: Inactive (9) Mitral valve prolapse Status: Chronic (10) Status post bilateral knee replacements Status: Inactive History of Present Illness Date of Admission: 09/11/18 Chief Complaint: generalized weakness, poor appetite The patient is a 77 year old F with a past medical history of mitral valve prolapse, glaucoma,HTN, former smoking hx and degenerative joint disease who was recently admitted to [facility] for a period of 2 weeks for jaundice and she was diagnosed with Cholangiocarcinoma. CT chest showed multiple nodules and a lung biopsy was positive for metastatic disease. She had a stent placed and and also BL drains. She was discharged on 09/09 from [facility] to home and she was brought to the ED at [facility] on 09/11/18 with complaint of generalized weakness. Her son Vinay tells me that she is not eating or drinking. She is c/o back pain but she denies N/V/Abd pain/SOB/CP/fevers/chills. Vital signs at presentation to the emergency room are temperature 97.1, pulse rate 86, blood pressure 88/64, respiratory rate 15 and she was 96% saturated on room air. She received a 1 L normal saline bolus in the urgency room and the blood pressure improved to 111/65 with a heart rate of 90. CBC shows an elevated white blood cell count at 14.7 with a left shift and 1.6% immature granulocytes. Hemoglobin is 13.6 and the platelets are 577,000. Potassium is 5.2 but the serum bicarb is only 12. BUN is 59 with a creatinine of 4.76 and a estimated creatinine clearance of 7. Random blood sugar is elevated at 148 and she has no hx of DM. Total bilirubin is elevated at 6.7 with an AST of 159, ALT of 205 and an alkaline phosphatase of 363. Serum ammonia is less than 10. She was admitted to a monitored bed on PCU for ARF likely due to dehydration. 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 (Chronic) recent diagnosis Mitral valve prolapse (Chronic) Constipation (Chronic) Allergies No Known Allergies Allergy (Verified 09/11/18 07:08) Home Medications: Ambulatory Orders Medication Instructions Recorded Cyclobenzaprine [Flexeril] 10 mg PO TID PRN #20 tablet 12/23/15 Calcium Carbonate [Calcium] 1,200 mg PO DAILY 08/27/18 Cholecalciferol (Vitamin D3) 5,000 unit PO DAILY 08/27/18 [Vitamin D3] Cyanocobalamin (Vitamin B-12) 1,000 mcg SL DAILY 08/27/18 [Vitamin B-12] Latanoprost 1 drop EACH EYE QHS 08/27/18 Melatonin/Pyridoxine [Melatonin 5 10 mg PO DAILY 08/27/18 mg Tablet] Milk Thistle 150 mg PO DAILY 08/27/18 Multivitamin [Multiple Vitamins] 1 tab PO DAILY 08/27/18 Netarsudil Mesylate [Rhopressa] 1 drop EACH EYE QHS 08/27/18 Wheat Dextrin [Benefiber] 1 each PO DAILY 08/27/18 Lisinopril [Zestril] 2.5 mg PO DAILY 09/11/18 Netarsudil Mesylate [Rhopressa] 09/11/18 Ondansetron [Ondansetron Odt] 4 mg PO Q6H PRN PRN 09/11/18 Oxycodone HCl/Acetaminophen 1 each PO Q4H PRN PRN 09/11/18 [Endocet 5-325 Tablet] Surgical History: total knee arthroplasty - BL, - - recent biliary stent and biliary drains Psychiatric History: No pertinent psych hx CLERICAL TRANSCRIBER History: No pertinent CLERICAL TRANSCRIBER history Lives: With Family Smoking Status: Former smoker Tobacco Use: Non-smoker Alcohol: None Drugs: None - *Family History Maternal History Items: No pertinent history Review of Systems Constitutional: Reports: Anorexia, Weakness, Weight Change - losing weight. Denies: Chills, Fever Eyes: Reports: - - scleral icterus. Denies: Blurred vision HEENT: Reports: - - dry throat. Denies: Difficulty Swallowing, Head Aches, Sinus Congestion, Sinus Drainage Cardiovascular: Reports: Light Headedness. Denies: Chest Pain, Palpitations, Syncope Respiratory: Denies: Cough, Shortness of Breath, Shortness of breath at rest, Shortness of breath upon exertion, Sputum production, Wheezing Gastrointestinal: Denies: Abdominal Pain, Diarrhea, Nausea, Vomiting Genitourinary: Reports: - - decreased urine OP. Denies: Dysuria Gynecological: Denies: Vaginal discharge Musculoskeletal: Reports: Back Pain. Denies: Joint Pain, Joint Tenderness Skin: Reports: Jaundice, Pruritis. Denies: Rash, Wounds Neurological: Denies: Difficulty swallowing, Focal weakness, Numbness, Tingling, Seizures Psychiatric: Denies: Anxiety, Depression, Homicidal Ideations, Suicidal Ideations Endocrine: Reports: Change in Body Habitus - losing weight Hematologic/ Lymphatic: Denies: Easy Bruising, Easy Bleeding, Hx of blood clot VTE Information - Inpt Only VTE Present on Admission: No VTE Mechan Device Prophylaxis: SCD's, Knee High AURELIANO Hose VTE Pharm Prophylaxis ordered?: No Reason prophylaxis not ordered:: Treatment Not Indicated - awaiting the results of the PT to determine whether she can be given heparin Patient Problems: Active and Suspected Problems Acute renal failure (Acute) Metabolic acidosis (Acute) Dehydration (Acute) - Physical Exam General: Cooperative, Confused, Lethargic, - - oriented to person.......does not recall being told at [facility] that she has cancer metastatic to the lungs. Cachectic in appearance HEENT: Atraumatic, PERRLA, EOMI, Normocephalic, - - Positive scleral icterus Oral: No Gingival or Mucosal Lesions/ Ulcerations, Dry Mucosa - very dry mucosa with no mucosal lesions Neck: Supple, No JVD, Negative Carotid Bruits, No Nuchal Rigidity, Trachea Midline Lungs: Clear to auscultation, No rhonchi, No wheeze, No rales, Diminished - poor inspiratory effort, - - Not tachypneic, no accessory muscle use, no conversational dyspnea Cardiovascular: Regular rate, Regular Rhythm, Normal S1, Normal S2, No murmurs, No rub noted, No Gallop Abdomen: Bowel Sounds Present, Soft, Non Tender, Non-Distended, - - biliary drains are in place and draining brownish discharge Extremities: No clubbing, No cyanosis, No edema, Capillary Refill Less than 3 Seconds, No Calf Tenderness Skin: No rashes, No breakdown, - - + jaundice Musculoskeletal: No Tenderness to Palpation of Joints or Extremities, Arthritic Changes Neurological: Cranial nerves II-XII grossly intact, Neuro grossly intact, - - no asterixis Psych/Mental Status: Normal Affect, Appropriate Vital Signs Temp Pulse Resp BP Pulse Ox 97.6 F L 83 17 109/71 96 09/11/18 09:12 09/11/18 09:12 09/11/18 09:12 09/11/18 09:12 09/11/18 09:12 Oxygen Delivery Method Room Air Weight: 108 lb 6.385 oz Body Mass Index (BMI) 21.2 Laboratory Tests Past 24 Hrs 09/11/18 09/11/18 09/11/18 07:39 07:39 07:39 WBC 14.7 H RBC 4.26 Hgb 13.6 Hct 41.8 MCV 98.1 MCH 31.9 MCHC 32.5 RDW 16.2 H RDW Differential 56.2 H Plt Count 577 H MPV 9.7 Immature Gran % (Auto) 1.600 H Neut % (Auto) 87.6 H Lymph % (Auto) 3.5 L [place] % (Auto) 7.1 Eos % (Auto) 0.1 Baso % (Auto) 0.1 Absolute Neuts (auto) 12.9 H Absolute Lymphs (auto) 0.51 L Total Counted Not Reportable Platelet Estimate SLT INC Sodium 142 Potassium 5.2 H Chloride 109 H Carbon Dioxide 12.0 L Anion Gap 21 H BUN 59 H Creatinine 4.76 H Estim Creat Clear Calc 7.00 Est GFR (MDRD) Af Amer 11 L Est GFR (MDRD) Non-Af 9 L BUN/Creatinine Ratio 12.4 Glucose 148 H Lactic Acid 2.9 H Calcium 8.1 L Total Bilirubin 6.70 H AST 159 H ALT 205 H Alkaline Phosphatase 363 H Ammonia Troponin I < 0.015 Total Protein 7.0 Albumin 2.8 L Globulin 4.2 Albumin/Globulin Ratio 0.7 L Lipase 341 09/11/18 10:00 WBC RBC Hgb Hct MCV MCH MCHC RDW RDW Differential Plt Count MPV Immature Gran % (Auto) Neut % (Auto) Lymph % (Auto) [place] % (Auto) Eos % (Auto) Baso % (Auto) Absolute Neuts (auto) Absolute Lymphs (auto) Total Counted Platelet Estimate Sodium Potassium Chloride Carbon Dioxide Anion Gap BUN Creatinine Estim Creat Clear Calc Est GFR (MDRD) Af Amer Est GFR (MDRD) Non-Af BUN/Creatinine Ratio Glucose Lactic Acid Calcium Total Bilirubin AST ALT Alkaline Phosphatase Ammonia < 10.0 L Troponin I Total Protein Albumin Globulin Albumin/Globulin Ratio Lipase Assessment/Plan All Active Problems Acute renal failure (Acute) Metabolic acidosis (Acute) Dehydration (Acute) Impressions 1. ARF - suspect due to dehydration. No discharged from [facility] on diuretics 2. recently diagnosed cholangiocarcinoma with mets to the lungs 3. multiple lung nodules 4. Metabolic acidosis due to ARF 5. abnormal LFT's 6. chronic back pain 7. HTN 8. former smoker 9. OA admit to a monitored bed on PCU Check PT/INR and if normal start SQ heparin for DVT prophylaxis Recheck BMP and a phos at 1600 Consult nephrology change the IV to bicarb drip at 150 cc/hr culture the drainage from the biliary drains.......I do not suspect infection because she has no N/V/ no abdominal pain and no F/C. Recheck lab in the a.m. Obtain records from [facility] Since they live in [place] would like to see an oncologist in [place] for a second opinion Pepcid for GI prophylaxis SCD's and AURELIANO forrester Check a UA and send a urine culture Accurate I&O Hand Cloth Examiner consult for recommendations bedside swallowing evaluation and if she passes will start clear liquids and advance as tolerated CODE STATUS: Discussed code status at length with patient including the difference between FULL CODE, DNR CCA and DNR CC status. All questions were answered. An order for full code was entered into the computer. A total of 20 minutes face to face time was devoted to advanced care planning. Her son Vinay and her sister were in the room when the discussion was held with the pt.
--- NOTE | 2018-09-11 12:21 | HP.PCM_ITS ---
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 Comment: recent diagnosis (2) Acute renal failure Status: Acute (3) Metabolic acidosis Status: Acute (4) Dehydration Status: Acute (5) Closed pelvic fracture Status: Inactive (6) Ulna distal fracture Status: Inactive (7) Constipation Status: Chronic (8) History of repair of rotator cuff Status: Inactive (9) Mitral valve prolapse Status: Chronic (10) Status post bilateral knee replacements Status: Inactive History of Present Illness Date of Admission: 09/11/18 Chief Complaint: generalized weakness, poor appetite The patient is a 77 year old F with a past medical history of mitral valve prolapse, glaucoma,HTN, former smoking hx and degenerative joint disease who was recently admitted to [facility] for a period of 2 weeks for jaundice and she was diagnosed with Cholangiocarcinoma. CT chest showed multiple nodules and a lung biopsy was positive for metastatic disease. She had a stent placed and and also BL drains. She was discharged on 09/09 from [facility] to home and she was brought to the ED at [facility] on 09/11/18 with complaint of generalized weakness. Her son Vinay tells me that she is not eating or drinking. She is c/o back pain but she denies N/V/Abd pain/SOB/CP/fevers/chills. Vital signs at presentation to the emergency room are temperature 97.1, pulse rate 86, blood pressure 88/64, respiratory rate 15 and she was 96% saturated on room air. She received a 1 L normal saline bolus in the urgency room and the blood pressure improved to 111/65 with a heart rate of 90. CBC shows an elevated white blood cell count at 14.7 with a left shift and 1.6% immature granulocytes. Hemoglobin is 13.6 and the platelets are 577,000. Potassium is 5.2 but the serum bicarb is only 12. BUN is 59 with a creatinine of 4.76 and a estimated creatinine clearance of 7. Random blood sugar is elevated at 148 and she has no hx of DM. Total bilirubin is elevated at 6.7 with an AST of 159, ALT of 205 and an alkaline phosphatase of 363. Serum ammonia is less than 10. She was admitted to a monitored bed on PCU for ARF likely due to dehydration. 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 (Chronic) recent diagnosis Mitral valve prolapse (Chronic) Constipation (Chronic) Allergies No Known Allergies Allergy (Verified 09/11/18 07:08) Home Medications: Ambulatory Orders Medication Instructions Recorded Cyclobenzaprine [Flexeril] 10 mg PO TID PRN #20 tablet 12/23/15 Calcium Carbonate [Calcium] 1,200 mg PO DAILY 08/27/18 Cholecalciferol (Vitamin D3) 5,000 unit PO DAILY 08/27/18 [Vitamin D3] Cyanocobalamin (Vitamin B-12) 1,000 mcg SL DAILY 08/27/18 [Vitamin B-12] Latanoprost 1 drop EACH EYE QHS 08/27/18 Melatonin/Pyridoxine [Melatonin 5 10 mg PO DAILY 08/27/18 mg Tablet] Milk Thistle 150 mg PO DAILY 08/27/18 Multivitamin [Multiple Vitamins] 1 tab PO DAILY 08/27/18 Netarsudil Mesylate [Rhopressa] 1 drop EACH EYE QHS 08/27/18 Wheat Dextrin [Benefiber] 1 each PO DAILY 08/27/18 Lisinopril [Zestril] 2.5 mg PO DAILY 09/11/18 Netarsudil Mesylate [Rhopressa] 09/11/18 Ondansetron [Ondansetron Odt] 4 mg PO Q6H PRN PRN 09/11/18 Oxycodone HCl/Acetaminophen 1 each PO Q4H PRN PRN 09/11/18 [Endocet 5-325 Tablet] Surgical History: total knee arthroplasty - BL, - - recent biliary stent and biliary drains Psychiatric History: No pertinent psych hx 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 Denies: Chills, Fever Eyes: Reports: - - scleral icterus. Denies: Blurred vision HEENT: Reports: - - dry throat. Denies: Difficulty Swallowing, Head Aches, Sinus Congestion, Sinus Drainage Cardiovascular: Reports: Light Headedness. Denies: Chest Pain, Palpitations, Syncope Respiratory: Denies: Cough, Shortness of Breath, Shortness of breath at rest, Shortness of breath upon exertion, Sputum production, Wheezing Gastrointestinal: Denies: Abdominal Pain, Diarrhea, Nausea, Vomiting Genitourinary: Reports: - - decreased urine OP. Denies: Dysuria Gynecological: Denies: Vaginal discharge Musculoskeletal: Reports: Back Pain. Denies: Joint Pain, Joint Tenderness Skin: Reports: Jaundice, Pruritis. Denies: Rash, Wounds Neurological: Denies: Difficulty swallowing, Focal weakness, Numbness, Tingling, Seizures Psychiatric: Denies: Anxiety, Depression, Homicidal Ideations, Suicidal Ideations Endocrine: Reports: Change in Body Habitus - losing weight Hematologic/ Lymphatic: Denies: Easy Bruising, Easy Bleeding, Hx of blood clot VTE Information - Inpt Only VTE Present on Admission: No VTE Mechan Device Prophylaxis: SCD's, Knee High AURELIANO Hose VTE Pharm Prophylaxis ordered?: No Reason prophylaxis not ordered:: Treatment Not Indicated - awaiting the results of the PT to determine whether she can be given heparin Patient Problems: Active and Suspected Problems Acute renal failure (Acute) Metabolic acidosis (Acute) Dehydration (Acute) - Physical Exam General: Cooperative, Confused, Lethargic, - - oriented to person.......does not recall being told at [facility] that she has cancer metastatic to the lungs. Cachectic in appearance HEENT: Atraumatic, PERRLA, EOMI, Normocephalic, - - Positive scleral icterus Oral: No Gingival or Mucosal Lesions/ Ulcerations, Dry Mucosa - very dry mucosa with no mucosal lesions Neck: Supple, No JVD, Negative Carotid Bruits, No Nuchal Rigidity, Trachea Midline Lungs: Clear to auscultation, No rhonchi, No wheeze, No rales, Diminished - poor inspiratory effort, - - Not tachypneic, no accessory muscle use, no conversational dyspnea Cardiovascular: Regular rate, Regular Rhythm, Normal S1, Normal S2, No murmurs, No rub noted, No Gallop Abdomen: Bowel Sounds Present, Soft, Non Tender, Non-Distended, - - biliary drains are in place and draining brownish discharge Extremities: No clubbing, No cyanosis, No edema, Capillary Refill Less than 3 Seconds, No Calf Tenderness Skin: No rashes, No breakdown, - - + jaundice Musculoskeletal: No Tenderness to Palpation of Joints or Extremities, Arthritic Changes Neurological: Cranial nerves II-XII grossly intact, Neuro grossly intact, - - no asterixis Psych/Mental Status: Normal Affect, Appropriate Vital Signs Temp Pulse Resp BP Pulse Ox 97.6 F L 83 17 109/71 96 09/11/18 09:12 09/11/18 09:12 09/11/18 09:12 09/11/18 09:12 09/11/18 09:12 Oxygen Delivery Method Room Air Weight: 108 lb 6.385 oz Body Mass Index (BMI) 21.2 Laboratory Tests Past 24 Hrs 09/11/18 09/11/18 09/11/18 07:39 07:39 07:39 WBC 14.7 H RBC 4.26 Hgb 13.6 Hct 41.8 MCV 98.1 MCH 31.9 MCHC 32.5 RDW 16.2 H RDW Differential 56.2 H Plt Count 577 H MPV 9.7 Immature Gran % (Auto) 1.600 H Neut % (Auto) 87.6 H Lymph % (Auto) 3.5 L [place] % (Auto) 7.1 Eos % (Auto) 0.1 Baso % (Auto) 0.1 Absolute Neuts (auto) 12.9 H Absolute Lymphs (auto) 0.51 L Total Counted Not Reportable Platelet Estimate SLT INC Sodium 142 Potassium 5.2 H Chloride 109 H Carbon Dioxide 12.0 L Anion Gap 21 H BUN 59 H Creatinine 4.76 H Estim Creat Clear Calc 7.00 Est GFR (MDRD) Af Amer 11 L Est GFR (MDRD) Non-Af 9 L BUN/Creatinine Ratio 12.4 Glucose 148 H Lactic Acid 2.9 H Calcium 8.1 L Total Bilirubin 6.70 H AST 159 H ALT 205 H Alkaline Phosphatase 363 H Ammonia Troponin I < 0.015 Total Protein 7.0 Albumin 2.8 L Globulin 4.2 Albumin/Globulin Ratio 0.7 L Lipase 341 09/11/18 10:00 WBC RBC Hgb Hct MCV MCH MCHC RDW RDW Differential Plt Count MPV Immature Gran % (Auto) Neut % (Auto) Lymph % (Auto) [place] % (Auto) Eos % (Auto) Baso % (Auto) Absolute Neuts (auto) Absolute Lymphs (auto) Total Counted Platelet Estimate Sodium Potassium Chloride Carbon Dioxide Anion Gap BUN Creatinine Estim Creat Clear Calc Est GFR (MDRD) Af Amer Est GFR (MDRD) Non-Af BUN/Creatinine Ratio Glucose Lactic Acid Calcium Total Bilirubin AST ALT Alkaline Phosphatase Ammonia < 10.0 L Troponin I Total Protein Albumin Globulin Albumin/Globulin Ratio Lipase Assessment/Plan All Active Problems Acute renal failure (Acute) Metabolic acidosis (Acute) Dehydration (Acute) Impressions 1. ARF - suspect due to dehydration. No discharged from [facility] on diuretics 2. recently diagnosed cholangiocarcinoma with mets to the lungs 3. multiple lung nodules 4. Metabolic acidosis due to ARF 5. abnormal LFT's 6. chronic back pain 7. HTN 8. former smoker 9. OA admit to a monitored bed on PCU Check PT/INR and if normal start SQ heparin for DVT prophylaxis Recheck BMP and a phos at 1600 Consult nephrology change the IV to bicarb drip at 150 cc/hr culture the drainage from the biliary drains.......I do not suspect infection because she has no N/V/ no abdominal pain and no F/C. Recheck lab in the a.m. Obtain records from [facility] Since they live in [place] would like to see an oncologist in [place] for a second opinion Pepcid for GI prophylaxis SCD's and AURELIANO forrester Check a UA and send a urine culture Accurate I&O Concrete Floater consult for recommendations bedside swallowing evaluation and if she passes will start clear liquids and advance as tolerated CODE STATUS: Discussed code status at length with patient including the difference between FULL CODE, DNR CCA and DNR CC status. All questions were answered. An order for full code was entered into the computer. A total of 20 minutes face to face time was devoted to advanced care planning. Her son Vinay and her sister were in the room when the discussion was held with the pt.
[2018-09-11 13:22] LABS: CRP 6.55 mg/L (0.0-3.0)
[2018-09-11 13:25] LABS: Erythrocyte Sedimentation Rate 58 mm/hr (0-30)
[2018-09-11 14:18] LABS: Hemoglobin A1c 5.8 % (4.2-6.3)
[2018-09-11 15:27] LABS: International Normalized Ratio 1.5; Prothrombin Time (Protime)PT. 17.9 SECONDS (11.7-14.9)
--- NOTE | 2018-09-11 15:51 | PCM.CONS.R ---
Problem List (1) Acute renal failure Status: Acute Consultation - Renal 09/11/18 PCP/ Referring MD: Requesting physician: Dr Aguirre Primary care physician: Jose Nugent Reason for Consultation:: EMILIANA - History of Present Illness History of Present Illness: The patient is a 77 year old F who presented to hospital with generalized weakness for the last 3 days. she was recently admitted at [facility] with jaundice. diagnosed with cholangiocarcinoma with lung mets. had a palliative stent and 2 biliary drains placed. discharged home 2 days ago. has been significantly sick since then. came in with creatinine of almost 5. baseline was normal as of 2 weeks ago. patient is currently drowsy. says she does not have any pain. as per family members, she has not eaten much - Allergies Allergies: Allergies No Known Allergies Allergy (Verified 09/11/18 07:08) - Current Medications Current Medications: Current Medications Bisacodyl (Dulcolax) 5 mg PO DAILY PRN PRN PRN Reason: Constipation Calcium Carbonate (Tums) 500 mg PO BIDCM BUTCH Cyclobenzaprine HCl (Cyclobenzaprine Hcl) 5 mg PO TID PRN PRN Reason: MUSCLE SPASM Docusate Sodium (Colace) 100 mg PO BID BUTCH Famotidine (Pepcid) 20 mg PO DAILY BUTCH Sodium Bicarbonate 100 meq/ (Dextrose) 1,100 mls @ 150 mls/hr IV .Q7H20M BUTCH Last Admin: 09/11/18 14:25 Dose: 150 mls/hr Latanoprost (Xalatan Opthalmic) 1 drop EACH EYE QHS BUTCH Magnesium Hydroxide (Milk Of Magnesia) 30 ml PO DAILY PRN PRN Reason: Constipation Morphine Sulfate () 1 mg IV Q3H PRN PRN PRN Reason: SEVERE PAIN (6-10/10) Non-Formulary Medication (Netarsudil Mesylate) 1 drop EACH EYE QHS BUTCH Ondansetron HCl (Zofran) 4 mg IV Q8H PRN PRN PRN Reason: NAUSEA/VOMITING Last Admin: 09/11/18 12:57 Dose: 4 mg Oxycodone HCl (Oxyir) 5 mg PO Q4H PRN PRN PRN Reason: SEVERE PAIN (6-10/10) Sodium Chloride () 5 - 15 ml IV UD PRN PRN Reason: SALINE FLUSH - 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 Denies: Chills, Fever HEENT: Denies: Head Aches, Sinus Congestion, Sinus Drainage Cardiovascular: Denies: Chest Pain, Palpitations Respiratory: Denies: Cough, Shortness of breath at rest, Sputum production Gastrointestinal: Denies: Abdominal Pain, Nausea, Vomiting Genitourinary: Denies: Dysuria Musculoskeletal: Denies: Joint Pain, Joint Tenderness Skin: Denies: Rash, Wounds Neurological: Denies: Numbness, Tingling, Focal weakness Psychiatric: Denies: Anxiety, Depression, Homicidal Ideations, Suicidal Ideations Hematologic/ Lymphatic: Denies: Easy Bruising, Easy Bleeding Patient Problems: Active and Suspected Problems Acute renal failure (Acute) Metabolic acidosis (Acute) Dehydration (Acute) - Physical Exam General: Lethargic HEENT: Atraumatic, PERRLA, EOMI, Normocephalic Neck: Supple, No JVD, Negative Carotid Bruits Lungs: Clear to auscultation, Normal air movement Cardiovascular: Regular rate, No murmurs Abdomen: Bowel Sounds Present, Soft, Non Tender Extremities: No edema, Capillary Refill Less than 3 Seconds Skin: No rashes, No breakdown Musculoskeletal: No Tenderness to Palpation of Joints or Extremities Vital Signs Temp Pulse Resp BP Pulse Ox 97.5 F L 93 14 116/63 100 09/11/18 10:30 09/11/18 10:33 09/11/18 10:30 09/11/18 10:30 09/11/18 10:30 Oxygen Delivery Method Room Air Weight: 49.169 kg Body Mass Index (BMI) 21.2 Laboratory Tests Past 24 Hrs 09/11/18 09/11/18 09/11/18 07:39 07:39 07:39 WBC 14.7 H RBC 4.26 Hgb 13.6 Hct 41.8 MCV 98.1 MCH 31.9 MCHC 32.5 RDW 16.2 H RDW Differential 56.2 H Plt Count 577 H MPV 9.7 Immature Gran % (Auto) 1.600 H Neut % (Auto) 87.6 H Lymph % (Auto) 3.5 L [place] % (Auto) 7.1 Eos % (Auto) 0.1 Baso % (Auto) 0.1 Absolute Neuts (auto) 12.9 H Absolute Lymphs (auto) 0.51 L Total Counted Not Reportable Platelet Estimate SLT INC ESR PT INR Sodium 142 Potassium 5.2 H Chloride 109 H Carbon Dioxide 12.0 L Anion Gap 21 H BUN 59 H Creatinine 4.76 H Estim Creat Clear Calc 7.00 Est GFR (MDRD) Af Amer 11 L Est GFR (MDRD) Non-Af 9 L BUN/Creatinine Ratio 12.4 Glucose 148 H Hemoglobin A1c Lactic Acid 2.9 H Calcium 8.1 L Total Bilirubin 6.70 H AST 159 H ALT 205 H Alkaline Phosphatase 363 H Ammonia Troponin I < 0.015 C-React Prot Ext Range Total Protein 7.0 Albumin 2.8 L Globulin 4.2 Albumin/Globulin Ratio 0.7 L Lipase 341 09/11/18 09/11/18 09/11/18 07:39 07:39 07:39 WBC RBC Hgb Hct MCV MCH MCHC RDW RDW Differential Plt Count MPV Immature Gran % (Auto) Neut % (Auto) Lymph % (Auto) [place] % (Auto) Eos % (Auto) Baso % (Auto) Absolute Neuts (auto) Absolute Lymphs (auto) Total Counted Platelet Estimate ESR 58 H PT INR Sodium Potassium Chloride Carbon Dioxide Anion Gap BUN Creatinine Estim Creat Clear Calc Est GFR (MDRD) Af Amer Est GFR (MDRD) Non-Af BUN/Creatinine Ratio Glucose Hemoglobin A1c 5.8 Lactic Acid Calcium Total Bilirubin AST ALT Alkaline Phosphatase Ammonia Troponin I C-React Prot Ext Range 6.55 H Total Protein Albumin Globulin Albumin/Globulin Ratio Lipase 09/11/18 09/11/18 10:00 14:49 WBC RBC Hgb Hct MCV MCH MCHC RDW RDW Differential Plt Count MPV Immature Gran % (Auto) Neut % (Auto) Lymph % (Auto) [place] % (Auto) Eos % (Auto) Baso % (Auto) Absolute Neuts (auto) Absolute Lymphs (auto) Total Counted Platelet Estimate ESR PT 17.9 H INR 1.5 Sodium Potassium Chloride Carbon Dioxide Anion Gap BUN Creatinine Estim Creat Clear Calc Est GFR (MDRD) Af Amer Est GFR (MDRD) Non-Af BUN/Creatinine Ratio Glucose Hemoglobin A1c Lactic Acid Calcium Total Bilirubin AST ALT Alkaline Phosphatase Ammonia < 10.0 L Troponin I C-React Prot Ext Range Total Protein Albumin Globulin Albumin/Globulin Ratio Lipase Assessment/Plan All Active Problems Acute renal failure (Acute) Metabolic acidosis (Acute) Dehydration (Acute) Acute renal failure. baseline creatinine as of last month was normal. Clinically she looks markedly dry. recent CT abdomen does not show hydronephrosis. she has cao in. unlikely obstructive. EMILIANA is likely related to volume depletion. fluids for today Acidosis. mostly non gap. likely from biliary drain. continue bicarbonate fluid no acute indication for [employer] appears to have poor prognosis with biliary cancer with lung mets. patient has chosen to be full code after detailed discussion will follow Thank you
[2018-09-11 16:56] LABS: Bedside Glucose 119 mg/dL (70-110)
[2018-09-11 16:57] LABS: Anion Gap 14 (5-15); BUN 65 mg/dL (7-18); BUN/Creat Ratio 12.9 RATIO (10-20); Calcium,Total 7.2 mg/dL (8.5-10.1); Chloride 110 mmol/L (98-107); Creatinine, Serum 5.02 mg/dL (0.55-1.02); EST Glomerular Filtration Rate 9 mL/min (>60); Est Glom Filt Rate - Afr Amer 11 mL/min (>60); Estimated Creatinine Clearance 6.63 ml/min; Glucose 131 mg/dL (74-106); Potassium 5.3 mmol/L (3.5-5.1); Sodium Level 137 mmol/L (136-145)
[2018-09-11] MEDS: 0.9% Normal Saline 1,000 ML 999 ML IV (17:30)
[2018-09-11 17:35] LABS: Phosphorus 8.9 mg/dL (2.5-4.9)
[2018-09-11] MEDS: proMETHazine 25 MG/ML Syringe 6.25 MG IV (20:17)
[2018-09-11 20:38] LABS: Bacteria 0 SEEN /hpf (None Seen); Mucous, Urine 0 SEEN /hpf (<or=2+)
[2018-09-11 20:41] LABS: Color, Urine Yellow (Yellow); Glucose, Dipstick Normal (Normal); Ketone-Dipstick Negative (Negative); Leukocyte Esterase-Dipstick 500 /ul (Negative); Nitrite-Dipstick Negative (Negative); Occult Blood-Urine 250 /ul (Negative); Protein-Dipstick 100 mg/dl (Negative); Urine Clarity Cloudy (Clear); Urine Urobilinogen 1 mg/dl (Normal)
[2018-09-11 20:47] LABS: Red Blood Cells-Urine 10-25 SEEN /hpf (0-5); Squamous Epithelial Cells - UA 0-5 SEEN /hpf (5-10); Urine Bilirubin Dipstick 3 mg/dL (Negative); White Blood Cells 10-25 SEEN /hpf (0-5)
[2018-09-11 21:04] LABS: Urine Sodium 71 mmol/L (Not Establ.)
[2018-09-11] MEDS: Heparin Injection (Vial) 5,000 UNIT/ML VIAL 5000 UNIT SC (22:50)
[2018-09-11 22:55] LABS: Bedside Glucose 110 mg/dL (70-110)
[2018-09-12] VITALS (13 sets, daily range): BP systolic 114–136; BP diastolic 61–79; PULSE 80–132; RESP 14–18; TEMP 37.2–37.5; O2SAT 94–100
[2018-09-12 06:40] LABS: Absolute Lymphocyte Count 0.76 X10^3/ul (0.83-4.51); Absolute Neutrophil Count 7.7 X10^3/uL (2.0-7.7); Basophil# 0.01 X10^3/uL; Basophil% 0.1 % (0-1); Eosinophil# 0.01 X10^3/uL; Eosinophils% 0.1 % (0-5); Hematocrit 30.9 % (37-47); Hemoglobin 10.6 g/dl (12.0-15.0); Lymphocyte # 0.76 X10^3/ul (4.0); Mean Corp Hgb Conc 34.3 g/gl (32-36); Mean Corpuscular Hgb 33.2 pg (27.0-32.0); Mean Corpuscular Volume 96.9 fL (81-99); Mean Platelet Vol. 10.1 fl (6.2-12.0); Monocyte# 0.95 X10^3/uL; Neutrophil # 7.71 X10^3/uL (2.7-7.7); Neutrophil % 81.3 % (47-70); POSITIVE COUNT NO; POSITIVE DIFFERENTIAL NO; POSITIVE MORPHOLOGY NO; Platelet Count 378 K/mm3 (150-450); RBC Distribution Width CV 15.9 % (11.6-14.6); RBC Distribution Width SD 54.3 fl (35.1-43.9); Red Blood Count 3.19 M/mm3 (4.2-5.4); White Blood Count 9.5 K/mm3 (4.4-11.0)
[2018-09-12 06:51] LABS: Bedside Glucose 103 mg/dL (70-110)
[2018-09-12 07:14] LABS: ALB/GLOB Ratio 0.6 RATIO (0.9-2.4); AST(SGOT) 105 U/L (15-37); Alanine Aminotransfer ALT/SGPT 136 U/L (13-56); Alkaline Phosphatase 243 U/L (45-117); Anion Gap 16 (5-15); BUN 73 mg/dL (7-18); BUN/Creat Ratio 14.8 RATIO (10-20); Calcium,Total 6.3 mg/dL (8.5-10.1); Chloride 108 mmol/L (98-107); Creatinine, Serum 4.94 mg/dL (0.55-1.02); EST Glomerular Filtration Rate 9 mL/min (>60); Est Glom Filt Rate - Afr Amer 11 mL/min (>60); Estimated Creatinine Clearance 6.74 ml/min; Globulin 3.4 g/dL (2.2-4.2); Glucose 113 mg/dL (74-106); Magnesium 2.2 mg/dL (1.6-2.6); Phosphorus 6.5 mg/dL (2.5-4.9); Potassium 4.1 mmol/L (3.5-5.1); Protein, Total 5.4 g/dL (6.4-8.2); Sodium Level 141 mmol/L (136-145)
--- NOTE | 2018-09-12 09:06 | PCM.PROGNOTE ---
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 She was discharged from [facility] on 09/09/2018 and admitted to [facility] on 09/11/2018 for acute renal failure. Creatinine at discharge from [facility] was 0.38 and it admission to [facility] was 4.76. The FeNA is 4.13%. She has a biliary stent and also 2 percutaneous biliary drains. She was seen in consultation by Dr. Oneil from [facility]. At DC from [facility] she requested to be treated in [place] and she was instructed to follow up with oncology in [place]. She is not a surgical candidate. All events of the past 24 hours been reviewed. She is afebrile. Blood pressure has improved with hydration and currently is 119/69. Heart rate is 84 and she is 100% saturated on room air. Fluid balance since admission is +2937 and she has had a total of 150 cc of urine. All lab was personally reviewed. Hemoglobin is 10.6 today and the white blood cell count is normal at 9.5 with 81% neutrophils. Platelets are within normal limits. Serum bicarb is up to 17 today on a bicarb drip. The sodium is 141 and the potassium today is 4.1. BUN is 73 with a creatinine of 4.94. Calcium is low at 6.3 and the corrected serum calcium is 7.9 which is still low. Total bilirubin is down to 4.5 and the AST is 105 with an ALT of 136 and an alkaline phosphatase of 243. Serum ammonia was less than 10. UA had 10-25 WBCs per high-power field and 10-25 RBCs. Urine culture is + for presumptiv E. Coli and cultures of the bile drains are growing Gm+ organisms and GM negative esther Denies SOB, no cough, no abd pain - Physical Exam General: Alert, Oriented x3, Cooperative, No apparent distress Oral: No Gingival or Mucosal Lesions/ Ulcerations, Dry Mucosa - but, better than yesterday Neck: Supple, No JVD, Trachea Midline Lungs: Clear to auscultation Cardiovascular: Regular rate, Regular Rhythm, Normal S1, Normal S2, No murmurs, No Gallop Abdomen: Bowel Sounds Present, Distended - mild today but, the abdomen is soft and non-tender to palpation Extremities: No edema Psych/Mental Status: Normal Affect, Appropriate Vital Signs Temp Pulse Resp BP Pulse Ox 99.0 F 84 14 119/69 100 09/12/18 09:01 09/12/18 09:01 09/12/18 09:01 09/12/18 09:01 09/12/18 09:01 Oxygen Delivery Method Room Air Weight: 108 lb 6.385 oz Body Mass Index (BMI) 21.2 Intake and Output for Last 24 Hours 09/10/18 09/11/18 09/12/18 23:59 23:59 23:59 Intake Total 2300 / 2300 907 / 907 Output Total 50 / 50 220 / 220 Balance 2250 / 2250 687 / 687 Laboratory Tests Past 24 Hrs 09/11/18 09/11/18 09/11/18 07:39 07:39 07:39 WBC RBC Hgb Hct MCV MCH MCHC RDW RDW Differential Plt Count MPV Immature Gran % (Auto) Neut % (Auto) Lymph % (Auto) [place] % (Auto) Eos % (Auto) Baso % (Auto) Absolute Neuts (auto) Absolute Lymphs (auto) Total Counted ESR 58 H PT INR Sodium Potassium Chloride Carbon Dioxide Anion Gap BUN Creatinine Estim Creat Clear Calc Est GFR (MDRD) Af Amer Est GFR (MDRD) Non-Af BUN/Creatinine Ratio Glucose Hemoglobin A1c 5.8 Calcium Phosphorus Magnesium Total Bilirubin AST ALT Alkaline Phosphatase Ammonia C-React Prot Ext Range 6.55 H Total Protein Albumin Globulin Albumin/Globulin Ratio Urine Color Urine Clarity Urine pH Ur Specific [place] U Specif Grav (Refrac) Urine Protein Urine Glucose (UA) Urine Ketones Urine Occult Blood Urine Nitrite Urine Bilirubin Urine Urobilinogen Ur Leukocyte Esterase Urine RBC Urine WBC Ur Squamous Epith Cells Ur Transition Epith Cell Ur Renal Epithelial Cell Calcium Oxalate Crystal Uric Acid Crystals Triple Phos Crystals Other Crystals Amorphous Sediment Urine Bacteria Hyaline Casts Fine Granular Casts Coarse Granular Casts Waxy Casts RBC Casts WBC Casts Urine Mucus Urine Trichomonas Urine Yeast Ur Random Sodium Urine Creatinine 09/11/18 09/11/18 09/11/18 10:00 14:49 16:00 WBC RBC Hgb Hct MCV MCH MCHC RDW RDW Differential Plt Count MPV Immature Gran % (Auto) Neut % (Auto) Lymph % (Auto) [place] % (Auto) Eos % (Auto) Baso % (Auto) Absolute Neuts (auto) Absolute Lymphs (auto) Total Counted ESR PT 17.9 H INR 1.5 Sodium Potassium Chloride Carbon Dioxide Anion Gap BUN Creatinine Estim Creat Clear Calc Est GFR (MDRD) Af Amer Est GFR (MDRD) Non-Af BUN/Creatinine Ratio Glucose Hemoglobin A1c Calcium Phosphorus 8.9 H Magnesium Total Bilirubin AST ALT Alkaline Phosphatase Ammonia < 10.0 L C-React Prot Ext Range Total Protein Albumin Globulin Albumin/Globulin Ratio Urine Color Urine Clarity Urine pH Ur Specific [place] U Specif Grav (Refrac) Urine Protein Urine Glucose (UA) Urine Ketones Urine Occult Blood Urine Nitrite Urine Bilirubin Urine Urobilinogen Ur Leukocyte Esterase Urine RBC Urine WBC Ur Squamous Epith Cells Ur Transition Epith Cell Ur Renal Epithelial Cell Calcium Oxalate Crystal Uric Acid Crystals Triple Phos Crystals Other Crystals Amorphous Sediment Urine Bacteria Hyaline Casts Fine Granular Casts Coarse Granular Casts Waxy Casts RBC Casts WBC Casts Urine Mucus Urine Trichomonas Urine Yeast Ur Random Sodium Urine Creatinine 09/11/18 09/11/18 09/11/18 16:00 20:29 20:29 WBC RBC Hgb Hct MCV MCH MCHC RDW RDW Differential Plt Count MPV Immature Gran % (Auto) Neut % (Auto) Lymph % (Auto) [place] % (Auto) Eos % (Auto) Baso % (Auto) Absolute Neuts (auto) Absolute Lymphs (auto) Total Counted ESR PT INR Sodium 137 Potassium 5.3 H Chloride 110 H Carbon Dioxide 13.0 L Anion Gap 14 BUN 65 H Creatinine 5.02 H Estim Creat Clear Calc 6.63 Est GFR (MDRD) Af Amer 11 L Est GFR (MDRD) Non-Af 9 L BUN/Creatinine Ratio 12.9 Glucose 131 H Hemoglobin A1c Calcium 7.2 L Phosphorus Magnesium Total Bilirubin AST ALT Alkaline Phosphatase Ammonia C-React Prot Ext Range Total Protein Albumin Globulin Albumin/Globulin Ratio Urine Color Cancelled Urine Clarity Cancelled Urine pH Cancelled Ur Specific [place] Cancelled U Specif Grav (Refrac) Cancelled Urine Protein Cancelled Urine Glucose (UA) Cancelled Urine Ketones Cancelled Urine Occult Blood Cancelled Urine Nitrite Cancelled Urine Bilirubin Cancelled Urine Urobilinogen Cancelled Ur Leukocyte Esterase Cancelled Urine RBC Cancelled Urine WBC Cancelled Ur Squamous Epith Cells Cancelled Ur Transition Epith Cell Cancelled Ur Renal Epithelial Cell Cancelled Calcium Oxalate Crystal Cancelled Uric Acid Crystals Cancelled Triple Phos Crystals Cancelled Other Crystals Cancelled Amorphous Sediment Cancelled Urine Bacteria Cancelled Hyaline Casts Cancelled Fine Granular Casts Cancelled Coarse Granular Casts Cancelled Waxy Casts Cancelled RBC Casts Cancelled WBC Casts Cancelled Urine Mucus Cancelled Urine Trichomonas Cancelled Urine Yeast Cancelled Ur Random Sodium Urine Creatinine 62.90 09/11/18 09/11/18 09/12/18 20:29 20:29 05:57 WBC 9.5 RBC 3.19 L Hgb 10.6 L Hct 30.9 L MCV 96.9 MCH 33.2 H MCHC 34.3 RDW 15.9 H RDW Differential 54.3 H Plt Count 378 MPV 10.1 Immature Gran % (Auto) 0.500 Neut % (Auto) 81.3 H Lymph % (Auto) 8.0 L [place] % (Auto) 10.0 Eos % (Auto) 0.1 Baso % (Auto) 0.1 Absolute Neuts (auto) 7.7 Absolute Lymphs (auto) 0.76 L Total Counted Not Reportable ESR PT INR Sodium Potassium Chloride Carbon Dioxide Anion Gap BUN Creatinine Estim Creat Clear Calc Est GFR (MDRD) Af Amer Est GFR (MDRD) Non-Af BUN/Creatinine Ratio Glucose Hemoglobin A1c Calcium Phosphorus Magnesium Total Bilirubin AST ALT Alkaline Phosphatase Ammonia C-React Prot Ext Range Total Protein Albumin Globulin Albumin/Globulin Ratio Urine Color Yellow Urine Clarity Cloudy Urine pH 5.0 Ur Specific [place] 1.020 U Specif Grav (Refrac) Urine Protein 100 H Urine Glucose (UA) Normal Urine Ketones Negative Urine Occult Blood 250 H Urine Nitrite Negative Urine Bilirubin 3 H Urine Urobilinogen 1 H Ur Leukocyte Esterase 500 H Urine RBC 10-25 SEEN Urine WBC 10-25 SEEN Ur Squamous Epith Cells 0-5 SEEN Ur Transition Epith Cell Ur Renal Epithelial Cell Calcium Oxalate Crystal Uric Acid Crystals Triple Phos Crystals Other Crystals Amorphous Sediment Urine Bacteria 0 SEEN Hyaline Casts Fine Granular Casts Coarse Granular Casts Waxy Casts RBC Casts WBC Casts Urine Mucus 0 SEEN Urine Trichomonas Urine Yeast Ur Random Sodium 71 Urine Creatinine 09/12/18 05:57 WBC RBC Hgb Hct MCV MCH MCHC RDW RDW Differential Plt Count MPV Immature Gran % (Auto) Neut % (Auto) Lymph % (Auto) [place] % (Auto) Eos % (Auto) Baso % (Auto) Absolute Neuts (auto) Absolute Lymphs (auto) Total Counted ESR PT INR Sodium 141 Potassium 4.1 Chloride 108 H Carbon Dioxide 17.0 L Anion Gap 16 H BUN 73 H Creatinine 4.94 H Estim Creat Clear Calc 6.74 Est GFR (MDRD) Af Amer 11 L Est GFR (MDRD) Non-Af 9 L BUN/Creatinine Ratio 14.8 Glucose 113 H Hemoglobin A1c Calcium 6.3 L* Phosphorus 6.5 H Magnesium 2.2 Total Bilirubin 4.50 H AST 105 H ALT 136 H Alkaline Phosphatase 243 H Ammonia C-React Prot Ext Range Total Protein 5.4 L Albumin 2.0 L Globulin 3.4 Albumin/Globulin Ratio 0.6 L Urine Color Urine Clarity Urine pH Ur Specific [place] U Specif Grav (Refrac) Urine Protein Urine Glucose (UA) Urine Ketones Urine Occult Blood Urine Nitrite Urine Bilirubin Urine Urobilinogen Ur Leukocyte Esterase Urine RBC Urine WBC Ur Squamous Epith Cells Ur Transition Epith Cell Ur Renal Epithelial Cell Calcium Oxalate Crystal Uric Acid Crystals Triple Phos Crystals Other Crystals Amorphous Sediment Urine Bacteria Hyaline Casts Fine Granular Casts Coarse Granular Casts Waxy Casts RBC Casts WBC Casts Urine Mucus Urine Trichomonas Urine Yeast Ur Random Sodium Urine Creatinine POC Glucose 09/12/18 09/11/18 09/11/18 06:47 22:45 16:48 POC Glucose 103 110 119 H Medical Necessity - Tobacco Use Smoking Status: Former smoker Tobacco Use: Non-smoker Assessment/Plan All Active Problems Acute renal failure (Acute) Metabolic acidosis (Acute) Dehydration (Acute) Impressions 1. ARF - suspect due to dehydration. No discharged from [facility] on diuretics 2. recently diagnosed cholangiocarcinoma with mets to the lungs 3. multiple lung nodules 4. Metabolic acidosis due to ARF 5. abnormal LFT's 6. chronic back pain 7. HTN 8. former smoker 9. OA 10. UTI 11. infected bile? cholangiitis? - doubt.....no abd pain and no N/V - has significantly improved with just IV fluids 12. Hypocalcemia 13. Hyperphosphatemia Start Zosyn and await the results of the cultures....blood has no growth to date Recheck the lab in the AM continue the heparin for DVT prophylaxis Consult oncology in the AM Code Visit Inpatient E&M: 51046 Subs Hosp L3
--- NOTE | 2018-09-12 09:13 | PN_ITS ---
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 She was discharged from [facility] on 09/09/2018 and admitted to [facility] on 09/11/2018 for acute renal failure. Creatinine at discharge from [facility] was 0.38 and it admission to [facility] was 4.76. The FeNA is 4. 13%. She has a biliary stent and also 2 percutaneous biliary drains. She was seen in consultation by Dr. Oneil from [facility]. At DC from [facility] she requested to be treated in [place] and she was instructed to follow up with oncology in [place]. She is not a surgical candidate. All events of the past 24 hours been reviewed. She is afebrile. Blood pressure has improved with hydration and currently is 119/69. Heart rate is 84 and she is 100% saturated on room air. Fluid balance since admission is +[phone] and she has had a total of 150 cc of urine. All lab was personally reviewed. Hemoglobin is 10.6 today and the white blood cell count is normal at 9.5 with 81% neutrophils. Platelets are within normal limits. Serum bicarb is up to 17 today on a bicarb drip. The sodium is 141 and the potassium today is 4.1. BUN is 73 with a creatinine of 4.94. Calcium is low at 6.3 and the corrected serum calcium is 7.9 which is still low. Total bilirubin is down to 4.5 and the AST is 105 with an ALT of 136 and an alkaline phosphatase of 243. Serum ammonia was less than 10. UA had 10-25 WBCs per high-power field and 10-25 RBCs. Urine culture is + for presumptiv E. Coli and cultures of the bile drains are growing Gm+ organisms and GM negative esther Denies SOB, no cough, no abd pain - Physical Exam General: Alert, Oriented x3, Cooperative, No apparent distress Oral: No Gingival or Mucosal Lesions/ Ulcerations, Dry Mucosa - but, better than yesterday Neck: Supple, No JVD, Trachea Midline Lungs: Clear to auscultation Cardiovascular: Regular rate, Regular Rhythm, Normal S1, Normal S2, No murmurs, No Gallop Abdomen: Bowel Sounds Present, Distended - mild today but, the abdomen is soft and non-tender to palpation Extremities: No edema Psych/Mental Status: Normal Affect, Appropriate Vital Signs Temp Pulse Resp BP Pulse Ox 99.0 F 84 14 119/69 100 09/12/18 09:01 09/12/18 09:01 09/12/18 09:01 09/12/18 09:01 09/12/18 09:01 Oxygen Delivery Method Room Air Weight: 108 lb 6.385 oz Body Mass Index (BMI) 21.2 Intake and Output for Last 24 Hours 09/10/18 09/11/18 09/12/18 23:59 23:59 23:59 Intake Total 2300 / 2300 907 / 907 Output Total 50 / 50 220 / 220 Balance 2250 / 2250 687 / 687 Laboratory Tests Past 24 Hrs 09/11/18 09/11/18 09/11/18 07:39 07:39 07:39 WBC RBC Hgb Hct MCV MCH MCHC RDW RDW Differential Plt Count MPV Immature Gran % (Auto) Neut % (Auto) Lymph % (Auto) [place] % (Auto) Eos % (Auto) Baso % (Auto) Absolute Neuts (auto) Absolute Lymphs (auto) Total Counted ESR 58 H PT INR Sodium Potassium Chloride Carbon Dioxide Anion Gap BUN Creatinine Estim Creat Clear Calc Est GFR (MDRD) Af Amer Est GFR (MDRD) Non-Af BUN/Creatinine Ratio Glucose Hemoglobin A1c 5.8 Calcium Phosphorus Magnesium Total Bilirubin AST ALT Alkaline Phosphatase Ammonia C-React Prot Ext Range 6.55 H Total Protein Albumin Globulin Albumin/Globulin Ratio Urine Color Urine Clarity Urine pH Ur Specific [place] U Specif Grav (Refrac) Urine Protein Urine Glucose (UA) Urine Ketones Urine Occult Blood Urine Nitrite Urine Bilirubin Urine Urobilinogen Ur Leukocyte Esterase Urine RBC Urine WBC Ur Squamous Epith Cells Ur Transition Epith Cell Ur Renal Epithelial Cell Calcium Oxalate Crystal Uric Acid Crystals Triple Phos Crystals Other Crystals Amorphous Sediment Urine Bacteria Hyaline Casts Fine Granular Casts Coarse Granular Casts Waxy Casts RBC Casts WBC Casts Urine Mucus Urine Trichomonas Urine Yeast Ur Random Sodium Urine Creatinine 09/11/18 09/11/18 09/11/18 10:00 14:49 16:00 WBC RBC Hgb Hct MCV MCH MCHC RDW RDW Differential Plt Count MPV Immature Gran % (Auto) Neut % (Auto) Lymph % (Auto) [place] % (Auto) Eos % (Auto) Baso % (Auto) Absolute Neuts (auto) Absolute Lymphs (auto) Total Counted ESR PT 17.9 H INR 1.5 Sodium Potassium Chloride Carbon Dioxide Anion Gap BUN Creatinine Estim Creat Clear Calc Est GFR (MDRD) Af Amer Est GFR (MDRD) Non-Af BUN/Creatinine Ratio Glucose Hemoglobin A1c Calcium Phosphorus 8.9 H Magnesium Total Bilirubin AST ALT Alkaline Phosphatase Ammonia < 10.0 L C-React Prot Ext Range Total Protein Albumin Globulin Albumin/Globulin Ratio Urine Color Urine Clarity Urine pH Ur Specific [place] U Specif Grav (Refrac) Urine Protein Urine Glucose (UA) Urine Ketones Urine Occult Blood Urine Nitrite Urine Bilirubin Urine Urobilinogen Ur Leukocyte Esterase Urine RBC Urine WBC Ur Squamous Epith Cells Ur Transition Epith Cell Ur Renal Epithelial Cell Calcium Oxalate Crystal Uric Acid Crystals Triple Phos Crystals Other Crystals Amorphous Sediment Urine Bacteria Hyaline Casts Fine Granular Casts Coarse Granular Casts Waxy Casts RBC Casts WBC Casts Urine Mucus Urine Trichomonas Urine Yeast Ur Random Sodium Urine Creatinine 09/11/18 09/11/18 09/11/18 16:00 20:29 20:29 WBC RBC Hgb Hct MCV MCH MCHC RDW RDW Differential Plt Count MPV Immature Gran % (Auto) Neut % (Auto) Lymph % (Auto) [place] % (Auto) Eos % (Auto) Baso % (Auto) Absolute Neuts (auto) Absolute Lymphs (auto) Total Counted ESR PT INR Sodium 137 Potassium 5.3 H Chloride 110 H Carbon Dioxide 13.0 L Anion Gap 14 BUN 65 H Creatinine 5.02 H Estim Creat Clear Calc 6.63 Est GFR (MDRD) Af Amer 11 L Est GFR (MDRD) Non-Af 9 L BUN/Creatinine Ratio 12.9 Glucose 131 H Hemoglobin A1c Calcium 7.2 L Phosphorus Magnesium Total Bilirubin AST ALT Alkaline Phosphatase Ammonia C-React Prot Ext Range Total Protein Albumin Globulin Albumin/Globulin Ratio Urine Color Cancelled Urine Clarity Cancelled Urine pH Cancelled Ur Specific [place] Cancelled U Specif Grav (Refrac) Cancelled Urine Protein Cancelled Urine Glucose (UA) Cancelled Urine Ketones Cancelled Urine Occult Blood Cancelled Urine Nitrite Cancelled Urine Bilirubin Cancelled Urine Urobilinogen Cancelled Ur Leukocyte Esterase Cancelled Urine RBC Cancelled Urine WBC Cancelled Ur Squamous Epith Cells Cancelled Ur Transition Epith Cell Cancelled Ur Renal Epithelial Cell Cancelled Calcium Oxalate Crystal Cancelled Uric Acid Crystals Cancelled Triple Phos Crystals Cancelled Other Crystals Cancelled Amorphous Sediment Cancelled Urine Bacteria Cancelled Hyaline Casts Cancelled Fine Granular Casts Cancelled Coarse Granular Casts Cancelled Waxy Casts Cancelled RBC Casts Cancelled WBC Casts Cancelled Urine Mucus Cancelled Urine Trichomonas Cancelled Urine Yeast Cancelled Ur Random Sodium Urine Creatinine 62.90 09/11/18 09/11/18 09/12/18 20:29 20:29 05:57 WBC 9.5 RBC 3.19 L Hgb 10.6 L Hct 30.9 L MCV 96.9 MCH 33.2 H MCHC 34.3 RDW 15.9 H RDW Differential 54.3 H Plt Count 378 MPV 10.1 Immature Gran % (Auto) 0.500 Neut % (Auto) 81.3 H Lymph % (Auto) 8.0 L [place] % (Auto) 10.0 Eos % (Auto) 0.1 Baso % (Auto) 0.1 Absolute Neuts (auto) 7.7 Absolute Lymphs (auto) 0.76 L Total Counted Not Reportable ESR PT INR Sodium Potassium Chloride Carbon Dioxide Anion Gap BUN Creatinine Estim Creat Clear Calc Est GFR (MDRD) Af Amer Est GFR (MDRD) Non-Af BUN/Creatinine Ratio Glucose Hemoglobin A1c Calcium Phosphorus Magnesium Total Bilirubin AST ALT Alkaline Phosphatase Ammonia C-React Prot Ext Range Total Protein Albumin Globulin Albumin/Globulin Ratio Urine Color Yellow Urine Clarity Cloudy Urine pH 5.0 Ur Specific [place] 1.020 U Specif Grav (Refrac) Urine Protein 100 H Urine Glucose (UA) Normal Urine Ketones Negative Urine Occult Blood 250 H Urine Nitrite Negative Urine Bilirubin 3 H Urine Urobilinogen 1 H Ur Leukocyte Esterase 500 H Urine RBC 10-25 SEEN Urine WBC 10-25 SEEN Ur Squamous Epith Cells 0-5 SEEN Ur Transition Epith Cell Ur Renal Epithelial Cell Calcium Oxalate Crystal Uric Acid Crystals Triple Phos Crystals Other Crystals Amorphous Sediment Urine Bacteria 0 SEEN Hyaline Casts Fine Granular Casts Coarse Granular Casts Waxy Casts RBC Casts WBC Casts Urine Mucus 0 SEEN Urine Trichomonas Urine Yeast Ur Random Sodium 71 Urine Creatinine 09/12/18 05:57 WBC RBC Hgb Hct MCV MCH MCHC RDW RDW Differential Plt Count MPV Immature Gran % (Auto) Neut % (Auto) Lymph % (Auto) [place] % (Auto) Eos % (Auto) Baso % (Auto) Absolute Neuts (auto) Absolute Lymphs (auto) Total Counted ESR PT INR Sodium 141 Potassium 4.1 Chloride 108 H Carbon Dioxide 17.0 L Anion Gap 16 H BUN 73 H Creatinine 4.94 H Estim Creat Clear Calc 6.74 Est GFR (MDRD) Af Amer 11 L Est GFR (MDRD) Non-Af 9 L BUN/Creatinine Ratio 14.8 Glucose 113 H Hemoglobin A1c Calcium 6.3 L* Phosphorus 6.5 H Magnesium 2.2 Total Bilirubin 4.50 H AST 105 H ALT 136 H Alkaline Phosphatase 243 H Ammonia C-React Prot Ext Range Total Protein 5.4 L Albumin 2.0 L Globulin 3.4 Albumin/Globulin Ratio 0.6 L Urine Color Urine Clarity Urine pH Ur Specific [place] U Specif Grav (Refrac) Urine Protein Urine Glucose (UA) Urine Ketones Urine Occult Blood Urine Nitrite Urine Bilirubin Urine Urobilinogen Ur Leukocyte Esterase Urine RBC Urine WBC Ur Squamous Epith Cells Ur Transition Epith Cell Ur Renal Epithelial Cell Calcium Oxalate Crystal Uric Acid Crystals Triple Phos Crystals Other Crystals Amorphous Sediment Urine Bacteria Hyaline Casts Fine Granular Casts Coarse Granular Casts Waxy Casts RBC Casts WBC Casts Urine Mucus Urine Trichomonas Urine Yeast Ur Random Sodium Urine Creatinine POC Glucose 09/12/18 09/11/18 09/11/18 06:47 22:45 16:48 POC Glucose 103 110 119 H Medical Necessity - Tobacco Use Smoking Status: Former smoker Tobacco Use: Non-smoker Assessment/Plan All Active Problems Acute renal failure (Acute) Metabolic acidosis (Acute) Dehydration (Acute) Impressions 1. ARF - suspect due to dehydration. No discharged from [facility] on diuretics 2. recently diagnosed cholangiocarcinoma with mets to the lungs 3. multiple lung nodules 4. Metabolic acidosis due to ARF 5. abnormal LFT's 6. chronic back pain 7. HTN 8. former smoker 9. OA 10. UTI 11. infected bile? cholangiitis? - doubt.....no abd pain and no N/V - has significantly improved with just IV fluids 12. Hypocalcemia 13. Hyperphosphatemia Start Zosyn and await the results of the cultures....blood has no growth to date Recheck the lab in the AM continue the heparin for DVT prophylaxis Consult oncology in the AM Code Visit Inpatient E&M: 16997 Subs Hosp L3
[2018-09-12] MEDS: Docusate Sodium 100 MG Capsule PO ×2 (10:21→21:58)
[2018-09-12] MEDS: Famotidine 20 MG Tablet PO (10:21)
[2018-09-12] MEDS: Heparin Injection (Vial) 5,000 UNIT/ML VIAL 5000 UNIT SC ×2 (10:22→21:57)
[2018-09-12 12:26] LABS: Bedside Glucose 117 mg/dL (70-110)
--- NOTE | 2018-09-12 16:01 | PCM.PN.REN ---
Patient Problems: Active and Suspected Problems Acute renal failure (Acute) Metabolic acidosis (Acute) Dehydration (Acute) Subjective: looks better today mental status is better talking appropriately today - Physical Exam General: Alert, Oriented x3, Cooperative HEENT: Atraumatic, PERRLA, EOMI, Normocephalic Neck: Supple, No JVD, Negative Carotid Bruits Lungs: Clear to auscultation, Normal air movement Cardiovascular: Regular rate, No murmurs Abdomen: Bowel Sounds Present, Soft, Non Tender Extremities: No edema, Capillary Refill Less than 3 Seconds Skin: No rashes, No breakdown Musculoskeletal: No Tenderness to Palpation of Joints or Extremities Neurological: Cranial nerves II-XII grossly intact Psych/Mental Status: Normal Affect, Appropriate Vital Signs Temp Pulse Resp BP Pulse Ox 99.1 F 80 16 114/61 97 09/12/18 14:16 09/12/18 15:00 09/12/18 14:16 09/12/18 14:16 09/12/18 14:16 Oxygen Delivery Method Room Air Weight: 49.169 kg Body Mass Index (BMI) 21.2 Intake and Output for Last 24 Hours 09/10/18 09/11/18 09/12/18 23:59 23:59 23:59 Intake Total 2300 / 2300 1729 / 1729 Output Total 50 / 50 395 / 395 Balance 2250 / 2250 1334 / 1334 Microbiology Past 72 Hours 09/11/18 20:29 Urine Culture - Preliminary Urine Catheter - Cao Presumptive E. coli 09/11/18 14:50 Gram Stain - Final Fluid - Other Body Fluid Culture - Preliminary Gram positive organism 09/11/18 14:50 Gram Stain - Final Fluid - Bile Body Fluid Culture - Preliminary Gram negative esther Gram positive organism Laboratory Tests Past 24 Hrs 09/11/18 09/11/18 09/11/18 16:00 16:00 20:29 WBC RBC Hgb Hct MCV MCH MCHC RDW RDW Differential Plt Count MPV Immature Gran % (Auto) Neut % (Auto) Lymph % (Auto) [place] % (Auto) Eos % (Auto) Baso % (Auto) Absolute Neuts (auto) Absolute Lymphs (auto) Total Counted Sodium 137 Potassium 5.3 H Chloride 110 H Carbon Dioxide 13.0 L Anion Gap 14 BUN 65 H Creatinine 5.02 H Estim Creat Clear Calc 6.63 Est GFR (MDRD) Af Amer 11 L Est GFR (MDRD) Non-Af 9 L BUN/Creatinine Ratio 12.9 Glucose 131 H Calcium 7.2 L Phosphorus 8.9 H Magnesium Total Bilirubin AST ALT Alkaline Phosphatase Total Protein Albumin Globulin Albumin/Globulin Ratio Urine Color Cancelled Urine Clarity Cancelled Urine pH Cancelled Ur Specific [place] Cancelled U Specif Grav (Refrac) Cancelled Urine Protein Cancelled Urine Glucose (UA) Cancelled Urine Ketones Cancelled Urine Occult Blood Cancelled Urine Nitrite Cancelled Urine Bilirubin Cancelled Urine Urobilinogen Cancelled Ur Leukocyte Esterase Cancelled Urine RBC Cancelled Urine WBC Cancelled Ur Squamous Epith Cells Cancelled Ur Transition Epith Cell Cancelled Ur Renal Epithelial Cell Cancelled Calcium Oxalate Crystal Cancelled Uric Acid Crystals Cancelled Triple Phos Crystals Cancelled Other Crystals Cancelled Amorphous Sediment Cancelled Urine Bacteria Cancelled Hyaline Casts Cancelled Fine Granular Casts Cancelled Coarse Granular Casts Cancelled Waxy Casts Cancelled RBC Casts Cancelled WBC Casts Cancelled Urine Mucus Cancelled Urine Trichomonas Cancelled Urine Yeast Cancelled Ur Random Sodium Urine Creatinine 09/11/18 09/11/18 09/11/18 20:29 20:29 20:29 WBC RBC Hgb Hct MCV MCH MCHC RDW RDW Differential Plt Count MPV Immature Gran % (Auto) Neut % (Auto) Lymph % (Auto) [place] % (Auto) Eos % (Auto) Baso % (Auto) Absolute Neuts (auto) Absolute Lymphs (auto) Total Counted Sodium Potassium Chloride Carbon Dioxide Anion Gap BUN Creatinine Estim Creat Clear Calc Est GFR (MDRD) Af Amer Est GFR (MDRD) Non-Af BUN/Creatinine Ratio Glucose Calcium Phosphorus Magnesium Total Bilirubin AST ALT Alkaline Phosphatase Total Protein Albumin Globulin Albumin/Globulin Ratio Urine Color Yellow Urine Clarity Cloudy Urine pH 5.0 Ur Specific [place] 1.020 U Specif Grav (Refrac) Urine Protein 100 H Urine Glucose (UA) Normal Urine Ketones Negative Urine Occult Blood 250 H Urine Nitrite Negative Urine Bilirubin 3 H Urine Urobilinogen 1 H Ur Leukocyte Esterase 500 H Urine RBC 10-25 SEEN Urine WBC 10-25 SEEN Ur Squamous Epith Cells 0-5 SEEN Ur Transition Epith Cell Ur Renal Epithelial Cell Calcium Oxalate Crystal Uric Acid Crystals Triple Phos Crystals Other Crystals Amorphous Sediment Urine Bacteria 0 SEEN Hyaline Casts Fine Granular Casts Coarse Granular Casts Waxy Casts RBC Casts WBC Casts Urine Mucus 0 SEEN Urine Trichomonas Urine Yeast Ur Random Sodium 71 Urine Creatinine 62.90 09/12/18 09/12/18 05:57 05:57 WBC 9.5 RBC 3.19 L Hgb 10.6 L Hct 30.9 L MCV 96.9 MCH 33.2 H MCHC 34.3 RDW 15.9 H RDW Differential 54.3 H Plt Count 378 MPV 10.1 Immature Gran % (Auto) 0.500 Neut % (Auto) 81.3 H Lymph % (Auto) 8.0 L [place] % (Auto) 10.0 Eos % (Auto) 0.1 Baso % (Auto) 0.1 Absolute Neuts (auto) 7.7 Absolute Lymphs (auto) 0.76 L Total Counted Not Reportable Sodium 141 Potassium 4.1 Chloride 108 H Carbon Dioxide 17.0 L Anion Gap 16 H BUN 73 H Creatinine 4.94 H Estim Creat Clear Calc 6.74 Est GFR (MDRD) Af Amer 11 L Est GFR (MDRD) Non-Af 9 L BUN/Creatinine Ratio 14.8 Glucose 113 H Calcium 6.3 L* Phosphorus 6.5 H Magnesium 2.2 Total Bilirubin 4.50 H AST 105 H ALT 136 H Alkaline Phosphatase 243 H Total Protein 5.4 L Albumin 2.0 L Globulin 3.4 Albumin/Globulin Ratio 0.6 L Urine Color Urine Clarity Urine pH Ur Specific [place] U Specif Grav (Refrac) Urine Protein Urine Glucose (UA) Urine Ketones Urine Occult Blood Urine Nitrite Urine Bilirubin Urine Urobilinogen Ur Leukocyte Esterase Urine RBC Urine WBC Ur Squamous Epith Cells Ur Transition Epith Cell Ur Renal Epithelial Cell Calcium Oxalate Crystal Uric Acid Crystals Triple Phos Crystals Other Crystals Amorphous Sediment Urine Bacteria Hyaline Casts Fine Granular Casts Coarse Granular Casts Waxy Casts RBC Casts WBC Casts Urine Mucus Urine Trichomonas Urine Yeast Ur Random Sodium Urine Creatinine POC Glucose 09/12/18 09/12/18 09/11/18 12:04 06:47 22:45 POC Glucose 117 H 103 110 09/11/18 16:48 POC Glucose 119 H Medical Necessity - Tobacco Use Smoking Status: Former smoker Tobacco Use: Non-smoker Assessment/Plan All Active Problems Acute renal failure (Acute) Metabolic acidosis (Acute) Dehydration (Acute) Acute renal failure. baseline creatinine as of last month was normal. Clinically she looks markedly dry. recent CT abdomen does not show hydronephrosis. she has cao in. unlikely obstructive. EMILIANA is likely related to volume depletion. continue fluids. urine output somewhat better but still low. Acidosis. mostly non gap. likely from biliary drain. better discussed with patient and family today. PCP is Dr Nugent. not established with a local oncologist yet. prognosis appears poor. will follow Thank you
[2018-09-12] MEDS: Latanoprost 0.005% 1 Bottle 1 DRP EACH EYE (21:58)
[2018-09-12 22:11] LABS: Bedside Glucose 96 mg/dL (70-110)
[2018-09-13] VITALS (13 sets, daily range): BP systolic 119–144; BP diastolic 78–89; PULSE 73–83; RESP 14–18; TEMP 36.3–37.4; O2SAT 94–97
[2018-09-13 01:22] LABS: Bedside Glucose 96 mg/dL (70-110)
[2018-09-13 06:59] LABS: BUN 67 mg/dL (7-18); BUN/Creat Ratio 22.8 RATIO (10-20); Calcium,Total 6.1 mg/dL (8.5-10.1); Chloride 102 mmol/L (98-107); Creatinine, Serum 2.94 mg/dL (0.55-1.02); EST Glomerular Filtration Rate 16 mL/min (>60); Est Glom Filt Rate - Afr Amer 20 mL/min (>60); Estimated Creatinine Clearance 11.33 ml/min; Glucose 139 mg/dL (74-106); Phosphorus 3.9 mg/dL (2.5-4.9); Sodium Level 144 mmol/L (136-145)
[2018-09-13 07:01] LABS: Bedside Glucose 131 mg/dL (70-110)
--- NOTE | 2018-09-13 07:59 | PN_ITS ---
Patient Problems: Active and Suspected Problems Acute renal failure (Acute) Metabolic acidosis (Acute) Dehydration (Acute) Subjective: Chief complaint: Follow-up after admission for acute renal failure, hypokalemia, hypocalcemia and recent diagnosis of cholangiocarcinoma with metastasis to the lung. Patient seen and examined. No acute events overnight. She complains of pain at the drain site as well as nausea. Denied fever or chills. Denies chest pain or shortness of breath. Her vital signs are stable. - Physical Exam General: Alert, Oriented x3, Cooperative, No apparent distress, - - Jaundice. HEENT: Atraumatic, PERRLA, EOMI Oral: Moist Mucosa, No Gingival or Mucosal Lesions/ Ulcerations Neck: Supple, No JVD, Negative Carotid Bruits, Trachea Midline, Thyroid Normal Size and Texture Lungs: Clear to auscultation, No wheeze, No rales, Diminished, Rhonchi Cardiovascular: Regular rate, Regular Rhythm, Normal S1, Normal S2, PMI Normal Abdomen: Bowel Sounds Present, Soft, Non Tender, Non-Distended, No Hepato- splenomegaly Extremities: No clubbing, No cyanosis, No edema Skin: No rashes, No breakdown Lymphatic: No Cervical, Supraclavicular, or Inguinal Adenopathy Neurological: Cranial nerves II-XII grossly intact, Neuro grossly intact Psych/Mental Status: Normal Affect, Appropriate, Alert and oriented to time, place, person, mood and affect Vital Signs Temp Pulse Resp BP Pulse Ox 97.3 F L 82 18 119/78 95 09/13/18 03:48 09/13/18 07:08 09/13/18 03:48 09/13/18 03:48 09/13/18 07:19 Oxygen Delivery Method Room Air Weight: 108 lb 6.385 oz Body Mass Index (BMI) 21.2 Intake and Output for Last 24 Hours 09/11/18 09/12/18 09/13/18 23:59 23:59 23:59 Intake Total 2300 / 2300 3466 / 3466 813 / 813 Output Total 50 / 50 1705 / 1705 775 / 775 Balance 2250 / 2250 1761 / 1761 38 / 38 Microbiology Past 72 Hours 09/11/18 08:18 Blood Culture - Preliminary Blood Culture (Wb) - Left Wrist No growth in 48 hours. 09/11/18 07:06 Blood Culture - Preliminary Blood Culture (Wb) - Right Hand No growth in 48 hours. 09/11/18 20:29 Urine Culture - Preliminary Urine Catheter - Gage Presumptive E. coli 09/11/18 14:50 Gram Stain - Final Fluid - Other Body Fluid Culture - Preliminary Gram positive organism 09/11/18 14:50 Gram Stain - Final Fluid - Bile Body Fluid Culture - Preliminary Gram negative esther Gram positive organism Laboratory Tests Past 24 Hrs 09/13/18 05:50 Sodium 144 Potassium 3.0 L Chloride 102 Carbon Dioxide 30.0 BUN 67 H Creatinine 2.94 H Estim Creat Clear Calc 11.33 Est GFR (MDRD) Af Amer 20 L Est GFR (MDRD) Non-Af 16 L BUN/Creatinine Ratio 22.8 H Glucose 139 H Calcium 6.1 L* Phosphorus 3.9 Albumin 2.0 L POC Glucose 09/13/18 09/12/18 09/12/18 06:56 21:50 16:50 POC Glucose 131 H 96 96 09/12/18 12:04 POC Glucose 117 H Medical Necessity - Tobacco Use Smoking Status: Former smoker Tobacco Use: Non-smoker Assessment/Plan All Active Problems Acute renal failure (Acute) Metabolic acidosis (Acute) Dehydration (Acute)
[2018-09-13] MEDS: 0.9% NaCl Peripheral Flush Adult/Peds IV ×2 (08:33→21:34)
[2018-09-13] MEDS: Ondansetron 4 MG/2 ML Vial IV ×2 (08:33→21:34)
[2018-09-13] MEDS: Calcium Carbonate 500 MG Tablet PO ×2 (09:06→18:01)
[2018-09-13] MEDS: Famotidine 20 MG Tablet PO (09:07)
[2018-09-13] MEDS: Heparin Injection (Vial) 5,000 UNIT/ML VIAL 5000 UNIT SC ×2 (09:07→21:33)
[2018-09-13] MEDS: Docusate Sodium 100 MG Capsule PO ×2 (09:07→21:34)
[2018-09-13] MEDS: Potassium Chloride 10mEq/100mL 10 MEQ/100 ML IV.SOLN. 100 MEQ IV BOLUS ×2 (11:15→12:31)
[2018-09-13] MEDS: Piperacil/Tazobactam 3.375 GM/50 ML ML IV ×2 (11:29→21:33)
[2018-09-13 12:01] LABS: Bedside Glucose 129 mg/dL (70-110)
--- NOTE | 2018-09-13 12:12 | PCM.PN.REN ---
Patient Problems: Active and Suspected Problems Acute renal failure (Acute) Metabolic acidosis (Acute) Dehydration (Acute) Subjective: no new complaints - Physical Exam General: Alert, Oriented x3, Cooperative HEENT: Atraumatic, PERRLA, EOMI, Normocephalic Neck: Supple, No JVD, Negative Carotid Bruits Lungs: Clear to auscultation, Normal air movement Cardiovascular: Regular rate, No murmurs Abdomen: Bowel Sounds Present, Soft, Non Tender Extremities: No edema, Capillary Refill Less than 3 Seconds Skin: No rashes, No breakdown Musculoskeletal: No Tenderness to Palpation of Joints or Extremities Neurological: Cranial nerves II-XII grossly intact Psych/Mental Status: Normal Affect, Appropriate Vital Signs Temp Pulse Resp BP Pulse Ox 98.0 F 83 16 136/78 H 95 09/13/18 08:26 09/13/18 08:26 09/13/18 08:26 09/13/18 08:26 09/13/18 09:11 Oxygen Delivery Method Room Air Weight: 52.8 kg Body Mass Index (BMI) 21.2 Intake and Output for Last 24 Hours 09/11/18 09/12/18 09/13/18 23:59 23:59 23:59 Intake Total 2300 / 2300 3466 / 3466 813 / 813 Output Total 50 / 50 1705 / 1705 775 / 775 Balance 2250 / 2250 1761 / 1761 38 / 38 Microbiology Past 72 Hours 09/11/18 14:50 Gram Stain - Final Fluid - Other Body Fluid Culture - Final Presumptive C albicans Coag Negative Staph 09/11/18 20:29 Urine Culture - Final Urine Catheter - Cao Presumptive E. coli 09/11/18 08:18 Blood Culture - Preliminary Blood Culture (Wb) - Left Wrist No growth in 48 hours. 09/11/18 07:06 Blood Culture - Preliminary Blood Culture (Wb) - Right Hand No growth in 48 hours. 09/11/18 14:50 Gram Stain - Final Fluid - Bile Body Fluid Culture - Preliminary Gram negative esther Gram positive organism Laboratory Tests Past 24 Hrs 09/13/18 05:50 Sodium 144 Potassium 3.0 L Chloride 102 Carbon Dioxide 30.0 BUN 67 H Creatinine 2.94 H Estim Creat Clear Calc 11.33 Est GFR (MDRD) Af Amer 20 L Est GFR (MDRD) Non-Af 16 L BUN/Creatinine Ratio 22.8 H Glucose 139 H Calcium 6.1 L* Phosphorus 3.9 Albumin 2.0 L POC Glucose 09/13/18 09/13/18 09/12/18 11:34 06:56 21:50 POC Glucose 129 H 131 H 96 09/12/18 09/12/18 16:50 12:04 POC Glucose 96 117 H Medical Necessity - Tobacco Use Smoking Status: Former smoker Tobacco Use: Non-smoker Assessment/Plan All Active Problems Acute renal failure (Acute) Metabolic acidosis (Acute) Dehydration (Acute) Acute renal failure. baseline creatinine as of last month was normal. Clinically she looked markedly dry. recent CT abdomen does not show hydronephrosis. she has cao in. unlikely obstructive. EMILIANA is likely related to volume depletion. Cr better. change fluids to half normal saline. Acidosis. mostly non gap. likely from biliary drain. better Hypokalemia. repleted this am discussed with patient and family today. PCP is Dr Nugent. not established with a local oncologist yet. will follow Thank you
[2018-09-13] MEDS: 0.45% Normal Saline 1,000 ML 100 ML IV ×2 (12:40→21:33)
--- NOTE | 2018-09-13 14:15 | CASEMGMT ---
RN CM MANAGER COSMETIC CM to room to meet with patient for initial transition planning/care coordination assessment. RN AYE introduced self and role at [facility].? Pt voices understanding and consents to assessment at this time.? Pt sitting up in chair, in no distress at this time.? Pt is A/O at this time and answers all questions appropriately.?? Care providers, pharmacy, and demographics verified at this time. PCP: Jovanna Specialists: None Preferred Pharmacy: [facility] Insurance: [employer] [facility] Prescription Benefit:? Yes Living Will/HPOA:? Pt has HCPOA, who is her son, Vinay Thomas. States does not have a LW and would like to talk with SW about completing paperwork. LNOK: Has 3 sons, Vinay, Iraj, and Ambrocio. Living Arrangements: Lives alone. Family supportive. Was independent with ADL's prior to recent illness. Transportation: Pt states drives self and states no transportation concerns at this time.? DME: ? Has a shower chair, rails/grab bars, and hand held shower. Denies DME needs. HHC/SNF: No history of HHC. Was @ [facility] several years ago after a fall/fracture. CM to follow for discharge planning/needs.? Awaiting Dr Lucero consult. ? Advised pt to ask for CM if any further questions/concerns/needs arise.? Voices understanding. PLAN: ?KRISS JONES RN, CM
--- NOTE | 2018-09-13 16:50 | ONC.CONS.INP ---
Subjective Date of Service:: 09/13/18 Chief Complaint: Cholangiocarcinoma History of Present Illness: Ms. Haritha Thomas is a pleasant 77 year old woman with a PMH significant for hypertension and glaucoma who was in her usual state of health until mid July 2018. Experienced generalized pruritus accompanied by jaundice, 30 lb weight loss and presented to [facility] emergency department 08/27/2018. CT scan of the abdomen demonstrated a poorly defined mass in the hilum of the liver and abnormal enhancement of the wall of the common hepatic duct and proximal common bile duct highly suspicious for cholangiocarcinoma with resulting obstruction of the intrahepatic biliary ducts. Subsequently patient was transferred to [facility] for management. CT scan of the chest obtained 08/29/2018 reviewed, revealed solid and cavitary pulmonary nodules scattered bilaterally, 1 cm and subcentimeter although no hilar or mediastinal adenopathy. Infectious workup of pulmonary nodules inclusive of Fungitell assay, QuantiFERON, Histoplasma antibodies, Cryptococcal and Blastomyces were negative. Procalcitonin was negative as well. Underwent ERCP with biliary stents 08/30/2018 and cytology from brushings of common bile duct proved positive for adenocarcinoma. 09/01/2018 MRI of the liver showed no focal liver lesions but diffusely dilated ductal structures, sclerotic lesion on T2 and mixed osteolytic and osteosclerotic lesions involving T3 and T4 vertebrae. CT-guided percutaneous right lung biopsy was performed on 09/07/2018 (pathology of which is not available in the record for review-but has been requested). CA-[id number] was 116.8. Discharged home on 09/08/2018 with biliary drains with intent to oncology care in [place], closer to home. Patient experienced worsening generalized fatigue and as a result presented to [facility] ED again on 09/11/2018. She was admitted for acute renal failure likely due to dehydration. Smoked 3/4 ppd x 40 years, quit in 1999. Upon interview, patient admits that she has not taken much p.o. in terms of fluids and endorses taste disturbance and intermittent nausea. Although, states nausea has been better controlled during this admission with antiemetics. She denies any pain and states pruritus is also resolved. 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 Mitral valve prolapse (Chronic) Constipation (Chronic) Past Medical/Surgical History: Past Medical History - Most Recent Inpatient Visit Past Medical History Start: 09/11/18 10:29 Text: Status: Complete Freq: ONCE Protocol: Document 09/11/18 10:46 [facility] (Rec: 09/11/18 10:49 [facility] [id number]) BMI Required to complete PMH What is Patient's BMI 21.2 Past Medical History Unable History Recalled Yes Query Text:Pt Unable/Family Not Present Neurologic Medical History Hx Stroke/TIA No Hx Dementia/Alzheimer's No Hx Parkinson's Disease No Hx Seizures No Hx Multiple Sclerosis No Hx Migraines No Cardiac Medical History VTE Present on Admission No Hx of Deep Vein Thrombosis/VTE/PE Yes Hx Hypertension Yes Hx Chest Pain/Angina No Hx Heart Attack No Hx Cardiac Surgery/Stents/Etc. No Hx Heart Failure No Hx Pacemaker/AICD No Hx Irregular Heartbeat and/or Afib No Hx Anticoagulant Therapy No Query Text:(Coumadin, Aspirin, Plavix, Xarelto, etc.) Hx Pain in Legs when Walking/Leg Cramps No Respiratory Medical History Hx COPD No Hx Emphysema No Smoking Status Former smoker Hx Smoking Cessation Counseling No Hx Smoking Exposure No Hx Tobacco Use in last 12 months No Hx Sleep Apnea No CPAP No BIPAP No Do you snore loudly (louder than talking No or can be heard through closed doors)? Do you often feel tired/ fatigued/ No sleepy during daytime? Has anyone observed you stop breathing No during sleep? STOP Results Negative GI Medical History Hx Ulcer No Hx Hepatitis No Hx Cirrhosis No Hx GI Bleed No Hx Unplanned Weight Loss No Genitourinary Medical History Indwelling Catheter in Place on Arrival/ No Admission Hx Renal Disease No Hx Dialysis No Musculoskeletal History Hx Arthritis Yes Hx Rheumatoid Arthritis No Endocrine Medical History Hx Diabetes No Hx Thyroid Disease No Hematologic Medical History Hx of Blood Transfusion No Hx of Transfusion in last 3 Months No Ever experience any problems with No transfusion(s)? Hx of Preganancy in last 3 Months No Nurse Filling Out Transfusion & BMCFARLAN Questions: Date: 09/11/18 Time: 10:48 Psycho/Social Medical History Hx Depression No Hx Anxiety No Hx Alcohol Use No Hx Substance Use No Other Medical History Hx Blood Disorders No Hx Anemia No Hx Cancer No Hx Drug Resistant Organism No Wound/Pressure Injury Present on Arrival No /Admission Query Text:If yes, chart assessment in Shift/Clinical Findings Central Line/PICC/VAD Present on Arrival No /Admission Antibiotics within last 7 days? Yes Methicillin Resistant Staphylococcus aureus Screening Active MRSA No Risk for Readmission Number of Risk Factors 1 At Risk for Readmission Patient is Not at Risk Patient is eligible for Call Back N Maternal Family History: No pertinent history - Social History Lives: With Family Smoking Status: Former smoker Tobacco Use: Non-smoker Alcohol: None Drugs: None Allergies/Adverse Reactions: Allergy/AdvReac Type Severity Reaction Status Date / Time No Known Allergies Allergy Verified 09/11/18 07:08 Review of Systems Constitutional:: Reports: Weakness, Fatigue, Weight loss, Appetite change - Related to taste disturbance. Denies: Fever, Sweats, Chills Cardiovascular:: Denies: Chest pain, Palpitations, Dyspnea on exertion, Orthopnea, PND, Shortness of breath Respiratory: Reports: Cough - Occasional. Denies: Hemoptysis, Shortness of Breath, Wheezing Gastrointestinal:: Reports: Nausea - See HPI, Jaundice. Denies: Abdominal pain, Vomiting, Diarrhea, Constipation, Melena, Hematochezia, Difficulty swallowing Genitourinary: Denies: Dysuria, Hematuria, 15, Flank pain Musculoskeletal:: Denies: Back pain, Myalgia, Arthralgia Skin: Denies: Rash, Skin Changes, Wounds Neurological:: Denies: Headache, Dizziness, Numbness, Tingling, Visual changes, Tinnitus, Hearing loss Psychiatric: Denies: Anxiety, Depression, Homicidal Ideations, Suicidal Ideations Vital Signs Height 5 ft Weight: 116 lb 6.465 oz Weight in Pounds 116.4 lbs Pulse Ox 97 Temperature 98.1 F Pulse Rate 81 Respiratory Rate 16 Blood Pressure 142/81 Blood Pressure Position Sitting - Physical Exam General: Alert, Oriented x3, No apparent distress HEENT: Atraumatic, Normocephalic, - - Sclera icteric Oropharynx:: Negative for: Dry mucosa, Ulcerated lesions Neck:: Supple, Trachea midline. Negative for: JVD, bilateral Cardiac:: Regular rate, Regular rhythm, Normal S1, Normal S2. Negative for: Murmur Lungs: Clear to auscultation, Excusion symmetrical. Negative for: Rhonchi, Wheezes Abdomen:: Bowel sounds x 4, Soft, Non-tender, Non-distended, - - biliary drains are in place and draining brownish discharge. Negative for: Hepatosplenomegaly Extremities:: Negative for: Cyanosis, Edema Neurological: Neuro grossly intact Skin:: - - Jaundice. Negative for: Lesions, Rash, Petechiae, Ecchymosis Psychiatric:: Appropriate affect, Euthymic Lymphatics:: Negative for: Cervical lymphadenopathy, Supraclavicular lymphadenopathy, Axillary lymphadenopathy Laboratory Data: Microbiology 09/11/18 14:50 Gram Stain - Final Fluid - Other Body Fluid Culture - Final Presumptive C albicans Coag Negative Staph 09/11/18 20:29 Urine Culture - Final Urine Catheter - Gage Presumptive E. coli 09/11/18 08:18 Blood Culture - Preliminary Blood Culture (Wb) - Left Wrist No growth in 48 hours. 09/11/18 07:06 Blood Culture - Preliminary Blood Culture (Wb) - Right Hand No growth in 48 hours. 09/11/18 14:50 Gram Stain - Final Fluid - Bile Body Fluid Culture - Preliminary Gram negative esther Gram positive organism Laboratory Tests 09/13/18 09/13/18 09/13/18 Range/Units 11:34 06:56 05:50 Sodium 144 (136-145) mmol/L Potassium 3.0 L (3.5-5.1) mmol/L Chloride 102 (98-107) mmol/L Carbon Dioxide 30.0 (21.0-32.0) mmol/L BUN 67 H (7-18) mg/dL Creatinine 2.94 H (0.55-1.02) mg/dL Estim Creat Clear Calc 11.33 ml/min Est GFR (MDRD) Af Amer 20 L (>60) mL/min Est GFR (MDRD) Non-Af 16 L (>60) mL/min BUN/Creatinine Ratio 22.8 H (10-20) RATIO Glucose 139 H (74-106) mg/dL Calcium 6.1 L* (8.5-10.1) mg/dL Phosphorus 3.9 (2.5-4.9) mg/dL Albumin 2.0 L (3.2-5.0) g/dL POC Glucose 129 H 131 H (70-110) mg/dL 09/12/18 09/12/18 Range/Units 21:50 16:50 Sodium (136-145) mmol/L Potassium (3.5-5.1) mmol/L Chloride (98-107) mmol/L Carbon Dioxide (21.0-32.0) mmol/L BUN (7-18) mg/dL Creatinine (0.55-1.02) mg/dL Estim Creat Clear Calc ml/min Est GFR (MDRD) Af Amer (>60) mL/min Est GFR (MDRD) Non-Af (>60) mL/min BUN/Creatinine Ratio (10-20) RATIO Glucose (74-106) mg/dL Calcium (8.5-10.1) mg/dL Phosphorus (2.5-4.9) mg/dL Albumin (3.2-5.0) g/dL POC Glucose 96 96 (70-110) mg/dL Diagnostic Data: Diagnostic Data Chest X-Ray 09/11/18 07:22 IMPRESSION: 1. Multiple new noncalcified pulmonary nodules worrisome for metastasis. Infectious etiologies are considered less likely. Chest CT recommended. Electronically Signed: Silver Becerra MD at 7:49 EST , Service support , Assessment and Plan 1. Cholangiocarcinoma-records from [facility] reflect that patient underwent a CT-guided percutaneous right lung biopsy on 09/07/18, however pathology report is not available. That report has been requested. Questionable skeletal involvement at T2, T3 and T4. Patient requires PET/CT for characterization of thoracic spine lesions and lung nodules, staging and subsequent treatment planning. Staging can be done in the ambulatory setting. 2. Pulmonary nodules-evident on CT chest obtained 08/29/2018 which revealed multiple solid and cavitary scattered nodules bilaterally, some 1 cm and some subcentimeter. Again pathology report from right lung biopsy has been requested. 3. Bone lesions?sclerotic lesions on T2 and mixed osteolytic and osteosclerotic lesions involving T3 and T4 vertebrae were evident on MRI 09/01/2018. Patient is not endorsing any pain, saddle anesthesia, incontinence or neuropathy involving lower extremities. 4. Anemia?as evidenced by hemoglobin 10.6, normocytic. Likely multifactorial. Continue to monitor. 5. Acute renal failure-creatinine on admission above 5 now 2.94 with implementation of hydration. Nephrology consulted, suspect pre renal r/t dehydration. Case was discussed with Dr. Lucero who is in agreement with aforementioned plan. Yenni Geiger, INSTALLATION TECH-C, AOCNP Medications: Prescriptions This Visit Medication Instructions Recorded Lisinopril [Zestril] 2.5 mg PO DAILY 09/11/18 Ondansetron [Ondansetron Odt] 4 mg PO Q6H PRN PRN 09/11/18 Oxycodone HCl/Acetaminophen 1 each PO Q4H PRN PRN 09/11/18 [Endocet 5-325 Tablet] Medications Added to Medication List This Visit Category Date Time Status 0.45% Normal Saline 1,000 ml Med 09/13/18 12:15 Active IV 100 mls/hr Piperacil/Tazobactam [Zosyn] Med 09/13/18 10:00 Active 3.375 gm in 50 ml IV Q12 Primary Care Provider: Jose Nugent Referring Provider: - Problem List (1) Cholangiocarcinoma Status: Acute
--- NOTE | 2018-09-13 18:50 | NURSING ---
Patient states that drains are to be flushed every 12 hours per orders from [facility]. Patient was made aware that nursing was unaware of this. Patient states that information is on her discharge papers from [facility] and her may be able to bring same in.
--- NOTE | 2018-09-13 20:47 | PN_ITS ---
Patient Problems: Active and Suspected Problems Acute renal failure (Acute) Metabolic acidosis (Acute) Dehydration (Acute) Subjective: Patient was seen and examined today, patient's potassium was low this morning at 3, her creatinine had improved to 2.94, calcium was low at 6.1. I talked to the patient about CODE STATUS today, she wants to be a DNR CC arrest, I explained to her the options and she agreed that this would be in keeping with her wishes. Patient's appetite has been poor she states that food does not taste very good, I told her I could put her on an appetite stimulant, tonight I will start her on Remeron. Oncology saw the patient today. I talked with nephrology about her care today and they recommend continuing IV fluids and rechecking her labs. Patient's CBC yesterday showed a normal white blood cell count. Patient's urine culture was positive for E. coli sensitive to Zosyn, first generation cephalos porin, intermediate in sensitivity to quinolones, sensitive to the carbopenems. Fluid from 1 of the patient's biliary drains was positive for gram negative esther and a gram-positive organism. Anaerobic culture is pending. Patient's blood cultures were negative at 48 hours. Patient's right flank drain (? Hepatic drain) was positive for rare Blessing albicans and rare coag negative staph. Patient has been afebrile today - Physical Exam General: Alert, Oriented x3, Cooperative, No apparent distress, - - Patient appears unwell HEENT: Atraumatic, PERRLA, EOMI, Normocephalic Oral: Moist Mucosa Neck: Supple, No JVD, Negative Carotid Bruits, No Nuchal Rigidity, Trachea Midline, Thyroid Normal Size and Texture Lungs: Clear to auscultation, Normal air movement Cardiovascular: Regular rate, Regular Rhythm, Normal S1, Normal S2, No murmurs, No Ectopic Activity Abdomen: Bowel Sounds Present, Soft, Non Tender, Non-Distended Extremities: No clubbing, No cyanosis, No edema, Capillary Refill Less than 3 Seconds Skin: No rashes, No breakdown Musculoskeletal: No Tenderness to Palpation of Joints or Extremities Neurological: Cranial nerves II-XII grossly intact, Neuro grossly intact, Sensory exam intact to light touch and pain, Coordination normal Psych/Mental Status: Normal Affect, Appropriate, Alert and oriented to time, place, person, mood and affect Vital Signs Temp Pulse Resp BP Pulse Ox 99 F 81 14 137/89 H 94 09/13/18 20:30 09/13/18 20:30 09/13/18 20:30 09/13/18 20:30 09/13/18 20:30 Oxygen Delivery Method Room Air Weight: 52.8 kg Body Mass Index (BMI) 21.2 Intake and Output for Last 24 Hours 09/11/18 09/12/18 09/13/18 23:59 23:59 23:59 Intake Total 2300 / 2300 3466 / 3466 3605.8 / 3605.8 Output Total 50 / 50 1705 / 1705 2600 / 2600 Balance 2250 / 2250 1761 / 1761 1005.8 / 1005.8 Microbiology Past 72 Hours 09/11/18 14:50 Gram Stain - Final Fluid - Other Body Fluid Culture - Final Presumptive C albicans Coag Negative Staph 09/11/18 20:29 Urine Culture - Final Urine Catheter - Gage Presumptive E. coli 09/11/18 08:18 Blood Culture - Preliminary Blood Culture (Wb) - Left Wrist No growth in 48 hours. 09/11/18 07:06 Blood Culture - Preliminary Blood Culture (Wb) - Right Hand No growth in 48 hours. 09/11/18 14:50 Gram Stain - Final Fluid - Bile Body Fluid Culture - Preliminary Gram negative esther Gram positive organism Laboratory Tests Past 24 Hrs 09/13/18 05:50 Sodium 144 Potassium 3.0 L Chloride 102 Carbon Dioxide 30.0 BUN 67 H Creatinine 2.94 H Estim Creat Clear Calc 11.33 Est GFR (MDRD) Af Amer 20 L Est GFR (MDRD) Non-Af 16 L BUN/Creatinine Ratio 22.8 H Glucose 139 H Calcium 6.1 L* Phosphorus 3.9 Albumin 2.0 L POC Glucose 09/13/18 09/13/18 09/12/18 11:34 06:56 21:50 POC Glucose 129 H 131 H 96 09/12/18 16:50 POC Glucose 96 Medical Necessity - Tobacco Use Smoking Status: Former smoker Tobacco Use: Non-smoker Assessment/Plan All Active Problems Acute renal failure (Acute) Metabolic acidosis (Acute) Dehydration (Acute) #1 acute kidney injury-improving with administration of fluids, nephrology is seeing the patient, continue present treatment #2 urinary tract infection-E. coli, sensitive to current antibiotic (Zosyn) #3 possible biliary infection with E. coli-continue Zosyn #4 cholangiocarcinoma with metastases to the lung and possible thoracic vertebrae-oncology is seeing patient #5 jaundice secondary to cholangiocarcinoma #6 anorexia secondary to jaundice and cholangiocarcinoma-I will place the patient on Remeron to see if this helps her appetite #7 hypokalemia-patient's labs will be rechecked tomorrow, potassium supplementation was given #8 generalized debility secondary to cholangiocarcinoma-patient will be seen by PT Prognosis unfortunately appears to be poor for this patient, her CODE STATUS is DNR CC arrest. Code Visit Inpatient E&M: 14276 Subs Hosp L2
[2018-09-13 21:31] LABS: Bedside Glucose 109 mg/dL (70-110)
[2018-09-13] MEDS: Mirtazapine 15 MG Tablet PO (21:34)
[2018-09-13] MEDS: Latanoprost 0.005% 1 Bottle 1 DRP EACH EYE (21:34)
--- NOTE | 2018-09-13 21:53 | NURSING ---
Per patient, was given orders to flush drains Q12H with NS flush from [facility]. Verbalized she gave paper orders to EMS. Unable to locate in chart. Family member brought flush supplies and stated they will bring copies of [facility]'s flush orders tomorrow.
[2018-09-13 22:31] LABS: Bedside Glucose 104 mg/dL (70-110)
[2018-09-14] VITALS (10 sets, daily range): BP systolic 123–150; BP diastolic 70–93; PULSE 71–97; RESP 14–16; TEMP 36.5–36.9; O2SAT 94–96
[2018-09-14 05:25] LABS: Absolute Lymphocyte Count 0.71 X10^3/ul (0.83-4.51); Absolute Neutrophil Count 5.1 X10^3/uL (2.0-7.7); Basophil# 0.04 X10^3/uL; Basophil% 0.6 % (0-1); Eosinophil# 0.05 X10^3/uL; Eosinophils% 0.8 % (0-5); Hematocrit 33.4 % (37-47); Hemoglobin 10.9 g/dl (12.0-15.0); Lymphocyte # 0.71 X10^3/ul (4.0); Lymphocyte % 10.8 % (19-41); Mean Corp Hgb Conc 32.6 g/gl (32-36); Mean Corpuscular Hgb 31.8 pg (27.0-32.0); Mean Corpuscular Volume 97.4 fL (81-99); Mean Platelet Vol. 9.7 fl (6.2-12.0); Monocyte# 0.72 X10^3/uL; Monocyte% 10.9 % (0-10); Neutrophil # 5.06 X10^3/uL (2.7-7.7); Neutrophil % 76.6 % (47-70); Platelet Count 308 K/mm3 (150-450); RBC Distribution Width CV 15.7 % (11.6-14.6); RBC Distribution Width SD 53.8 fl (35.1-43.9); Red Blood Count 3.43 M/mm3 (4.2-5.4); White Blood Count 6.6 K/mm3 (4.4-11.0)
[2018-09-14 05:26] LABS: POSITIVE COUNT NO; POSITIVE DIFFERENTIAL NO; POSITIVE MORPHOLOGY NO
[2018-09-14 05:35] LABS: ALB/GLOB Ratio 0.6 RATIO (0.9-2.4); AST(SGOT) 87 U/L (15-37); Alanine Aminotransfer ALT/SGPT 110 U/L (13-56); Alkaline Phosphatase 240 U/L (45-117); Anion Gap 10 (5-15); BUN 45 mg/dL (7-18); BUN/Creat Ratio 30.6 RATIO (10-20); Calcium,Total 6.9 mg/dL (8.5-10.1); Chloride 104 mmol/L (98-107); Creatinine, Serum 1.47 mg/dL (0.55-1.02); EST Glomerular Filtration Rate 37 mL/min (>60); Est Glom Filt Rate - Afr Amer 44 mL/min (>60); Estimated Creatinine Clearance 22.66 ml/min; Globulin 3.6 g/dL (2.2-4.2); Glucose 96 mg/dL (74-106); Magnesium 2.3 mg/dL (1.6-2.6); Potassium 3.4 mmol/L (3.5-5.1); Protein, Total 5.6 g/dL (6.4-8.2); Sodium Level 144 mmol/L (136-145)
[2018-09-14] MEDS: 0.9% NaCl Peripheral Flush Adult/Peds IV (06:38)
[2018-09-14] MEDS: Ondansetron 4 MG/2 ML Vial IV (06:39)
[2018-09-14 06:56] LABS: Bedside Glucose 99 mg/dL (70-110)
--- NOTE | 2018-09-14 08:12 | PN_ITS ---
Patient Problems: Active and Suspected Problems Acute renal failure (Acute) Metabolic acidosis (Acute) Dehydration (Acute) Subjective: Chief complaint: Follow-up after admission for acute kidney injury, acute cystitis, possible biliary tract infection as well as recent diagnosis of metastatic lung carcinoma with metastases to the lung and bone. Patient seen and examined. No acute events overnight. Pain at the entrance heart is getting better but still having nausea. She is able to tolerate diet. Denies fever or chills. Denied abdominal pain. Denies chest pain or shortness of breath. Her vital signs are stable. - Physical Exam General: Alert, Oriented x3, Cooperative, No apparent distress, - - Jaundice. HEENT: Atraumatic, PERRLA, EOMI, Normocephalic Oral: Moist Mucosa, No Gingival or Mucosal Lesions/ Ulcerations Neck: Supple, No JVD, Negative Carotid Bruits, Trachea Midline, Thyroid Normal Size and Texture Lungs: Clear to auscultation, No rhonchi, No wheeze, No rales, Diminished Cardiovascular: Regular rate, Regular Rhythm, Normal S1, Normal S2, PMI Normal Abdomen: Bowel Sounds Present, Soft, Non Tender, Non-Distended, No Hepato- splenomegaly, - Extremities: No clubbing, No cyanosis, No edema Skin: No rashes, No breakdown Lymphatic: No Cervical, Supraclavicular, or Inguinal Adenopathy Neurological: Cranial nerves II-XII grossly intact, Motor Exam 5/5 strength throughout Psych/Mental Status: Normal Affect, Appropriate, Alert and oriented to time, place, person, mood and affect Vital Signs Temp Pulse Resp BP Pulse Ox 97.7 F L 97 14 129/71 H 94 09/14/18 03:43 09/14/18 07:00 09/14/18 03:43 09/14/18 03:43 09/14/18 03:43 Oxygen Delivery Method Room Air Weight: 119 lb 0.794 oz Body Mass Index (BMI) 21.2 Intake and Output for Last 24 Hours 09/12/18 09/13/18 09/14/18 23:59 23:59 23:59 Intake Total 3466 / 3466 4647.0 / 4647.0 567.8 / 567.8 Output Total 1705 / 1705 3345 / 3345 635 / 635 Balance 1761 / 1761 1302.0 / 1302.0 -67.2 / -67.2 Microbiology Past 72 Hours 09/11/18 14:50 Gram Stain - Final Fluid - Bile Body Fluid Culture - Final Yersinia intermedia Enterococcus faecium Staphylococcus epidermidis 09/11/18 14:50 Gram Stain - Final Fluid - Other Body Fluid Culture - Final Presumptive C albicans Coag Negative Staph 09/11/18 20:29 Urine Culture - Final Urine Catheter - Gage Presumptive E. coli 09/11/18 08:18 Blood Culture - Preliminary Blood Culture (Wb) - Left Wrist No growth in 48 hours. 09/11/18 07:06 Blood Culture - Preliminary Blood Culture (Wb) - Right Hand No growth in 48 hours. Laboratory Tests Past 24 Hrs 09/14/18 09/14/18 05:05 05:05 WBC 6.6 RBC 3.43 L Hgb 10.9 L Hct 33.4 L MCV 97.4 MCH 31.8 MCHC 32.6 RDW 15.7 H RDW Differential 53.8 H Plt Count 308 MPV 9.7 Immature Gran % (Auto) 0.300 Neut % (Auto) 76.6 H Lymph % (Auto) 10.8 L Jennings % (Auto) 10.9 H Eos % (Auto) 0.8 Baso % (Auto) 0.6 Absolute Neuts (auto) 5.1 Absolute Lymphs (auto) 0.71 L Total Counted Not Reportable Sodium 144 Potassium 3.4 L Chloride 104 Carbon Dioxide 30.0 Anion Gap 10 BUN 45 H Creatinine 1.47 H Estim Creat Clear Calc 22.66 Est GFR (MDRD) Af Amer 44 L Est GFR (MDRD) Non-Af 37 L BUN/Creatinine Ratio 30.6 H Glucose 96 Calcium 6.9 L Magnesium 2.3 Total Bilirubin 4.70 H AST 87 H ALT 110 H Alkaline Phosphatase 240 H Total Protein 5.6 L Albumin 2.0 L Globulin 3.6 Albumin/Globulin Ratio 0.6 L POC Glucose 09/14/18 09/13/18 09/13/18 06:42 21:48 16:25 POC Glucose 99 104 109 09/13/18 11:34 POC Glucose 129 H Medical Necessity - Tobacco Use Smoking Status: Former smoker Tobacco Use: Non-smoker Assessment/Plan All Active Problems Acute renal failure (Acute) Metabolic acidosis (Acute) Dehydration (Acute) This is a 77 years old female patient presented to the ED because of weakness, found to have acute kidney injury, acute cystitis and probable biliary tract infection in context of recent diagnosis of metastatic lung carcinoma with metastases to the lung and possible metastases to the thoracic vertebrae. #1 acute kidney injury: Attributed to prerenal and dehydration. She has been on IV fluids, creatinine came down to 1.47 today, improving. Her vital signs are stable. Nephrology on the case. Plan to continue IV fluids, repeat BMP tomorrow morning, PT OT evaluation and treatment. #2 E. coli acute cystitis: She is on IV Zosyn. Urine culture revealed pre sumptive E. coli which was sensitive to Zosyn. She is afebrile, white blood cell count is normal. #3 probable biliary tree infection/cholangitis: Patient had recent biliary drain for the chronic carcinoma at [facility]. She is on Zosyn, has been afebrile, leukocytosis resolved. 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 #5 hypokalemia/hypocalcemia: On replacement. Portable. #6 hypertension: Blood pressure stable. She has been off lisinopril because of acute kidney injury. #7 DVT prophylaxis: Subcu heparin. This note was generated with [employer] dictation software. It may contain incorrect words, spelling, and punctuation that were not noted in checking the note before signing. Code Visit Inpatient E&M: 37819 Subs Hosp L2
[2018-09-14] MEDS: Calcium Carbonate 500 MG Tablet PO (08:50)
[2018-09-14] MEDS: Heparin Injection (Vial) 5,000 UNIT/ML VIAL 5000 UNIT SC ×2 (08:51→21:09)
[2018-09-14] MEDS: Docusate Sodium 100 MG Capsule PO ×2 (08:51→21:09)
[2018-09-14] MEDS: Famotidine 20 MG Tablet PO (08:51)
[2018-09-14] MEDS: 0.45% Normal Saline 1,000 ML 100 ML IV (08:56)
[2018-09-14] MEDS: Piperacil/Tazobactam 3.375 GM/50 ML ML IV (08:58)
[2018-09-14 11:26] LABS: Bedside Glucose 107 mg/dL (70-110)
--- NOTE | 2018-09-14 11:56 | PN.RENAL_ITS ---
Patient Problems: Active and Suspected Problems Acute renal failure (Acute) Metabolic acidosis (Acute) Dehydration (Acute) Subjective: no new complaints - Physical Exam General: Alert, Oriented x3, Cooperative HEENT: Atraumatic, PERRLA, EOMI, Normocephalic Neck: Supple, No JVD, Negative Carotid Bruits Lungs: Clear to auscultation, Normal air movement Cardiovascular: Regular rate, No murmurs Abdomen: Bowel Sounds Present, Soft, Non Tender Extremities: No edema, Capillary Refill Less than 3 Seconds Skin: No rashes, No breakdown Musculoskeletal: No Tenderness to Palpation of Joints or Extremities Neurological: Cranial nerves II-XII grossly intact Psych/Mental Status: Normal Affect, Appropriate Vital Signs Temp Pulse Resp BP Pulse Ox 98.5 F 77 14 146/93 H 96 09/14/18 09:00 09/14/18 11:00 09/14/18 09:00 09/14/18 09:00 09/14/18 09:00 Oxygen Delivery Method Room Air Weight: 54 kg Body Mass Index (BMI) 21.2 Intake and Output for Last 24 Hours 09/12/18 09/13/18 09/14/18 23:59 23:59 23:59 Intake Total 3466 / 3466 4647.0 / 4647.0 1407.8 / 1407.8 Output Total 1705 / 1705 3345 / 3345 1570 / 1570 Balance 1761 / 1761 1302.0 / 1302.0 -162.2 / -162.2 Microbiology Past 72 Hours 09/11/18 14:50 Gram Stain - Final Fluid - Bile Body Fluid Culture - Final Yersinia intermedia Enterococcus faecium Staphylococcus epidermidis Anaerobic Culture - Preliminary Checking for anaerobes, further studies to follow. 09/11/18 14:50 Gram Stain - Final Fluid - Other Body Fluid Culture - Final Presumptive C albicans Coag Negative Staph Anaerobic Culture - Preliminary Checking for anaerobes, further studies to follow. 09/11/18 20:29 Urine Culture - Final Urine Catheter - Cao Presumptive E. coli 09/11/18 08:18 Blood Culture - Preliminary Blood Culture (Wb) - Left Wrist No growth in 48 hours. 09/11/18 07:06 Blood Culture - Preliminary Blood Culture (Wb) - Right Hand No growth in 48 hours. Laboratory Tests Past 24 Hrs 09/14/18 09/14/18 05:05 05:05 WBC 6.6 RBC 3.43 L Hgb 10.9 L Hct 33.4 L MCV 97.4 MCH 31.8 MCHC 32.6 RDW 15.7 H RDW Differential 53.8 H Plt Count 308 MPV 9.7 Immature Gran % (Auto) 0.300 Neut % (Auto) 76.6 H Lymph % (Auto) 10.8 L [place] % (Auto) 10.9 H Eos % (Auto) 0.8 Baso % (Auto) 0.6 Absolute Neuts (auto) 5.1 Absolute Lymphs (auto) 0.71 L Total Counted Not Reportable Sodium 144 Potassium 3.4 L Chloride 104 Carbon Dioxide 30.0 Anion Gap 10 BUN 45 H Creatinine 1.47 H Estim Creat Clear Calc 22.66 Est GFR (MDRD) Af Amer 44 L Est GFR (MDRD) Non-Af 37 L BUN/Creatinine Ratio 30.6 H Glucose 96 Calcium 6.9 L Magnesium 2.3 Total Bilirubin 4.70 H AST 87 H ALT 110 H Alkaline Phosphatase 240 H Total Protein 5.6 L Albumin 2.0 L Globulin 3.6 Albumin/Globulin Ratio 0.6 L POC Glucose 09/14/18 09/14/18 09/13/18 11:23 06:42 21:48 POC Glucose 107 99 104 09/13/18 09/13/18 16:25 11:34 POC Glucose 109 129 H Medical Necessity - Tobacco Use Smoking Status: Former smoker Tobacco Use: Non-smoker Assessment/Plan All Active Problems Acute renal failure (Acute) Metabolic acidosis (Acute) Dehydration (Acute) Acute renal failure. baseline creatinine as of last month was normal. Clinically she looked markedly dry. recent CT abdomen does not show hydronephrosis. she has cao in. unlikely obstructive. EMILIANA is likely related to volume depletion. Cr better. ok to dc fluids today Acidosis. mostly non gap. likely from biliary drain. better Hypokalemia. better
--- NOTE | 2018-09-14 13:16 | CASEMGMT ---
SW met with patient. Introduced self and role at [facility]. SW first discussed her d/c plan. She said she would like to go to [facility] TCU. SW told her SW can put her on the list. However, it also depends on her treatment plan with Oncology. Sometimes they are not able to accept patient's on chemo or radiation. She verbalized understanding. SW also talked with patient about her new Cancer diagnosis. She was very forthcoming. SW listened and provided emotional support. Patient said she is blessed to have a great support system. She thanked SW for talking with her. Plan: Possibly TCU pending her treatment plan with Oncology and insurance approval. Jennifer ESPANA MSW
--- NOTE | 2018-09-14 16:31 | ONC.PN.INPT ---
- Problem List (1) Cholangiocarcinoma Status: Acute Subjective Date of Service:: 09/14/18 Cholangiocarcinoma Ms. Haritha Thomas is a pleasant 77 year old woman with a PMH significant for hypertension and glaucoma who was in her usual state of health until mid July 2018. Experienced generalized pruritus accompanied by jaundice, 30 lb weight loss and presented to [facility] emergency department 08/27/2018. CT scan of the abdomen demonstrated a poorly defined mass in the hilum of the liver and abnormal enhancement of the wall of the common hepatic duct and proximal common bile duct highly suspicious for cholangiocarcinoma with resulting obstruction of the intrahepatic biliary ducts. Subsequently patient was transferred to [facility] for management. CT scan of the chest obtained 08/29/2018 reviewed, revealed solid and cavitary pulmonary nodules scattered bilaterally, 1 cm and subcentimeter although no hilar or mediastinal adenopathy. Infectious workup of pulmonary nodules inclusive of Fungitell assay, QuantiFERON, Histoplasma antibodies, Cryptococcal and Blastomyces were negative. Procalcitonin was negative as well. Underwent ERCP with biliary stents 08/30/2018 and cytology from brushings of common bile duct proved positive for adenocarcinoma. 09/01/2018 MRI of the liver showed no focal liver lesions but diffusely dilated ductal structures, sclerotic lesion on T2 and mixed osteolytic and osteosclerotic lesions involving T3 and T4 vertebrae. CT-guided percutaneous right lung biopsy was performed on 09/07/2018 (pathology of which is not available in the record for review-but has been requested). CA-[id number] was 116.8. Discharged home on 09/08/2018 with biliary drains with intent to oncology care in [place], closer to home. Patient experienced worsening generalized fatigue and as a result presented to [facility] ED again on 09/11/2018. She was admitted for acute renal failure likely due to dehydration. Smoked 3/4 ppd x 40 years, quit in 1999. Patient states today she is able to take sips of PO fluids and is happy to have advanced her diet to include soup. Denies any outstanding complaints since our interview yesterday. Specifically denies pruritus, swelling/pain of her extremities, abd pain or otherwise. 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 Mitral valve prolapse (Chronic) Constipation (Chronic) Past Medical History - Most Recent Inpatient Visit Past Medical History Start: 09/11/18 10:29 Text: Status: Complete Freq: ONCE Protocol: Document 09/11/18 10:46 [facility] (Rec: 09/11/18 10:49 [facility] [id number]) BMI Required to complete PMH What is Patient's BMI 21.2 Past Medical History Unable History Recalled Yes Query Text:Pt Unable/Family Not Present Neurologic Medical History Hx Stroke/TIA No Hx Dementia/Alzheimer's No Hx Parkinson's Disease No Hx Seizures No Hx Multiple Sclerosis No Hx Migraines No Cardiac Medical History VTE Present on Admission No Hx of Deep Vein Thrombosis/VTE/PE Yes Hx Hypertension Yes Hx Chest Pain/Angina No Hx Heart Attack No Hx Cardiac Surgery/Stents/Etc. No Hx Heart Failure No Hx Pacemaker/AICD No Hx Irregular Heartbeat and/or Afib No Hx Anticoagulant Therapy No Query Text:(Coumadin, Aspirin, Plavix, Xarelto, etc.) Hx Pain in Legs when Walking/Leg Cramps No Respiratory Medical History Hx COPD No Hx Emphysema No Smoking Status Former smoker Hx Smoking Cessation Counseling No Hx Smoking Exposure No Hx Tobacco Use in last 12 months No Hx Sleep Apnea No CPAP No BIPAP No Do you snore loudly (louder than talking No or can be heard through closed doors)? Do you often feel tired/ fatigued/ No sleepy during daytime? Has anyone observed you stop breathing No during sleep? STOP Results Negative GI Medical History Hx Ulcer No Hx Hepatitis No Hx Cirrhosis No Hx GI Bleed No Hx Unplanned Weight Loss No Genitourinary Medical History Indwelling Catheter in Place on Arrival/ No Admission Hx Renal Disease No Hx Dialysis No Musculoskeletal History Hx Arthritis Yes Hx Rheumatoid Arthritis No Endocrine Medical History Hx Diabetes No Hx Thyroid Disease No Hematologic Medical History Hx of Blood Transfusion No Hx of Transfusion in last 3 Months No Ever experience any problems with No transfusion(s)? Hx of Preganancy in last 3 Months No Nurse Filling Out Transfusion & BMCFARLAN Questions: Date: 09/11/18 Time: 10:48 Psycho/Social Medical History Hx Depression No Hx Anxiety No Hx Alcohol Use No Hx Substance Use No Other Medical History Hx Blood Disorders No Hx Anemia No Hx Cancer No Hx Drug Resistant Organism No Wound/Pressure Injury Present on Arrival No /Admission Query Text:If yes, chart assessment in Shift/Clinical Findings Central Line/PICC/VAD Present on Arrival No /Admission Antibiotics within last 7 days? Yes Methicillin Resistant Staphylococcus aureus Screening Active MRSA No Risk for Readmission Number of Risk Factors 1 At Risk for Readmission Patient is Not at Risk Patient is eligible for Call Back N Maternal Family History: No pertinent history - Social History Lives: With Family Smoking Status: Former smoker Tobacco Use: Non-smoker Alcohol: None Drugs: None Review of Systems Constitutional:: Reports: Weakness, Fatigue, Weight loss, Appetite change. Denies: Fever, Sweats, Chills Cardiovascular:: Denies: Chest pain, Palpitations, Dyspnea on exertion, Orthopnea, PND, Shortness of breath Respiratory: Reports: Cough - occasional. Denies: Hemoptysis, Shortness of Breath, Wheezing Gastrointestinal:: Reports: Nausea. Denies: Abdominal pain, Vomiting, Diarrhea, Constipation, Melena, Hematochezia Genitourinary: Denies: Dysuria, Hematuria, 15, Flank pain Musculoskeletal:: Denies: Back pain, Myalgia, Arthralgia Skin: Denies: Rash, Skin Changes, Wounds Neurological:: Reports: Muscle weakness. Denies: Headache, Dizziness, Numbness, Tingling, Visual changes, Tinnitus, Hearing loss Psychiatric: Denies: Anxiety, Depression, Homicidal Ideations, Suicidal Ideations Vital Signs Height 5 ft Weight: 119 lb 0.794 oz Weight in Pounds 119.0 lbs Pulse Ox 95 Temperature 98.5 F Pulse Rate 91 Respiratory Rate 14 Blood Pressure 123/70 Blood Pressure Position Semi-Fowlers - Physical Exam General: Alert, Oriented x3, No apparent distress HEENT: Atraumatic, Normocephalic, - - Sclera icteric Oropharynx:: Dry mucosa. Negative for: Ulcerated lesions Neck:: Supple, Trachea midline. Negative for: JVD, bilateral Cardiac:: Regular rate, Regular rhythm, Normal S1, Normal S2. Negative for: Murmur Lungs: Clear to auscultation, Excusion symmetrical. Negative for: Rhonchi, Wheezes Abdomen:: Bowel sounds x 4, Soft, Non-tender, Non-distended, Hepatosplenomegaly, - - Biliary drain in place Extremities:: Negative for: Cyanosis, Edema Neurological: Neuro grossly intact Skin:: - - Jaundiced. Negative for: Lesions, Rash, Petechiae, Ecchymosis Psychiatric:: Appropriate affect, Euthymic Lymphatics:: Negative for: Cervical lymphadenopathy, Supraclavicular lymphadenopathy, Axillary lymphadenopathy Laboratory Data: Microbiology 09/11/18 14:50 Gram Stain - Final Fluid - Bile Body Fluid Culture - Final Yersinia intermedia Enterococcus faecium Staphylococcus epidermidis Anaerobic Culture - Preliminary Checking for anaerobes, further studies to follow. 09/11/18 14:50 Gram Stain - Final Fluid - Other Body Fluid Culture - Final Presumptive C albicans Coag Negative Staph Anaerobic Culture - Preliminary Checking for anaerobes, further studies to follow. 09/11/18 20:29 Urine Culture - Final Urine Catheter - Gage Presumptive E. coli 09/11/18 08:18 Blood Culture - Preliminary Blood Culture (Wb) - Left Wrist No growth in 48 hours. 09/11/18 07:06 Blood Culture - Preliminary Blood Culture (Wb) - Right Hand No growth in 48 hours. Laboratory Tests 09/14/18 09/14/18 09/14/18 Range/Units 11:23 06:42 05:05 WBC (4.4-11.0) K/mm3 RBC (4.2-5.4) M/mm3 Hgb (12.0-15.0) g/dl Hct (37-47) % MCV (81-99) fL MCH (27.0-32.0) pg MCHC (32-36) g/gl RDW (11.6-14.6) % RDW Differential (35.1-43.9) fl Plt Count (150-450) K/mm3 MPV (6.2-12.0) fl Immature Gran % (Auto) (0.0-0.9) % Neut % (Auto) (47-70) % Lymph % (Auto) (19-41) % [place] % (Auto) (0-10) % Eos % (Auto) (0-5) % Baso % (Auto) (0-1) % Absolute Neuts (auto) (2.0-7.7) X10^3/uL Absolute Lymphs (auto) (0.83-4.51) X10^3/ul Total Counted Sodium 144 (136-145) mmol/L Potassium 3.4 L (3.5-5.1) mmol/L Chloride 104 (98-107) mmol/L Carbon Dioxide 30.0 (21.0-32.0) mmol/L Anion Gap 10 (5-15) BUN 45 H (7-18) mg/dL Creatinine 1.47 H (0.55-1.02) mg/dL Estim Creat Clear Calc 22.66 ml/min Est GFR (MDRD) Af Amer 44 L (>60) mL/min Est GFR (MDRD) Non-Af 37 L (>60) mL/min BUN/Creatinine Ratio 30.6 H (10-20) RATIO Glucose 96 (74-106) mg/dL Calcium 6.9 L (8.5-10.1) mg/dL Magnesium 2.3 (1.6-2.6) mg/dL Total Bilirubin 4.70 H (0.20-1.00) mg/dL AST 87 H (15-37) U/L ALT 110 H (13-56) U/L Alkaline Phosphatase 240 H (45-117) U/L Total Protein 5.6 L (6.4-8.2) g/dL Albumin 2.0 L (3.2-5.0) g/dL Globulin 3.6 (2.2-4.2) g/dL Albumin/Globulin Ratio 0.6 L (0.9-2.4) RATIO POC Glucose 107 99 (70-110) mg/dL 09/14/18 09/13/18 09/13/18 Range/Units 05:05 21:48 16:25 WBC 6.6 (4.4-11.0) K/mm3 RBC 3.43 L (4.2-5.4) M/mm3 Hgb 10.9 L (12.0-15.0) g/dl Hct 33.4 L (37-47) % MCV 97.4 (81-99) fL MCH 31.8 (27.0-32.0) pg MCHC 32.6 (32-36) g/gl RDW 15.7 H (11.6-14.6) % RDW Differential 53.8 H (35.1-43.9) fl Plt Count 308 (150-450) K/mm3 MPV 9.7 (6.2-12.0) fl Immature Gran % (Auto) 0.300 (0.0-0.9) % Neut % (Auto) 76.6 H (47-70) % Lymph % (Auto) 10.8 L (19-41) % [place] % (Auto) 10.9 H (0-10) % Eos % (Auto) 0.8 (0-5) % Baso % (Auto) 0.6 (0-1) % Absolute Neuts (auto) 5.1 (2.0-7.7) X10^3/uL Absolute Lymphs (auto) 0.71 L (0.83-4.51) X10^3/ul Total Counted Not Reportable Sodium (136-145) mmol/L Potassium (3.5-5.1) mmol/L Chloride (98-107) mmol/L Carbon Dioxide (21.0-32.0) mmol/L Anion Gap (5-15) BUN (7-18) mg/dL Creatinine (0.55-1.02) mg/dL Estim Creat Clear Calc ml/min Est GFR (MDRD) Af Amer (>60) mL/min Est GFR (MDRD) Non-Af (>60) mL/min BUN/Creatinine Ratio (10-20) RATIO Glucose (74-106) mg/dL Calcium (8.5-10.1) mg/dL Magnesium (1.6-2.6) mg/dL Total Bilirubin (0.20-1.00) mg/dL AST (15-37) U/L ALT (13-56) U/L Alkaline Phosphatase (45-117) U/L Total Protein (6.4-8.2) g/dL Albumin (3.2-5.0) g/dL Globulin (2.2-4.2) g/dL Albumin/Globulin Ratio (0.9-2.4) RATIO POC Glucose 104 109 (70-110) mg/dL Diagnostic Data: Diagnostic Data Chest X-Ray 09/11/18 07:22 IMPRESSION: 1. Multiple new noncalcified pulmonary nodules worrisome for metastasis. Infectious etiologies are considered less likely. Chest CT recommended. Electronically Signed: Silver Becerra MD at 7:49 EST , Service support , Pathology Data: 09/09/18 Lung, right biopsy- benign lung parenchyma with no significant histopathologic change- Pathology report obtained from [facility]. Assessment and Plan 1. Cholangiocarcinoma-records from [facility] reflect that patient underwent a CT-guided percutaneous right lung biopsy on 09/07/18 which was negative for malignancy. Questionable skeletal involvement at T2, T3 and T4. Patient requires PET/CT for characterization of thoracic spine lesions and other lung nodules, staging and subsequent treatment planning. Staging can be done in the ambulatory setting. 2. Pulmonary nodules-evident on CT chest obtained 08/29/2018 which revealed multiple solid and cavitary scattered nodules bilaterally, some 1 cm and some subcentimeter. Pathology report from CT guided percutaneous biopsy of right lung revealed benign lung parenchyma with no significant histopathologic change. No evidence on this report to conclude metastatic disease in the lung is present. 3. Bone lesions?sclerotic lesions on T2 and mixed osteolytic and osteosclerotic lesions involving T3 and T4 vertebrae were evident on MRI 09/01/2018. Patient is not endorsing any pain, saddle anesthesia, incontinence or neuropathy involving lower extremities. 4. Anemia?as evidenced by hemoglobin 10.9, normocytic. Likely multifactorial. Continue to monitor. 5. Acute renal failure-creatinine on admission above 5 now 1.4 with implementation of hydration. Nephrology consulted, suspect pre renal r/t dehydration. Advised patient can follow up with Dr. Lucero at [facility] upon discharge for staging and treatment planning. Yenni Geiger, ADMINISTRATOR [employer], AOCNP Medications: Prescriptions This Visit Medication Instructions Recorded Lisinopril [Zestril] 2.5 mg PO DAILY 09/11/18 Ondansetron [Ondansetron Odt] 4 mg PO Q6H PRN PRN 09/11/18 Oxycodone HCl/Acetaminophen 1 each PO Q4H PRN PRN 09/11/18 [Endocet 5-325 Tablet] Medications Added to Medication List This Visit Category Date Time Status 0.45% Normal Saline 1,000 ml Med 09/14/18 11:29 Active IV 75 mls/hr Ensure Enlive Med 09/14/18 10:00 Active 120 ml PO 4X/DAY Piperacil/Tazobactam [Zosyn] 3.375 gm Med 09/14/18 22:00 Active 0.9% Normal Saline 50 ml IV Q12 Primary Care Provider: Jose Nugent Referring Provider:
--- NOTE | 2018-09-14 16:34 | PN_ITS ---
- Problem List (1) Cholangiocarcinoma Status: Acute Subjective Date of Service:: 09/14/18 Cholangiocarcinoma Ms. Haritha Thomas is a pleasant 77 year old woman with a PMH significant for hypertension and glaucoma who was in her usual state of health until mid July 2018. Experienced generalized pruritus accompanied by jaundice, 30 lb weight loss and presented to [facility] emergency department 08/27/2018. CT scan of the abdomen demonstrated a poorly defined mass in the hilum of the liver and abnormal enhancement of the wall of the common hepatic duct and proximal common bile duct highly suspicious for cholangiocarcinoma with resulting obstruction of the intrahepatic biliary ducts. Subsequently patient was transferred to [facility] for management. CT scan of the chest obtained 08/29/2018 reviewed, revealed solid and cavitary pulmonary nodules scattered bilaterally, 1 cm and subcentimeter although no hilar or mediastinal adenopathy. Infectious workup of pulmonary nodules inclusive of Fungitell assay, QuantiFERON, Histoplasma antibodies, Cryptococcal and Blastomyces were negative. Procalcitonin was negative as well. Underwent ERCP with biliary stents 08/30/2018 and cytology from brushings of common bile duct proved positive for adenocarcinoma. 09/01/2018 MRI of the liver showed no focal liver lesions but diffusely dilated ductal structures, sclerotic lesion on T2 and mixed osteolytic and osteosclerotic lesions involving T3 and T4 vertebrae. CT-guided percutaneous right lung biopsy was performed on 09/07/2018 (pathology of which is not available in the record for review-but has been requested). CA-[id number] was [id number]. Discharged home on 09/08/2018 with biliary drains with intent to oncology care in [place], closer to home. Patient experienced worsening generalized fatigue and as a result presented to [facility] ED again on 09/11/2018. She was admitted for acute renal failure likely due to dehydration. Smoked 3/4 ppd x 40 years, quit in 1999. Patient states today she is able to take sips of PO fluids and is happy to have advanced her diet to include soup. Denies any outstanding complaints since our interview yesterday. Specifically denies pruritus, swelling/pain of her extremities, abd pain or otherwise. 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 Mitral valve prolapse (Chronic) Constipation (Chronic) Past Medical History - Most Recent Inpatient Visit Past Medical History Start: 09/11/18 10:29 Text: Status: Complete Freq: ONCE Protocol: Document 09/11/18 10:46 [facility] (Rec: 09/11/18 10:49 [facility] [id number]) BMI Required to complete PMH What is Patient's BMI 21.2 Past Medical History Unable History Recalled Yes Query Text:Pt Unable/Family Not Present Neurologic Medical History Hx Stroke/TIA No Hx Dementia/Alzheimer's No Hx Parkinson's Disease No Hx Seizures No Hx Multiple Sclerosis No Hx Migraines No Cardiac Medical History VTE Present on Admission No Hx of Deep Vein Thrombosis/VTE/PE Yes Hx Hypertension Yes Hx Chest Pain/Angina No Hx Heart Attack No Hx Cardiac Surgery/Stents/Etc. No Hx Heart Failure No Hx Pacemaker/AICD No Hx Irregular Heartbeat and/or Afib No Hx Anticoagulant Therapy No Query Text:(Coumadin, Aspirin, Plavix, Xarelto, etc.) Hx Pain in Legs when Walking/Leg Cramps No Respiratory Medical History Hx COPD No Hx Emphysema No Smoking Status Former smoker Hx Smoking Cessation Counseling No Hx Smoking Exposure No Hx Tobacco Use in last 12 months No Hx Sleep Apnea No CPAP No BIPAP No Do you snore loudly (louder than talking No or can be heard through closed doors)? Do you often feel tired/ fatigued/ No sleepy during daytime? Has anyone observed you stop breathing No during sleep? STOP Results Negative GI Medical History Hx Ulcer No Hx Hepatitis No Hx Cirrhosis No Hx GI Bleed No Hx Unplanned Weight Loss No Genitourinary Medical History Indwelling Catheter in Place on Arrival/ No Admission Hx Renal Disease No Hx Dialysis No Musculoskeletal History Hx Arthritis Yes Hx Rheumatoid Arthritis No Endocrine Medical History Hx Diabetes No Hx Thyroid Disease No Hematologic Medical History Hx of Blood Transfusion No Hx of Transfusion in last 3 Months No Ever experience any problems with No transfusion(s)? Hx of Preganancy in last 3 Months No Nurse Filling Out Transfusion & BMCFARLAN Questions: Date: 09/11/18 Time: 10:48 Psycho/Social Medical History Hx Depression No Hx Anxiety No Hx Alcohol Use No Hx Substance Use No Other Medical History Hx Blood Disorders No Hx Anemia No Hx Cancer No Hx Drug Resistant Organism No Wound/Pressure Injury Present on Arrival No /Admission Query Text:If yes, chart assessment in Shift/Clinical Findings Central Line/PICC/VAD Present on Arrival No /Admission Antibiotics within last 7 days? Yes Methicillin Resistant Staphylococcus aureus Screening Active MRSA No Risk for Readmission Number of Risk Factors 1 At Risk for Readmission Patient is Not at Risk Patient is eligible for Call Back N Maternal Family History: No pertinent history - Social History Lives: With Family Smoking Status: Former smoker Tobacco Use: Non-smoker Alcohol: None Drugs: None Review of Systems Constitutional:: Reports: Weakness, Fatigue, Weight loss, Appetite change. Denies: Fever, Sweats, Chills Cardiovascular:: Denies: Chest pain, Palpitations, Dyspnea on exertion, Orthopnea, PND, Shortness of breath Respiratory: Reports: Cough - occasional. Denies: Hemoptysis, Shortness of Breath, Wheezing Gastrointestinal:: Reports: Nausea. Denies: Abdominal pain, Vomiting, Diarrhea, Constipation, Melena, Hematochezia Genitourinary: Denies: Dysuria, Hematuria, 15, Flank pain Musculoskeletal:: Denies: Back pain, Myalgia, Arthralgia Skin: Denies: Rash, Skin Changes, Wounds Neurological:: Reports: Muscle weakness. Denies: Headache, Dizziness, Numbness, Tingling, Visual changes, Tinnitus, Hearing loss Psychiatric: Denies: Anxiety, Depression, Homicidal Ideations, Suicidal Ideations Vital Signs Height 5 ft Weight: 119 lb 0.794 oz Weight in Pounds 119.0 lbs Pulse Ox 95 Temperature 98.5 F Pulse Rate 91 Respiratory Rate 14 Blood Pressure 123/70 Blood Pressure Position Semi-Fowlers - Physical Exam General: Alert, Oriented x3, No apparent distress HEENT: Atraumatic, Normocephalic, - - Sclera icteric Oropharynx:: Dry mucosa. Negative for: Ulcerated lesions Neck:: Supple, Trachea midline. Negative for: JVD, bilateral Cardiac:: Regular rate, Regular rhythm, Normal S1, Normal S2. Negative for: Murmur Lungs: Clear to auscultation, Excusion symmetrical. Negative for: Rhonchi, Wheezes Abdomen:: Bowel sounds x 4, Soft, Non-tender, Non-distended, Hepatosplenomegaly, - - Biliary drain in place Extremities:: Negative for: Cyanosis, Edema Neurological: Neuro grossly intact Skin:: - - Jaundiced. Negative for: Lesions, Rash, Petechiae, Ecchymosis Psychiatric:: Appropriate affect, Euthymic Lymphatics:: Negative for: Cervical lymphadenopathy, Supraclavicular lymphadenopathy, Axillary lymphadenopathy Laboratory Data: Microbiology 09/11/18 14:50 Gram Stain - Final Fluid - Bile Body Fluid Culture - Final Yersinia intermedia Enterococcus faecium Staphylococcus epidermidis Anaerobic Culture - Preliminary Checking for anaerobes, further studies to follow. 09/11/18 14:50 Gram Stain - Final Fluid - Other Body Fluid Culture - Final Presumptive C albicans Coag Negative Staph Anaerobic Culture - Preliminary Checking for anaerobes, further studies to follow. 09/11/18 20:29 Urine Culture - Final Urine Catheter - Gage Presumptive E. coli 09/11/18 08:18 Blood Culture - Preliminary Blood Culture (Wb) - Left Wrist No growth in 48 hours. 09/11/18 07:06 Blood Culture - Preliminary Blood Culture (Wb) - Right Hand No growth in 48 hours. Laboratory Tests 09/14/18 09/14/18 09/14/18 Range/Units 11:23 06:42 05:05 WBC (4.4-11.0) K/mm3 RBC (4.2-5.4) M/mm3 Hgb (12.0-15.0) g/dl Hct (37-47) % MCV (81-99) fL MCH (27.0-32.0) pg MCHC (32-36) g/gl RDW (11.6-14.6) % RDW Differential (35.1-43.9) fl Plt Count (150-450) K/mm3 MPV (6.2-12.0) fl Immature Gran % (Auto) (0.0-0.9) % Neut % (Auto) (47-70) % Lymph % (Auto) (19-41) % J[place] % (Auto) (0-10) % Eos % (Auto) (0-5) % Baso % (Auto) (0-1) % Absolute Neuts (auto) (2.0-7.7) X10^3/uL Absolute Lymphs (auto) (0.83-4.51) X10^3/ul Total Counted Sodium 144 (136-145) mmol/L Potassium 3.4 L (3.5-5.1) mmol/L Chloride 104 (98-107) mmol/L Carbon Dioxide 30.0 (21.0-32.0) mmol/L Anion Gap 10 (5-15) BUN 45 H (7-18) mg/dL Creatinine 1.47 H (0.55-1.02) mg/dL Estim Creat Clear Calc 22.66 ml/min Est GFR (MDRD) Af Amer 44 L (>60) mL/min Est GFR (MDRD) Non-Af 37 L (>60) mL/min BUN/Creatinine Ratio 30.6 H (10-20) RATIO Glucose 96 (74-106) mg/dL Calcium 6.9 L (8.5-10.1) mg/dL Magnesium 2.3 (1.6-2.6) mg/dL Total Bilirubin 4.70 H (0.20-1.00) mg/dL AST 87 H (15-37) U/L ALT 110 H (13-56) U/L Alkaline Phosphatase 240 H (45-117) U/L Total Protein 5.6 L (6.4-8.2) g/dL Albumin 2.0 L (3.2-5.0) g/dL Globulin 3.6 (2.2-4.2) g/dL Albumin/Globulin Ratio 0.6 L (0.9-2.4) RATIO POC Glucose 107 99 (70-110) mg/dL 09/14/18 09/13/18 09/13/18 Range/Units 05:05 21:48 16:25 WBC 6.6 (4.4-11.0) K/mm3 RBC 3.43 L (4.2-5.4) M/mm3 Hgb 10.9 L (12.0-15.0) g/dl Hct 33.4 L (37-47) % MCV 97.4 (81-99) fL MCH 31.8 (27.0-32.0) pg MCHC 32.6 (32-36) g/gl RDW 15.7 H (11.6-14.6) % RDW Differential 53.8 H (35.1-43.9) fl Plt Count 308 (150-450) K/mm3 MPV 9.7 (6.2-12.0) fl Immature Gran % (Auto) 0.300 (0.0-0.9) % Neut % (Auto) 76.6 H (47-70) % Lymph % (Auto) 10.8 L (19-41) % Jerauld % (Auto) 10.9 H (0-10) % Eos % (Auto) 0.8 (0-5) % Baso % (Auto) 0.6 (0-1) % Absolute Neuts (auto) 5.1 (2.0-7.7) X10^3/uL Absolute Lymphs (auto) 0.71 L (0.83-4.51) X10^3/ul Total Counted Not Reportable Sodium (136-145) mmol/L Potassium (3.5-5.1) mmol/L Chloride (98-107) mmol/L Carbon Dioxide (21.0-32.0) mmol/L Anion Gap (5-15) BUN (7-18) mg/dL Creatinine (0.55-1.02) mg/dL Estim Creat Clear Calc ml/min Est GFR (MDRD) Af Amer (>60) mL/min Est GFR (MDRD) Non-Af (>60) mL/min BUN/Creatinine Ratio (10-20) RATIO Glucose (74-106) mg/dL Calcium (8.5-10.1) mg/dL Magnesium (1.6-2.6) mg/dL Total Bilirubin (0.20-1.00) mg/dL AST (15-37) U/L ALT (13-56) U/L Alkaline Phosphatase (45-117) U/L Total Protein (6.4-8.2) g/dL Albumin (3.2-5.0) g/dL Globulin (2.2-4.2) g/dL Albumin/Globulin Ratio (0.9-2.4) RATIO POC Glucose 104 109 (70-110) mg/dL Diagnostic Data: Diagnostic Data Chest X-Ray 09/11/18 07:22 IMPRESSION: 1. Multiple new noncalcified pulmonary nodules worrisome for metastasis. Infectious etiologies are considered less likely. Chest CT recommended. Electronically Signed: Silver Becerra MD at 7:49 EST , Service support , Pathology Data: 09/09/18 Lung, right biopsy- benign lung parenchyma with no significant histopathologic change- Pathology report obtained from [facility]. Assessment and Plan 1. Cholangiocarcinoma-records from [facility] reflect that patient underwent a CT-guided percutaneous right lung biopsy on 09/07/18 which was negative for malignancy. Questionable skeletal involvement at T2, T3 and T4. Patient requires PET/CT for characterization of thoracic spine lesions and other lung nodules, staging and subsequent treatment planning. Staging can be done in the ambulatory setting. 2. Pulmonary nodules-evident on CT chest obtained 08/29/2018 which revealed multiple solid and cavitary scattered nodules bilaterally, some 1 cm and some subcentimeter. Pathology report from CT guided percutaneous biopsy of right lung revealed benign lung parenchyma with no significant histopathologic change. No evidence on this report to conclude metastatic disease in the lung is present. 3. Bone lesions?sclerotic lesions on T2 and mixed osteolytic and osteosclerotic lesions involving T3 and T4 vertebrae were evident on MRI 09/01/2018. Patient is not endorsing any pain, saddle anesthesia, incontinence or neuropathy involving lower extremities. 4. Anemia?as evidenced by hemoglobin 10.9, normocytic. Likely multifactorial. Continue to monitor. 5. Acute renal failure-creatinine on admission above 5 now 1.4 with implementation of hydration. Nephrology consulted, suspect pre renal r/t dehydration. Advised patient can follow up with Dr. Lucero at [facility] upon discharge for staging and treatment planning. Yenni Geiger, DIRECTOR OF COMMUNITY SERVICES-C, AOCNP Medications: Prescriptions This Visit Medication Instructions Recorded Lisinopril [Zestril] 2.5 mg PO DAILY 09/11/18 Ondansetron [Ondansetron Odt] 4 mg PO Q6H PRN PRN 09/11/18 Oxycodone HCl/Acetaminophen 1 each PO Q4H PRN PRN 09/11/18 [Endocet 5-325 Tablet] Medications Added to Medication List This Visit Category Date Time Status 0.45% Normal Saline 1,000 ml Med 09/14/18 11:29 Active IV 75 mls/hr Ensure Enlive Med 09/14/18 10:00 Active 120 ml PO 4X/DAY Piperacil/Tazobactam [Zosyn] 3.375 gm Med 09/14/18 22:00 Active 0.9% Normal Saline 50 ml IV Q12 Primary Care Provider: Jose Nugent Referring Provider:
[2018-09-14] MEDS: Latanoprost 0.005% 1 Bottle 1 DRP EACH EYE (21:09)
[2018-09-14] MEDS: Mirtazapine 15 MG Tablet PO (21:09)
[2018-09-15] VITALS (13 sets, daily range): BP systolic 127–146; BP diastolic 81–89; PULSE 72–122; RESP 16–22; TEMP 36.3–37.1; O2SAT 92–97
[2018-09-15] MEDS: 0.45% Normal Saline 1,000 ML 75 ML IV ×2 (02:14→16:38)
[2018-09-15] MEDS: Ondansetron 4 MG/2 ML Vial IV (06:12)
[2018-09-15] MEDS: 0.9% NaCl Peripheral Flush Adult/Peds IV (06:12)
[2018-09-15 06:21] LABS: Absolute Lymphocyte Count 0.86 X10^3/ul (0.83-4.51); Absolute Neutrophil Count 4.3 X10^3/uL (2.0-7.7); Basophil# 0.05 X10^3/uL; Basophil% 0.8 % (0-1); Eosinophil# 0.07 X10^3/uL; Eosinophils% 1.2 % (0-5); Hematocrit 37.5 % (37-47); Hemoglobin 11.8 g/dl (12.0-15.0); Lymphocyte # 0.86 X10^3/ul (4.0); Lymphocyte % 14.6 % (19-41); Mean Corp Hgb Conc 31.5 g/gl (32-36); Mean Corpuscular Hgb 31.5 pg (27.0-32.0); Monocyte# 0.61 X10^3/uL; Monocyte% 10.3 % (0-10); Neutrophil # 4.29 X10^3/uL (2.7-7.7); Neutrophil % 72.6 % (47-70); Platelet Count 317 K/mm3 (150-450); RBC Distribution Width CV 15.8 % (11.6-14.6); RBC Distribution Width SD 55.6 fl (35.1-43.9); Red Blood Count 3.75 M/mm3 (4.2-5.4); White Blood Count 5.9 K/mm3 (4.4-11.0)
[2018-09-15 06:22] LABS: POSITIVE COUNT NO; POSITIVE DIFFERENTIAL NO; POSITIVE MORPHOLOGY NO
[2018-09-15 06:44] LABS: Anion Gap 8 (5-15); BUN 23 mg/dL (7-18); BUN/Creat Ratio 26.6 RATIO (10-20); Calcium,Total 7.5 mg/dL (8.5-10.1); Chloride 111 mmol/L (98-107); Creatinine, Serum 0.86 mg/dL (0.55-1.02); EST Glomerular Filtration Rate 67 mL/min (>60); Est Glom Filt Rate - Afr Amer 82 mL/min (>60); Estimated Creatinine Clearance 38.72 ml/min; Glucose 85 mg/dL (74-106); Potassium 3.9 mmol/L (3.5-5.1); Sodium Level 145 mmol/L (136-145)
[2018-09-15] MEDS: Calcium Carbonate 500 MG Tablet PO ×2 (08:01→16:38)
[2018-09-15] MEDS: Famotidine 20 MG Tablet PO (09:03)
[2018-09-15] MEDS: Docusate Sodium 100 MG Capsule PO ×2 (09:03→21:10)
[2018-09-15] MEDS: Heparin Injection (Vial) 5,000 UNIT/ML VIAL 5000 UNIT SC ×2 (09:03→21:10)
--- NOTE | 2018-09-15 10:52 | PCM.PROGNOTE ---
Patient Problems: Active and Suspected Problems Acute renal failure (Acute) Metabolic acidosis (Acute) Dehydration (Acute) Cholangiocarcinoma (Acute) Subjective: Chief complaint: Follow-up after admission for acute kidney injury, acute cystitis, possible biliary tract infection as well as recent diagnosis of metastatic lung carcinoma with metastases to the lung and bone. Patient seen and examined. No acute events overnight. This morning, she complained of nausea, she has no more pain at the biliary drain site. Denied abdominal pain. Denies fever chills. She still having poor appetite. No chest pain or shortness of breath. Her vital signs has been stable. - Physical Exam General: Alert, Oriented x3, Cooperative, No apparent distress, - - Jaundice. HEENT: Atraumatic, PERRLA, EOMI, Normocephalic Oral: Moist Mucosa, No Gingival or Mucosal Lesions/ Ulcerations Neck: Supple, No JVD, Negative Carotid Bruits, Trachea Midline, Thyroid Normal Size and Texture Lungs: Clear to auscultation, No rhonchi, No wheeze, No rales, Diminished Cardiovascular: Regular rate, Regular Rhythm, Normal S1, Normal S2, PMI Normal Abdomen: Bowel Sounds Present, Soft, Non Tender, Non-Distended, No Hepato-splenomegaly, - - Biliary drain in place. Extremities: No clubbing, No cyanosis, No edema Skin: No rashes, No breakdown Lymphatic: No Cervical, Supraclavicular, or Inguinal Adenopathy Neurological: Cranial nerves II-XII grossly intact, Neuro grossly intact Psych/Mental Status: Normal Affect, Appropriate, Alert and oriented to time, place, person, mood and affect Vital Signs Temp Pulse Resp BP Pulse Ox 98.8 F 79 16 127/89 H 95 09/15/18 08:12 09/15/18 08:12 09/15/18 08:12 09/15/18 08:12 09/15/18 10:00 Oxygen Delivery Method Room Air Weight: 116 lb 6.465 oz Body Mass Index (BMI) 21.2 Intake and Output for Last 24 Hours 09/13/18 09/14/18 09/15/18 23:59 23:59 23:59 Intake Total 4647.0 / 4647.0 1637.8 / 1637.8 1471 / 1471 Output Total 3345 / 3345 3035 / 3035 1100 / 1100 Balance 1302.0 / 1302.0 -1397.2 / -1397.2 371 / 371 Microbiology Past 72 Hours 09/11/18 14:50 Gram Stain - Final Fluid - Bile Body Fluid Culture - Final Yersinia intermedia Enterococcus faecium Staphylococcus epidermidis Anaerobic Culture - Final No anaerobic bacteria isolated. 09/11/18 14:50 Gram Stain - Final Fluid - Other Body Fluid Culture - Final Presumptive C albicans Coag Negative Staph Anaerobic Culture - Final No anaerobic bacteria isolated. 09/11/18 20:29 Urine Culture - Final Urine Catheter - Gage Presumptive E. coli 09/11/18 08:18 Blood Culture - Preliminary Blood Culture (Wb) - Left Wrist No growth in 48 hours. 09/11/18 07:06 Blood Culture - Preliminary Blood Culture (Wb) - Right Hand No growth in 48 hours. Laboratory Tests Past 24 Hrs 09/15/18 09/15/18 05:30 05:30 WBC 5.9 RBC 3.75 L Hgb 11.8 L Hct 37.5 MCV 100.0 H MCH 31.5 MCHC 31.5 L RDW 15.8 H RDW Differential 55.6 H Plt Count 317 MPV 10.0 Immature Gran % (Auto) 0.500 Neut % (Auto) 72.6 H Lymph % (Auto) 14.6 L [place] % (Auto) 10.3 H Eos % (Auto) 1.2 Baso % (Auto) 0.8 Absolute Neuts (auto) 4.3 Absolute Lymphs (auto) 0.86 Total Counted Not Reportable Sodium 145 Potassium 3.9 Chloride 111 H Carbon Dioxide 26.0 Anion Gap 8 BUN 23 H Creatinine 0.86 Estim Creat Clear Calc 38.72 Est GFR (MDRD) Af Amer 82 Est GFR (MDRD) Non-Af 67 BUN/Creatinine Ratio 26.6 H Glucose 85 Calcium 7.5 L POC Glucose 09/14/18 11:23 POC Glucose 107 Medical Necessity - Tobacco Use Smoking Status: Former smoker Tobacco Use: Non-smoker Assessment/Plan All Active Problems Acute renal failure (Acute) Metabolic acidosis (Acute) Dehydration (Acute) Cholangiocarcinoma (Acute) This is a 77 years old female patient presented to the ED because of weakness, found to have acute kidney injury, acute cystitis and probable biliary tract infection in context of recent diagnosis of metastatic lung carcinoma with metastases to the lung and possible metastases to the thoracic vertebrae. #1 acute kidney injury: Attributed to prerenal and dehydration. Remained on IV fluids, creatinine came down to 0.86 today, resolved. Her vital signs are stable. Nephrology on the case. Potassium replaced and corrected. Plan: Encourage oral intake, DC IV fluids, [facility] to jail facility, pending insurance approval. #2 E. coli acute cystitis: She is on IV Zosyn. Urine culture revealed presumptive E. coli which was sensitive to Zosyn. She is afebrile, white blood cell count is normal. 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 She is on Zosyn, has been afebrile, leukocytosis resolved. Cultures of the biliary fluid is positive for staph epidermidis, enterococcus faecium and yersinia. Plan to continue IV Zosyn for now, plan to switch to oral Augmentin and Levaquin upon discharge. 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 Plan for staging and treatment plan as outpatient, follow-up with oncology after discharge. #5 hypokalemia/hypocalcemia: On replacement. Today's potassium is 3.9, calcium 7.9, corrected calcium is normal. #6 hypertension: Blood pressure stable. She has been off lisinopril because of acute kidney injury. #7 DVT prophylaxis: Subcu heparin. This note was generated with ComEdation software. It may contain incorrect words, spelling, and punctuation that were not noted in checking the note before signing. Code Visit Inpatient E&M: 38618 Subs Hosp L2
--- NOTE | 2018-09-15 10:57 | PN_ITS ---
Patient Problems: Active and Suspected Problems Acute renal failure (Acute) Metabolic acidosis (Acute) Dehydration (Acute) Cholangiocarcinoma (Acute) Subjective: Chief complaint: Follow-up after admission for acute kidney injury, acute cystitis, possible biliary tract infection as well as recent diagnosis of metastatic lung carcinoma with metastases to the lung and bone. Patient seen and examined. No acute events overnight. This morning, she complained of nausea, she has no more pain at the biliary drain site. Denied abdominal pain. Denies fever chills. She still having poor appetite. No chest pain or shortness of breath. Her vital signs has been stable. - Physical Exam General: Alert, Oriented x3, Cooperative, No apparent distress, - - Jaundice. HEENT: Atraumatic, PERRLA, EOMI, Normocephalic Oral: Moist Mucosa, No Gingival or Mucosal Lesions/ Ulcerations Neck: Supple, No JVD, Negative Carotid Bruits, Trachea Midline, Thyroid Normal Size and Texture Lungs: Clear to auscultation, No rhonchi, No wheeze, No rales, Diminished Cardiovascular: Regular rate, Regular Rhythm, Normal S1, Normal S2, PMI Normal Abdomen: Bowel Sounds Present, Soft, Non Tender, Non-Distended, No Hepato- splenomegaly, - - Biliary drain in place. Extremities: No clubbing, No cyanosis, No edema Skin: No rashes, No breakdown Lymphatic: No Cervical, Supraclavicular, or Inguinal Adenopathy Neurological: Cranial nerves II-XII grossly intact, Neuro grossly intact Psych/Mental Status: Normal Affect, Appropriate, Alert and oriented to time, place, person, mood and affect Vital Signs Temp Pulse Resp BP Pulse Ox 98.8 F 79 16 127/89 H 95 09/15/18 08:12 09/15/18 08:12 09/15/18 08:12 09/15/18 08:12 09/15/18 10:00 Oxygen Delivery Method Room Air Weight: 116 lb 6.465 oz Body Mass Index (BMI) 21.2 Intake and Output for Last 24 Hours 09/13/18 09/14/18 09/15/18 23:59 23:59 23:59 Intake Total 4647.0 / 4647.0 1637.8 / 1637.8 1471 / 1471 Output Total 3345 / 3345 3035 / 3035 1100 / 1100 Balance 1302.0 / 1302.0 -1397.2 / -1397.2 371 / 371 Microbiology Past 72 Hours 09/11/18 14:50 Gram Stain - Final Fluid - Bile Body Fluid Culture - Final Yersinia intermedia Enterococcus faecium Staphylococcus epidermidis Anaerobic Culture - Final No anaerobic bacteria isolated. 09/11/18 14:50 Gram Stain - Final Fluid - Other Body Fluid Culture - Final Presumptive C albicans Coag Negative Staph Anaerobic Culture - Final No anaerobic bacteria isolated. 09/11/18 20:29 Urine Culture - Final Urine Catheter - Gage Presumptive E. coli 09/11/18 08:18 Blood Culture - Preliminary Blood Culture (Wb) - Left Wrist No growth in 48 hours. 09/11/18 07:06 Blood Culture - Preliminary Blood Culture (Wb) - Right Hand No growth in 48 hours. Laboratory Tests Past 24 Hrs 09/15/18 09/15/18 05:30 05:30 WBC 5.9 RBC 3.75 L Hgb 11.8 L Hct 37.5 MCV 100.0 H MCH 31.5 MCHC 31.5 L RDW 15.8 H RDW Differential 55.6 H Plt Count 317 MPV 10.0 Immature Gran % (Auto) 0.500 Neut % (Auto) 72.6 H Lymph % (Auto) 14.6 L Gentry % (Auto) 10.3 H Eos % (Auto) 1.2 Baso % (Auto) 0.8 Absolute Neuts (auto) 4.3 Absolute Lymphs (auto) 0.86 Total Counted Not Reportable Sodium 145 Potassium 3.9 Chloride 111 H Carbon Dioxide 26.0 Anion Gap 8 BUN 23 H Creatinine 0.86 Estim Creat Clear Calc 38.72 Est GFR (MDRD) Af Amer 82 Est GFR (MDRD) Non-Af 67 BUN/Creatinine Ratio 26.6 H Glucose 85 Calcium 7.5 L POC Glucose 09/14/18 11:23 POC Glucose 107 Medical Necessity - Tobacco Use Smoking Status: Former smoker Tobacco Use: Non-smoker Assessment/Plan All Active Problems Acute renal failure (Acute) Metabolic acidosis (Acute) Dehydration (Acute) Cholangiocarcinoma (Acute) This is a 77 years old female patient presented to the ED because of weakness, found to have acute kidney injury, acute cystitis and probable biliary tract infection in context of recent diagnosis of metastatic lung carcinoma with metastases to the lung and possible metastases to the thoracic vertebrae. #1 acute kidney injury: Attributed to prerenal and dehydration. Remained on IV fluids, creatinine came down to 0.86 today, resolved. Her vital signs are stable. Nephrology on the case. Potassium replaced and corrected. Plan: Encourage oral intake, DC IV fluids, placement to [facility] facility, pending insurance approval. #2 E. coli acute cystitis: She is on IV Zosyn. Urine culture revealed presumptive E. coli which was sensitive to Zosyn. She is afebrile, white blood cell count is normal. #3 probable biliary tree infection/cholangitis: Patient had recent biliary drain for the chronic carcinoma at [facility]. She is on Zosyn, has been afebrile, leukocytosis resolved. Cultures of the biliary fluid is positive for staph epidermidis, enterococcus faecium and yersinia. Plan to continue IV Zosyn for now, plan to switch to oral Augmentin and Levaquin upon discharge. 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 Plan for staging and treatment plan as outpatient, follow-up with oncology after discharge. #5 hypokalemia/hypocalcemia: On replacement. Today's potassium is 3.9, calcium 7.9, corrected calcium is normal. #6 hypertension: Blood pressure stable. She has been off lisinopril because of acute kidney injury. #7 DVT prophylaxis: Subcu heparin. This note was generated with [employer] software. It may contain incorrect words, spelling, and punctuation that were not noted in checking the note before signing. Code Visit Inpatient E&M: 99625 Subs Hosp L2
--- NOTE | 2018-09-15 11:42 | PCM.PN.REN ---
Patient Problems: Active and Suspected Problems Acute renal failure (Acute) Metabolic acidosis (Acute) Dehydration (Acute) Cholangiocarcinoma (Acute) Subjective: no new events - Physical Exam General: Alert, Oriented x3, Cooperative HEENT: Atraumatic, PERRLA, EOMI, Normocephalic Neck: Supple, No JVD, Negative Carotid Bruits Lungs: Clear to auscultation, Normal air movement Cardiovascular: Regular rate, No murmurs Abdomen: Bowel Sounds Present, Soft, Non Tender Extremities: No edema, Capillary Refill Less than 3 Seconds Skin: No rashes, No breakdown Musculoskeletal: No Tenderness to Palpation of Joints or Extremities Neurological: Cranial nerves II-XII grossly intact Psych/Mental Status: Normal Affect, Appropriate Vital Signs Temp Pulse Resp BP Pulse Ox 98.8 F 79 16 127/89 H 95 09/15/18 08:12 09/15/18 08:12 09/15/18 08:12 09/15/18 08:12 09/15/18 10:00 Oxygen Delivery Method Room Air Weight: 52.8 kg Body Mass Index (BMI) 21.2 Intake and Output for Last 24 Hours 09/13/18 09/14/18 09/15/18 23:59 23:59 23:59 Intake Total 4647.0 / 4647.0 1637.8 / 1637.8 1471 / 1471 Output Total 3345 / 3345 3035 / 3035 1100 / 1100 Balance 1302.0 / 1302.0 -1397.2 / -1397.2 371 / 371 Microbiology Past 72 Hours 09/11/18 14:50 Gram Stain - Final Fluid - Bile Body Fluid Culture - Final Yersinia intermedia Enterococcus faecium Staphylococcus epidermidis Anaerobic Culture - Final No anaerobic bacteria isolated. 09/11/18 14:50 Gram Stain - Final Fluid - Other Body Fluid Culture - Final Presumptive C albicans Coag Negative Staph Anaerobic Culture - Final No anaerobic bacteria isolated. 09/11/18 20:29 Urine Culture - Final Urine Catheter - Cao Presumptive E. coli 09/11/18 08:18 Blood Culture - Preliminary Blood Culture (Wb) - Left Wrist No growth in 48 hours. 09/11/18 07:06 Blood Culture - Preliminary Blood Culture (Wb) - Right Hand No growth in 48 hours. Laboratory Tests Past 24 Hrs 09/15/18 09/15/18 05:30 05:30 WBC 5.9 RBC 3.75 L Hgb 11.8 L Hct 37.5 MCV 100.0 H MCH 31.5 MCHC 31.5 L RDW 15.8 H RDW Differential 55.6 H Plt Count 317 MPV 10.0 Immature Gran % (Auto) 0.500 Neut % (Auto) 72.6 H Lymph % (Auto) 14.6 L Teller % (Auto) 10.3 H Eos % (Auto) 1.2 Baso % (Auto) 0.8 Absolute Neuts (auto) 4.3 Absolute Lymphs (auto) 0.86 Total Counted Not Reportable Sodium 145 Potassium 3.9 Chloride 111 H Carbon Dioxide 26.0 Anion Gap 8 BUN 23 H Creatinine 0.86 Estim Creat Clear Calc 38.72 Est GFR (MDRD) Af Amer 82 Est GFR (MDRD) Non-Af 67 BUN/Creatinine Ratio 26.6 H Glucose 85 Calcium 7.5 L Medical Necessity - Tobacco Use Smoking Status: Former smoker Tobacco Use: Non-smoker Assessment/Plan All Active Problems Acute renal failure (Acute) Metabolic acidosis (Acute) Dehydration (Acute) Cholangiocarcinoma (Acute) Acute renal failure. baseline creatinine as of last month was normal. Clinically she looked markedly dry. recent CT abdomen does not show hydronephrosis. she has cao in. unlikely obstructive. EMILIANA is likely related to volume depletion. Cr better. ok to dc fluids today. Acidosis. mostly non gap. likely from biliary drain. better Hypokalemia. better will sign off
[2018-09-15] MEDS: proMETHazine 25 MG/ML Syringe 6.25 MG IV (11:58)
[2018-09-15] MEDS: Mirtazapine 15 MG Tablet PO (21:10)
[2018-09-15] MEDS: Latanoprost 0.005% 1 Bottle 1 DRP EACH EYE (21:10)
[2018-09-16] VITALS (13 sets, daily range): BP systolic 118–157; BP diastolic 84–97; PULSE 72–98; RESP 16–21; TEMP 36.6–36.9; O2SAT 96–97
[2018-09-16] MEDS: proMETHazine 25 MG/ML Syringe 6.25 MG IV ×4 (02:49→20:08)
[2018-09-16] MEDS: 0.9% NaCl Peripheral Flush Adult/Peds IV ×5 (02:49→20:08)
--- NOTE | 2018-09-16 07:45 | NURSING ---
Around 2100 on 09/15/18, both biliary drains flushed with 10 mL NS each. Around 0500 on 09/16/18, mid abdominal drain flushed with 10 mL NS d/t decreased output.
[2018-09-16] MEDS: Calcium Carbonate 500 MG Tablet PO (08:07)
[2018-09-16] MEDS: Docusate Sodium 100 MG Capsule PO ×2 (10:10→20:26)
[2018-09-16] MEDS: Heparin Injection (Vial) 5,000 UNIT/ML VIAL 5000 UNIT SC ×2 (10:10→20:25)
[2018-09-16] MEDS: Famotidine 20 MG Tablet PO (10:11)
--- NOTE | 2018-09-16 10:42 | PCM.TXEXTCAR ---
- Diet 09/14/18 12:34 Diet: Regular Diet Is pt able to select menu?: Yes - Routine Orders/Code Status Code Status: DNRCC-A - Suggestions for Active Care Change Position every (hours): 3 Hours to sit in a chair: 2 Times a day to sit in chair: 3 - Therapies Weight Bearing: Weight bearing as tolerated Physical Therapy: Eval and Treat Occupational Therapy: Eval and Treat - Allergies/Procedures Done in Hospital Allergies/Adverse Reactions: Allergies No Known Allergies Allergy (Verified 09/11/18 07:08) - Type of Care/Length of Stay Estimated LOS: Convalescent Care Less Than 30 days Type of Care Needed: Skilled Rehab Potential: Fair Prognosis: Fair - Additional Orders/Day of Discharge H&P will serve as current which was dated: 09/11/18 Day of Discharge: 09/16/18 - Dietary and Speech Recommendations Dietitian Recommendations/Changes: Continue full liquids & advance to regular/no added salt diet as able to tolerate. - Follow Up Care Primary Care Physician: Jose Nugent DO [Primary Care Provider] - Please follow up with your Primary Care Physician in: 1 WEEK. Please Follow Up With: Sabino Lucero MD When: 1 WEEK.
--- NOTE | 2018-09-16 14:57 | PCM.PROGNOTE ---
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 Patient seen and examined today. No acute events overnight. She still complaining of intermittent nausea, no abdominal pain. She denied any other significant complaints except weakness. Her vital signs are stable. - Physical Exam General: Alert, Oriented x3, Cooperative, No apparent distress HEENT: Atraumatic, PERRLA, EOMI, Normocephalic Oral: Moist Mucosa, No Gingival or Mucosal Lesions/ Ulcerations Neck: Supple, No JVD, Negative Carotid Bruits, Trachea Midline, Thyroid Normal Size and Texture Lungs: Clear to auscultation, No rhonchi, No wheeze, No rales, Diminished Cardiovascular: Regular rate, Regular Rhythm, Normal S1, Normal S2, PMI Normal Abdomen: Bowel Sounds Present, Soft, Non Tender, Non-Distended, No Hepato-splenomegaly, - - Biliary drain in place. Extremities: No clubbing, No cyanosis, No edema Skin: No rashes, No breakdown Lymphatic: No Cervical, Supraclavicular, or Inguinal Adenopathy Neurological: Cranial nerves II-XII grossly intact, Neuro grossly intact Psych/Mental Status: Normal Affect, Appropriate, Alert and oriented to time, place, person, mood and affect Vital Signs Temp Pulse Resp BP Pulse Ox 98.4 F 86 16 118/84 H 97 09/16/18 13:47 09/16/18 13:47 09/16/18 13:47 09/16/18 13:47 09/16/18 13:50 Oxygen Delivery Method Room Air Weight: 117 lb 1.047 oz Body Mass Index (BMI) 21.2 Intake and Output for Last 24 Hours 09/14/18 09/15/18 09/16/18 23:59 23:59 23:59 Intake Total 1637.8 / 1637.8 3359.2 / 3359.2 739.6 / 739.6 Output Total 3035 / 3035 2805 / 2805 132 / 132 Balance -1397.2 / -1397.2 554.2 / 554.2 607.6 / 607.6 Microbiology Past 72 Hours 09/11/18 08:18 Blood Culture - Final Blood Culture (Wb) - Left Wrist No growth in 5 days. 09/11/18 07:06 Blood Culture - Final Blood Culture (Wb) - Right Hand No growth in 5 days. 09/11/18 14:50 Gram Stain - Final Fluid - Bile Body Fluid Culture - Final Yersinia intermedia Enterococcus faecium Staphylococcus epidermidis Anaerobic Culture - Final No anaerobic bacteria isolated. 09/11/18 14:50 Gram Stain - Final Fluid - Other Body Fluid Culture - Final Presumptive C albicans Coag Negative Staph Anaerobic Culture - Final No anaerobic bacteria isolated. Medical Necessity - Tobacco Use Smoking Status: Former smoker Tobacco Use: Non-smoker Assessment/Plan All Active Problems Acute renal failure (Acute) Metabolic acidosis (Acute) Dehydration (Acute) Cholangiocarcinoma (Acute) This is a 77 years old female patient presented to the ED because of weakness, found to have acute kidney injury, acute cystitis and probable biliary tract infection in context of recent diagnosis of metastatic lung carcinoma with metastases to the lung and possible metastases to the thoracic vertebrae. #1 acute kidney injury: Attributed to prerenal and dehydration. Remained on IV fluids, creatinine came down to 0.86 , resolved. Her vital signs are stable. Nephrology on the case. Potassium replaced and corrected. Patient states that she cannot eat or drink because of persistent nausea. We are waiting for insurance approval for placement to TCU. Upon discharge to TCU, patient will need boluses of IV fluids. #2 E. coli acute cystitis: She is on IV Zosyn. Urine culture revealed presumptive E. coli which was sensitive to Zosyn. She is afebrile, white blood cell count is normal. Plan to discharge her to TCU on Levaquin. 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 She is on Zosyn, has been afebrile, leukocytosis resolved. Cultures of the biliary fluid is positive for staph epidermidis, enterococcus faecium and yersinia. Plan to continue IV Zosyn for now, plan to switch to oral Augmentin and Levaquin upon discharge. 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 Plan for staging and treatment plan as outpatient, follow-up with oncology after discharge. #5 hypokalemia/hypocalcemia: On replacement. Yesterday's potassium is 3.9, calcium 7.9, corrected calcium is normal. #6 hypertension: Blood pressure stable. She has been off lisinopril because of acute kidney injury. Probably, we can discontinue lisinopril. #7 DVT prophylaxis: Subcu heparin. This note was generated with [employer] dictation software. It may contain incorrect words, spelling, and punctuation that were not noted in checking the note before signing. Code Visit Inpatient E&M: 93029 Subs Hosp L2
--- NOTE | 2018-09-16 15:00 | PN_ITS ---
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 Patient seen and examined today. No acute events overnight. She still complaining of intermittent nausea, no abdominal pain. She denied any other sig nificant complaints except weakness. Her vital signs are stable. - Physical Exam General: Alert, Oriented x3, Cooperative, No apparent distress HEENT: Atraumatic, PERRLA, EOMI, Normocephalic Oral: Moist Mucosa, No Gingival or Mucosal Lesions/ Ulcerations Neck: Supple, No JVD, Negative Carotid Bruits, Trachea Midline, Thyroid Normal Size and Texture Lungs: Clear to auscultation, No rhonchi, No wheeze, No rales, Diminished Cardiovascular: Regular rate, Regular Rhythm, Normal S1, Normal S2, PMI Normal Abdomen: Bowel Sounds Present, Soft, Non Tender, Non-Distended, No Hepato- splenomegaly, - - Biliary drain in place. Extremities: No clubbing, No cyanosis, No edema Skin: No rashes, No breakdown Lymphatic: No Cervical, Supraclavicular, or Inguinal Adenopathy Neurological: Cranial nerves II-XII grossly intact, Neuro grossly intact Psych/Mental Status: Normal Affect, Appropriate, Alert and oriented to time, place, person, mood and affect Vital Signs Temp Pulse Resp BP Pulse Ox 98.4 F 86 16 118/84 H 97 09/16/18 13:47 09/16/18 13:47 09/16/18 13:47 09/16/18 13:47 09/16/18 13:50 Oxygen Delivery Method Room Air Weight: 117 lb 1.047 oz Body Mass Index (BMI) 21.2 Intake and Output for Last 24 Hours 09/14/18 09/15/18 09/16/18 23:59 23:59 23:59 Intake Total 1637.8 / 1637.8 3359.2 / 3359.2 739.6 / 739.6 Output Total 3035 / 3035 2805 / 2805 132 / 132 Balance -1397.2 / -1397.2 554.2 / 554.2 607.6 / 607.6 Microbiology Past 72 Hours 09/11/18 08:18 Blood Culture - Final Blood Culture (Wb) - Left Wrist No growth in 5 days. 09/11/18 07:06 Blood Culture - Final Blood Culture (Wb) - Right Hand No growth in 5 days. 09/11/18 14:50 Gram Stain - Final Fluid - Bile Body Fluid Culture - Final Yersinia intermedia Enterococcus faecium Staphylococcus epidermidis Anaerobic Culture - Final No anaerobic bacteria isolated. 09/11/18 14:50 Gram Stain - Final Fluid - Other Body Fluid Culture - Final Presumptive C albicans Coag Negative Staph Anaerobic Culture - Final No anaerobic bacteria isolated. Medical Necessity - Tobacco Use Smoking Status: Former smoker Tobacco Use: Non-smoker Assessment/Plan All Active Problems Acute renal failure (Acute) Metabolic acidosis (Acute) Dehydration (Acute) Cholangiocarcinoma (Acute) This is a 77 years old female patient presented to the ED because of weakness, found to have acute kidney injury, acute cystitis and probable biliary tract infection in context of recent diagnosis of metastatic lung carcinoma with metastases to the lung and possible metastases to the thoracic vertebrae. #1 acute kidney injury: Attributed to prerenal and dehydration. Remained on IV fluids, creatinine came down to 0.86 , resolved. Her vital signs are stable. Nephrology on the case. Potassium replaced and corrected. Patient states that she cannot eat or drink because of persistent nausea. We are waiting for insurance approval for placement to TCU. Upon discharge to TCU, patient will need boluses of IV fluids. #2 E. coli acute cystitis: She is on IV Zosyn. Urine culture revealed pr esumptive E. coli which was sensitive to Zosyn. She is afebrile, white blood cell count is normal. Plan to discharge her to TCU on Levaquin. 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 She is on Zosyn, has been afebrile, leukocytosis resolved. Cultures of the biliary fluid is positive for staph epidermidis, enterococcus faecium and yersinia. Plan to continue IV Zosyn for now, plan to switch to oral Augmentin and Levaquin upon discharge. 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 Plan for staging and treatment plan as outpatient, follow-up with oncology after discharge. #5 hypokalemia/hypocalcemia: On replacement. Yesterday's potassium is 3.9, calcium 7.9, corrected calcium is normal. #6 hypertension: Blood pressure stable. She has been off lisinopril because of acute kidney injury. Probably, we can discontinue lisinopril. #7 DVT prophylaxis: Subcu heparin. This note was generated with [employer] dictation software. It may contain incorrect words, spelling, and punctuation that were not noted in checking the note before signing. Code Visit Inpatient E&M: 04128 Subs Hosp L2
--- NOTE | 2018-09-16 18:00 | NURSING ---
Spoke with Charge Nurse Ciaran, Precertification has not been obtained per business unit leader
[2018-09-16] MEDS: 0.45% Normal Saline 1,000 ML 75 ML IV (18:07)
[2018-09-16] MEDS: Mirtazapine 15 MG Tablet PO (20:26)
[2018-09-16] MEDS: Latanoprost 0.005% 1 Bottle 1 DRP EACH EYE (20:27)
--- NOTE | 2018-09-16 20:43 | NURSING ---
Pt given meds early per request.
[2018-09-17] VITALS (8 sets, daily range): BP systolic 127–136; BP diastolic 87–95; PULSE 92–102; RESP 14–18; TEMP 36.5–36.7; O2SAT 98–100
[2018-09-17] MEDS: proMETHazine 25 MG/ML Syringe 6.25 MG IV ×5 (00:21→16:55)
[2018-09-17] MEDS: 0.9% NaCl Peripheral Flush Adult/Peds IV ×4 (00:21→12:44)
[2018-09-17] MEDS: Famotidine 20 MG Tablet PO (10:20)
[2018-09-17] MEDS: Heparin Injection (Vial) 5,000 UNIT/ML VIAL 5000 UNIT SC (10:20)
[2018-09-17] MEDS: Docusate Sodium 100 MG Capsule PO (10:21)
--- NOTE | 2018-09-17 11:03 | CASEMGMT ---
Addendum entered by Jennifer Denny 09/17/18 11:06: Number called for peer to [phone]. Reference number: [id number]. Jennifer BLACK Original Note: Patient was denied for TCU. SW let physician know and he agreed to do a peer to peer. SW called the number to arrange the peer to peer and spoke with Claudia. SW gave her Dr Adame's name and number and that he is available around 2p. She said they need a time frame other than just 1 time. SW said 1p-4p, but physician prefers 2p. She said she would get this set up. SW spoke with patient. She had visitors present, but patient was okay with SW talking in front of them. SW explained she was denied, but physician is going to do a peer to peer with insurance physician. SW told her SW will let her know as soon as SW knows anything more. GRACE also notified RN. Jennifer BLACK
--- NOTE | 2018-09-17 15:38 | CASEMGMT ---
Physician said he did the peer to peer and patient was approved. SW called Medina in TCU and let her know. She will wait to hear from [employer]. Jennifer ESPANA MSW
--- NOTE | 2018-09-17 15:58 | CASEMGMT ---
Medina said patient can go to TCU. Physician notified. Orders are complete. Plan: d/c to TCU under skilled level of care. Jennifer BLACK
--- NOTE | 2018-09-17 16:00 | DS.PCM_ITS ---
Discharge Date and Diagnosis - Problem List Patient Problems: Active and Suspected Problems Cholangitis (Acute) E. coli UTI (Acute) Date of Admission: 09/11/18 Date of Discharge: 09/17/18 - Primary Discharge Diagnosis Active and Suspected Problems #1 acute renal failure. #2 E. coli acute cystitis. 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 #4 recent diagnosis of metastatic cholangiocarcinoma with metastasis to lung and bone. - Secondary Discharge Diagnosis Chronic Problems Cholangiocarcinoma metastatic to lung (Chronic) recent diagnosis Mitral valve prolapse (Chronic) Constipation (Chronic) Hospital Course and Treatment Imaging Results: Clinical Impression(s) from Imaging Studies Chest X-Ray 09/11/18 07:22 IMPRESSION: 1. Multiple new noncalcified pulmonary nodules worrisome for metastasis. Infectious etiologies are considered less likely. Chest CT recommended. Electronically Signed: Silver Becerra MD at 7:49 EST , Service support , Dr. Oneil, nephrology. Dr. Lucero, oncology. Operations: None Procedures: None Summary of Care Provided: Patient seen and examined on the day of discharge and appeared to be stable to be discharged to TCU. She still complaining of intermittent nausea without vomiting, no abdominal pain. She mentioned that she is working. She has been having poor appetite. Her vital signs been stable, afebrile. This is a 77 years old female patient presented to the ED because of weakness, found to have acute renal failure, acute cystitis and probable biliary tract infection in context of recent diagnosis of metastatic lung carcinoma with metastases to the lung and possible metastases to the thoracic vertebrae. #1 acute renal failure: Attributed to prerenal and dehydration. She was treated with IV fluids. Her admission creatinine was 4.76, went up to 5 and with IV fluid therapy, it came down to 0.86 upon admission and is completely resolved. Patient discharged to TCU in stable condition, discharged on IV fluid boluses 500 cc 3 times a day. #2 E. coli acute cystitis: Treated with IV Zosyn. Urine culture revealed presumptive E. coli. Patient was started on Levaquin for 5 days. 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 Patient remained afebrile for more than 72 hours and her white blood cell count returned back to normal. Cultures of the biliary fluid is positive for staph epidermidis, enterococcus faecium and yersinia. Patient discharged to TCU on Levaquin and Augmentin for 5 days. 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 Oncology consulted. Patient is having poor prognosis. Oncology wanted to do PET scan as outpatient for staging and then to decide on treatment. Plan to have a PET scan done as outpatient this thursday, follow-up with oncology as outpatient. #5 hypokalemia/hypocalcemia: On replacement per Protocol. #6 hypertension: Blood pressure has been stable throughout admission without lisinopril. Lisinopril discontinued upon discharge. Patient discharged to TCU in a stable medical condition, discharged on Levaquin and Augmentin for 5 days, discharged on Phenergan as needed for pain, lisinopril discontinued because his blood pressure has been on the lower side during this hospital stay, plan to have PET scan done as outpatient this thursday according to Dr. Lucero, follow-up with oncology this coming week, recommended follow-up with PCP in 1 week. This note was generated with [employer] dictation software. It may contain incorrect words, spelling, and punctuation that were not noted in checking the note before signing. Patient Problems: Active and Suspected Problems Cholangitis (Acute) E. coli UTI (Acute) - Physical Exam General: Alert, Oriented x3, Cooperative, No apparent distress HEENT: Atraumatic, PERRLA, EOMI, Normocephalic Oral: Moist Mucosa, No Gingival or Mucosal Lesions/ Ulcerations Neck: Supple, No JVD, Negative Carotid Bruits, Trachea Midline, Thyroid Normal Size and Texture Lungs: Clear to auscultation, No rhonchi, No wheeze, No rales, Diminished Cardiovascular: Regular rate, Regular Rhythm, Normal S1, Normal S2 Abdomen: Bowel Sounds Present, Soft, Non Tender, Non-Distended, No Hepato- splenomegaly, - - Biliary drain in place. Extremities: No clubbing, No cyanosis, No edema Skin: No rashes, No breakdown Lymphatic: No Cervical, Supraclavicular, or Inguinal Adenopathy Neurological: Cranial nerves II-XII grossly intact, Neuro grossly intact Psych/Mental Status: Normal Affect, Appropriate Vital Signs Temp Pulse Resp BP Pulse Ox 98.1 F 98 14 136/95 H 98 09/17/18 14:39 09/17/18 15:01 09/17/18 14:39 09/17/18 14:39 09/17/18 14:39 Oxygen Delivery Method Room Air Weight: 112 lb 3.445 oz Body Mass Index (BMI) 21.2 Intake and Output for Last 24 Hours 09/15/18 09/16/18 09/17/18 23:59 23:59 23:59 Intake Total 3359.2 / 3359.2 1388.6 / 1388.6 835 / 835 Output Total 2805 / 2805 637 / 637 795 / 795 Balance 554.2 / 554.2 751.6 / 751.6 40 / 40 Microbiology Past 72 Hours 09/11/18 08:18 Blood Culture - Final Blood Culture (Wb) - Left Wrist No growth in 5 days. 09/11/18 07:06 Blood Culture - Final Blood Culture (Wb) - Right Hand No growth in 5 days. 09/11/18 14:50 Gram Stain - Final Fluid - Bile Body Fluid Culture - Final Yersinia intermedia Enterococcus faecium Staphylococcus epidermidis Anaerobic Culture - Final No anaerobic bacteria isolated. 09/11/18 14:50 Gram Stain - Final Fluid - Other Body Fluid Culture - Final Presumptive C albicans Coag Negative Staph Anaerobic Culture - Final No anaerobic bacteria isolated. Home Medications: Medications to take at Discharge Cyclobenzaprine [Flexeril] 10 mg PO TID PRN #20 tablet 12/23/15 Calcium Carbonate [Calcium] 1,200 mg PO DAILY 08/27/18 Cholecalciferol (Vitamin D3) [Vitamin D3] 5,000 unit PO DAILY 08/27/18 Cyanocobalamin (Vitamin B-12) [Vitamin B-12] 1,000 mcg SL DAILY 08/27/18 Latanoprost 1 drop EACH EYE QHS 08/27/18 Melatonin/Pyridoxine [Melatonin 5 mg Tablet] 10 mg PO DAILY 08/27/18 Milk Thistle 150 mg PO DAILY 08/27/18 Multivitamin [Multiple Vitamins] 1 tab PO DAILY 08/27/18 Wheat Dextrin [Benefiber] 1 each PO DAILY 08/27/18 Lisinopril [Zestril] 2.5 mg PO DAILY 09/11/18 Ondansetron [Ondansetron Odt] 4 mg PO Q6H PRN PRN 09/11/18 Netarsudil Mesylate [Rhopressa] 1 drop EACH EYE QHS 09/16/18 Oxycodone HCl/Acetaminophen [Endocet 5-325 Tablet] 1 ea PO Q6H PRN PRN 7 Days #30 tab 09/16/18 proMETHazine tablet [Phenergan tablet] 25 mg PO Q6H PRN PRN #30 tab 09/16/18 Amox/Clavulanate Tablet [Augmentin Tablet] 875 mg PO Q12H 09/17/18 Docusate Sodium [Colace] 100 mg PO BID 09/17/18 Levofloxacin [Levaquin] 500 mg PO DAILY 09/17/18 Mirtazapine [Remeron] 15 mg PO QHS 09/17/18 Pantoprazole Sodium [Protonix] 40 mg PO DAILY 09/17/18 Ringer's Solution,Lactated [Lactated Ringers] 500 ml IV TID 09/17/18 Following Prescrptions Were Given to Patient: Oxycodone HCl/Acetaminophen [Endocet 5-325 Tablet] 1 ea PO Q6H PRN PRN 7 Days #30 tab PRN Reason: Pain proMETHazine tablet [Phenergan tablet] 25 mg PO Q6H PRN PRN #30 tab PRN Reason: Nausea/Vomiting Primary Care Physician: Jose Nugent DO [Primary Care Provider] - Please follow up with your Primary Care Physician in: 1 WEEK. Please Follow Up With: Sabino Lucero MD When: 1 WEEK. Disposition: Senior Care facility Minutes spent on discharge:: 35 Patient Condition:: Stable Medical Necessity - Tobacco Use Smoking Status: Former smoker Tobacco Use: Non-smoker Meaningful Use Info Meaningful Use Diagnoses (Choose all that apply): None applicable Code Visit Inpatient E&M: 42430 Disch Hosp
== END 2018-09-17 17:37 | disposition skilled nursing facility (03) | DRG 683 ==
LOC: ED 07:43 → PCU 10:04
PROVIDERS: Internal Medicine; Admitting Provider Internal Medicine; Emergency Provider Emergency Medicine; Family Provider Family Medicine; PCP Family Medicine; Visit Provider Hospitalist
DX: N17.9 Acute kidney failure, unspecified (principal); C22.1 Intrahepatic bile duct carcinoma; C78.00 Secondary malignant neoplasm of unspecified lung; C79.51 Secondary malignant neoplasm of bone; E87.2 Acidosis; N30.00 Acute cystitis without hematuria; K83.09 Other cholangitis; E46 Unspecified protein-calorie malnutrition; I10 Essential (primary) hypertension; E86.0 Dehydration; H40.9 Unspecified glaucoma; Z87.891 Personal history of nicotine dependence; M19.90 Unspecified osteoarthritis, unspecified site; Z66 Do not resuscitate; E83.51 Hypocalcemia; E83.39 Other disorders of phosphorus metabolism; B96.20 Unspecified Escherichia coli [E. coli] as the cause of diseases classified elsewhere; I34.1 Nonrheumatic mitral (valve) prolapse; E87.6 Hypokalemia; Z79.899 Other long term (current) drug therapy; Z68.21 Body mass index [BMI] 21.0-21.9, adult
CPT/HCPCS: 36415; 71045; 80048; 80053; 80069; 81001; 82140; 82570; 82962; 83036; 83605; 83690; 83735; 84100; 84300; 84484; 85025; 85610; 85652; 86140; 87040; 87070; 87075; 87077; 87086; 87088; 87186; 87205; 93005; 97162; 97165; 97530; 97535; 97802; 99285; J7030; J7040; A4216; J0610; J2405

== ENCOUNTER 2018-09-17 17:45 | Inpatient (IN) | payer MEDICARE, SELFPAY ==
[2018-09-11 10:41] VITALS: BMI 21.2
[2018-09-17 18:26] VITALS: BP 132/96; PULSE 98; RESP 16; TEMP 36.7; O2SAT 97; BMI 22.0; BMI 22.1
--- NOTE | 2018-09-17 19:37 | PCM.HP.STD ---
Problem List (1) Weakness Status: Acute (2) Acute kidney injury Status: Acute (3) Cholangitis Status: Acute (4) E. 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 The patient is a 77 year old Female with below past medical history significant for metastatic cholangiocarcinoma presented to [facility] Emergency Department 09/11/2018 with weakness. 09/11/2018 EKG Normal Sinus Rhythm, possible left atrial enlargement, left axis deviation, left ventricular hypertrophy, inferior infarct, age undetermined. 09/11/2018 Chest X-ray multiple pulmonary nodules, worrisome for metastatic disease. Weakness, recent [facility] Admission for itching, jaundice. Diagnosed with cholangiocarcinoma, stent in liver, biliary drains in place. Appetite decreased. WBC 14.7, Hemoglobin 13.6, Hematocrit 47, Platelet 577. Sodium 142, K 5.2, BUN 59, Cr 4.76, T. Bili 6.7. Alkaline phosphatase 363, ALT 205, AST 159, Lactate 2.9. Normal Saline 1 Liter IV bolus given, then 150cc/hour rate. 09/11/2018 Admit to Hospital. IV Bicarb for metabolic acidosis. Famotidine for gastrointestinal prophylaxis. 09/11/2018 Dr. Oneil recommended IV fluids for acute kidney injury secondary to dehydration. 09/12/2018 Zosyn for ? cholangitis. 09/13/2018 Yenni Geiger recommended staging of cholangiocarcinoma as outpatient. Cholangiocarcinoma with possible lung, thoracic spine metastasis. IV fluids resolved acute kidney injury to baseline Creatinine 0.86. E. Coli urinary tract infection with IV Zosyn, transitioned to Levaquin. Cholangitis, biliary fluid grew Staph epidermidis, E. Faecium, Yersinia, IV Zosyn transitioned to Levaquin, Augmentin. Cholangiocarcinoma staging, treatment outpatient with Oncology. Hypokalemia corrected. Hypocalcemia corrected. Blood pressure controlled without Lisinopril, stop Lisinopril. 09/17/2018 Admit to TCU with debility, here for rehabilitation, strengthening, prior to discharge home alone to start treatment for metastatic cholangiocarcinoma. Resident has no appetite, she is unable to eat, she has nausea, gagging, vomiting even from drinking water. 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 (Chronic) recent diagnosis Hypertension (Chronic) Degenerative disc disease (Chronic) Glaucoma (Chronic) Mitral valve prolapse (Chronic) Constipation (Chronic) Allergies No Known Allergies Allergy (Verified 09/11/18 07:08) Home Medications: Ambulatory Orders Medication Instructions Recorded Cyclobenzaprine [Flexeril] 10 mg PO TID PRN #20 tablet 12/23/15 Calcium Carbonate [Calcium] 1,200 mg PO DAILY 08/27/18 Cholecalciferol (Vitamin D3) 5,000 unit PO DAILY 08/27/18 [Vitamin D3] Cyanocobalamin (Vitamin B-12) 1,000 mcg SL DAILY 08/27/18 [Vitamin B-12] Latanoprost 1 drop EACH EYE QHS 08/27/18 Melatonin/Pyridoxine [Melatonin 5 10 mg PO DAILY 08/27/18 mg Tablet] Milk Thistle 150 mg PO DAILY 08/27/18 Multivitamin [Multiple Vitamins] 1 tab PO DAILY 08/27/18 Wheat Dextrin [Benefiber] 1 each PO DAILY 08/27/18 Lisinopril [Zestril] 2.5 mg PO DAILY 09/11/18 Ondansetron [Ondansetron Odt] 4 mg PO Q6H PRN PRN 09/11/18 Netarsudil Mesylate [Rhopressa] 1 drop EACH EYE QHS 09/16/18 Oxycodone HCl/Acetaminophen 1 ea PO Q6H PRN PRN 7 Days #30 tab 09/16/18 [Endocet 5-325 Tablet] proMETHazine tablet [Phenergan 25 mg PO Q6H PRN PRN #30 tab 09/16/18 tablet] Amox/Clavulanate Tablet [Augmentin 875 mg PO Q12H 09/17/18 Tablet] Docusate Sodium [Colace] 100 mg PO BID 09/17/18 Levofloxacin [Levaquin] 500 mg PO DAILY 09/17/18 Mirtazapine [Remeron] 15 mg PO QHS 09/17/18 Pantoprazole Sodium [Protonix] 40 mg PO DAILY 09/17/18 Ringer's Solution,Lactated 500 ml IV TID 09/17/18 [Lactated Ringers] Surgical History: rotator cuff repair - Right., total knee arthroplasty - Bilateral., - - recent biliary stent and biliary drains Psychiatric History: 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 Denies: Chills, Fever, Weight Change HEENT: Denies: Head Aches, Sinus Congestion, Sinus Drainage Cardiovascular: Denies: Chest Pain, Palpitations Respiratory: Denies: Cough, Shortness of breath at rest, Sputum production Gastrointestinal: Reports: Nausea, Vomiting. Denies: Abdominal Pain Genitourinary: Denies: Dysuria Musculoskeletal: Denies: Joint Pain, Joint Tenderness Skin: Denies: Rash, Wounds Neurological: Denies: Numbness, Tingling, Focal weakness Psychiatric: Denies: Anxiety, Depression, Homicidal Ideations, Suicidal Ideations Hematologic/ Lymphatic: Denies: Easy Bruising, Easy Bleeding VTE Information - Inpt Only VTE Present on Admission: No VTE Mechan Device Prophylaxis: Knee High AURELIANO Hose VTE Pharm Prophylaxis ordered?: Yes Patient Problems: Active and Suspected Problems Weakness (Acute) Acute kidney injury (Acute) Cholangitis (Acute) E. coli UTI (Acute) Hypokalemia (Acute) Hypocalcemia (Acute) - Physical Exam General: Alert, Oriented x3, Cooperative HEENT: Atraumatic, PERRLA, EOMI, Normocephalic Neck: Supple, No JVD, Negative Carotid Bruits Lungs: Clear to auscultation, Normal air movement Cardiovascular: Regular rate, No murmurs Abdomen: Bowel Sounds Present, Soft, Non Tender, - - Biliary drain right, and left. Extremities: No edema, Capillary Refill Less than 3 Seconds Skin: No rashes, No breakdown Musculoskeletal: No Tenderness to Palpation of Joints or Extremities Neurological: Cranial nerves II-XII grossly intact Psych/Mental Status: Normal Affect, Appropriate Vital Signs Temp Pulse Resp BP Pulse Ox 98.1 F 98 16 132/96 H 97 02/08/19 18:26 09/17/18 18:26 09/17/18 18:26 09/17/18 18:26 09/17/18 18:26 Oxygen Delivery Method Room Air Weight: 51.256 kg Body Mass Index (BMI) 21.2 Assessment/Plan All Active Problems Acute renal failure (Acute) Metabolic acidosis (Acute) Dehydration (Acute) Cholangiocarcinoma (Acute) Weakness (Acute) Acute kidney injury (Acute) Cholangitis (Acute) E. coli UTI (Acute) Hypokalemia (Acute) Hypocalcemia (Acute) 77 year old female with below past medical history significant for metastatic cholangiocarcinoma, hospitalized for weakness secondary to acute kidney injury from dehydration, complicated by E. Coli urinary tract infection, multimicrobial cholangitis, admitted to TCU with debility, here for rehabilitation, strengthening, prior to discharge home alone to start treatment for metastatic cholangiocarcinoma. Debility - PT/OT. Pain - Tylenol 1000MG Q8H PRN mild pain, Oxycodone 5MG Q4H PRN moderate pain. Bowel - Miralax 17GM daily, Senna/colace 2 tablets BID, Dulcolax 10MG PO daily PRN. Pneumonia vaccination - Administer Prevnar 13 and/or Pneumovax 23 as necessary. DVT prophylaxis - Lovenox 40MG SC daily. Muscle spasm - Flexeril 10MG TID PRN. Hypocalcemia - Calcium 1200MG daily. Vitamin D deficiency - D3 5000IU daily. Vitamin B12 deficiency - B12 1000MCG daily. Glaucoma - Latanoprost 1GTT OU QHS, Rhopressa 1GTT OU QHS. Insomnia - Melatonin 10MG QHS. Nutrition - MVI daily. Nausea - Zofran 4MG Q6H scheduled, Phenergan 25MG Q6H scheduled. Cholangitis - Augmentin 875MG BID, Levaquin 500MG daily thru 09/22/2018. E. Coli UTI - Levaquin 500MG daily thru 09/22/2018. Appetite loss - Mirtazapine 15MG QHS. GERD - Pantoprazole 40MG daily. Dehydration - Lactated Ringer 500ML IV TID.
--- NOTE | 2018-09-17 19:50 | HP.PCM_ITS ---
Problem List (1) Weakness Status: Acute (2) Acute kidney injury Status: Acute (3) Cholangitis Status: Acute (4) E. 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 The patient is a 77 year old Female with below past medical history significant for metastatic cholangiocarcinoma presented to [facility] Emergency Department 09/11/2018 with weakness. 09/11/2018 EKG Normal Sinus Rhythm, possible left atrial enlargement, left axis deviation, left ventricular hypertrophy, inferior infarct, age undetermined. 09/11/2018 Chest X-ray multiple pulmonary nodules, worrisome for metastatic disease. Weakness, recent [facility] Admission for itching, jaundice. Diagnosed with cholangiocarcinoma, stent in liver, biliary drains in place. Appetite decreased. WBC 14.7, Hemoglobin 13.6, Hematocrit 47, Platelet 577. Sodium 142, K 5.2, BUN 59, Cr 4.76, T. Bili 6.7. Alkaline phosphatase 363, ALT 205, AST 159, Lactate 2.9. Normal Saline 1 Liter IV bolus given, then 150cc/hour rate. 09/11/2018 Admit to Hospital. IV Bicarb for metabolic acidosis. Famotidine for gastrointestinal prophylaxis. 09/11/2018 Dr. Oneil recommended IV fluids for acute kidney injury secondary to dehydration. 09/12/2018 Zosyn for ? cholangitis. 09/13/2018 Yenni Geiger recommended staging of cholangiocarcinoma as outpatient. Cholangiocarcinoma with possible lung, thoracic spine metastasis. IV fluids resolved acute kidney injury to baseline Creatinine 0.86. E. Coli urinary tract infection with IV Zosyn, transitioned to Levaquin. Cholangitis, biliary fluid grew Staph epidermidis, E. Faecium, Yersinia, IV Zosyn transitioned to Levaquin, Augmentin. Cholangiocarcinoma staging, treatment outpatient with Oncology. Hypokalemia corrected. Hypocalcemia corrected. Blood pressure controlled without Lisinopril, stop Lisinopril. 09/17/2018 Admit to TCU with debility, here for rehabilitation, strengthening, prior to discharge home alone to start treatment for metastatic cholangiocarcinoma. Resident has no appetite, she is unable to eat, she has nausea, gagging, vomiting even from drinking water. 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 (Chronic) recent diagnosis Hypertension (Chronic) Degenerative disc disease (Chronic) Glaucoma (Chronic) Mitral valve prolapse (Chronic) Constipation (Chronic) Allergies No Known Allergies Allergy (Verified 09/11/18 07:08) Home Medications: Ambulatory Orders Medication Instructions Recorded Cyclobenzaprine [Flexeril] 10 mg PO TID PRN #20 tablet 12/23/15 Calcium Carbonate [Calcium] 1,200 mg PO DAILY 08/27/18 Cholecalciferol (Vitamin D3) 5,000 unit PO DAILY 08/27/18 [Vitamin D3] Cyanocobalamin (Vitamin B-12) 1,000 mcg SL DAILY 08/27/18 [Vitamin B-12] Latanoprost 1 drop EACH EYE QHS 08/27/18 Melatonin/Pyridoxine [Melatonin 5 10 mg PO DAILY 08/27/18 mg Tablet] Milk Thistle 150 mg PO DAILY 08/27/18 Multivitamin [Multiple Vitamins] 1 tab PO DAILY 08/27/18 Wheat Dextrin [Benefiber] 1 each PO DAILY 08/27/18 Lisinopril [Zestril] 2.5 mg PO DAILY 09/11/18 Ondansetron [Ondansetron Odt] 4 mg PO Q6H PRN PRN 09/11/18 Netarsudil Mesylate [Rhopressa] 1 drop EACH EYE QHS 09/16/18 Oxycodone HCl/Acetaminophen 1 ea PO Q6H PRN PRN 7 Days #30 tab 09/16/18 [Endocet 5-325 Tablet] proMETHazine tablet [Phenergan 25 mg PO Q6H PRN PRN #30 tab 09/16/18 tablet] Amox/Clavulanate Tablet [Augmentin 875 mg PO Q12H 09/17/18 Tablet] Docusate Sodium [Colace] 100 mg PO BID 09/17/18 Levofloxacin [Levaquin] 500 mg PO DAILY 09/17/18 Mirtazapine [Remeron] 15 mg PO QHS 09/17/18 Pantoprazole Sodium [Protonix] 40 mg PO DAILY 09/17/18 Ringer's Solution,Lactated 500 ml IV TID 09/17/18 [Lactated Ringers] Surgical History: rotator cuff repair - Right., total knee arthroplasty - Bilateral., - - recent biliary stent and biliary drains Psychiatric History: 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 Denies: Chills, Fever, Weight Change HEENT: Denies: Head Aches, Sinus Congestion, Sinus Drainage Cardiovascular: Denies: Chest Pain, Palpitations Respiratory: Denies: Cough, Shortness of breath at rest, Sputum production Gastrointestinal: Reports: Nausea, Vomiting. Denies: Abdominal Pain Genitourinary: Denies: Dysuria Musculoskeletal: Denies: Joint Pain, Joint Tenderness Skin: Denies: Rash, Wounds Neurological: Denies: Numbness, Tingling, Focal weakness Psychiatric: Denies: Anxiety, Depression, Homicidal Ideations, Suicidal Ideations Hematologic/ Lymphatic: Denies: Easy Bruising, Easy Bleeding VTE Information - Inpt Only VTE Present on Admission: No VTE Mechan Device Prophylaxis: Knee High AURELIANO Hose VTE Pharm Prophylaxis ordered?: Yes Patient Problems: Active and Suspected Problems Weakness (Acute) Acute kidney injury (Acute) Cholangitis (Acute) E. coli UTI (Acute) Hypokalemia (Acute) Hypocalcemia (Acute) - Physical Exam General: Alert, Oriented x3, Cooperative HEENT: Atraumatic, PERRLA, EOMI, Normocephalic Neck: Supple, No JVD, Negative Carotid Bruits Lungs: Clear to auscultation, Normal air movement Cardiovascular: Regular rate, No murmurs Abdomen: Bowel Sounds Present, Soft, Non Tender, - - Biliary drain right, and left. Extremities: No edema, Capillary Refill Less than 3 Seconds Skin: No rashes, No breakdown Musculoskeletal: No Tenderness to Palpation of Joints or Extremities Neurological: Cranial nerves II-XII grossly intact Psych/Mental Status: Normal Affect, Appropriate Vital Signs Temp Pulse Resp BP Pulse Ox 98.1 F 98 16 132/96 H 97 02/08/19 18:26 09/17/18 18:26 09/17/18 18:26 09/17/18 18:26 09/17/18 18:26 Oxygen Delivery Method Room Air Weight: 51.256 kg Body Mass Index (BMI) 21.2 Assessment/Plan All Active Problems Acute renal failure (Acute) Metabolic acidosis (Acute) Dehydration (Acute) Cholangiocarcinoma (Acute) Weakness (Acute) Acute kidney injury (Acute) Cholangitis (Acute) E. coli UTI (Acute) Hypokalemia (Acute) Hypocalcemia (Acute) 77 year old female with below past medical history significant for metastatic cholangiocarcinoma, hospitalized for weakness secondary to acute kidney injury from dehydration, complicated by E. Coli urinary tract infection, multimicrobial cholangitis, admitted to TCU with debility, here for rehabilitation, strengthening, prior to discharge home alone to start treatment for metastatic cholangiocarcinoma. * Debility - PT/OT. * Pain - Tylenol 1000MG Q8H PRN mild pain, Oxycodone 5MG Q4H PRN moderate pain. * Bowel - Miralax 17GM daily, Senna/colace 2 tablets BID, Dulcolax 10MG PO daily PRN. * Pneumonia vaccination - Administer Prevnar 13 and/or Pneumovax 23 as necessary. * DVT prophylaxis - Lovenox 40MG SC daily. * Muscle spasm - Flexeril 10MG TID PRN. * Hypocalcemia - Calcium 1200MG daily. * Vitamin D deficiency - D3 5000IU daily. * Vitamin B12 deficiency - B12 1000MCG daily. * Glaucoma - Latanoprost 1GTT OU QHS, Rhopressa 1GTT OU QHS. * Insomnia - Melatonin 10MG QHS. * Nutrition - MVI daily. * Nausea - Zofran 4MG Q6H scheduled, Phenergan 25MG Q6H scheduled. * Cholangitis - Augmentin 875MG BID, Levaquin 500MG daily thru 09/22/2018. * E. Coli UTI - Levaquin 500MG daily thru 09/22/2018. * Appetite loss - Mirtazapine 15MG QHS. * GERD - Pantoprazole 40MG daily. * Dehydration - Lactated Ringer 500ML IV TID.
[2018-09-17 21:51] VITALS: PULSE 98
[2018-09-17] MEDS: proMETHazine 25 MG Tablet PO (23:13)
[2018-09-17] MEDS: Ondansetron ODT 4 MG Tablet PO (23:14)
[2018-09-18] MEDS: Mirtazapine 15 MG Tablet PO ×2 (00:20→21:29)
[2018-09-18] MEDS: levoFLOXacin 500 MG Tablet PO (00:20)
[2018-09-18] MEDS: Lactated Ringers 500 ML 250 ML IV ×3 (06:27→21:19)
[2018-09-18] MEDS: Enoxaparin 40 MG/0.4 ML Syringe SC (06:38)
[2018-09-18] MEDS: Ondansetron ODT 4 MG Tablet PO (06:38)
[2018-09-18] MEDS: proMETHazine 25 MG Tablet PO (06:38)
[2018-09-18] MEDS: Calcium Carbonate 500 MG Tablet 1000 MG PO (06:40)
[2018-09-18] MEDS: Pantoprazole Sodium 40 MG Tablet PO (06:40)
[2018-09-18] MEDS: Senna/Docusate Sodium 1 Tablet 2 TABLET PO (06:40)
[2018-09-18] MEDS: Amox/Clavulanate 875 MG Tablet PO ×2 (06:40→17:24)
[2018-09-18] MEDS: Menthol/Lanolin/Calamine/Znox 113 GM Tube 1 APPLIC TOPICAL ×2 (06:54→21:30)
[2018-09-18 07:22] LABS: Absolute Lymphocyte Count 1.25 X10^3/ul (0.83-4.51); Absolute Neutrophil Count 4.3 X10^3/uL (2.0-7.7); Basophil# 0.08 X10^3/uL; Basophil% 1.2 % (0-1); Eosinophil# 0.12 X10^3/uL; Eosinophils% 1.8 % (0-5); Hematocrit 41.4 % (37-47); Hemoglobin 13.2 g/dl (12.0-15.0); Lymphocyte # 1.25 X10^3/ul (4.0); Lymphocyte % 19.1 % (19-41); Mean Corp Hgb Conc 31.9 g/gl (32-36); Mean Corpuscular Hgb 31.8 pg (27.0-32.0); Mean Corpuscular Volume 99.8 fL (81-99); Monocyte# 0.67 X10^3/uL; Monocyte% 10.2 % (0-10); Neutrophil # 4.33 X10^3/uL (2.7-7.7); Platelet Count 398 K/mm3 (150-450); RBC Distribution Width CV 15.6 % (11.6-14.6); Red Blood Count 4.15 M/mm3 (4.2-5.4); White Blood Count 6.6 K/mm3 (4.4-11.0)
[2018-09-18 07:25] LABS: POSITIVE COUNT NO; POSITIVE DIFFERENTIAL NO; POSITIVE MORPHOLOGY NO
[2018-09-18 07:35] LABS: Anion Gap 10 (5-15); BUN 15 mg/dL (7-18); BUN/Creat Ratio 22.4 RATIO (10-20); Calcium,Total 7.7 mg/dL (8.5-10.1); Chloride 118 mmol/L (98-107); Creatinine, Serum 0.67 mg/dL (0.55-1.02); EST Glomerular Filtration Rate 90 mL/min (>60); Est Glom Filt Rate - Afr Amer 109 mL/min (>60); Glucose 90 mg/dL (74-106); Potassium 4.2 mmol/L (3.5-5.1); Sodium Level 148 mmol/L (136-145)
[2018-09-18] MEDS: Ondansetron 4 MG/2 ML Vial IV ×2 (11:29→18:29)
[2018-09-18] MEDS: 0.9% Saline Lock 10 ML Syringe IV ×5 (11:29→21:26)
--- NOTE | 2018-09-18 11:55 | NURSING ---
pt receiving IV zofran, Reglan, & Lactated ringers, new order to insert PICC line. pt consent obtained.
[2018-09-18] MEDS: Metoclopramide 10 MG/2 ML Vial 5 MG IV ×3 (12:14→23:29)
--- NOTE | 2018-09-18 14:27 | NURSING ---
director of student life here to insert line.
[2018-09-18 16:00] VITALS: BP 129/79; PULSE 72; RESP 16; TEMP 36.2; O2SAT 97
[2018-09-18] MEDS: Senna/Docusate Sodium 1 Tablet PO (17:24)
[2018-09-18] MEDS: Tuberculin,Purif.prot.deriv. 50 TU/ML Vial 5 ML ID (17:25)
[2018-09-18] MEDS: Latanoprost 0.005% 1 Bottle 1 DRP EACH EYE (21:28)
[2018-09-18] MEDS: levoFLOXacin 250 MG Tablet PO (21:29)
[2018-09-18] MEDS: Nystatin Powder 15gm Bottle 1 APPLIC TOPICAL (21:33)
[2018-09-19] MEDS: Metoclopramide 10 MG/2 ML Vial 5 MG IV ×4 (05:40→23:02)
[2018-09-19] MEDS: Ondansetron 4 MG/2 ML Vial IV ×3 (05:41→20:55)
[2018-09-19] MEDS: Pantoprazole Sodium 40 MG Tablet PO (05:46)
[2018-09-19] MEDS: Amox/Clavulanate 875 MG Tablet PO ×2 (05:46→17:29)
[2018-09-19] MEDS: Senna/Docusate Sodium 1 Tablet PO ×2 (05:46→17:29)
[2018-09-19] MEDS: Enoxaparin 40 MG/0.4 ML Syringe SC (05:46)
[2018-09-19] MEDS: Menthol/Lanolin/Calamine/Znox 113 GM Tube 1 APPLIC TOPICAL ×2 (05:47→20:58)
[2018-09-19] MEDS: Lactated Ringers 500 ML 250 ML IV ×3 (05:47→20:58)
[2018-09-19] MEDS: Nystatin Powder 15gm Bottle 1 APPLIC TOPICAL ×2 (05:48→20:58)
--- NOTE | 2018-09-19 06:00 | NURSING ---
This nurse informed by aides that pt had staff dump her beer out. This nurse into question pt about having beer. Pt explaining to this nurse that her son has been brining it in for her because it was tasting good but it doesn't taste good anymore. Pt unsure of the brand. This nurse explained to pt that an order is needed from the doctor in order for her to have it. Expressing to pt that staffing needs to know what pt is consuming d/t current health conditions. Pt in agreement and thanked this nurse for expressing concern. Pt expressing to this nurse that she will inform her son that he is not to bring her anymore. Pt resting in bed with call light in reach.
[2018-09-19] MEDS: Multivitamins,Therapeutic Tablet 1 TABLET PO (08:35)
[2018-09-19 08:46] VITALS: PULSE 98; RESP 16; O2SAT 98
[2018-09-19] MEDS: 0.9% Saline Lock 10 ML Syringe IV ×3 (12:06→23:04)
[2018-09-19] MEDS: 0.9% NaCl PICC Flush IV ×2 (13:15→17:30)
[2018-09-19 16:00] VITALS: BP 118/71; PULSE 81; RESP 16; TEMP 37.1; O2SAT 95
--- NOTE | 2018-09-19 18:37 | NURSING ---
PT drains emptied LT output > RT. Flushed drains per order.
[2018-09-19] MEDS: Latanoprost 0.005% 1 Bottle 1 DRP EACH EYE (20:51)
[2018-09-19] MEDS: Mirtazapine 15 MG Tablet PO (20:52)
[2018-09-19] MEDS: levoFLOXacin 250 MG Tablet PO (20:52)
[2018-09-20] MEDS: Lactated Ringers 500 ML 250 ML IV ×3 (05:41→22:46)
[2018-09-20] MEDS: Ondansetron 4 MG/2 ML Vial IV ×3 (05:42→22:54)
[2018-09-20] MEDS: Metoclopramide 10 MG/2 ML Vial 5 MG IV ×3 (05:46→18:27)
[2018-09-20] MEDS: 0.9% NaCl PICC Flush IV ×3 (05:48→22:45)
[2018-09-20] MEDS: Pantoprazole Sodium 40 MG Tablet PO (05:51)
[2018-09-20] MEDS: Amox/Clavulanate 875 MG Tablet PO ×2 (05:51→17:09)
[2018-09-20] MEDS: Enoxaparin 40 MG/0.4 ML Syringe SC (05:51)
[2018-09-20] MEDS: Menthol/Lanolin/Calamine/Znox 113 GM Tube 1 APPLIC TOPICAL ×2 (05:57→23:03)
[2018-09-20] MEDS: Nystatin Powder 15gm Bottle 1 APPLIC TOPICAL ×2 (05:57→23:03)
--- NOTE | 2018-09-20 08:30 | PCM.PN.RX ---
<Regino Macdonald D - Last Filed: 09/20/18 08:30> Progress Note - Pharmacy Subjective: TCU Admission Objective: Allergies No Known Allergies Allergy (Verified 09/11/18 07:08) Current Medications Generic Name Dose Route Start Last Admin Trade Name Freq PRN Reason Stop Dose Admin Acetaminophen 1,000 mg 09/17/18 20:14 Tylenol PO Q8H PRN PRN MILD PAIN (1-3/10) Amoxicillin/Clavulanate Potassium 875 mg 09/18/18 06:00 09/20/18 05:51 Augmentin Tablet PO 09/23/18 06:00 875 mg Q12 BUT[facility] Administration Bisacodyl 10 mg 09/17/18 20:14 Dulcolax PO DAILY PRN Constipation Calamine/Phenol 1 applic 09/18/18 06:00 09/20/18 05:57 Calmoseptine Ointment TOPICAL 1 applicatio 0600,2200 BUT[facility] Administration Protocol Cyclobenzaprine HCl 10 mg 09/17/18 19:48 Flexeril PO TID PRN PRN MUSCLE SPASM Enoxaparin Sodium 40 mg 09/18/18 06:00 09/20/18 05:51 Lovenox SC 40 mg DAILY@0600 BUT[facility] Administration Heparin Sodium (Beef Lung) 50 units 09/19/18 13:15 IV UD PRN HEPARIN FLUSH Lactated Ringer's 500 mls @ 250 mls/hr 09/18/18 06:00 09/20/18 05:41 IV 250 mls/hr Q8H BUTCH Administration Latanoprost 1 drop 09/17/18 22:00 09/19/18 20:51 Xalatan Opthalmic EACH EYE 1 drop QHS BUT[facility] Administration Levofloxacin 250 mg 09/18/18 22:00 09/19/18 20:52 Levaquin Tablet PO 09/21/18 22:01 250 mg Q24@2200 BUT[facility] Administration Metoclopramide HCl 5 mg 09/18/18 12:00 09/20/18 05:46 Reglan IV 5 mg Q6 BUTCH Administration Mirtazapine 15 mg 09/17/18 22:00 09/19/18 20:52 Remeron PO 15 mg QHS BUT[facility] Administration Multivitamins 1 tablet 09/18/18 08:00 09/19/18 08:35 Multivitamin PO 1 tablet DAILYCM BUTCH Administration Nystatin 1 applic 09/18/18 06:00 09/20/18 05:57 Mycostatin Powder TOPICAL 1 applicatio 0600,2200 [facility] Administration Protocol Ondansetron HCl 4 mg 09/19/18 06:00 09/20/18 05:42 Zofran IV 4 mg Q8 BUTCH Administration Oxycodone HCl 5 mg 09/17/18 20:15 Oxyir PO Q4H PRN PRN MODERATE PAIN (4-5/10) Pantoprazole Sodium 40 mg 09/18/18 06:00 09/20/18 05:51 Protonix PO 40 mg DAILY BUT[facility] Administration Polyethylene Glycol 17 gm 09/18/18 06:00 09/20/18 05:57 Miralax PO Not Given DAILY BUT[facility] Senna/Docusate Sodium 1 tablet 09/18/18 18:00 09/20/18 05:58 Senokot-S, Deja-Colace PO Not Given BID BUTCH Sodium Chloride 5 - 10 ml 09/18/18 06:20 09/19/18 23:04 IV 10 ml PRN PRN Administration SALINE FLUSH Sodium Chloride 10 - 20 ml 09/19/18 13:15 09/20/18 05:48 IV 20 ml UD PRN Administration PICC FLUSH Tuberculin PPD 5 tu 09/25/18 10:00 Tubersol, Aplisol, Ppd ID 09/25/18 10:01 X1 ONE Problem List Cholangitis (Acute) E. coli UTI (Acute) Hypertension (Chronic) Degenerative disc disease (Chronic) Glaucoma (Chronic) Vital Signs Temp Pulse Resp BP Pulse Ox 98.7 F 81 16 118/71 95 09/19/18 16:00 09/19/18 16:00 09/19/18 16:00 09/19/18 16:00 09/19/18 16:00 Oxygen Delivery Method Room Air Weight: 51.341 kg Body Mass Index (BMI) 22.0 Sodium 148 mmol/L (136-145) H 09/18/18 06:15 Potassium 4.2 mmol/L (3.5-5.1) 09/18/18 06:15 Chloride 118 mmol/L (98-107) H 09/18/18 06:15 Carbon Dioxide 20.0 mmol/L (21.0-32.0) L 09/18/18 06:15 Anion Gap 10 (5-15) 09/18/18 06:15 BUN 15 mg/dL (7-18) 09/18/18 06:15 Creatinine 0.67 mg/dL (0.55-1.02) 09/18/18 06:15 Est GFR (MDRD) Af Amer 109 mL/min (>60) 09/18/18 06:15 Est GFR (MDRD) Non-Af 90 mL/min (>60) 09/18/18 06:15 BUN/Creatinine Ratio 22.4 RATIO (10-20) H 09/18/18 06:15 Glucose 90 mg/dL (74-106) 09/18/18 06:15 Assessment/Plan: 1) Pain APAP for mild pain, oxycodone for moderate pain, cyclobenzaprine for spasm. Continue to monitor daily pain scores, prn medication use. 2) DVT PPx Enoxaparin daily. Continue to monitor for bleeding/clot. 3) ID Amox/clav & levofloxacin thru 09/23. Continue to monitor s/s infection. 4) GI Pantoprazole, metoclopramide, ondansetron prn. Continue to monitor prn medication use, for GI distress. Psychotropic Medications: 5) Mirtazapine for appetite loss. Continue to monitor clinically. Unnecessary Medications: None Bowel Regimen: 6) Senna/s, PEG, prn bisacodyl. Continue to monitor prn medication use, for constipation/diarrhea. Date of Note:: 09/20/18 - Provider Comments Provider responsibility: Provider responsible to enter orders to implement recommendations <Delfin Rivera Chi - Last Filed: 09/20/18 13:46> Progress Note - Pharmacy Subjective: [] Objective: Allergies No Known Allergies Allergy (Verified 09/11/18 07:08) Current Medications Generic Name Dose Route Start Last Admin Trade Name Freq PRN Reason Stop Dose Admin Acetaminophen 1,000 mg 09/17/18 20:14 Tylenol PO Q8H PRN PRN MILD PAIN (1-310) Amoxicillin/Clavulanate Potassium 875 mg 09/18/18 06:00 09/20/18 05:51 Augmentin Tablet PO 09/23/18 06:00 875 mg Q12 BUTCH Administration Bisacodyl 10 mg 09/17/18 20:14 Dulcolax PO DAILY PRN Constipation Calamine/Phenol 1 applic 09/18/18 06:00 09/20/18 05:57 Calmoseptine Ointment TOPICAL 1 applicatio 599,2199 [facility] Administration Protocol Cyclobenzaprine HCl 10 mg 09/17/18 19:48 Flexeril PO TID PRN PRN MUSCLE SPASM Enoxaparin Sodium 40 mg 09/18/18 06:00 09/20/18 05:51 Lovenox SC 40 mg DAILY@0600 [facility] Administration Heparin Sodium (Beef Lung) 50 units 09/19/18 13:15 IV UD PRN HEPARIN FLUSH Lactated Ringer's 500 mls @ 250 mls/hr 09/18/18 06:00 09/20/18 05:41 IV 250 mls/hr Q8H [facility] Administration Latanoprost 1 drop 09/17/18 22:00 09/19/18 20:51 Xalatan Opthalmic EACH EYE 1 drop QHS [facility] Administration Levofloxacin 250 mg 09/18/18 22:00 09/19/18 20:52 Levaquin Tablet PO 09/21/18 22:01 250 mg Q24@2200 [facility] Administration Metoclopramide HCl 5 mg 09/18/18 12:00 09/20/18 12:55 Reglan IV 5 mg Q6 [facility] Administration Mirtazapine 15 mg 09/17/18 22:00 09/19/18 20:52 Remeron PO 15 mg QHS [facility] Administration Multivitamins 1 tablet 09/18/18 08:00 09/20/18 09:29 Multivitamin PO 1 tablet DAILYCM [facility] Administration Nystatin 1 applic 09/18/18 06:00 09/20/18 05:57 Mycostatin Powder TOPICAL 1 applicatio 599,2199 [facility] Administration Protocol Ondansetron HCl 4 mg 09/19/18 06:00 09/20/18 05:42 Zofran IV 4 mg Q8 [facility] Administration Oxycodone HCl 5 mg 09/17/18 20:15 Oxyir PO Q4H PRN PRN MODERATE PAIN (4-5/10) Pantoprazole Sodium 40 mg 09/18/18 06:00 09/20/18 05:51 Protonix PO 40 mg DAILY [facility] Administration Polyethylene Glycol 17 gm 09/18/18 06:00 09/20/18 05:57 Miralax PO Not Given DAILY BUT[facility] Senna/Docusate Sodium 1 tablet 09/18/18 18:00 09/20/18 05:58 Senokot-S, Deja-Colace PO Not Given BID BUTCH Sodium Chloride 5 - 10 ml 09/18/18 06:20 09/20/18 12:56 IV 10 ml PRN PRN Administration SALINE FLUSH Sodium Chloride 10 - 20 ml 09/19/18 13:15 09/20/18 05:48 IV 20 ml UD PRN Administration PICC FLUSH Tuberculin PPD 5 tu 09/25/18 10:00 Tubersol, Aplisol, Ppd ID 09/25/18 10:01 X1 ONE Problem List Cholangitis (Acute) E. coli UTI (Acute) Hypertension (Chronic) Degenerative disc disease (Chronic) Glaucoma (Chronic) Vital Signs Temp Pulse Resp BP Pulse Ox 98.7 F 81 16 118/71 95 09/19/18 16:00 09/19/18 16:00 09/19/18 16:00 09/19/18 16:00 09/19/18 16:00 Oxygen Delivery Method Room Air Weight: 53.07 kg Body Mass Index (BMI) 22.0 Sodium 148 mmol/L (136-145) H 09/18/18 06:15 Potassium 4.2 mmol/L (3.5-5.1) 09/18/18 06:15 Chloride 118 mmol/L (98-107) H 09/18/18 06:15 Carbon Dioxide 20.0 mmol/L (21.0-32.0) L 09/18/18 06:15 Anion Gap 10 (5-15) 09/18/18 06:15 BUN 15 mg/dL (7-18) 09/18/18 06:15 Creatinine 0.67 mg/dL (0.55-1.02) 09/18/18 06:15 Est GFR (MDRD) Af Amer 109 mL/min (>60) 09/18/18 06:15 Est GFR (MDRD) Non-Af 90 mL/min (>60) 09/18/18 06:15 BUN/Creatinine Ratio 22.4 RATIO (10-20) H 09/18/18 06:15 Glucose 90 mg/dL (74-106) 09/18/18 06:15 Assessment/Plan: Psychotropic Medications: Unnecessary Medications: Bowel Regimen: - Provider Comments Provider responsibility: Provider responsible to enter orders to implement recommendations Provider Comments to Recommendations by Pharmacy: Agree
--- NOTE | 2018-09-20 08:52 | PHA.CONS_ITS ---
<Regino Macdonald D - Last Filed: 09/20/18 08:30> Progress Note - Pharmacy Subjective: TCU Admission Objective: Allergies No Known Allergies Allergy (Verified 09/11/18 07:08) Current Medications Generic Name Dose Route Start Last Admin Trade Name Freq PRN Reason Stop Dose Admin Acetaminophen 1,000 mg 09/17/18 20:14 Tylenol PO Q8H PRN PRN MILD PAIN (1-3/10) Amoxicillin/Clavulanate Potassium 875 mg 09/18/18 06:00 09/20/18 05:51 Augmentin Tablet PO 09/23/18 06:00 875 mg Q12 BUT[facility] Administration Bisacodyl 10 mg 09/17/18 20:14 Dulcolax PO DAILY PRN Constipation Calamine/Phenol 1 applic 09/18/18 06:00 09/20/18 05:57 Calmoseptine Ointment TOPICAL 1 applicatio 0600,2200 [facility] Administration Protocol Cyclobenzaprine HCl 10 mg 09/17/18 19:48 Flexeril PO TID PRN PRN MUSCLE SPASM Enoxaparin Sodium 40 mg 09/18/18 06:00 09/20/18 05:51 Lovenox SC 40 mg DAILY@0600 [facility] Administration Heparin Sodium (Beef Lung) 50 units 09/19/18 13:15 IV UD PRN HEPARIN FLUSH Lactated Ringer's 500 mls @ 250 mls/hr 09/18/18 06:00 09/20/18 05:41 IV 250 mls/hr Q8H [facility] Administration Latanoprost 1 drop 09/17/18 22:00 09/19/18 20:51 Xalatan Opthalmic EACH EYE 1 drop QHS [facility] Administration Levofloxacin 250 mg 09/18/18 22:00 09/19/18 20:52 Levaquin Tablet PO 09/21/18 22:01 250 mg Q24@2200 [facility] Administration Metoclopramide HCl 5 mg 09/18/18 12:00 09/20/18 05:46 Reglan IV 5 mg Q6 BUT[facility] Administration Mirtazapine 15 mg 09/17/18 22:00 09/19/18 20:52 Remeron PO 15 mg QHS [facility] Administration Multivitamins 1 tablet 09/18/18 08:00 09/19/18 08:35 Multivitamin PO 1 tablet DAILYCM [facility] Administration Nystatin 1 applic 09/18/18 06:00 09/20/18 05:57 Mycostatin Powder TOPICAL 1 applicatio 0600,2200 [facility] Administration Protocol Ondansetron HCl 4 mg 09/19/18 06:00 09/20/18 05:42 Zofran IV 4 mg Q8 BUT[facility] Administration Oxycodone HCl 5 mg 09/17/18 20:15 Oxyir PO Q4H PRN PRN MODERATE PAIN (4-5/10) Pantoprazole Sodium 40 mg 09/18/18 06:00 09/20/18 05:51 Protonix PO 40 mg DAILY [facility] Administration Polyethylene Glycol 17 gm 09/18/18 06:00 09/20/18 05:57 Miralax PO Not Given DAILY BUT[facility] Senna/Docusate Sodium 1 tablet 09/18/18 18:00 09/20/18 05:58 Senokot-S, Deja-Colace PO Not Given BID BUTCH Sodium Chloride 5 - 10 ml 09/18/18 06:20 09/19/18 23:04 IV 10 ml PRN PRN Administration SALINE FLUSH Sodium Chloride 10 - 20 ml 09/19/18 13:15 09/20/18 05:48 IV 20 ml UD PRN Administration PICC FLUSH Tuberculin PPD 5 tu 09/25/18 10:00 Tubersol, Aplisol, Ppd ID 09/25/18 10:01 X1 ONE Problem List Cholangitis (Acute) E. coli UTI (Acute) Hypertension (Chronic) Degenerative disc disease (Chronic) Glaucoma (Chronic) Vital Signs Temp Pulse Resp BP Pulse Ox 98.7 F 81 16 118/71 95 09/19/18 16:00 09/19/18 16:00 09/19/18 16:00 09/19/18 16:00 09/19/18 16:00 Oxygen Delivery Method Room Air Weight: 51.341 kg Body Mass Index (BMI) 22.0 Sodium 148 mmol/L (136-145) H 09/18/18 06:15 Potassium 4.2 mmol/L (3.5-5.1) 09/18/18 06:15 Chloride 118 mmol/L (98-107) H 09/18/18 06:15 Carbon Dioxide 20.0 mmol/L (21.0-32.0) L 09/18/18 06:15 Anion Gap 10 (5-15) 09/18/18 06:15 BUN 15 mg/dL (7-18) 09/18/18 06:15 Creatinine 0.67 mg/dL (0.55-1.02) 09/18/18 06:15 Est GFR (MDRD) Af Amer 109 mL/min (>60) 09/18/18 06:15 Est GFR (MDRD) Non-Af 90 mL/min (>60) 09/18/18 06:15 BUN/Creatinine Ratio 22.4 RATIO (10-20) H 09/18/18 06:15 Glucose 90 mg/dL (74-106) 09/18/18 06:15 Assessment/Plan: 1) Pain APAP for mild pain, oxycodone for moderate pain, cyclobenzaprine for spasm. Continue to monitor daily pain scores, prn medication use. 2) DVT PPx Enoxaparin daily. Continue to monitor for bleeding/clot. 3) ID Amox/clav & levofloxacin thru 09/23. Continue to monitor s/s infection. 4) GI Pantoprazole, metoclopramide, ondansetron prn. Continue to monitor prn medication use, for GI distress. Psychotropic Medications: 5) Mirtazapine for appetite loss. Continue to monitor clinically. Unnecessary Medications: None Bowel Regimen: 6) Senna/s, PEG, prn bisacodyl. Continue to monitor prn medication use, for constipation/diarrhea. Date of Note:: 09/20/18 - Provider Comments Provider responsibility: Provider responsible to enter orders to implement recommendations <Delfin Rivera Chi - Last Filed: 09/20/18 13:46> Progress Note - Pharmacy Subjective: [] Objective: Allergies No Known Allergies Allergy (Verified 09/11/18 07:08) Current Medications Generic Name Dose Route Start Last Admin Trade Name Freq PRN Reason Stop Dose Admin Acetaminophen 1,000 mg 09/17/18 20:14 Tylenol PO Q8H PRN PRN MILD PAIN (1-310) Amoxicillin/Clavulanate Potassium 875 mg 09/18/18 06:00 09/20/18 05:51 Augmentin Tablet PO 09/23/18 06:00 875 mg Q12 [facility] Administration Bisacodyl 10 mg 09/17/18 20:14 Dulcolax PO DAILY PRN Constipation Calamine/Phenol 1 applic 09/18/18 06:00 09/20/18 05:57 Calmoseptine Ointment TOPICAL 1 applicatio 599,2199 [facility] Administration Protocol Cyclobenzaprine HCl 10 mg 09/17/18 19:48 Flexeril PO TID PRN PRN MUSCLE SPASM Enoxaparin Sodium 40 mg 09/18/18 06:00 09/20/18 05:51 Lovenox SC 40 mg DAILY@0600 [facility] Administration Heparin Sodium (Beef Lung) 50 units 09/19/18 13:15 IV UD PRN HEPARIN FLUSH Lactated Ringer's 500 mls @ 250 mls/hr 09/18/18 06:00 09/20/18 05:41 IV 250 mls/hr Q8H [facility] Administration Latanoprost 1 drop 09/17/18 22:00 09/19/18 20:51 Xalatan Opthalmic EACH EYE 1 drop QHS [facility] Administration Levofloxacin 250 mg 09/18/18 22:00 09/19/18 20:52 Levaquin Tablet PO 09/21/18 22:01 250 mg Q24@2200 [facility] Administration Metoclopramide HCl 5 mg 09/18/18 12:00 09/20/18 12:55 Reglan IV 5 mg Q6 [facility] Administration Mirtazapine 15 mg 09/17/18 22:00 09/19/18 20:52 Remeron PO 15 mg QHS [facility] Administration Multivitamins 1 tablet 09/18/18 08:00 09/20/18 09:29 Multivitamin PO 1 tablet DAILYCM [facility] Administration Nystatin 1 applic 09/18/18 06:00 09/20/18 05:57 Mycostatin Powder TOPICAL 1 applicatio 599,2199 [facility] Administration Protocol Ondansetron HCl 4 mg 09/19/18 06:00 09/20/18 05:42 Zofran IV 4 mg Q8 [facility] Administration Oxycodone HCl 5 mg 09/17/18 20:15 Oxyir PO Q4H PRN PRN MODERATE PAIN (4-5/10) Pantoprazole Sodium 40 mg 09/18/18 06:00 09/20/18 05:51 Protonix PO 40 mg DAILY [facility] Administration Polyethylene Glycol 17 gm 09/18/18 06:00 09/20/18 05:57 Miralax PO Not Given DAILY [facility] Senna/Docusate Sodium 1 tablet 09/18/18 18:00 09/20/18 05:58 Senokot-S, Deja-Colace PO Not Given BID BUTCH Sodium Chloride 5 - 10 ml 09/18/18 06:20 09/20/18 12:56 IV 10 ml PRN PRN Administration SALINE FLUSH Sodium Chloride 10 - 20 ml 09/19/18 13:15 09/20/18 05:48 IV 20 ml UD PRN Administration PICC FLUSH Tuberculin PPD 5 tu 09/25/18 10:00 Tubersol, Aplisol, Ppd ID 09/25/18 10:01 X1 ONE Problem List Cholangitis (Acute) E. coli UTI (Acute) Hypertension (Chronic) Degenerative disc disease (Chronic) Glaucoma (Chronic) Vital Signs Temp Pulse Resp BP Pulse Ox 98.7 F 81 16 118/71 95 09/19/18 16:00 09/19/18 16:00 09/19/18 16:00 09/19/18 16:00 09/19/18 16:00 Oxygen Delivery Method Room Air Weight: 53.07 kg Body Mass Index (BMI) 22.0 Sodium 148 mmol/L (136-145) H 09/18/18 06:15 Potassium 4.2 mmol/L (3.5-5.1) 09/18/18 06:15 Chloride 118 mmol/L (98-107) H 09/18/18 06:15 Carbon Dioxide 20.0 mmol/L (21.0-32.0) L 09/18/18 06:15 Anion Gap 10 (5-15) 09/18/18 06:15 BUN 15 mg/dL (7-18) 09/18/18 06:15 Creatinine 0.67 mg/dL (0.55-1.02) 09/18/18 06:15 Est GFR (MDRD) Af Amer 109 mL/min (>60) 09/18/18 06:15 Est GFR (MDRD) Non-Af 90 mL/min (>60) 09/18/18 06:15 BUN/Creatinine Ratio 22.4 RATIO (10-20) H 09/18/18 06:15 Glucose 90 mg/dL (74-106) 09/18/18 06:15 Assessment/Plan: Psychotropic Medications: Unnecessary Medications: Bowel Regimen: - Provider Comments Provider responsibility: Provider responsible to enter orders to implement recommendations Provider Comments to Recommendations by Pharmacy: Agree
[2018-09-20] MEDS: Multivitamins,Therapeutic Tablet 1 TABLET PO (09:29)
[2018-09-20] MEDS: 0.9% Saline Lock 10 ML Syringe IV ×2 (12:56→15:10)
[2018-09-20 15:58] VITALS: BP 133/85; PULSE 95; RESP 18; TEMP 36.4; O2SAT 97
[2018-09-20] MEDS: Senna/Docusate Sodium 1 Tablet PO (17:09)
[2018-09-20] MEDS: Bisacodyl 5 MG Tablet 10 MG PO (17:12)
--- NOTE | 2018-09-20 17:13 | NURSING ---
PRN DULCOLAX GIVEN.
--- NOTE | 2018-09-20 17:58 | NURSING ---
Per Dr xu Villarreal to see resident for appointment. Does not want PET scan done until she is seen in his office. Dr Rivera updated.
[2018-09-20] MEDS: levoFLOXacin 250 MG Tablet PO (22:48)
[2018-09-20] MEDS: Mirtazapine 15 MG Tablet PO (22:48)
[2018-09-20] MEDS: Latanoprost 0.005% 1 Bottle 1 DRP EACH EYE (22:52)
[2018-09-21] MEDS: Metoclopramide 10 MG/2 ML Vial 5 MG IV ×4 (00:16→19:39)
[2018-09-21] MEDS: 0.9% NaCl PICC Flush IV ×2 (00:24→06:20)
[2018-09-21] MEDS: Lactated Ringers 500 ML 250 ML IV ×3 (06:06→20:55)
[2018-09-21] MEDS: Menthol/Lanolin/Calamine/Znox 113 GM Tube 1 APPLIC TOPICAL ×2 (06:08→20:57)
[2018-09-21] MEDS: Nystatin Powder 15gm Bottle 1 APPLIC TOPICAL ×2 (06:08→20:58)
[2018-09-21] MEDS: Ondansetron 4 MG/2 ML Vial IV ×3 (06:09→20:59)
[2018-09-21] MEDS: Amox/Clavulanate 875 MG Tablet PO ×2 (06:15→17:12)
[2018-09-21] MEDS: Enoxaparin 40 MG/0.4 ML Syringe SC (06:15)
[2018-09-21] MEDS: Senna/Docusate Sodium 1 Tablet PO ×2 (06:15→17:12)
[2018-09-21] MEDS: Pantoprazole Sodium 40 MG Tablet PO (06:15)
[2018-09-21] MEDS: Multivitamins,Therapeutic Tablet 1 TABLET PO (08:20)
[2018-09-21 08:45] VITALS: PULSE 92; RESP 18; O2SAT 97
--- NOTE | 2018-09-21 14:40 | CHAPLAIN ---
Type of Pastoral Visit _x__ Initial Visit ___ Follow-up Visit ___ On-call Visit ___ General Patient Visit ___ Spiritual Assessment ___ Family Conference ___ Bereavement ___ Rapid Response ___ Code Blue ___ Other (describe below) Pastoral Care Referral From _x__ Patient ___ Family ___ Nurse ___ Physician ___ Moss Gatherer ___ Call Center Recruiter ___ Other (describe below) Sacrament/Intervention _x__ Active listening ___ Anointing ___ Sikhism ___ Bereavement ___ Communion _x__ Alba exploration ___ ___ Life review _x__ Prayer ___ Reconciliation ___ Sacrament of Sick _x__ Supportive presence ___ Wedding ___ Other (describe below) Pastoral Comments patient is cautiously waiting for more information from a doctor's visit; pt expresses strong alba and life long dedication to the [employer]; pt has many diana and gifts in room and they serve as reminder of many family and friends that are supportive and caring; pt welcomed prayer and visit
--- NOTE | 2018-09-21 15:39 | NURSING ---
Pt returned from appointment with GERONIMO Aceves for PET and CT scan to r/o mets. Follow up in 2 weeks.
[2018-09-21 15:48] VITALS: BP 133/83; PULSE 103; RESP 16; TEMP 36.6; O2SAT 100
--- NOTE | 2018-09-21 16:07 | NURSING ---
Pt scheduled to have PET scan Wednesday 09/27 at 1045.
[2018-09-21] MEDS: Mirtazapine 15 MG Tablet PO (20:56)
[2018-09-21] MEDS: levoFLOXacin 250 MG Tablet PO (20:56)
[2018-09-21] MEDS: Latanoprost 0.005% 1 Bottle 1 DRP EACH EYE (20:58)
[2018-09-22] MEDS: Metoclopramide 10 MG/2 ML Vial 5 MG IV ×4 (00:26→17:45)
[2018-09-22] MEDS: 0.9% Saline Lock 10 ML Syringe IV ×3 (00:29→17:45)
[2018-09-22] MEDS: Amox/Clavulanate 875 MG Tablet PO ×2 (06:21→17:43)
[2018-09-22] MEDS: Senna/Docusate Sodium 1 Tablet PO ×2 (06:21→17:43)
[2018-09-22] MEDS: Ondansetron 4 MG/2 ML Vial IV ×3 (06:21→21:21)
[2018-09-22] MEDS: Enoxaparin 40 MG/0.4 ML Syringe SC (06:21)
[2018-09-22] MEDS: Pantoprazole Sodium 40 MG Tablet PO (06:21)
[2018-09-22] MEDS: Menthol/Lanolin/Calamine/Znox 113 GM Tube 1 APPLIC TOPICAL ×2 (06:22→21:28)
[2018-09-22] MEDS: Lactated Ringers 500 ML 250 ML IV ×3 (06:22→21:21)
[2018-09-22] MEDS: Nystatin Powder 15gm Bottle 1 APPLIC TOPICAL ×2 (06:22→21:25)
[2018-09-22] MEDS: Multivitamins,Therapeutic Tablet 1 TABLET PO (08:52)
--- NOTE | 2018-09-22 10:41 | CASEMGMT ---
Plan of care meeting held. Resident present. Resident family not present as this time. No discharge date set. Resident to continue with further care and treatment on the Transitional Care Unit. Resident plans to discharge to home alone when it is time of discharge. Resident does have supportive family that plans to assist at time of discharge. Resident with insurance update due on this day, 09/22/18 and aware that continued stay approval is not guaranteed. Support given. Will continue to follow. Millicent BLACK, JOVI
[2018-09-22] MEDS: 0.9% NaCl PICC Flush IV ×3 (12:02→21:22)
--- NOTE | 2018-09-22 13:04 | CASEMGMT ---
Insurance Clinical information sent. Pending continued stay approval. Auth#[id number] Millicent BLACK, JOVI
[2018-09-22 16:00] VITALS: BP 124/78; PULSE 65; RESP 18; TEMP 37.3; O2SAT 97
--- NOTE | 2018-09-22 16:09 | NURSING ---
flushed both drains per order. Emptied LT drain for 50cc brown/green color liquid, RT for 40cc yellow fluid.
[2018-09-22 16:12] VITALS: PULSE 96; RESP 18; O2SAT 97
[2018-09-22] MEDS: Mirtazapine 15 MG Tablet PO (21:21)
[2018-09-22] MEDS: Latanoprost 0.005% 1 Bottle 1 DRP EACH EYE (21:27)
[2018-09-23] MEDS: Metoclopramide 10 MG/2 ML Vial 5 MG IV ×4 (00:03→18:36)
[2018-09-23] MEDS: 0.9% NaCl PICC Flush IV ×3 (00:06→21:14)
[2018-09-23] MEDS: Ondansetron 4 MG/2 ML Vial IV ×3 (05:02→21:12)
[2018-09-23] MEDS: Senna/Docusate Sodium 1 Tablet PO ×2 (05:08→21:12)
[2018-09-23] MEDS: Enoxaparin 40 MG/0.4 ML Syringe SC (05:08)
[2018-09-23] MEDS: Pantoprazole Sodium 40 MG Tablet PO (05:08)
[2018-09-23] MEDS: Amox/Clavulanate 875 MG Tablet PO (05:08)
[2018-09-23] MEDS: Lactated Ringers 500 ML 250 ML IV ×3 (05:08→21:12)
[2018-09-23] MEDS: Nystatin Powder 15gm Bottle 1 APPLIC TOPICAL ×2 (05:13→21:13)
[2018-09-23] MEDS: Menthol/Lanolin/Calamine/Znox 113 GM Tube 1 APPLIC TOPICAL ×2 (05:14→21:18)
[2018-09-23] MEDS: Multivitamins,Therapeutic Tablet 1 TABLET PO (08:41)
--- NOTE | 2018-09-23 13:55 | MDS.RN ---
Pain interview for chula 09/24/18 completed.
[2018-09-23 16:00] VITALS: BP 145/81; PULSE 90; RESP 18; TEMP 37.3; O2SAT 97
--- NOTE | 2018-09-23 16:23 | NURSING ---
flushed bilat drains per order and emptied, documented both.
[2018-09-23 16:24] VITALS: RESP 18; O2SAT 95
[2018-09-23] MEDS: Mirtazapine 15 MG Tablet PO (21:12)
[2018-09-23] MEDS: Latanoprost 0.005% 1 Bottle 1 DRP EACH EYE (21:13)
[2018-09-24] MEDS: Metoclopramide 10 MG/2 ML Vial 5 MG IV ×4 (00:05→17:48)
[2018-09-24] MEDS: Ondansetron 4 MG/2 ML Vial IV ×3 (05:05→22:09)
[2018-09-24] MEDS: 0.9% NaCl PICC Flush IV (05:06)
[2018-09-24] MEDS: Pantoprazole Sodium 40 MG Tablet PO (05:10)
[2018-09-24] MEDS: Senna/Docusate Sodium 1 Tablet PO ×2 (05:10→17:47)
[2018-09-24] MEDS: Menthol/Lanolin/Calamine/Znox 113 GM Tube 1 APPLIC TOPICAL ×2 (05:11→22:26)
[2018-09-24] MEDS: Enoxaparin 40 MG/0.4 ML Syringe SC (05:11)
[2018-09-24] MEDS: Lactated Ringers 500 ML 250 ML IV ×3 (05:11→22:09)
[2018-09-24] MEDS: Nystatin Powder 15gm Bottle 1 APPLIC TOPICAL ×2 (05:12→22:28)
[2018-09-24] MEDS: Multivitamins,Therapeutic Tablet 1 TABLET PO (09:30)
--- NOTE | 2018-09-24 09:56 | CASEMGMT ---
Addendum entered by Kena Ramirez 09/24/18 10:22: Reviewed and approved social work student MDS documentation. Millicent Ramirez CONVERTER SUPERVISOR, DIRECTOR MEDICAL SURGICAL Original Note: Brief interview for mental status (BIMS) and mood (PHQ-9) completed on this day. BIMS score 07/24. PHQ-9 score 11/03. Luke Lopez social work student
--- NOTE | 2018-09-24 10:38 | NURSING ---
PETCT prep instructions received from [facility]. see chart
[2018-09-24] MEDS: 0.9% Saline Lock 10 ML Syringe IV ×2 (11:58→22:09)
[2018-09-24 16:00] VITALS: BP 145/83; PULSE 90; RESP 18; TEMP 37.1; O2SAT 94
--- NOTE | 2018-09-24 16:24 | CASEMGMT ---
Insurance Continued stay approved with next update due on 09/27/18. Auth#[id number] Millicent BLACK, JOVI
[2018-09-24] MEDS: Latanoprost 0.005% 1 Bottle 1 DRP EACH EYE (22:09)
[2018-09-24] MEDS: Mirtazapine 15 MG Tablet PO (22:09)
[2018-09-25] MEDS: 0.9% Saline Lock 10 ML Syringe IV ×6 (00:17→21:07)
[2018-09-25] MEDS: Metoclopramide 10 MG/2 ML Vial 5 MG IV ×5 (00:17→23:27)
[2018-09-25] MEDS: Ondansetron 4 MG/2 ML Vial IV ×3 (06:15→21:05)
[2018-09-25] MEDS: Pantoprazole Sodium 40 MG Tablet PO (06:15)
[2018-09-25] MEDS: Senna/Docusate Sodium 1 Tablet PO ×2 (06:15→17:24)
[2018-09-25] MEDS: Menthol/Lanolin/Calamine/Znox 113 GM Tube 1 APPLIC TOPICAL ×2 (06:16→21:11)
[2018-09-25] MEDS: Enoxaparin 40 MG/0.4 ML Syringe SC (06:16)
[2018-09-25] MEDS: Nystatin Powder 15gm Bottle 1 APPLIC TOPICAL ×2 (06:16→21:11)
[2018-09-25] MEDS: Lactated Ringers 500 ML 250 ML IV ×3 (06:21→21:01)
[2018-09-25 06:43] LABS: Absolute Lymphocyte Count 0.71 X10^3/ul (0.83-4.51); Absolute Neutrophil Count 7.7 X10^3/uL (2.0-7.7); Basophil# 0.02 X10^3/uL; Basophil% 0.2 % (0-1); Eosinophil# 0.16 X10^3/uL; Eosinophils% 1.7 % (0-5); Hematocrit 34.7 % (37-47); Hemoglobin 11.4 g/dl (12.0-15.0); Lymphocyte # 0.71 X10^3/ul (4.0); Lymphocyte % 7.7 % (19-41); Mean Corp Hgb Conc 32.9 g/gl (32-36); Mean Corpuscular Hgb 31.8 pg (27.0-32.0); Mean Corpuscular Volume 96.7 fL (81-99); Mean Platelet Vol. 9.7 fl (6.2-12.0); Monocyte# 0.58 X10^3/uL; Monocyte% 6.3 % (0-10); Neutrophil # 7.73 X10^3/uL (2.7-7.7); Neutrophil % 83.7 % (47-70); Platelet Count 312 K/mm3 (150-450); RBC Distribution Width CV 15.4 % (11.6-14.6); Red Blood Count 3.59 M/mm3 (4.2-5.4); White Blood Count 9.2 K/mm3 (4.4-11.0)
[2018-09-25 06:52] LABS: POSITIVE COUNT NO; POSITIVE DIFFERENTIAL NO; POSITIVE MORPHOLOGY NO
[2018-09-25 07:15] LABS: BUN 4 mg/dL (7-18); Creatinine, Serum 0.42 mg/dL (0.55-1.02); EST Glomerular Filtration Rate 154 mL/min (>60); Glucose 87 mg/dL (74-106)
[2018-09-25 07:16] LABS: Anion Gap 6 (5-15); BUN/Creat Ratio 9.5 RATIO (10-20); Calcium,Total 6.8 mg/dL (8.5-10.1); Chloride 105 mmol/L (98-107); Est Glom Filt Rate - Afr Amer 186 mL/min (>60); Sodium Level 139 mmol/L (136-145)
[2018-09-25] MEDS: Multivitamins,Therapeutic Tablet 1 TABLET PO (08:38)
[2018-09-25] MEDS: Tuberculin,Purif.prot.deriv. 50 TU/ML Vial 5 ML ID (11:27)
--- NOTE | 2018-09-25 15:45 | NURSING ---
THIS NURSE RECHECKED PT TEMP. 100.3 ORAL. REPORTED TO LIUDMILA GUILLAUME
[2018-09-25 15:46] VITALS: TEMP 37.9
[2018-09-25 15:48] VITALS: BP 144/80; PULSE 109; RESP 18; TEMP 38.1; O2SAT 91
[2018-09-25] MEDS: Acetaminophen 500 MG Tablet 1000 MG PO (17:22)
[2018-09-25 17:26] VITALS: TEMP 38.6
--- NOTE | 2018-09-25 17:27 | NURSING ---
PT TEMP NOW 101.4 ORAL. PRN TYLENOL GIVEN. REPORTED TO LIUDMILA GUILLAUME
--- NOTE | 2018-09-25 17:32 | NURSING ---
THIS NURSE TRYED TO GET PT TO DRINK WATER,PT STATED NO SHE HATES IT. OFFERED PT JUICE,TEA ETC. PT REFUSED. REPORTED TO LIUDMILA GUILLAUME
[2018-09-25 18:23] VITALS: TEMP 37.2
--- NOTE | 2018-09-25 18:23 | RAD_ITS ---
STUDY: X-RAY - ABDOMEN/PELVIS REASON FOR EXAM: Female, 77 years old. Fever TECHNIQUE: Single AP view of the abdomen / pelvis. COMPARISON: CT 08/27/2018 FINDINGS: There is a biliary stent. Transhepatic biliary catheter is seen (subxiphoid) extending to the expected location of the duodenum. There is also a pigtail catheter along the right side of the abdomen of uncertain position. There is an unremarkable bowel gas pattern. There is fecal residue of the left colon. There is no demonstrated free abdominal air. The visualized liver, spleen and kidneys are grossly normal in size and morphology. Normal soft tissue structures. There are diffuse degenerative changes of the visualized lumbar spine. Levoscoliosis noted. RAD/Abdomen Single View (Portable) IMPRESSION: 1. Left transhepatic biliary drainage catheter. Silastic biliary stent. Right abdomen drainage catheter of uncertain position. 2. Nonobstructive bowel gas pattern. 3. Mild fecal residue in the left colon. Electronically Signed: Silver Becerra MD at 19:11 EST , Service support ,
--- NOTE | 2018-09-25 18:26 | RAD_ITS ---
STUDY: X-RAY CHEST REASON FOR EXAM: Female, 77 years old. Fever TECHNIQUE: AP COMPARISON: CT abdomen from 08/27/2018 FINDINGS: Left arm PICC is identified with tip extending to the lower SVC. Right shoulder replacement is noted. Multiple noncalcified pulmonary nodules are identified accounting for pulmonary metastasis described on abdomen/pelvis CT There is no demonstrated pleural abnormality. Normal size heart. Normal mediastinum and reina. Normal visualized pulmonary arteries. There is atherosclerotic calcification of the aortic arch with tortuosity. No acute bony process. Biliary catheters project in the upper abdomen. RAD/Chest 1 View (Portable) IMPRESSION: 1. No airspace consolidation. 2. Multiple pulmonary nodules/metastasis. Electronically Signed: Silver Becerra MD at 19:16 EST , Service support ,
--- NOTE | 2018-09-25 18:41 | NURSING ---
Dr. alanis notified of pt's increased temperture. NO for liver enzymes, respiratory panel, straight cath UA, blood cultures x2, CXR, KUB
[2018-09-25 19:25] LABS: AST(SGOT) 51 U/L (15-37); Alanine Aminotransfer ALT/SGPT 77 U/L (13-56); Alkaline Phosphatase 287 U/L (45-117); Bilirubin, Direct 1.98 mg/dL (0.00-0.30); Globulin 3.6 g/dL (2.2-4.2); Protein, Total 5.6 g/dL (6.4-8.2)
--- NOTE | 2018-09-25 19:46 | NURSING ---
biliary drains flushed at 1900
[2018-09-25] MEDS: Mirtazapine 15 MG Tablet PO (21:03)
[2018-09-25] MEDS: Latanoprost 0.005% 1 Bottle 1 DRP EACH EYE (21:08)
[2018-09-25 21:28] LABS: Bacteria 0 SEEN /hpf (None Seen); Mucous, Urine 0 SEEN /hpf (<or=2+); Red Blood Cells-Urine 0 SEEN /hpf (0-5); Squamous Epithelial Cells - UA 0 SEEN /hpf (5-10)
[2018-09-25 21:29] LABS: Color, Urine Yellow (Yellow); Glucose, Dipstick Normal (Normal); Ketone-Dipstick Negative (Negative); Leukocyte Esterase-Dipstick 500 /ul (Negative); Nitrite-Dipstick Negative (Negative); Occult Blood-Urine 10 /ul (Negative); Protein-Dipstick Negative (Negative); Specific Gravity, Urine 1.015 (1.002-1.030); Urine Clarity Sl. Cloudy (Clear); Urine Urobilinogen 1 mg/dl (Normal)
[2018-09-25 21:34] LABS: Urine Bilirubin Dipstick 1 mg/dL (Negative)
[2018-09-25 21:47] LABS: White Blood Cells 0-5 SEEN /hpf (0-5)
[2018-09-25 21:48] LABS: Transitional Epithelial - Ur 0-5 SEEN /hpf (0-5)
[2018-09-25] MEDS: 0.9% NaCl IVPB Med Flush (250 mL) 15 ML IV (23:16)
[2018-09-26] MEDS: Ondansetron 4 MG/2 ML Vial IV ×3 (05:00→22:11)
[2018-09-26] MEDS: Metoclopramide 10 MG/2 ML Vial 5 MG IV ×3 (05:03→18:06)
[2018-09-26] MEDS: 0.9% NaCl PICC Flush IV ×3 (05:06→22:24)
[2018-09-26] MEDS: Nystatin Powder 15gm Bottle 1 APPLIC TOPICAL ×2 (05:07→20:34)
[2018-09-26] MEDS: Menthol/Lanolin/Calamine/Znox 113 GM Tube 1 APPLIC TOPICAL ×2 (05:07→20:34)
--- NOTE | 2018-09-26 06:30 | NURSING ---
Soap Suds enema given at this time per orders. Patient tolerated procedure well.
[2018-09-26] MEDS: Enoxaparin 40 MG/0.4 ML Syringe SC (06:38)
[2018-09-26] MEDS: Pantoprazole Sodium 40 MG Tablet PO (06:38)
[2018-09-26] MEDS: Multivitamins,Therapeutic Tablet 1 TABLET PO (08:26)
[2018-09-26] MEDS: Iron Polysaccharide Complex 150 MG CAPSULE PO (08:27)
--- NOTE | 2018-09-26 08:29 | NURSING ---
ALL CARE GIVEN IN PT ROOM DUE TO PT IN PRECAUTIONS.
[2018-09-26] MEDS: Lactated Ringers 500 ML 250 ML IV ×2 (11:12→20:00)
[2018-09-26 15:57] VITALS: BP 140/86; PULSE 95; RESP 18; TEMP 37.6; O2SAT 99
[2018-09-26] MEDS: Senna/Docusate Sodium 1 Tablet PO (18:07)
--- NOTE | 2018-09-26 18:40 | NURSING ---
drains flushed and emptied
[2018-09-26] MEDS: Mirtazapine 15 MG Tablet PO (22:10)
[2018-09-26] MEDS: Latanoprost 0.005% 1 Bottle 1 DRP EACH EYE (22:11)
[2018-09-26] MEDS: 0.9% NaCl IVPB Med Flush (250 mL) 15 ML IV (22:16)
[2018-09-27] MEDS: Metoclopramide 10 MG/2 ML Vial 5 MG IV ×4 (00:42→18:57)
[2018-09-27] MEDS: 0.9% Saline Lock 10 ML Syringe IV ×4 (00:46→19:00)
[2018-09-27] MEDS: Lactated Ringers 500 ML 250 ML IV ×3 (02:46→19:40)
[2018-09-27] MEDS: Enoxaparin 40 MG/0.4 ML Syringe SC (04:53)
[2018-09-27] MEDS: Ondansetron 4 MG/2 ML Vial IV ×3 (04:53→21:42)
[2018-09-27] MEDS: Pantoprazole Sodium 40 MG Tablet PO (04:53)
[2018-09-27] MEDS: Senna/Docusate Sodium 1 Tablet PO ×2 (04:53→18:59)
[2018-09-27] MEDS: Menthol/Lanolin/Calamine/Znox 113 GM Tube 1 APPLIC TOPICAL ×2 (04:58→21:46)
[2018-09-27] MEDS: Nystatin Powder 15gm Bottle 1 APPLIC TOPICAL ×2 (04:58→21:46)
--- NOTE | 2018-09-27 09:50 | NURSING ---
At 0850 called pharmacy because R' had a PET scan scheduled for 914 and her Zosyn had 22 ml remaining, pharmacy gave permission to run the Zosyn over 30 min, ran remaining medication.
--- NOTE | 2018-09-27 10:40 | NURSING ---
dr valenzuela notified of consult d/t fevers.
--- NOTE | 2018-09-27 11:41 | NURSING ---
pt back from PET scan @ 1110.
[2018-09-27] MEDS: Iron Polysaccharide Complex 150 MG CAPSULE PO (11:46)
[2018-09-27] MEDS: Multivitamins,Therapeutic Tablet 1 TABLET PO (11:46)
--- NOTE | 2018-09-27 12:52 | CASEMGMT ---
Insurance Clinical information sent. Pending continued stay approval at this time. Auth#[id number] SOFIA Murray, JOVI
[2018-09-27 15:28] VITALS: BP 112/64; PULSE 80; RESP 18; TEMP 36.6; O2SAT 94
--- NOTE | 2018-09-27 18:51 | NURSING ---
Pt bilary drains flushed and emptied, see output documentation.
--- NOTE | 2018-09-27 19:12 | PCM.HP.ID ---
Problem List (1) Fever Status: Acute Reason for Consult: fever Consulted by: Dr. Rivera History of Present Illness: The patient is a 77 year old F with recent diagnosis metastatic cholangiocarcinoma who presented to [facility] with several days of not feeling well. Found to have EMILIANA, likely cholangitis, ecoli uti. Discharged to TCU to complete course of levaquin and flagyl. Biliary drain in place. 09/25, developed fever, chills, some nausea. No new cough, SOB, abd pain, diarrhea. Abx changed to zosyn, now feeling better, no further fever. Full ROS performed and neg except as noted above. 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 Hypertension (Chronic) Degenerative disc disease (Chronic) Glaucoma (Chronic) Allergies/Adverse Reactions: Allergies No Known Allergies Allergy (Verified 09/21/18 14:55) Home Medications: Ambulatory Orders Medication Instructions Recorded Cyclobenzaprine [Flexeril] 10 mg PO TID PRN #20 tablet 12/23/15 Calcium Carbonate [Calcium] 1,200 mg PO DAILY 08/27/18 Cholecalciferol (Vitamin D3) 5,000 unit PO DAILY 08/27/18 [Vitamin D3] Cyanocobalamin (Vitamin B-12) 1,000 mcg SL DAILY 08/27/18 [Vitamin B-12] Latanoprost 1 drop EACH EYE QHS 08/27/18 Melatonin/Pyridoxine [Melatonin 5 10 mg PO DAILY 08/27/18 mg Tablet] Milk Thistle 150 mg PO DAILY 08/27/18 Multivitamin [Multiple Vitamins] 1 tab PO DAILY 08/27/18 Wheat Dextrin [Benefiber] 1 each PO DAILY 08/27/18 Lisinopril [Zestril] 2.5 mg PO DAILY 09/11/18 Ondansetron [Ondansetron Odt] 4 mg PO Q6H PRN PRN 09/11/18 Netarsudil Mesylate [Rhopressa] 1 drop EACH EYE QHS 09/16/18 proMETHazine tablet [Phenergan 25 mg PO Q6H PRN PRN #30 tab 09/16/18 tablet] Amox/Clavulanate Tablet [Augmentin 875 mg PO Q12H 09/17/18 Tablet] Docusate Sodium [Colace] 100 mg PO BID 09/17/18 Levofloxacin [Levaquin] 500 mg PO DAILY 09/17/18 Mirtazapine [Remeron] 15 mg PO QHS 09/17/18 Pantoprazole Sodium [Protonix] 40 mg PO DAILY 09/17/18 Ringer's Solution,Lactated 500 ml IV TID 09/17/18 [Lactated Ringers] - Social History SMOKING STATUS:: Former smoker Vital Signs Temp Pulse Resp BP Pulse Ox 97.9 F 80 18 112/64 94 09/27/18 15:28 09/27/18 15:28 09/27/18 15:28 09/27/18 15:28 09/27/18 15:28 Oxygen Delivery Method Room Air Weight: 56.019 kg Body Mass Index (BMI) 22.0 Microbiology Past 72 Hours 09/25/18 20:45 Urine Culture - Preliminary Urine, Catheterized Culture exhibits no growth. 09/25/18 19:25 Gram Stain - Final Fluid - Bile Body Fluid Culture - Preliminary Staphylococcus species GPC Poss Enterococcus sp Presumptive C albicans 09/25/18 19:25 Gram Stain - Final Fluid - Bile Body Fluid Culture - Preliminary Gram negative esther Gram positive organism Alpha hemolytic organism 09/25/18 19:00 Respiratory Panel (PCR) - Final Mucosa - Nasopharyngeal - Other Studies Radiology: [] reviewed Other Studies: [] Route of nutrition/ use of supplements: [] Nutritional Intake: [] IV Site: [] Gage Catheter: [] - Physical Exam General: Alert, Oriented x3, Cooperative, No apparent distress HEENT: Atraumatic, PERRLA, EOMI Neck: Supple, No Nodes Lungs: Clear to auscultation, Normal air movement Cardiovascular: Regular rate, Regular Rhythm Abdomen: Soft, Non Tender, Non-Distended Extremities: No edema Skin: No rashes IV Site: Peripheral, without edema Musculoskeletal: No Tenderness to Palpation of Joints or Extremities Neurological: Cranial nerves II-XII grossly intact - Assessment/Plan Antibiotics: [] Assessment/Plan: [] Active and Suspected Problems (Last Updated 09/21/18 @ 15:02 by Leila Pandey) Cholangitis (Acute) E. coli UTI (Acute) Bile duct adenocarcinoma (Acute) fever - bcx remain negative. Recent cholangitis and uti. On zosyn. No further fever, feeling much better. Biliary drain remains in place. Recent biliary cxs with MSSE, enterococcus, and yersinia. PET/CT pending. Will follow, thank you.
[2018-09-27] MEDS: 0.9% NaCl PICC Flush IV (21:42)
[2018-09-27] MEDS: 0.9% NaCl IVPB Med Flush (250 mL) 15 ML IV (21:45)
[2018-09-27] MEDS: Mirtazapine 15 MG Tablet PO (21:45)
[2018-09-27] MEDS: Latanoprost 0.005% 1 Bottle 1 DRP EACH EYE (21:45)
[2018-09-28] MEDS: Metoclopramide 10 MG/2 ML Vial 5 MG IV ×4 (00:08→18:42)
[2018-09-28] MEDS: Lactated Ringers 500 ML 250 ML IV (01:53)
[2018-09-28] MEDS: 0.9% NaCl PICC Flush IV ×4 (01:54→21:19)
[2018-09-28] MEDS: Ondansetron 4 MG/2 ML Vial IV ×3 (05:45→21:17)
[2018-09-28] MEDS: Senna/Docusate Sodium 1 Tablet PO ×2 (05:50→17:40)
[2018-09-28] MEDS: Pantoprazole Sodium 40 MG Tablet PO (05:50)
[2018-09-28] MEDS: Enoxaparin 40 MG/0.4 ML Syringe SC (05:51)
[2018-09-28] MEDS: Nystatin Powder 15gm Bottle 1 APPLIC TOPICAL ×2 (05:52→21:32)
[2018-09-28] MEDS: Menthol/Lanolin/Calamine/Znox 113 GM Tube 1 APPLIC TOPICAL ×2 (05:52→21:32)
[2018-09-28] MEDS: Iron Polysaccharide Complex 150 MG CAPSULE PO (08:55)
[2018-09-28] MEDS: Multivitamins,Therapeutic Tablet 1 TABLET PO (08:55)
--- NOTE | 2018-09-28 09:27 | NURSING ---
Dr Miguel ROBERSON'd lactated Ringers, reminded pt she needs to continue drinking fluids and eating.
--- NOTE | 2018-09-28 09:58 | CASEMGMT ---
Brief interview for mental status (BIMS) and resident mood interview (PHQ-9) completed on this day. BIMS score 15. PHQ-9 score 09/05
--- NOTE | 2018-09-28 10:02 | CASEMGMT ---
Social Work This social studies department chair broaching topic of cancer diagnosis for resident. Resident reporting to be open to a conversation about resident current emotional status. Resident reporting to be hopeful that there is no further cancer found with the scan that resident has on Thursday but aware that resident might have further cancer. Resident reporting to want to begin treatment as soon as resident is able to, if in fact it is confirmed that resident cancer is treatable. Resident reporting to be looking at the positive points of every day such as being able to get up and walker around and resident support from family and friends. Resident reporting that family and friends are very involved and plan to be with resident for resident doctor's appointment on that will define whether or not resident will be able to have treatment and what type of treatment is being recommended. Resident presenting with a positive affect during conversation and thanking this social studies department chair. Active listening and emotional support provided. Will continue to follow as needed. Millicent BLACK, JOVI
[2018-09-28 11:00] VITALS: PULSE 82; RESP 18; O2SAT 95
--- NOTE | 2018-09-28 11:21 | PCM.PN.ID ---
Patient Problems: Active and Suspected Problems (Last Updated 09/21/18 @ 15:02 by Leila Pandey) Cholangitis (Acute) E. coli UTI (Acute) Bile duct adenocarcinoma (Acute) Fever (Acute) Subjective: Feeling well, no fever, no abd pain, no n/v/d. - Physical Exam General: Alert, Cooperative, No apparent distress Lungs: Clear to auscultation, Normal air movement Cardiovascular: Regular rate, Regular Rhythm Abdomen: Soft, Non Tender, Non-Distended Skin: No rashes Vital Signs Temp Pulse Resp BP Pulse Ox 97.9 F 80 18 112/64 94 09/27/18 15:28 09/27/18 15:28 09/27/18 15:28 09/27/18 15:28 09/27/18 15:28 Oxygen Delivery Method Room Air Weight: 56.019 kg Body Mass Index (BMI) 22.0 Intake and Output for Last 24 Hours 09/26/18 09/27/18 09/28/18 23:59 23:59 23:59 Intake Total 480 / 480 300 / 300 Output Total 455 / 455 340 / 340 Balance 25 / 25 -40 / -40 Microbiology Past 72 Hours 09/25/18 20:45 Urine Culture - Final Urine, Catheterized Culture exhibits no growth. 09/25/18 19:25 Gram Stain - Final Fluid - Bile Body Fluid Culture - Preliminary Gram negative esthre GPC Poss Enterococcus sp Presumptive C albicans 09/25/18 19:25 Gram Stain - Final Fluid - Bile Body Fluid Culture - Final Staphylococcus haemolyticus Enterococcus faecalis Presumptive C albicans 09/25/18 19:00 Respiratory Panel (PCR) - Final Mucosa - Nasopharyngeal Medical Necessity - Tobacco Use Smoking Status: Former smoker Tobacco Use: Non-smoker Route of nutrition/ use of supplements: [] Nutritional Intake: [] IV Site: [] Gage Catheter: [] - Assessment/Plan Antibiotics: [] Assessment/Plan: [] Active and Suspected Problems (Last Updated 09/21/18 @ 15:02 by Leila Pandey) Cholangitis (Acute) E. coli UTI (Acute) Bile duct adenocarcinoma (Acute) fever - bcx remain negative. Recent cholangitis and uti. On zosyn. No further fever, feeling much better. Biliary drain remains in place. Recent biliary cxs with MSSE, enterococcus, and yersinia. Repeat cxs now with MR-CoNS, e.fasecalis, GNR, yeast. PET/CT pending. Given clinical improvement, will not add vanc to cover the CoNS; may be colonization. Will follow
[2018-09-28] MEDS: 0.9% Saline Lock 10 ML Syringe IV ×2 (14:36→21:34)
[2018-09-28 15:23] VITALS: BP 136/89; PULSE 90; RESP 20; TEMP 37.1; O2SAT 95
[2018-09-28] MEDS: Bisacodyl 5 MG Tablet 10 MG PO (17:40)
[2018-09-28] MEDS: 0.9% NaCl IVPB Med Flush (250 mL) 15 ML IV (21:11)
--- NOTE | 2018-09-28 21:30 | NURSING ---
Bilateral Biliary drains flushed and emptied at this time. Output documented in I [facility] O[facility].
[2018-09-28] MEDS: Mirtazapine 15 MG Tablet PO (21:31)
[2018-09-28] MEDS: Latanoprost 0.005% 1 Bottle 1 DRP EACH EYE (21:32)
--- NOTE | 2018-09-28 23:53 | NURSING ---
Dr Rivera aware of bile cultures N.O. to notify Dr Nova.
[2018-09-29] MEDS: Metoclopramide 10 MG/2 ML Vial 5 MG IV ×4 (00:03→17:30)
[2018-09-29] MEDS: 0.9% Saline Lock 10 ML Syringe IV ×4 (00:06→17:30)
[2018-09-29] MEDS: Menthol/Lanolin/Calamine/Znox 113 GM Tube 1 APPLIC TOPICAL ×2 (06:06→21:10)
[2018-09-29] MEDS: Senna/Docusate Sodium 1 Tablet PO ×2 (06:06→17:30)
[2018-09-29] MEDS: Ondansetron 4 MG/2 ML Vial IV ×3 (06:06→21:14)
[2018-09-29] MEDS: Pantoprazole Sodium 40 MG Tablet PO (06:06)
[2018-09-29] MEDS: Enoxaparin 40 MG/0.4 ML Syringe SC (06:06)
[2018-09-29] MEDS: Nystatin Powder 15gm Bottle 1 APPLIC TOPICAL ×2 (06:06→21:10)
[2018-09-29] MEDS: 0.9% NaCl PICC Flush IV ×2 (06:08→21:11)
--- NOTE | 2018-09-29 06:50 | NURSING ---
Bilateral Biliary drains flushed and emptied at this time. Output documented in I [facility] O[facility].
[2018-09-29] MEDS: Multivitamins,Therapeutic Tablet 1 TABLET PO (09:15)
[2018-09-29] MEDS: Iron Polysaccharide Complex 150 MG CAPSULE PO (09:15)
--- NOTE | 2018-09-29 12:39 | NURSING ---
Dr. Rivera made aware of PET/CT results, NNO.
[2018-09-29 15:27] VITALS: BP 130/81; PULSE 82; RESP 18; TEMP 36.7; O2SAT 92
--- NOTE | 2018-09-29 16:05 | CASEMGMT ---
Insurance Continued stay approved with next update due on 10/04/18. Auth#[id number] Millicent BLACK, JOVI
--- NOTE | 2018-09-29 17:48 | NURSING ---
Bilat drains flushed per order.
[2018-09-29] MEDS: 0.9% NaCl IVPB Med Flush (250 mL) 15 ML IV (21:10)
[2018-09-29] MEDS: Latanoprost 0.005% 1 Bottle 1 DRP EACH EYE (21:12)
[2018-09-29] MEDS: Mirtazapine 15 MG Tablet PO (21:13)
[2018-09-30] MEDS: Metoclopramide 10 MG/2 ML Vial 5 MG IV ×4 (00:41→17:16)
[2018-09-30] MEDS: Senna/Docusate Sodium 1 Tablet PO ×2 (06:37→17:16)
[2018-09-30] MEDS: Enoxaparin 40 MG/0.4 ML Syringe SC (06:37)
[2018-09-30] MEDS: Pantoprazole Sodium 40 MG Tablet PO (06:38)
[2018-09-30] MEDS: 0.9% NaCl PICC Flush IV ×2 (06:40→06:50)
[2018-09-30] MEDS: Menthol/Lanolin/Calamine/Znox 113 GM Tube 1 APPLIC TOPICAL ×2 (06:41→21:50)
[2018-09-30] MEDS: Nystatin Powder 15gm Bottle 1 APPLIC TOPICAL ×2 (06:42→21:51)
[2018-09-30] MEDS: Ondansetron 4 MG/2 ML Vial IV ×3 (06:43→21:53)
--- NOTE | 2018-09-30 06:54 | NURSING ---
Biliary Drains flushed per order.
--- NOTE | 2018-09-30 08:57 | MDS.RN ---
Information for the mds was obtained from review of the clinical record, interview of resident, staff, and direct observation of resident's care.
[2018-09-30] MEDS: Multivitamins,Therapeutic Tablet 1 TABLET PO (09:08)
[2018-09-30] MEDS: Iron Polysaccharide Complex 150 MG CAPSULE PO (09:08)
--- NOTE | 2018-09-30 10:55 | PCM.PN.ID ---
Patient Problems: Active and Suspected Problems (Last Updated 09/21/18 @ 15:02 by Leila Pandey) Cholangitis (Acute) E. coli UTI (Acute) Fever (Acute) Subjective: Feeling ok, no fever, no abd pain, no cough or SOB - Physical Exam General: Alert, Cooperative, No apparent distress Lungs: Clear to auscultation, Normal air movement Cardiovascular: Regular rate, Regular Rhythm Abdomen: Soft, Non Tender, Non-Distended Skin: No rashes Vital Signs Temp Pulse Resp BP Pulse Ox 98.1 F 82 18 130/81 H 92 09/29/18 15:27 09/29/18 15:27 09/29/18 15:27 09/29/18 15:27 09/29/18 15:27 Oxygen Delivery Method Room Air Weight: 54.459 kg Body Mass Index (BMI) 22.0 Intake and Output for Last 24 Hours 09/28/18 09/29/18 09/30/18 23:59 23:59 23:59 Intake Total 730 / 730 620 / 620 240 / 240 Output Total 200 / 200 510 / 510 70 / 70 Balance 530 / 530 110 / 110 170 / 170 Microbiology Past 72 Hours 09/25/18 19:25 Gram Stain - Final Fluid - Bile Body Fluid Culture - Final Staphylococcus haemolyticus Enterococcus faecalis Presumptive C albicans Anaerobic Culture - Final No anaerobic bacteria isolated. 09/25/18 19:25 Gram Stain - Final Fluid - Bile Body Fluid Culture - Final Pseudomonas fluorescens Enterococcus faecalis Presumptive C albicans Anaerobic Culture - Preliminary Checking for anaerobes, further studies to follow. 09/25/18 18:55 Blood Culture - Preliminary Blood Culture (Wb) - Anticubital Right No growth in 48 hours. 09/25/18 18:50 Blood Culture - Preliminary Blood Culture (Wb) - Anticubital Left No growth in 48 hours. 09/25/18 20:45 Urine Culture - Final Urine, Catheterized Culture exhibits no growth. Medical Necessity - Tobacco Use Smoking Status: Former smoker Tobacco Use: Non-smoker Route of nutrition/ use of supplements: [] Nutritional Intake: [] IV Site: [] Gage Catheter: [] - Assessment/Plan Antibiotics: [] Assessment/Plan: [] Active and Suspected Problems (Last Updated 09/21/18 @ 15:02 by Leila Pandey) Cholangitis (Acute) E. coli UTI (Acute) Bile duct adenocarcinoma (Acute) fever - bcx remain negative. Recent cholangitis and uti. On zosyn. No further fever, feeling much better. Biliary drain remains in place. Recent biliary cxs with MSSE, enterococcus, and yersinia. Repeat cxs now with MR-CoNS, e.faecalis, GNR, yeast. PET/CT done; she sees oncology today. Given clinical improvement, will not add vanc to cover the CoNS; may be colonization. Plan on stopping abx tomorrow. Will follow
[2018-09-30] MEDS: 0.9% Saline Lock 10 ML Syringe IV ×5 (11:11→22:04)
--- NOTE | 2018-09-30 14:54 | MDS.RN ---
Pain interview for chula 10/01/18 completed.
[2018-09-30 16:00] VITALS: BP 156/89; PULSE 76; RESP 18; TEMP 36.5; O2SAT 94
--- NOTE | 2018-09-30 16:45 | CASEMGMT ---
Social Work Spoke with resident and resident family in room. Resident requesting for discharge date to be set for 10/02/18 due to having a poor outcome from oncology appointment today. Resident reporting that oncology is stating that there is nothing further to be done for resident medically. Resident and resident family interested in meeting with hospice and requesting for a referral to be sent to [facility]. Resident reporting to also need a walker and aware that if resident decides to discharge to home with hospice services that hospice would set up walker and any other durable medical equipment needs. Resident also will need nursing to continue to follow for medical needs and aware that hospice services will be able to meet resident medical needs within the home. Resident to discharge to home with family for support. [facility] This medical social consultant making referral. Clinical information sent. Hospice to meet with resident and family on 10/01/18 @ 2:30. Proposed discharge date: 10/02/18 PLAN: Discharge to home with possible hospice services Millicent BLACK, JOVI
--- NOTE | 2018-09-30 17:23 | NURSING ---
Bilat drains flushed per order.
--- NOTE | 2018-09-30 21:41 | DCINST_ITS ---
- Discharge Diagnoses Current Active Problems: Current Active and Chronic Problems (Last Reviewed 09/30/18 @ 14:43 by Leila Pandey) Cholangitis (Acute) E. coli UTI (Acute) Hypertension (Chronic) Degenerative disc disease (Chronic) Glaucoma (Chronic) Bile duct adenocarcinoma (Acute) Fever (Acute) You will use the following diet at home:: No restrictions, Regular Your food should be the consistency of: Regular Your liquids should be the consistency of: Regular/Thin Discharge Activity: Return to Normal Activity, May Shower, Use Walker May resume sexual activity in: No Restrictions Weight Bearing Status: Weight bearing as tolerated Call your doctor if you observe: Fever of 101 or Higher, Inability to urinate, Inability to have a bowel movement, Shortness of breath, Chest pain, Uncontrolled pain Allergies/Adverse Reactions: Allergies No Known Allergies Allergy (Verified 09/30/18 14:43) Medications to take at Discharge Cyclobenzaprine [Flexeril] 10 mg PO TID PRN #20 tablet 12/23/15 Latanoprost 1 drop EACH EYE QHS 08/27/18 Multivitamin [Multiple Vitamins] 1 tab PO DAILY 08/27/18 Netarsudil Mesylate [Rhopressa] 1 drop EACH EYE QHS 09/16/18 Acetaminophen [Tylenol] 1,000 mg PO Q8H PRN PRN tablet 09/30/18 Bisacodyl [Dulcolax] 10 mg PO DAILY PRN #30 tablet 09/30/18 Menthol/Lanolin/Calamine/Znox [Calmoseptine Ointment] 1 applic TOPICAL 0600,2200 tube 09/30/18 Metoclopramide HCl [Reglan] 5 mg PO 4X/DAY #120 tablet 09/30/18 Mineral Oil/Petrolatum,White [Eucerin] 1 applic TOPICAL QHS jar 09/30/18 Mirtazapine [Remeron] 15 mg PO QHS #30 tablet 09/30/18 Netarsudil Mesylate [Rhopressa] 1 ml OP QHS drops 09/30/18 Nystatin Powder [Mycostatin Powder] 1 applic TOPICAL 0600,2200 bottle 09/30/18 Ondansetron [Zofran Odt] 4 mg PO Q8H 30 Days #90 tablet 09/30/18 Oxycodone [Oxyir] 5 mg PO Q4H PRN PRN #30 tab 09/30/18 Pantoprazole Sodium [Protonix] 40 mg PO DAILY #30 tablet 09/30/18 Polyethylene Glycol 3350 [Miralax] 17 gm PO DAILY #30 packet 09/30/18 Senna/Docusate Sodium [Senokot-S] 1 tablet PO BID #60 tablet 09/30/18 The following prescriptions were given: Oxycodone [Oxyir] 5 mg PO Q4H PRN PRN #30 tab PRN Reason: Moderate Pain (4-5/10) Bisacodyl [Dulcolax] 10 mg PO DAILY PRN #30 tablet PRN Reason: Constipation Mirtazapine [Remeron] 15 mg PO QHS #30 tablet Ondansetron [Zofran Odt] 4 mg PO Q8H 30 Days #90 tablet Pantoprazole Sodium [Protonix] 40 mg PO DAILY #30 tablet Polyethylene Glycol 3350 [Miralax] 17 gm PO DAILY #30 packet Senna/Docusate Sodium [Senokot-S] 1 tablet PO BID #60 tablet Metoclopramide HCl [Reglan] 5 mg PO 4X/DAY #120 tablet Primary Care Physician: Jose Nugent DO [Primary Care Provider] - Please follow up with your Primary Care Physician in: 1 week. Test Results: Test results from this visit will be discussed in further detail at your follow- up appointment, if applicable. Please Follow Up With: PET Scan When: 2 weeks Please Follow Up With: Dr Lucero Please Follow Up With: blood work at cancer center Proposed Discharge Date: 10/02/18
--- NOTE | 2018-09-30 21:41 | PCM.DC.SUM ---
Discharge Date and Diagnosis - Problem List Patient Problems: Active and Suspected Problems (Last Reviewed 09/30/18 @ 14:43 by Leila Pandey) Cholangitis (Acute) E. coli UTI (Acute) Bile duct adenocarcinoma (Acute) Fever (Acute) Date of Admission: 09/17/18 Date of Discharge: 10/02/18 - Primary Discharge Diagnosis Active and Suspected Problems (Last Reviewed 09/30/18 @ 14:43 by Leila Pandey) Cholangitis (Acute) E. 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 Left transhepatic biliary drainage catheter. Silastic biliary stent. Right abdomen drainage catheter of uncertain position. 2. Nonobstructive bowel gas pattern. 3. Mild fecal residue in the left colon. Electronically Signed: Silver Becerra MD at 19:11 EST , Service support , Chest X-Ray 09/25/18 18:26 IMPRESSION: 1. No airspace consolidation. 2. Multiple pulmonary nodules/metastasis. Electronically Signed: Silver Becerra MD at 19:16 EST , Service support , Microbiology 09/25/18 19:25 Fluid - Bile Gram Stain - Final 09/25/18 19:25 Fluid - Bile Body Fluid Culture - Final Staphylococcus haemolyticus Enterococcus faecalis Presumptive C albicans 09/25/18 19:25 Fluid - Bile Anaerobic Culture - Final No anaerobic bacteria isolated. 09/25/18 19:25 Fluid - Bile Gram Stain - Final 09/25/18 19:25 Fluid - Bile Body Fluid Culture - Final Pseudomonas fluorescens Enterococcus faecalis Presumptive C albicans 09/25/18 19:25 Fluid - Bile Anaerobic Culture - Preliminary Checking for anaerobes, further studies to follow. Operations: None Procedures: None Summary of Care Provided: The patient is a 77 year old Female with below past medical history significant for metastatic cholangiocarcinoma, hospitalized for weakness secondary to acute kidney injury from dehydration, complicated by E. Coli urinary tract infection, multimicrobial cholangitis, admitted to TCU with debility, here for rehabilitation, strengthening, prior to discharge home alone to start treatment for metastatic cholangiocarcinoma. PET scan shows metastasis to liver, bilateral lungs. Dr. Lucero offering chemotherapy, but benefits may not outweigh risks. Discharge home with hospice. Patient Problems: Active and Suspected Problems (Last Reviewed 09/30/18 @ 14:43 by Leila Pandey) Cholangitis (Acute) E. coli UTI (Acute) Bile duct adenocarcinoma (Acute) Fever (Acute) - Physical Exam Vital Signs Temp Pulse Resp BP Pulse Ox 97.7 F L 76 18 156/89 H 94 09/30/18 16:00 09/30/18 16:00 09/30/18 16:00 09/30/18 16:00 09/30/18 16:00 Oxygen Delivery Method Room Air Weight: 54.459 kg Body Mass Index (BMI) 22.0 Intake and Output for Last 24 Hours 09/28/18 09/29/18 09/30/18 23:59 23:59 23:59 Intake Total 730 / 730 620 / 620 600 / 600 Output Total 200 / 200 510 / 510 70 / 70 Balance 530 / 530 110 / 110 530 / 530 Microbiology Past 72 Hours 09/25/18 19:25 Gram Stain - Final Fluid - Bile Body Fluid Culture - Final Staphylococcus haemolyticus Enterococcus faecalis Presumptive C albicans Anaerobic Culture - Final No anaerobic bacteria isolated. 09/25/18 19:25 Gram Stain - Final Fluid - Bile Body Fluid Culture - Final Pseudomonas fluorescens Enterococcus faecalis Presumptive C albicans Anaerobic Culture - Preliminary Checking for anaerobes, further studies to follow. 09/25/18 18:55 Blood Culture - Preliminary Blood Culture (Wb) - Anticubital Right No growth in 48 hours. 09/25/18 18:50 Blood Culture - Preliminary Blood Culture (Wb) - Anticubital Left No growth in 48 hours. 09/25/18 20:45 Urine Culture - Final Urine, Catheterized Culture exhibits no growth. Discharge Diet: No Restrictions Discharge Activity: Return to Normal Activity, May Shower, Use Walker May resume sexual activity in: No Restrictions Weight Bearing Status: Weight bearing as tolerated Call your doctor if you observe: Fever of 101 or Higher, Inability to urinate, Inability to have a bowel movement, Shortness of breath, Chest pain, Uncontrolled pain Home Medications: Medications to take at Discharge Cyclobenzaprine [Flexeril] 10 mg PO TID PRN #20 tablet 12/23/15 Latanoprost 1 drop EACH EYE QHS 08/27/18 Multivitamin [Multiple Vitamins] 1 tab PO DAILY 08/27/18 Netarsudil Mesylate [Rhopressa] 1 drop EACH EYE QHS 09/16/18 Acetaminophen [Tylenol] 1,000 mg PO Q8H PRN PRN tablet 09/30/18 Bisacodyl [Dulcolax] 10 mg PO DAILY PRN #30 tablet 09/30/18 Menthol/Lanolin/Calamine/Znox [Calmoseptine Ointment] 1 applic TOPICAL 0600,2200 tube 09/30/18 Metoclopramide HCl [Reglan] 5 mg PO 4X/DAY #120 tablet 09/30/18 Mineral Oil/Petrolatum,White [Eucerin] 1 applic TOPICAL QHS jar 09/30/18 Mirtazapine [Remeron] 15 mg PO QHS #30 tablet 09/30/18 Netarsudil Mesylate [Rhopressa] 1 ml OP QHS drops 09/30/18 Nystatin Powder [Mycostatin Powder] 1 applic TOPICAL 0600,2200 bottle 09/30/18 Ondansetron [Zofran Odt] 4 mg PO Q8H 30 Days #90 tablet 09/30/18 Oxycodone [Oxyir] 5 mg PO Q4H PRN PRN #30 tab 09/30/18 Pantoprazole Sodium [Protonix] 40 mg PO DAILY #30 tablet 09/30/18 Polyethylene Glycol 3350 [Miralax] 17 gm PO DAILY #30 packet 09/30/18 Senna/Docusate Sodium [Senokot-S] 1 tablet PO BID #60 tablet 09/30/18 Following Prescrptions Were Given to Patient: Oxycodone [Oxyir] 5 mg PO Q4H PRN PRN #30 tab PRN Reason: Moderate Pain (4-5/10) Bisacodyl [Dulcolax] 10 mg PO DAILY PRN #30 tablet PRN Reason: Constipation Mirtazapine [Remeron] 15 mg PO QHS #30 tablet Ondansetron [Zofran Odt] 4 mg PO Q8H 30 Days #90 tablet Pantoprazole Sodium [Protonix] 40 mg PO DAILY #30 tablet Polyethylene Glycol 3350 [Miralax] 17 gm PO DAILY #30 packet Senna/Docusate Sodium [Senokot-S] 1 tablet PO BID #60 tablet Metoclopramide HCl [Reglan] 5 mg PO 4X/DAY #120 tablet Primary Care Physician: Jose Nugent DO [Primary Care Provider] - Please follow up with your Primary Care Physician in: 1 week. Please Follow Up With: PET Scan When: 2 weeks Please Follow Up With: Dr Lucero Please Follow Up With: blood work at cancer center Disposition: Home with Hospice Minutes spent on discharge:: 35 Patient Condition:: Poor Medical Necessity - Tobacco Use Smoking Status: Former smoker Tobacco Use: Non-smoker Meaningful Use Info Meaningful Use Diagnoses (Choose all that apply): None applicable
[2018-09-30] MEDS: Latanoprost 0.005% 1 Bottle 1 DRP EACH EYE (21:52)
[2018-09-30] MEDS: Mirtazapine 15 MG Tablet PO (21:52)
[2018-10-01] MEDS: Metoclopramide 10 MG/2 ML Vial 5 MG IV ×4 (00:32→18:09)
[2018-10-01] MEDS: 0.9% NaCl PICC Flush IV ×6 (00:33→21:07)
--- NOTE | 2018-10-01 06:38 | NURSING ---
flushed b/l bili drains per orders
[2018-10-01] MEDS: Menthol/Lanolin/Calamine/Znox 113 GM Tube 1 APPLIC TOPICAL ×2 (06:39→21:05)
[2018-10-01] MEDS: Enoxaparin 40 MG/0.4 ML Syringe SC (06:39)
[2018-10-01] MEDS: Senna/Docusate Sodium 1 Tablet PO ×2 (06:40→18:01)
[2018-10-01] MEDS: Nystatin Powder 15gm Bottle 1 APPLIC TOPICAL ×2 (06:40→21:04)
[2018-10-01] MEDS: Pantoprazole Sodium 40 MG Tablet PO (06:40)
[2018-10-01] MEDS: Ondansetron 4 MG/2 ML Vial IV ×3 (06:41→21:02)
[2018-10-01] MEDS: Multivitamins,Therapeutic Tablet 1 TABLET PO (08:54)
[2018-10-01] MEDS: Iron Polysaccharide Complex 150 MG CAPSULE PO (08:54)
[2018-10-01] MEDS: oxyCODONE 5 MG Tablet PO (08:54)
--- NOTE | 2018-10-01 09:15 | NURSING ---
Verified continuing current IVP order for both Reglan and Zofran or change to PO, Dr. Rivera wants to continue the current order and change to PO at discharge.
[2018-10-01 13:45] VITALS: PULSE 87; RESP 18; O2SAT 94
--- NOTE | 2018-10-01 14:39 | NURSING ---
hospice here to discuss care in the home
--- NOTE | 2018-10-01 15:40 | CASEMGMT ---
Social Work Resident signing papers with hospice services. Resident to discharge to home with hospice services. Hospice to set up all needed DME for resident and will follow with nursing needs. Spoke with resident in room, resident is agreeable to all above information. Resident family providing transportation home for resident at time of discharge. Support given. Proposed discharge date: 10/02/18 PLAN: Discharge to home alone with family and hospice services for support. Millicent Ramirez MSW, JOVI
[2018-10-01 16:00] VITALS: BP 142/87; PULSE 87; RESP 16; TEMP 36.8; O2SAT 96
[2018-10-01] MEDS: Bisacodyl 5 MG Tablet 10 MG PO (18:01)
--- NOTE | 2018-10-01 19:01 | NURSING ---
Unable to empty drains at this time, pt has visitors, passed on in report that drains need flushed and emptied.
[2018-10-01] MEDS: Latanoprost 0.005% 1 Bottle 1 DRP EACH EYE (21:00)
[2018-10-01] MEDS: Mirtazapine 15 MG Tablet PO (21:01)
--- NOTE | 2018-10-01 21:15 | NURSING ---
Bilateral Biliary drains flushed and emptied at this time. Output documented in I [facility] O[facility].
[2018-10-02] MEDS: Metoclopramide 10 MG/2 ML Vial 5 MG IV ×2 (01:13→05:23)
[2018-10-02] MEDS: 0.9% NaCl PICC Flush IV ×2 (01:16→05:21)
[2018-10-02] MEDS: Pantoprazole Sodium 40 MG Tablet PO (05:22)
[2018-10-02] MEDS: Enoxaparin 40 MG/0.4 ML Syringe SC (05:22)
[2018-10-02] MEDS: Senna/Docusate Sodium 1 Tablet PO (05:22)
[2018-10-02] MEDS: Nystatin Powder 15gm Bottle 1 APPLIC TOPICAL (05:23)
[2018-10-02] MEDS: Menthol/Lanolin/Calamine/Znox 113 GM Tube 1 APPLIC TOPICAL (05:23)
[2018-10-02] MEDS: Ondansetron 4 MG/2 ML Vial IV (05:23)
--- NOTE | 2018-10-02 05:37 | NURSING ---
Bilateral Biliary drains flushed and emptied at this time. Output documented in I [facility] O[facility].
[2018-10-02 07:17] LABS: Absolute Lymphocyte Count 0.94 X10^3/ul (0.83-4.51); Absolute Neutrophil Count 3.4 X10^3/uL (2.0-7.7); Basophil# 0.02 X10^3/uL; Basophil% 0.4 % (0-1); Eosinophil# 0.18 X10^3/uL; Eosinophils% 3.5 % (0-5); Hematocrit 33.2 % (37-47); Hemoglobin 10.7 g/dl (12.0-15.0); Lymphocyte # 0.94 X10^3/ul (4.0); Lymphocyte % 18.4 % (19-41); Mean Corp Hgb Conc 32.2 g/gl (32-36); Mean Corpuscular Volume 96.2 fL (81-99); Mean Platelet Vol. 9.4 fl (6.2-12.0); Monocyte# 0.55 X10^3/uL; Monocyte% 10.8 % (0-10); Neutrophil # 3.38 X10^3/uL (2.7-7.7); Neutrophil % 66.3 % (47-70); Platelet Count 362 K/mm3 (150-450); RBC Distribution Width CV 15.5 % (11.6-14.6); Red Blood Count 3.45 M/mm3 (4.2-5.4); White Blood Count 5.1 K/mm3 (4.4-11.0)
[2018-10-02 07:20] LABS: POSITIVE COUNT NO; POSITIVE DIFFERENTIAL NO; POSITIVE MORPHOLOGY NO
[2018-10-02 07:22] LABS: BUN 8 mg/dL (7-18); Creatinine, Serum 0.32 mg/dL (0.55-1.02); Glucose 86 mg/dL (74-106)
[2018-10-02 07:23] LABS: Anion Gap 6 (5-15); BUN/Creat Ratio 25.4 RATIO (10-20); Calcium,Total 7.2 mg/dL (8.5-10.1); Chloride 107 mmol/L (98-107); EST Glomerular Filtration Rate 216 mL/min (>60); Est Glom Filt Rate - Afr Amer 261 mL/min (>60); Potassium 3.6 mmol/L (3.5-5.1); Sodium Level 143 mmol/L (136-145)
[2018-10-02] MEDS: Multivitamins,Therapeutic Tablet 1 TABLET PO (09:49)
[2018-10-02] MEDS: Iron Polysaccharide Complex 150 MG CAPSULE PO (09:49)
[2018-10-02 10:49] VITALS: BP 124/66; PULSE 86; RESP 16; TEMP 37.1
--- NOTE | 2018-10-02 10:55 | NURSING ---
Report called to LIUDMILA Haney at [facility].
--- NOTE | 2018-10-04 14:05 | CASEMGMT ---
Insurance Notified insurance of resident discharge on 10/02/18 to home with family and hospice services. Auth#[id number] Millicent BLACK, JOVI
--- NOTE | 2018-10-13 08:17 | MDS.RN ---
Information for the mds was obtained from review of the clinical record, interview of resident, staff, and direct observation of resident's care.
== END 2018-10-02 10:56 | disposition hospice, home (50) | DRG 948 ==
PROVIDERS: Admitting Provider Family Medicine Geriatric Medicine; Family Provider Family Medicine; PCP Family Medicine; Referring Provider Family Medicine Geriatric Medicine; Visit Provider Family Medicine Geriatric Medicine
DX: R53.81 Other malaise (principal); C22.1 Intrahepatic bile duct carcinoma; N39.0 Urinary tract infection, site not specified; K83.09 Other cholangitis; C78.02 Secondary malignant neoplasm of left lung; C78.01 Secondary malignant neoplasm of right lung; K21.9 Gastro-esophageal reflux disease without esophagitis; E55.9 Vitamin D deficiency, unspecified; H40.9 Unspecified glaucoma; B96.20 Unspecified Escherichia coli [E. coli] as the cause of diseases classified elsewhere; Z87.891 Personal history of nicotine dependence; E53.8 Deficiency of other specified B group vitamins; B95.2 Enterococcus as the cause of diseases classified elsewhere; I10 Essential (primary) hypertension
CPT/HCPCS: 36415; 36569; 71045; 74018; 80048; 80076; 81001; 85025; 87040; 87070; 87075; 87076; 87077; 87086; 87186; 87205; 87633; 97110; 97116; 97161; 97166; 97530; 97535; 97802; J7050; J7120; A4216; J2405

== ENCOUNTER → 2018-10-21 15:18 | Outpatient (CLI) | payer MEDICARE, SELFPAY ==
[2018-10-21 14:27] VITALS: BMI 23.2
--- NOTE | 2018-10-21 15:25 | RAD_ITS ---
STUDY: X-RAY - ABDOMEN/PELVIS REASON FOR EXAM: Female, 77 years old. Biliary drain displacement. TECHNIQUE: Single AP view of the abdomen / pelvis. COMPARISON: Portable AP supine view of the abdomen and pelvis from 11/23/2018. FINDINGS: Mild increased elevation of the right diaphragm, etiology uncertain. No basilar pulmonary consolidation is evident. There is an unremarkable bowel gas pattern. There is no demonstrated free abdominal air. The right-sided percutaneous detail drain seen on previous study has since been removed. The left percutaneous biliary stent catheter as well as the internal common bile duct stent are unchanged. The visualized spleen and kidneys are grossly normal in size and morphology. There are calcified phleboliths in the pelvis. Stable calcifications projecting of the upper quadrants may be in the costal cartilages. There are also stable atherosclerotic calcifications of the abdominal aorta. There are stable multilevel degenerative changes and moderate levorotoscoliosis of the visualized lumbar spine. Compression fracture deformity of the L1 vertebra is stable. RAD/Abdomen Single View IMPRESSION: Interval removal of right percutaneous pigtail drain since prior study, otherwise stable x-ray examination of the abdomen and pelvis, as described. Electronically Signed: Taras Segundo MD at 15:35 EDT , Service support ,
== END ==
PROVIDERS: Family Provider Family Medicine; PCP Family Medicine; Referring Provider Surgery; Visit Provider Surgery
DX: T85.520A Displacement of bile duct prosthesis, initial encounter (principal)
CPT/HCPCS: 74018

== ENCOUNTER 2018-10-25 10:26 | Day surgery (SDC) | payer BC, MEDICARE, SELFPAY ==
[2018-10-21 14:27] VITALS: BMI 23.2
[2018-10-25] VITALS (8 sets, daily range): BP systolic 127–151; BP diastolic 75–84; PULSE 77–84; RESP 16; TEMP 36.6–36.8; O2SAT 97–100; BMI 23.3
[2018-10-25] MEDS: Bupiv/Epi 0.5% Mpf 30 ML Vial (12:04)
[2018-10-25] MEDS: Cefazolin 2 GM in 0.9% Normal Saline 100 ML IV (12:08)
--- NOTE | 2018-10-25 13:12 | PCM.OPRPT ---
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 Ultrasound was used to evaluate both IJs and the right IJ was selected. Next, using a needle, the right IJ was accessed and a guidewire was passed on into the superior vena cava under fluoroscopy guidance. A small incision was made over the puncture site and the dilator introducer was placed over the guidewire. Next this was capped and the pocket was made for the port. 1% lidocaine with epinephrine was injected in the proposed port site. An incision was made with scalpel. Electrocautery was used to make a pocket under the skin and subcutaneous tissue. Hemostasis was obtained. Next, the catheter was tunneled up to the neck incision site and placed through the introducer. The peel-away introducer was removed and the position of the catheter was confirmed on fluoroscopy. Next, the catheter was trimmed and attached to the port with the locking device. Interrupted 2-0 Vicryl sutures were used to anchor the port to the chest wall and then the port was placed inside the pocket. The pocket was then flushed with saline and the port irrigated with saline. There was good blood return and the port flushed easily. Next, heparin was injected into the port. The skin was closed with subcutaneous interrupted 3-0 Vicryl sutures and interrupted skin 3-0 nylon sutures. A single 3-0 Vicryl sutures placed under the skin at the neck incision site. Steri-Strips were placed as well as op sites. Patient tolerated procedure well, was taken to PACU in stable condition. Chest x-ray will be obtained. Grafts/Implants Used: 8 [employer] PowerPort - Admit VTE Documentation VTE Mechan Device Prophylaxis: SCD's
--- NOTE | 2018-10-25 13:15 | RAD_ITS ---
STUDY: X-RAY CHEST REASON FOR EXAM: Female, 77 years old. Line placement TECHNIQUE: Single AP portable view of the chest. COMPARISON: None. FINDINGS: MediPort is seen on the right side, the tip is at the cavoatrial junction is in good position. Multiple bilateral lung nodules are consistent with metastatic lesions. There is no demonstrated pleural abnormality. Normal size heart. Normal mediastinum and reina. Normal visualized pulmonary arteries. Normal visualized aortic arch and descending thoracic aorta. Normal visualized thoracic spine. Right shoulder arthroplasty in good alignment. There is no demonstrated abnormality of the visualized soft tissue structures of the upper abdomen. RAD/CXR for Line Placement IMPRESSION: MediPort is seen on the right side, the tip is at the cavoatrial junction is in good position. There is no evidence of pneumothorax. Electronically Signed: Magaly Crowley, at 14:32 EDT Tel , Service support ,
--- NOTE | 2018-10-25 13:15 | DCINST_ITS ---
Discharge Diet: No Restrictions - Pain medication may cause nausea. You should typically eat light foods as you take your pain medication. Discharge Activity: Return to Normal Activity, May Shower - with your bandage in place in 1-2 days after surgery. DO NOT SHOWER WHEN YOUR PORT IS ACCESSED. Call your doctor if your incision/area has: Continuous Slow Oozing, Sudden Increased Bleeding, Increased Pain/ Swelling, Increased Redness Call your doctor if you observe: Fever of 101 or Higher Remove Dressing in (days):: 3 - When you remove the bandage, leave the steri- strips intact until they fall off. Allergies/Adverse Reactions: Allergies No Known Allergies Allergy (Verified 10/21/18 14:26) Medications to take at Discharge Latanoprost 1 drp EACH EYE QHS 08/27/18 Multivitamin [Multiple Vitamins] 1 tab PO DAILY 08/27/18 Netarsudil Mesylate [Rhopressa] 1 drp EACH EYE QHS 09/16/18 Metoclopramide HCl [Reglan] 5 mg PO 4X/DAY #120 tab 09/30/18 Mineral Oil/Petrolatum,White [Eucerin] 1 applic TOPICAL QHS jar 09/30/18 Ondansetron [Zofran Odt] 4 mg PO Q8H 30 Days #90 tab 09/30/18 Oxycodone [Oxyir] 5 mg PO Q4H PRN PRN #30 tab 09/30/18 Pantoprazole Sodium [Protonix] 40 mg PO DAILY #30 tab 09/30/18 Senna/Docusate Sodium [Senokot-S] 1 tab PO BID #60 tab 09/30/18 Cyanocobalamin (Vitamin B-12) [Vitamin B-12] 6,000 mcg SL DAILY 10/25/18 Primary Care Physician: Jose Nugent DO [Primary Care Provider] - Test Results: Test results from this visit will be discussed in further detail at your follow- up appointment, if applicable. Please Follow Up With: Inderjit Goldstein MD When: Please call to schedule 7-10 day follow up appointment. [phone]
== END 2018-10-25 14:58 | disposition home or self-care (01) ==
LOC: SDC 10:27 → AC 10:31
PROVIDERS: Family Provider Family Medicine; PCP Family Medicine; Referring Provider Surgery; Visit Provider Surgery
PROC: (CPT 36561; principal; 2018-10-25 11:50)
DX: Z45.2 Encounter for adjustment and management of vascular access device (principal); C22.1 Intrahepatic bile duct carcinoma; I10 Essential (primary) hypertension; Z79.899 Other long term (current) drug therapy; Z87.891 Personal history of nicotine dependence
CPT/HCPCS: 00532; 36561; 71045; 77001; J7120; C1788

== ENCOUNTER 2018-10-29 02:12 | Emergency (ER) | payer MEDICARE, SELFPAY ==
[2018-10-27 10:15] VITALS: BMI 22.3
[2018-10-29 02:13] VITALS: BP 152/88; PULSE 90; RESP 18; TEMP 36.6; O2SAT 92; BMI 25.0
--- NOTE | 2018-10-29 02:35 | CT_ITS ---
HISTORY: ABD PAIN S/P LIVER DRAIN YESTERDAY, HX LIVER CA AND HTN TECHNIQUE: Helically acquired images were obtained of the abdomen and pelvis following IV contrast. A radiation dose optimization technique was used for this scan. IV Contrast dosage and agent: 100 cc Isovue-300 contrast. Oral contrast: None. COMPARISON: CT abdomen and pelvis 08/27/2018 FINDINGS: Lower thorax: Numerous bilateral metastatic nodules and these were also seen previously. No pericardial effusion. History of cholangiocarcinoma with marked intrahepatic biliary dilatation by previous CT. Interval placement of right and left transhepatic biliary stents which appear in appropriate position and extend into the duodenum. Previously seen biliary dilatation but not resolved but not resolved. Previous gallbladder distention is decreased. Right upper quadrant including subhepatic and pericholecystic small ascites. No soft tissue gas or abscess seen.. Normal spleen and pancreas. No pancreatic ductal dilatation. Right renal ptosis, unchanged. Previously seen right hydronephrosis shows near complete resolution. No hydronephrosis on the left. Incomplete rotation of the left kidney. Adrenal glands are not enlarged. Abdominal aorta is atherosclerotic and is normal in caliber. Patent IVC. No retroperitoneal lymph node enlargement. GI tract: Prominent constipation. Copious stool within the rectal ampulla. Rectal fecal impaction not excluded. Pelvis: Anteverted uterus which is normal in size. Normal urinary bladder. Bones: Marked lumbar levoscoliosis. Chronic compression deformity of the L1 vertebral. Lumbar spine advanced spondylosis. CT/Abdomen/Pelvis W IV Cont ONLY IMPRESSION: 1. Right and left transhepatic biliary catheters appear in good position and previously seen biliary dilatation is improved but not resolved. 2. Right upper quadrant small ascites including subhepatic and pericholecystic fluid. No abscess seen. 3. Numerous bilateral pulmonary metastases, unchanged. 4. Previously seen right hydronephrosis shows near complete resolution. 5. Prominent constipation and rectal fecal impaction is not excluded. Individualized dose optimization techniques were used for this CT. at [id number] Reported and signed by: Alli Dorsey MD Electronically Signed: Alli Dorsey, at 4:12 EDT Tel , Service support ,
[2018-10-29] MEDS: Ondansetron 4 MG/2 ML Vial IV (02:42)
[2018-10-29] MEDS: HYDROmorphone 1 MG/ML Syringe IV (02:42)
[2018-10-29 02:43] LABS: Absolute Lymphocyte Count 0.38 X10^3/ul (0.83-4.51); Absolute Neutrophil Count 6.5 X10^3/uL (2.0-7.7); Basophil# 0.01 X10^3/uL; Basophil% 0.1 % (0-1); Hematocrit 31.1 % (37-47); Hemoglobin 9.8 g/dl (12.0-15.0); Lymphocyte # 0.38 X10^3/ul (4.0); Lymphocyte % 5.5 % (19-41); Mean Corp Hgb Conc 31.5 g/gl (32-36); Mean Corpuscular Hgb 30.2 pg (27.0-32.0); Mean Platelet Vol. 8.9 fl (6.2-12.0); Monocyte# 0.07 X10^3/uL; Neutrophil # 6.47 X10^3/uL (2.7-7.7); Neutrophil % 93.1 % (47-70); Platelet Count 302 K/mm3 (150-450); RBC Distribution Width CV 14.7 % (11.6-14.6); RBC Distribution Width SD 48.6 fl (35.1-43.9); Red Blood Count 3.24 M/mm3 (4.2-5.4)
[2018-10-29 02:52] LABS: Differential Indicated SCAN CRITERIA MET; POSITIVE COUNT NO; POSITIVE DIFFERENTIAL YES; POSITIVE MORPHOLOGY NO
[2018-10-29 02:54] LABS: AST(SGOT) 69 U/L (15-37); Alanine Aminotransfer ALT/SGPT 54 U/L (13-56); Albumin, Serum 2.2 g/dL (3.2-5.0); Alkaline Phosphatase 810 U/L (45-117); Anion Gap 7 (5-15); BUN 12 mg/dL (7-18); BUN/Creat Ratio 26.8 RATIO (10-20); Bilirubin, Direct 1.64 mg/dL (0.00-0.30); Calcium,Total 7.4 mg/dL (8.5-10.1); Chloride 101 mmol/L (98-107); Creatinine, Serum 0.45 mg/dL (0.55-1.02); EST Glomerular Filtration Rate 144 mL/min (>60); Est Glom Filt Rate - Afr Amer 174 mL/min (>60); Estimated Creatinine Clearance 34.99 ml/min; Globulin 4.4 g/dL (2.2-4.2); Glucose 168 mg/dL (74-106); Lipase 89 U/L (73-393); Potassium 3.2 mmol/L (3.5-5.1); Protein, Total 6.6 g/dL (6.4-8.2); Sodium Level 137 mmol/L (136-145)
[2018-10-29 04:12] VITALS: BP 147/93; PULSE 105; RESP 16; O2SAT 96
--- NOTE | 2018-10-29 05:41 | ED.VISSUMM ---
- ER Visit Summary Date of Service: 10/29/18 Chief Complaint: Abdominal pain History of Present Illness: The patient is a 77 F who presents with abdominal pain. It is in the right upper quadrant. Severe. She has no associated nausea vomiting diarrhea fever. She does have a history of cholangiocarcinoma with metastases to lung and bone. She has biliary drains which were just changed recently. Her last chemo was 2 days ago. Denies fever. She denies vomiting. Physical Examination: Afebrile vitals are unremarkable Heart regular rate and rhythm Lungs clear Abdomen soft Drain sites are clean dry and intact. She is mildly distended. She has diffuse tenderness without guarding without rebound Test Results: Labs notable for potassium 3.2, glucose 168. Total bilirubin 1.9, direct bilirubin 1.64, alkaline phosphatase 810. Lipase normal. CT of the abdomen and pelvis shows right and left transhepatic biliary catheters in good position. There is a small amount of ascites in the right upper quadrant. There are stable bilateral pulmonary metastases and right hydronephrosis which is nearly resolved from prior imaging. Emergency Department Course and Treatment: Patient was treated with IV Dilaudid and Zofran. She had resolution of her pain but did transiently require oxygen by nasal cannula due to sedation. On reevaluation she is awake alert and maintaining stable oxygen saturations. She was advised to increase her oxycodone at home for now and to contact her oncologist. She understands to return for new or worsening symptoms. She is agreeable to this plan. I do suspect her pain is just related to postsurgical pain from her catheter changes. She does not have evidence of acute complication such as bleeding or infection. Treatment Plan: [] Disposition: Discharge Impression: Abdominal pain This note was generated with [employer] dictation software. It may contain incorrect words, spelling, and punctuation that were not noted in review of the chart prior to signing ED Disposition - Plan for ED Patient: Referrals: Jose Nugent DO [Primary Care Provider] -
--- NOTE | 2018-10-29 05:45 | ED.DCSUM_ITS ---
- ER Visit Summary Date of Service: 10/29/18 Chief Complaint: Abdominal pain History of Present Illness: The patient is a 77 F who presents with abdominal pain. It is in the right upper quadrant. Severe. She has no associated nausea vomiting diarrhea fever. She does have a history of cholangiocarcinoma with metastases to lung and bone. She has biliary drains which were just changed recently. Her last chemo was 2 days ago. Denies fever. She denies vomiting. Physical Examination: Afebrile vitals are unremarkable Heart regular rate and rhythm Lungs clear Abdomen soft Drain sites are clean dry and intact. She is mildly distended. She has diffuse tenderness without guarding without rebound Test Results: Labs notable for potassium 3.2, glucose 168. Total bilirubin 1.9, direct bilirubin 1.64, alkaline phosphatase 810. Lipase normal. CT of the abd omen and pelvis shows right and left transhepatic biliary catheters in good position. There is a small amount of ascites in the right upper quadrant. There are stable bilateral pulmonary metastases and right hydronephrosis which is nearly resolved from prior imaging. Emergency Department Course and Treatment: Patient was treated with IV Dilaudid and Zofran. She had resolution of her pain but did transiently require oxygen by nasal cannula due to sedation. On reevaluation she is awake alert and maintaining stable oxygen saturations. She was advised to increase her oxycodone at home for now and to contact her oncologist. She understands to return for new or worsening symptoms. She is agreeable to this plan. I do suspect her pain is just related to postsurgical pain from her catheter changes. She does not have evidence of acute complication such as bleeding or infection. Treatment Plan: [] Disposition: Discharge Impression: Abdominal pain This note was generated with [employer] dictation software. It may contain incorrect words, spelling, and punctuation that were not noted in review of the chart prior to signing ED Disposition - Plan for ED Patient: Referrals: Jose Nugent DO [Primary Care Provider] -
--- NOTE | 2018-10-29 05:45 | ED.DEP ---
ED Disposition - Plan for ED Patient: Instructions: ED Post Op Pain Referrals: Jose Nugent DO [Primary Care Provider] -
[2018-10-29 06:08] VITALS: RESP 16; O2SAT 95
== END 2018-10-29 06:09 | disposition home or self-care (01) ==
LOC: ED 02:37
PROVIDERS: Emergency Provider Emergency Medicine; Family Provider Family Medicine; PCP Family Medicine
DX: R10.11 Right upper quadrant pain (principal); C22.1 Intrahepatic bile duct carcinoma; C78.02 Secondary malignant neoplasm of left lung; C78.01 Secondary malignant neoplasm of right lung; C79.51 Secondary malignant neoplasm of bone; I10 Essential (primary) hypertension; Z79.899 Other long term (current) drug therapy
CPT/HCPCS: 74177; 80048; 80076; 83690; 85025; 96374; 96375; 99285; Q9967; A4216; J2405

== ENCOUNTER 2018-10-29 09:00 | Emergency (ER) | payer MEDICARE, SELFPAY ==
[2018-10-29] VITALS (9 sets, daily range): BP systolic 114–148; BP diastolic 70–88; PULSE 99–114; RESP 15–25; TEMP 36.8–37.3; O2SAT 91–100; BMI 25.0; BMI 23.0
--- NOTE | 2018-10-29 09:21 | RAD_ITS ---
STUDY: X-RAY CHEST REASON FOR EXAM: Female, 77 years old. Dyspnea TECHNIQUE: Single AP portable view of the chest. COMPARISON: 10/25/2018. FINDINGS: MediPort is seen on the right-sided tip is in the right atrium is in good position. Patchy airspace opacities are seen in the right lung upper lobe, right lower lobe and left lower lobe suggesting bilateral pneumonia. Multiple ill-defined bilateral lung nodules are noted consistent metastatic disease. There is no demonstrated pleural abnormality. Normal size heart. Normal mediastinum and reina. Normal visualized pulmonary arteries. Normal visualized aortic arch and descending thoracic aorta. Normal visualized thoracic spine. Right shoulder arthroplasty in good position. There is no demonstrated abnormality of the visualized soft tissue structures of the upper abdomen. RAD/Chest 1 View (Portable) IMPRESSION: Possible bilateral pneumonia. Electronically Signed: Magaly Crowley, at 10:43 EDT Tel , Service support ,
--- NOTE | 2018-10-29 09:26 | ED.DCSUM_ITS ---
- ER Visit Summary Date of Service: 10/29/18 Chief Complaint: Abdominal pain History of Present Illness: The patient is a 77 F with a history of cholangiocarcinoma and lung metastasis. Patient had drains replaced yesterday. They attempted to place a biliary stent, the tumor was blocking and a drain had to be replaced. This drains into the abdominal cavity. Patient had increased abdominal pain overnight and was seen in the emergency room at approximately 2 AM this morning. Labs and CT were obtained. CT revealed right and left biliary catheters to be in good position. Biliary dilatation was improved but not completely resolved. There is a small amount of right upper quadrant ascites noted. Numerous pulmonary metastases are noted. Patient was given Dilaudid in the emergency room with good improvement in her pain. After discharge to home she did take 2 tabs of oxycodone at 630 this morning. Family had called the oncologist this morning to see if she could be put on Dilaudid for pain control, but had not yet received a call back. Due to the patient's degree of pain they presented back to the emergency room. Physical Examination: Blood pressure is 146/87, temperature 98.2, heart rate 114, respiratory rate 20, pulse ox 91% on room air in triage. The time of my examination her pulse ox is 85% on room air. Patient is a cachectic appearing elderly female. She has mild jaundice. Heart is tachycardic. Lungs sounds are with rales bilaterally. Abdomen is soft tenderness in the right upper quadrant. She has mild abdominal distention. Test Results: CBC was normal white count with hemoglobin 9.6. Chemistry studies show potassium 3.0. Glucose is 129. LFTs show total bili of 2.5, direct bili 2.01, alk phos 787. AST is 63. These values are all consistent with her prior. CT scan from earlier this morning was reviewed. Portable chest x-ray today shows possible bilateral pneumonia. CTA of the chest shows no evidence of PE or pneumonia. There are N metastatic lesions in both lung arnold. There are metastatic lesions to T3 and T4 without pathologic fracture. Emergency Department Course and Treatment: Patient is given small doses of Dilaudid for pain control. Long discussion was had with patient and family regarding expectations. At this point they are interested in palliative care. Daughter states that last night her mom was stating that she did not want to do this anymore and thinks that she may be leaning toward going back to hospice care sooner rather than later. I spoke with Yenni Hightower, on-call for oncology. She states that the patient does have extensive disease. The current chemotherapy that she is undergoing is for palliative purposes only. I spoke with nurse for palliative care/hospice. They came and spoke with the patient and family. Patient wishes to undergo palliative care treatment, but does not want to go back on hospice and wants to continue chemotherapy. At this time the patient has received a total of 3 doses of Dilaudid on this ED visit. She was already seen earlier once a day. They are requesting admission for pain control and to find a pain regimen that will work. I will speak with the hospitalist. Treatment Plan: [] Disposition: Admit Impression: 1. Cholangiocarcinoma with lung and spine metastasis 2. Abdominal and lower chest pain. Addendum: Patient was discussed with hospitalist. Hospitalist presented to the emergency room and spent a significant amount of time talking with patient and family about options. At this time they prefer inpatient hospice care at the hospice house. Hospice door to door sales representative is back to the hospital to help facilitate this. This note was generated with [employer] dictation software. It may contain incorrect words, spelling, and punctuation that were not noted in review of the chart prior to signing ED Disposition - Plan for ED Patient:
[2018-10-29] MEDS: Ondansetron 4 MG/2 ML Vial IV ×2 (09:44→11:31)
[2018-10-29] MEDS: 0.9% Normal Saline 1,000 ML 15 ML IV (09:44)
[2018-10-29] MEDS: HYDROmorphone 0.5 MG/0.5 ML SYRINGE IV ×3 (09:44→14:40)
[2018-10-29 09:50] LABS: Absolute Lymphocyte Count 0.31 X10^3/ul (0.83-4.51); Absolute Neutrophil Count 8.4 X10^3/uL (2.0-7.7); Hematocrit 30.3 % (37-47); Hemoglobin 9.6 g/dl (12.0-15.0); Lymphocyte # 0.31 X10^3/ul (4.0); Lymphocyte % 3.5 % (19-41); Mean Corp Hgb Conc 31.7 g/gl (32-36); Mean Corpuscular Hgb 30.6 pg (27.0-32.0); Mean Corpuscular Volume 96.5 fL (81-99); Mean Platelet Vol. 8.5 fl (6.2-12.0); Monocyte# 0.07 X10^3/uL; Monocyte% 0.8 % (0-10); Neutrophil # 8.38 X10^3/uL (2.7-7.7); Neutrophil % 95.5 % (47-70); Platelet Count 289 K/mm3 (150-450); RBC Distribution Width CV 14.9 % (11.6-14.6); RBC Distribution Width SD 49.4 fl (35.1-43.9); Red Blood Count 3.14 M/mm3 (4.2-5.4); White Blood Count 8.8 K/mm3 (4.4-11.0)
[2018-10-29 09:51] LABS: Differential Indicated SCAN CRITERIA MET; POSITIVE COUNT NO; POSITIVE DIFFERENTIAL YES; POSITIVE MORPHOLOGY NO
[2018-10-29 09:56] LABS: AST(SGOT) 63 U/L (15-37); Alanine Aminotransfer ALT/SGPT 56 U/L (13-56); Albumin, Serum 2.2 g/dL (3.2-5.0); Alkaline Phosphatase 787 U/L (45-117); Anion Gap 5 (5-15); BUN 12 mg/dL (7-18); BUN/Creat Ratio 29.5 RATIO (10-20); Bilirubin, Direct 2.01 mg/dL (0.00-0.30); Calcium,Total 7.7 mg/dL (8.5-10.1); Chloride 98 mmol/L (98-107); Creatinine, Serum 0.41 mg/dL (0.55-1.02); EST Glomerular Filtration Rate 160 mL/min (>60); Est Glom Filt Rate - Afr Amer 194 mL/min (>60); Globulin 4.6 g/dL (2.2-4.2); Glucose 129 mg/dL (74-106); Lipase 63 U/L (73-393); Protein, Total 6.8 g/dL (6.4-8.2); Sodium Level 136 mmol/L (136-145)
--- NOTE | 2018-10-29 10:50 | CT_ITS ---
STUDY: CTA CHEST REASON FOR EXAM: Female, 77 years old. hypoxia. liver drain placed yesterday for liver cancer RADIATION DOSAGE (If Supplied By Facility): CTDIvol = ( 5.54 ) mGy, DLP = ( 186.70 ) mGycm TECHNIQUE: The examination was performed with the intravenous administration of Isovue 370 75 IV. Post-processing of the angiographic images was performed, with multiplanar reformation and 3D reconstruction. Individualized dose optimization techniques were used for this CT. COMPARISON: None. FINDINGS: Normal enhancement of the main pulmonary artery and right and left pulmonary arteries. Normal enhancement of the bilateral peripheral pulmonary arteries. There is no demonstrated pulmonary embolism. Normal thoracic aorta and visualized great vessels. There is no demonstrated aortic dissection. Normal heart and pericardium. Normal mediastinum. Normal hilar regions. Normal visualized trachea and bronchi. The lungs are well expanded. Innumerable metastatic lesions are seen in both lungs the largest measures approximately 1.2 cm. Normal pleura. Normal chest wall structures. Metastatic lesions are seen in the vertebral bodies of T3 and T4 was of the pathologic fractures. CT/CTA Chest W/WO Contrast IMPRESSION: No demonstrated pulmonary embolism or pneumonia. Innumerable metastatic lesions are seen in both lungs the largest measures approximately 1.2 cm. Metastatic lesions are seen in the vertebral bodies of T3 and T4 was of the pathologic fractures. Electronically Signed: Magaly Crowley, at 11:51 EDT Tel , Service support ,
--- NOTE | 2018-10-29 11:35 | CM.ED ---
Social Work Assessment Referral Date: 10/29/18 Date of Assessment: 10/29/18 Informant: SELF REFERRAL Reason for Consult: INITIAL ASSESSMENT, RESOURCES Information obtained from: PATIENT AND PATIENT'S DAUGHTER. Living Arrangements: PATIENT LIVES HOME ALONE IN A SINGLE STORY HOME WITH 2 STEPS TO ENTER. Employment/Financial: RETIRED/FAMILY DENY ANY FINANCIAL CONCERNS. Supports: PATIENT HAS GOOD SUPPORT FROM FAMILY AND NEIGHBORS Social/Family Stressors: UNCONTROLLED PAIN. PATIENT WITH HX OF CHOLANGIOCARCINOMA WITH PULMONARY METS. PATIENT CURRENTLY ON CHEMO. FAMILY STATES PT HAS BEEN TO ED X2 D/T PAIN. PATIENT HAD VOICED TO FAMILY I DON'T WANT TO DO THIS ANYMORE. FAMILY STATES UPON D/C FROM HOSPITAL BACK IN SEPTEMBER PT WAS D/C'ED WITH HOSPICE. FAMILY OPEN TO PALL CARE CONSULT. Mental Health History: FAMILY DENIES ANY HX OF MENTAL HEALTH Substance Abuse History: FAMILY DENIES ANY HX OF SUBSTANCE ABUSE. REPORT PT DOES DRINK ALCOHOL ON OCCASION. Interventions: SOCIAL SERVICE ASSESSMENT EMOTIONAL SUPPORT PROVIDED DISCUSSED PALL CARE AND HOSPICE. FAMILY OPEN TO PALL CARE CONSULT. Assessment: PATIENT IS A 77 Y/O FEMALE WHO PRESENTS TO ED WITH PAIN FROM DRAINS. PT WITH HX OF CA CURRENTLY RECEIVING CHEMO. PATIENT LIVES HOME ALONE IN A SINGLE STORY HOME WITH 2 STEPS TO ENTER. DME IN THE HOME CONSISTS OF WALKER, WHEELCHAIR, SHOWER CHAIR, AND GRAB BARS. FAMILY REPORTS PT WAS INDEPENDENT WITH AMBULATION UP UNTIL YESTERDAY. FAMILY ASSISTS WITH TRANSPORTATION AND MEALS. DISCUSSED NEEDS. EDUCATION PROVIDED ON PALL CARE AND HOSPICE. FAMILY STATES PT WAS ON HOSPICE PREVIOUSLY. FAMILY OPEN TO PALL CARE. DISCUSSED WITH DR. CHANG. DR. CHANG TO REVIEW AND DISCUSS CASE WITH ONCOLOGY. THIS WORKER TO REMAIN AVAILABLE FOR NEEDS AND SUPPORT. PLAN: TBD
--- NOTE | 2018-10-29 13:35 | ED.RN ---
DR. CHANG VERBAL ORDER TO DISCONTINUE SEPSIS SCREEN.
--- NOTE | 2018-10-29 14:45 | CM.ED ---
SOCIAL WORK NOTE DISCUSSED CASE WITH DR. CHANG. HOSPICE WAS IN AND MET WITH PATIENT AND FAMILY. PATIENT HAS DECIDED ON PALL CARE TO FOLLOW. YULIYA CONNOLLY, MACHINE SHOP APPRENTICE, PSYCHOLOGY TECH.
--- NOTE | 2018-10-29 14:52 | NURSING ---
DR CARLSON CALLED BACK
--- NOTE | 2018-10-29 15:13 | NURSING ---
MED SURG OBS KOTSONIS INTRACTABLE PAIN, CHOLANGIOCARCINOMA
--- NOTE | 2018-10-29 16:04 | NURSING ---
DR CARLSON TALKED TO HOSPICE. THEY ARE COMING BACK.
--- NOTE | 2018-10-29 16:42 | NURSING ---
[facility], HOSPICE, HERE
--- NOTE | 2018-10-29 16:52 | ED.DEP ---
ED Disposition - Plan for ED Patient: Disposition: Home or Assisted Living Instructions: ED Chronic Pain Management
--- NOTE | 2018-10-29 17:25 | ED.RN ---
THIS RN CALLED REPORT TO HOSPICE NURSE AT [phone]. NURSE REPORTS NO FURTHER QUESTIONS, REQUESTS IV LOCK TO BE LEFT IN PLACE ON DISCHARGE. PT TRANSFERRED TO HOSPICE VIA [facility].
== END 2018-10-29 17:27 | disposition skilled nursing facility (03) ==
LOC: ED 15:08 → MS3 15:34 → ED 16:54
PROVIDERS: Emergency Provider Emergency Medicine; Family Provider Family Medicine; PCP Family Medicine
DX: C22.1 Intrahepatic bile duct carcinoma (principal); C78.02 Secondary malignant neoplasm of left lung; C78.01 Secondary malignant neoplasm of right lung; C79.51 Secondary malignant neoplasm of bone; R10.11 Right upper quadrant pain; R07.9 Chest pain, unspecified; I10 Essential (primary) hypertension; Z79.891 Long term (current) use of opiate analgesic; Z79.899 Other long term (current) drug therapy; Z87.891 Personal history of nicotine dependence
CPT/HCPCS: 71045; 71275; 74177; 80048; 80076; 83690; 85025; 96374; 96375; 96376; 99283; 99285; J7030; Q9967; A4216; J2405